=== PATIENT | male | born 1960 | race Caucasian/White ===

== ENCOUNTER 2022-12-09 11:20 | Inpatient (IN) | payer BC, SELFPAY ==
[2022-12-09] VITALS (24 sets, daily range): BP systolic 120–130; BP diastolic 67–81; PULSE 93–118; RESP 18–33; TEMP 36.7–39.3; O2SAT 88–97; BMI 24.7; BMI 25.3
--- NOTE | 2022-12-09 11:44 | ECG_ITS ---
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
--- NOTE | 2022-12-09 11:44 | XR_ITS ---
The [address] [address] Patient Name: HIMANSHU ROSALES MRN: [id number] date: 1960 Sex: M Assigned Patient Location: ER Current Patient Location: ER Accession/Order Number: [id number] Exam Date: 12/09/2022 12:08 Report Date: 12/09/2022 12:21 At the request of: ARSEN KILLIAN Procedure: XR chest 1V EXAM: XR chest 1V HISTORY: SOB COMPARISON: None. TECHNIQUE: Single AP view of the chest. FINDINGS: Large airspace opacity in the left upper and mid lung field. No pleural effusion or pneumothorax. The cardiomediastinal silhouette is unremarkable. No acute osseous or soft tissue abnormality. XR/XR chest 1V IMPRESSION: 1. Large left upper pneumonia. Posttherapeutic radiographic follow-up is recommended. Electronically authenticated by: LANDON MOODY Date: 12/09/2022 12:21
--- NOTE | 2022-12-09 11:48 | ED_ITS ---
HPI - SOB/Dyspnea General Chief Complaint: Shortness of Breath/Dyspnea Stated Complaint: SOB/DIFFICULTY BREATHING Time Seen by Provider: 12/09/22 11:33 Source: patient Mode of arrival: Wheelchair History of Present Illness HPI Narrative: 62-year-old male presents for cough and shortness of breath. He's had this for a week and was noted to have a fever here at triage. He had been seen at an urgent care and was put on some steroids and some cough medicine and an inhaler. He states his steroids made him worse and he stopped them he doesn't want anymore. No hemoptysis or vomiting. Related Data Home Medications Medication Instructions Recorded Confirmed albuterol sulfate 90 mcg/actuation 2 puff inhalation Q4H PRN 12/09/22 12/09/22 aerosol inhaler shortness of breath or wheezing rytiwdeenrmsqyk-pdrtnbfbzhnjzkj-HD 10 ml PO Q6H PRN cold symptoms 12/09/22 12/09/22 2 mg-30 mg-10 mg/5 mL oral syrup methylprednisolone 4 mg tablets in 4 mg PO DAILY 12/09/22 12/09/22 a dose pack Allergies Allergy/AdvReac Type Severity Reaction Status Date / Time No Known Drug Allergies Allergy Verified 12/09/22 11:34 Review of Systems ROS Narrative A ten point review of systems is negative except as noted above. Exam Narrative Exam Narrative: Nurses note and vital signs reviewed and patient is not hypoxic. General: The patient appears to be in no acute respiratory distress Skin: Warm, dry, no pallor noted. There is no rash noted. Head: Normocephalic, atraumatic Eye: Normal conjunctiva, no drainage Ears, Nose, Mouth, and Throat: oral mucosa is moist. Nares patent. Cardiovascular: Regular Rate and Rhythm Respiratory: Patient with bilateral rhonchi Back: non-tender GI: soft and nontender Musculoskeletal: The patient has no evidence of calf tenderness, no pitting edema, symmetrical pulses noted bilaterally Neurological: A&O, normal speech, heart is here Psychiatric: Cooperative Constitutional Vital Signs, click to edit/add: Last Vital Signs Temp 100.1 F 12/09/22 11:25 Pulse 118 H 12/09/22 11:25 Resp 26 H 12/09/22 11:25 BP 130/81 12/09/22 11:25 Pulse Ox 95 12/09/22 11:39 O2 Del Method Room Air 12/09/22 11:39 Course Vital Signs Vital signs: Vital Signs Temperature 100.1 F 12/09/22 11:25 Pulse Rate 118 H 12/09/22 11:25 Respiratory Rate 26 H 12/09/22 11:25 Blood Pressure 130/81 12/09/22 11:25 Pulse Oximetry 94 L 12/09/22 11:25 Oxygen Delivery Method Room Air 12/09/22 11:25 Temperature 100.1 F 12/09/22 11:25 Pulse Rate 118 H 12/09/22 11:25 Respiratory Rate 26 H 12/09/22 11:25 Blood Pressure 130/81 12/09/22 11:25 Pulse Oximetry 95 12/09/22 11:39 Oxygen Delivery Method Room Air 12/09/22 11:39 MDM - SOB/Dyspnea MDM Narrative Medical decision making narrative: large infiltrate consistent with pneumonia is identified. Blood cultures are obtained and he was given IV antibiotic. He is being admitted. Findings are discussed with the patient and his . Differential Diagnosis Differential diagnosis: Likely congestive heart failure and community acquired pneumonia Lab Data Attestation: I reviewed the patient's lab results. Labs: Lab Results 12/09/22 12/09/22 Range/Units 11:57 11:58 WBC 7.7 (4.0-11.0) 10^3/uL RBC 4.67 L (4.70-6.10) 10^6/uL Hgb 15.3 (14.0-18.0) g/dL Hct 43.0 (42.0-54.0) % MCV 92.1 (80.0-94.0) fL MCH 32.8 (25.9-34.0) pg MCHC 35.6 H (29.9-35.2) g/dL RDW 13.3 (11.0-15.0) % Plt Count 285 (150-450) 10^3/uL MPV 10.0 (9.5-13.5) fL Neut % (Auto) 86.0 H (43.0-75.0) % Lymph % (Auto) 7.2 L (20.5-60.0) % [place] % (Auto) 4.7 (1.7-12.0) % Eos % (Auto) 0.4 L (0.9-7.0) % Baso % (Auto) 0.5 (0.2-2.0) % Neut # (Auto) 6.6 H (1.4-6.5) 10^3/uL Lymph # (Auto) 0.6 L (1.2-3.8) 10^3/uL [place] # (Auto) 0.4 (0.3-0.8) 10^3/uL Eos # (Auto) 0.0 (0.0-0.7) 10^3/uL Baso # (Auto) 0.0 (0.0-0.1) 10^3/uL Abs Immat Gran (auto) 0.09 H (0.00-0.03) 10^3/uL Imm/Tot Granulo (auto) 1.2 H (0.0-0.5) % Sodium 125 L (136-145) mmol/L Potassium 3.6 (3.5-5.1) mmol/L Chloride 91 L (98-107) mmol/L Carbon Dioxide 24.8 (21.0-32.0) mmol/L Anion Gap 12.8 BUN 14.0 (7.0-18.0) mg/dL Creatinine 0.92 (0.70-1.30) mg/dL Est GFR ( Amer) >60 (>=60) Est GFR (Non-Af Amer) >60 (>=60) BUN/Creatinine Ratio 15.2 Glucose 96 (74-106) mg/dL Calcium 8.3 L (8.5-10.1) mg/dL SARS-CoV-2 (PCR) Negative (NEGATIVE) Imaging Data Chest x-ray: Radiologist's impression: Procedure: XR chest 1V EXAM: XR chest 1V HISTORY: SOB COMPARISON: None. TECHNIQUE: Single AP view of the chest. FINDINGS: Large airspace opacity in the left upper and mid lung field. No pleural effusion or pneumothorax. The cardiomediastinal silhouette is unremarkable. No acute osseous or soft tissue abnormality. IMPRESSION: 1. Large left upper pneumonia. Posttherapeutic radiographic follow-up is recommended. Electronically authenticated by: LANDON MOODY Date: 12/09/2022 12:21 ECG Data Attestation: I personally reviewed and interpreted this ECG as follows: (EKG on my interpretation shows sinus rhythm with a rate of 105.) Discharge Plan Discharge Chief Complaint: Shortness of Breath/Dyspnea Clinical Impression: Pneumonia Patient Disposition: Admitted As Inpatient Time of Disposition Decision: 12:35 Condition: Good Prescriptions / Home Meds: No Action albuterol sulfate 90 mcg/actuation HFA aerosol inhaler 2 puff INHALATION Q4H PRN (Reason: shortness of breath or wheezing) xeykiidvdukhjqh-jetdmwdyd-OP 2-30-10 mg/5 mL syrup 10 ml PO Q6H PRN (Reason: cold symptoms) methylprednisolone 4 mg tablets,dose pack 4 mg PO DAILY Referrals: Physician,Non-Staff, MD [Primary Care Provider] - 1 week
[2022-12-09 12:08] LABS: Basophils Percent Auto 0.5 % (0.2-2.0); Eosinophils Percent Auto 0.4 % (0.9-7.0); Hemoglobin 15.3 g/dL (14.0-18.0); Immature Granulocytes Abs Auto 0.09 10^3/uL (0.00-0.03); Immature Granulocytes Pct Auto 1.2 % (0.0-0.5); Lymphocytes Absolute Auto 0.6 10^3/uL (1.2-3.8); Lymphocytes Percent Auto 7.2 % (20.5-60.0); Mean Corpuscular HGB Conc 35.6 g/dL (29.9-35.2); Mean Corpuscular Hemoglobin 32.8 pg (25.9-34.0); Mean Corpuscular Volume 92.1 fL (80.0-94.0); Monocytes Absolute Auto 0.4 10^3/uL (0.3-0.8); Monocytes Percent Auto 4.7 % (1.7-12.0); Neutrophils Absolute Auto 6.6 10^3/uL (1.4-6.5); Platelet Count 285 10^3/uL (150-450); Red Blood Count 4.67 10^6/uL (4.70-6.10); Red Cell Distribution Width 13.3 % (11.0-15.0); White Blood Count 7.7 10^3/uL (4.0-11.0)
[2022-12-09 12:17] LABS: Anion Gap 12.8; BUN Creatinine Ratio 15.2; Calcium 8.3 mg/dL (8.5-10.1); Carbon Dioxide 24.8 mmol/L (21.0-32.0); Chloride 91 mmol/L (98-107); Estimated GFR (African America >60 (>=60); Estimated GFR (Non-African Ame >60 (>=60); Glucose 96 mg/dL (74-106); Potassium 3.6 mmol/L (3.5-5.1); Sodium 125 mmol/L (136-145)
[2022-12-09 12:18] LABS: SARS-CoV-2 Ag NEGATIVE (NEGATIVE)
[2022-12-09] MEDS: ALBUTEROL SULFATE 2.5 MG/3 ML VIAL NEB IH (12:52)
[2022-12-09] MEDS: CEFTRIAXONE 1,000 MG in 0.9 % SODIUM CHLORIDE 50 ML 100 MG IV ×2 (12:59→16:16)
[2022-12-09 13:01] LABS: Lactate/Lactic Acid 1.1 mmol/L (0.4-2.0)
[2022-12-09] MEDS: ACETAMINOPHEN 325 MG TABLET 650 MG PO ×3 (13:03→21:06)
[2022-12-09] MEDS: AZITHROMYCIN 500 MG in 0.9 % SODIUM CHLORIDE 250 ML 250 MG IV (13:33)
[2022-12-09] MEDS: KETOROLAC TROMETHAMINE 30 MG/ML VIAL IVP ×2 (13:54→21:07)
--- NOTE | 2022-12-09 15:05 | CT_ITS ---
[address] [address] Patient Name: HIMANSHU ROSALES MRN: [id number] date: 1960 Sex: M Assigned Patient Location: MS Current Patient Location: Accession/Order Number: [id number] Exam Date: 12/09/2022 15:25 Report Date: 12/09/2022 15:58 At the request of: KEEGAN WANG Procedure: CT chest w con EXAM: CT chest w con; [id number] REASON FOR EXAM: L opacity, recent weight loss, heavy smoker TECHNIQUE: Helical CT images of the chest were obtained without contrast. Multiplanar reformats and maximum intensity projection images were generated at the scanner. Dose reduction technique used: Automated exposure control and/or adjustment of the mA and/or kV according to patient size and/or use of iterative reconstruction technique. COMPARISON: Same day chest x-ray. FINDINGS: Note: Compared with contrasted CT exams, noncontrast images are less sensitive for the detection of various types of soft tissue, solid organ, and vascular pathologies. Chest: Support devices: None. Visualized Thyroid: No nodules. Chest wall: Within normal limits. [place]/mediastinum/esophagus: No mass. Thoracic lymph nodes: Mild mediastinal and left hilar adenopathy. For example, AP window lymph node measuring 8 mm short axis (series 3 image 43). Heart and vasculature: -No pericardial effusion or aortic aneurysm. -Moderate coronary artery calcifications. Visualized portions of the upper abdomen: Within normal limits. Musculoskeletal: No acute abnormality or suspicious osseous lesion. Lungs/airways: -Moderate consolidation with groundglass opacification of the left upper lobe with air bronchograms. -Minimal bibasilar atelectasis. -No significant emphysema. -The central airways are patent. Pleura: No pleural effusion or pneumothorax. CT/CT chest w con IMPRESSION: 1. Moderate left upper lobe consolidation. Appearance favors pneumonia, however, superimposed lung mass cannot be ruled out. Recommend follow-up noncontrast chest CT in 4-8 weeks for further evaluation. 2. Mild mediastinal and left hilar adenopathy, favored to be reactive, however, lymph node metastases cannot be ruled out. Electronically authenticated by: TYREE STOVALL Date: 12/09/2022 15:58
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
[2022-12-09 15:44] LABS: SARS-CoV-2 NAA NOT DETECTED (NOT DETECTE)
[2022-12-09] MEDS: 0.9 % SODIUM CHLORIDE 1,000 ML 125 ML IV (15:51)
[2022-12-09] MEDS: NICOTINE 21 MG PATCH TD (15:52)
[2022-12-09] MEDS: ENOXAPARIN SODIUM 40 MG/0.4 ML SYRINGE SUBQ (15:52)
[2022-12-09] MEDS: ALPRAZOLAM 0.25 MG TABLET PO (15:52)
[2022-12-09] MEDS: PANTOPRAZOLE SODIUM 40 MG VIAL IV (15:52)
[2022-12-09] MEDS: GUAIFENESIN 600 MG TAB.ER.12H PO (21:07)
[2022-12-09] MEDS: IPRATROPIUM/ALBUTEROL SULFATE 3 ML AMPUL.NEB IH (21:39)
[2022-12-10] VITALS (25 sets, daily range): BP systolic 96–139; BP diastolic 56–79; PULSE 87–106; RESP 18–26; TEMP 36.6–38.2; O2SAT 87–98
[2022-12-10] MEDS: 0.9 % SODIUM CHLORIDE 1,000 ML 125 ML IV ×3 (00:26→20:08)
[2022-12-10] MEDS: ACETAMINOPHEN 325 MG TABLET 650 MG PO ×3 (04:29→23:00)
--- NOTE | 2022-12-10 05:04 | RESP.RT ---
decreased down to 2L
[2022-12-10 05:34] LABS: Basophils Percent Auto 0.5 % (0.2-2.0); Eosinophils Percent Auto 0.5 % (0.9-7.0); Hematocrit 37.3 % (42.0-54.0); Hemoglobin 13.2 g/dL (14.0-18.0); Immature Granulocytes Abs Auto 0.05 10^3/uL (0.00-0.03); Immature Granulocytes Pct Auto 0.6 % (0.0-0.5); Lymphocytes Absolute Auto 0.8 10^3/uL (1.2-3.8); Lymphocytes Percent Auto 9.8 % (20.5-60.0); Mean Corpuscular HGB Conc 35.4 g/dL (29.9-35.2); Mean Corpuscular Hemoglobin 32.3 pg (25.9-34.0); Mean Corpuscular Volume 91.2 fL (80.0-94.0); Mean Platelet Volume 9.9 fL (9.5-13.5); Monocytes Absolute Auto 0.5 10^3/uL (0.3-0.8); Monocytes Percent Auto 6.4 % (1.7-12.0); Neutrophils Absolute Auto 6.7 10^3/uL (1.4-6.5); Neutrophils Percent Auto 82.2 % (43.0-75.0); Platelet Count 316 10^3/uL (150-450); Red Blood Count 4.09 10^6/uL (4.70-6.10); Red Cell Distribution Width 13.4 % (11.0-15.0); White Blood Count 8.1 10^3/uL (4.0-11.0)
[2022-12-10 06:20] LABS: Alanine Aminotransferase 84 U/L (16-63); Albumin Globulin Ratio 0.4; Albumin Level 1.8 g/dL (3.4-5.0); Alkaline Phosphatase 144 U/L (46-116); Anion Gap 11.9; Aspartate Amino Transferase 71 U/L (15-37); BUN Creatinine Ratio 13.1; Bilirubin Total 0.3 mg/dL (0.2-1.0); Calcium 7.7 mg/dL (8.5-10.1); Carbon Dioxide 24.3 mmol/L (21.0-32.0); Chloride 97 mmol/L (98-107); Estimated GFR (African America >60 (>=60); Estimated GFR (Non-African Ame >60 (>=60); Globulin 4.1 g/dL; Glucose 115 mg/dL (74-106); Potassium 3.2 mmol/L (3.5-5.1); Sodium 130 mmol/L (136-145); Total Protein 5.9 g/dL (6.4-8.2)
--- NOTE | 2022-12-10 08:16 | US_ITS ---
The [place] [id number] Patient Name: HIMANSHU ROSALES MRN: [id number] date: 1960 Sex: M Assigned Patient Location: MS Current Patient Location: MS Accession/Order Number: [id number] Exam Date: 12/10/2022 09:04 Report Date: 12/10/2022 09:31 At the request of: ALEXANDRE PEREZ Procedure: US right upper quadrant US right upper quadrant, 12/10/2022 9:04 AM EDT, [place]001 INDICATION: elevated LFT's COMPARISON: None available at the time of dictation. TECHNIQUE: Real time ultrasonic examination of the gallbladder was performed. Color Doppler imaging was also performed. FINDINGS: PANCREAS: No pancreatic mass or enlargement is noted in the images obtained. LIVER: The liver is normal in size. There are no focal lesions in the images obtained. There is normal echogenicity. There is hepatopetal flow in the portal vein. BILIARY SYSTEM: There is no evidence of calculi or gallbladder wall thickening. The common duct measures 2 mm. RIGHT KIDNEY: The kidney is normal in size. There is no hydronephrosis. US/US right upper quadrant IMPRESSION: Unremarkable right upper quadrant sonogram. Electronically authenticated by: DANIEL CARVAJAL Date: 12/10/2022 09:31
--- NOTE | 2022-12-10 08:17 | P.PN_ITS ---
Progress Note: Subjective Subjective Interval history: since admission yesterday patient says he's had an improvement in his cough. He still occasionally will get short of breath when moving just to the restroom. Patient is requiring oxygen but denies any chest pain. 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 Patient was awakened by nursing staff and the rhythm stopped. Patient denied having any shortness of breath or active chest p ain.patient was found to have a low potassium of 3.2 in which I gave 40 mEq at one time by mouth is also hypo-Nutri medic at 1:30, normal magnesium and normal thyroid that was ordered. Echocardiogram was also ordered and completed but awaiting read. No further episodes on telemetry. Only other complaint this morning was a headache by patient. Tried a dose of tramadol 50 mg ?1 given possible lung mass will also check a CT with of the head without contrast. is at bedside and notes that he has chronic headaches and takes Tylenol multiple times each day for his headaches. Exam Narrative Exam Narrative: General: Patient is alert, and oriented to person, place and time with normal affect, proper hygiene Skin: no visible rashes, or ulcers Head: atraumatic, acephalic Eyes: PERRLA, no nystagmus present, conjunctiva clear, no scleral icterus Neck: no masses palpated, normal thyroid, no JVD or audible carotid bruits Heart: Normal rate and rhythm, no murmurs/rubs/gallops Lungs: no audible wheezes, crackles and normal breath sounds all lung farley Abdomen: Normal audible bowel sounds, no distension, No palpable masses, no organomegaly, no rebound/guarding/ or rigidity Musculoskeletal: no swelling bilateral lower extremities Neuro: CN II-X grossly intact, normal sensation upper and lower extremities Constitutional Vital Signs, click to edit/add: Last Vital Signs Temp 98.3 F 12/10/22 05:56 Pulse 100 H 12/10/22 06:17 Resp 20 12/10/22 05:25 BP 102/65 12/10/22 05:25 Pulse Ox 97 12/10/22 06:17 O2 Del Method Nasal Cannula 12/10/22 05:04 O2 Flow Rate 2 12/10/22 05:25 Progress Note: Objective Labs Labs: Short CBC 12/09/22 12/10/22 Range/Units 11:57 04:57 WBC 7.7 8.1 (4.0-11.0) 10^3/uL Hgb 15.3 13.2 L (14.0-18.0) g/dL Hct 43.0 37.3 L (42.0-54.0) % Plt Count 285 316 (150-450) 10^3/uL BMP 12/09/22 12/10/22 11:57 04:57 Sodium 125 L 130 L Potassium 3.6 3.2 L Chloride 91 L 97 L Carbon Dioxide 24.8 24.3 BUN 14.0 11.0 Creatinine 0.92 0.84 Glucose 96 115 H Calcium 8.3 L 7.7 L Liver Function 12/10/22 Range/Units 04:57 Total Bilirubin 0.3 (0.2-1.0) mg/dL AST 71 H (15-37) U/L ALT 84 H (16-63) U/L Alkaline Phosphatase 144 H (46-116) U/L Albumin 1.8 L (3.4-5.0) g/dL Progress Note: A&P Assessment and Plan (1) Pneumonia: Assessment and Plan: chest x-ray consistent with a left upper lobe pneumonia, continue Zithromax 500 mg IV daily, Rocephin to 2 g IV daily. Olopatadine therapy and scheduled DuoNeb's every 6 hours. Titrate oxygen to maintain saturations greater than ninety percent. CT of the chest still shows probable infection but mass cannot be excluded with some hilar lymphadenopathy that appeears reactive from the pneumonia. Patient does have a long history of smoking but was febrile on admission will treat as infection until proven otherwise. Qualifiers: Laterality: left Lung location: upper lobe of lung Pneumonia type: due to unspecified organism Qualified Code(s): J18.9 - Pneumonia, unspecified organism (2) Acute respiratory failure with hypoxemia: Assessment and Plan: continue to treat pneumonia and monitor (3) Lung neoplasm: Assessment and Plan: still in differential and if opacity in the left upper lobe does not improve with antibiotics and treatment may require further imaging and outpatient workup (4) Chronic GERD: Assessment and Plan: continue IV Protonix (5) Tobacco use disorder, severe, dependence: Assessment and Plan: continue nicotine patch no desire to quit at this time (6) Headache: Assessment and Plan: acute vs chronic, try Tramadol for pain as needed, check CT of head without contrast (7) SVT (supraventricular tachycardia): Assessment and Plan: could be from hypokalemia, hyponatremia, replaced potassium and continue fluids, monitor on telemetry. (8) Elevated LFTs: Assessment and Plan: RUQ ultrasound was negative today. could be chronic tylenol use, history of drinking. (9) Hyponatremia: Assessment and Plan: continue IVF, monitor daily (10) Hypokalemia: Assessment and Plan: given 40mEQ once, recheck with morning labs Plan full code lovenox for DVT prophylaxis
--- NOTE | 2022-12-10 08:30 | PC.NURSE ---
RN was notified by ICU that patient was having vtach . Nurse noted a wide qrs complex on the monitor. RN went into patients room and on entrance patient was sleeping. RN gently tapped patient to wake him, he startled and then immediately came out of the arrhythmia. RN was on the phone with the clinical tech the whole time. Patient was alert and oriented as he woke. Was asymptomatic. Patient complained about people waking him up constantly. RN exited room and noah texted the physician to let her know of the episode. Also informed her that his potassium was 3.2. She placed orders in the computer.
--- NOTE | 2022-12-10 08:48 | CA_ITS ---
Patient: HIMANSHU ROSALES Exam Date: 12/10/2022 : 1960 Gender:M Ordering : ALEXANDRE PEREZ . Admission #: [id number] Family : SURESH RICHARD Order #: [id number] CLICK HERE TO VIEW EXAM ECHOCARDIOGRAM REPORT PROCEDURE: CA ECHO DOPPLER COMPLETE INDICATIONS: episode of wide tachycardia COMPARISON: None. DESCRIPTION: COMPLETE ECHOCARDIOGRAM Real-time transthoracic echocardiography with 2D, M-mode, spectral and color flow Doppler performed. QUALITY: Technical quality was good. LEFT VENTRICLE: Normal chamber size. Left ventricular wall thickness is normal. LV EF: Global left ventricular systolic function is normal. Calculated left ventricular ejection fraction is 65%. DIASTOLIC: Normal diastolic function. ATRIAL SEPTUM: Inadequately seen. LEFT ATRIUM: Normal chamber size. RIGHT ATRIUM: Normal chamber size. RIGHT VENTRICLE: Normal chamber size. Normal right ventricular systolic function. TRICUSPID VALVE: Normal mobility and thickness. No stenosis with trivial regurgitation. No evidence of pulmonary hypertension. RVSP 28mmHg MITRAL VALVE: Normal mobility and thickness. No evidence of mitral valve stenosis. There is no mitral annular calcification. Trivial mitral regurgitation. AORTIC VALVE: Normal trileaflet appearance. No visible sclerosis. Normal leaflet mobility. No evidence of aortic valve stenosis. Trivial aortic regurgitation. AORTIC ROOT: Normal diameter and appearance. PULMONIC VALVE: Normal thickness and mobility. No stenosis. No regurgitation. PERICARDIUM: No evidence of pericardial effusion. IVC: Collapses with inspirations. Normal size. CONCLUSION: 1. Global left ventricular systolic function is normal; visually estimated ejection fraction 60 to 65% 2. Normal diastolic function 3. The right ventricle is normal in size and systolic function 4. No significant valvular abnormalities Adult Echocardiography Procedure Report Left Ventricle LVEDD (3.7 - 5.6 cm): 4.86 cm LVESD (2.2 - 4.0 cm): 3.59 cm LVIVS thickness (0.6 - 1.2 cm): 0.96 cm LVPW thickness (0.5 - 1.0 cm): 0.93 cm e': 0.15 m/s E - e': 5.86 LVOT Max Gradient: 3.13 mm[Hg], 3.50 mm[Hg] LVOT Area (cm2): 0.91 m/s Peak Velocity (LVOT): 0.89 m/s, 0.94 m/s Mean Velocity (LVOT): 0.68 m/s LVOT Diameter 2.23 cm Left Ventricular Ejection Fraction: 65.34 % Left Atrium LA Volume Index (2D A2C): 32.00 ml/m2 Left Atrium Systolic Dimension: 3.37 cm Mitral Valve MV E to A Ratio: 1.02 Mitral Valve A-Wave Peak Velocity: 0.86 m/s Mitral Valve E-Wave Peak Velocity: 0.87 m/s Right Ventricle RV Internal Diastolic Dimension: 3.31 cm Aorta AO Root Diam: 2.85 cm Ascending Ao Diam: 2.70 cm Aortic Valve AoV Area (Peak Angel Luis): 2.31 cm2, 2.93 cm2, 2.17 cm2 AoV Area (VTI): 2.26 cm2, 3.01 cm2, 2.09 cm2 Peak Velocity(Antegrade Flow): 1.18 m/s, 1.68 m/s, 1.76 m/s Peak Gradient(Antegrade Flow): 5.58 mm[Hg], 11.35 mm[Hg], 12.35 mm[Hg] Mean Velocity(Antegrade Flow): 0.80 m/s, 1.19 m/s, 1.25 m/s Mean Gradient(Antegrade Flow): 2.99 mm[Hg], 6.47 mm[Hg], 7.04 mm[Hg] Velocity Time Integral: 22.48 cm, 31.34 cm, 34.53 cm Tricuspid Valve Peak Velocity (Regurgitant Flow): 2.00 m/s, 2.48 m/s Pulmonic Valve Mean Gradient: 2.39 mm[Hg], 2.75 mm[Hg] Mean Velocity: 0.72 m/s, 0.78 m/s Peak Velocity: 1.07 m/s Peak Gradient: 4.49 mm[Hg], 4.73 mm[Hg] Right Atrium Right Atrium Systolic Pressure: 69.32 ml, 69.32 ml Dictated by: Rivka Britton M.D. on 12/10/2022 at 16:16 Approved by: Rivka Britton M.D. on 12/10/2022 at 16:20
[2022-12-10 09:15] LABS: Magnesium 1.8 mg/dL (1.8-2.4)
[2022-12-10] MEDS: GUAIFENESIN 600 MG TAB.ER.12H PO ×2 (09:18→20:14)
[2022-12-10] MEDS: POTASSIUM CHLORIDE 10 MEQ ER TABLET 40 MEQ PO (09:18)
--- NOTE | 2022-12-10 09:41 | CM.NOTE ---
Rounds made with Dr. Larson, discussed with pt plan of care and testing for today. No discharge today.
[2022-12-10] MEDS: TRAMADOL HCL 50 MG TABLET PO ×2 (10:57→23:00)
--- NOTE | 2022-12-10 12:44 | CT_ITS ---
[address] [address] Patient Name: HIMANSHU ROSALES MRN: [id number] date: 1960 Sex: M Assigned Patient Location: [place] Current Patient Location: [place] Accession/Order Number: [id number] Exam Date: 12/10/2022 13:00 Report Date: 12/10/2022 13:55 At the request of: ALEXANDRE PEREZ Procedure: CT stroke head/brain wo con EXAM: CT stroke head/brain wo con HISTORY: Headache, smoker, possible lung mass. COMPARISON: None. TECHNIQUE: Unenhanced transaxial tomographic sections obtained from the vertex through the posterior fossa. Dose reduction techniques were achieved by using automated exposure control and/or adjustment of mA and/or kV according to patient size and/or use of iterative reconstruction technique. FINDINGS: Diminished attenuation right frontal lobe, likely related to encephalomalacia from prior vascular insult. Microvascular ischemic changes of the bilateral frontal lobes. No midline shift, mass effect, or intracranial hemorrhage are identified. The mastoid air cells and the visualized paranasal sinuses are clear. CT/CT stroke head/brain wo con IMPRESSION: 1. Encephalomalacia involving the right frontal lobe, likely related to prior vascular insult. Chronic microvascular ischemic changes of the bilateral frontal lobes. 2. If there remains clinical concern for intracranial metastatic disease, dedicated MRI is recommended for further assessment. Electronically authenticated by: VITALY AGUILERA Date: 12/10/2022 13:55
[2022-12-10] MEDS: CEFTRIAXONE 2,000 MG in 0.9 % SODIUM CHLORIDE 100 ML 200 MG IV (14:28)
[2022-12-10] MEDS: ENOXAPARIN SODIUM 40 MG/0.4 ML SYRINGE SUBQ (16:06)
[2022-12-10] MEDS: NICOTINE 21 MG PATCH TD (16:06)
[2022-12-10] MEDS: AZITHROMYCIN 500 MG in 0.9 % SODIUM CHLORIDE 250 ML 250 MG IV (16:07)
[2022-12-10] MEDS: PANTOPRAZOLE SODIUM 40 MG VIAL IV (16:07)
[2022-12-10] MEDS: ALPRAZOLAM 0.25 MG TABLET PO ×2 (16:10→23:00)
--- NOTE | 2022-12-10 19:23 | RESP.RT ---
decreased down to 1L
[2022-12-10] MEDS: IPRATROPIUM/ALBUTEROL SULFATE 3 ML AMPUL.NEB IH (19:38)
[2022-12-11] VITALS (24 sets, daily range): BP systolic 104–135; BP diastolic 65–86; PULSE 76–110; RESP 18–20; TEMP 36.5–36.8; O2SAT 84–98; BMI 25.3
[2022-12-11] MEDS: 0.9 % SODIUM CHLORIDE 1,000 ML 125 ML IV (03:02)
[2022-12-11] MEDS: IPRATROPIUM/ALBUTEROL SULFATE 3 ML AMPUL.NEB IH ×4 (04:47→20:21)
--- NOTE | 2022-12-11 04:47 | RESP.RT ---
decreased down to 2L
[2022-12-11 05:12] LABS: Basophils Absolute Auto 0.1 10^3/uL (0.0-0.1); Basophils Percent Auto 0.7 % (0.2-2.0); Eosinophils Absolute Auto 0.3 10^3/uL (0.0-0.7); Eosinophils Percent Auto 3.9 % (0.9-7.0); Hematocrit 36.6 % (42.0-54.0); Hemoglobin 12.5 g/dL (14.0-18.0); Immature Granulocytes Abs Auto 0.04 10^3/uL (0.00-0.03); Immature Granulocytes Pct Auto 0.6 % (0.0-0.5); Lymphocytes Absolute Auto 1.2 10^3/uL (1.2-3.8); Mean Corpuscular HGB Conc 34.2 g/dL (29.9-35.2); Mean Corpuscular Hemoglobin 31.6 pg (25.9-34.0); Mean Corpuscular Volume 92.4 fL (80.0-94.0); Mean Platelet Volume 9.7 fL (9.5-13.5); Monocytes Absolute Auto 0.5 10^3/uL (0.3-0.8); Monocytes Percent Auto 7.6 % (1.7-12.0); Neutrophils Percent Auto 70.2 % (43.0-75.0); Platelet Count 371 10^3/uL (150-450); Red Blood Count 3.96 10^6/uL (4.70-6.10); Red Cell Distribution Width 13.9 % (11.0-15.0); White Blood Count 7.1 10^3/uL (4.0-11.0)
[2022-12-11 05:31] LABS: Alanine Aminotransferase 74 U/L (16-63); Albumin Level 1.8 g/dL (3.4-5.0); Alkaline Phosphatase 141 U/L (46-116); Aspartate Amino Transferase 60 U/L (15-37); BUN Creatinine Ratio 10.3; Bilirubin Total 0.2 mg/dL (0.2-1.0); Calcium 7.8 mg/dL (8.5-10.1); Carbon Dioxide 25.4 mmol/L (21.0-32.0); Chloride 103 mmol/L (98-107); Estimated GFR (African America >60 (>=60); Estimated GFR (Non-African Ame >60 (>=60); Glucose 125 mg/dL (74-106); Potassium 3.4 mmol/L (3.5-5.1); Sodium 138 mmol/L (136-145); Total Protein 5.8 g/dL (6.4-8.2)
[2022-12-11 05:32] LABS: Albumin Globulin Ratio 0.5
--- NOTE | 2022-12-11 06:00 | XR_ITS ---
The [address] [address] Patient Name: HIMANSHU ROSALES MRN: [id number] date: 1960 Sex: M Assigned Patient Location: [place] Current Patient Location: [place] Accession/Order Number: [id number] Exam Date: 12/11/2022 06:05 Report Date: 12/11/2022 06:55 At the request of: ALEXANDRE PEREZ Procedure: XR chest 1V EXAMINATION: XR chest 1V HISTORY: CAP ; pneumonia COMPARISON: XR chest 12/09/2022 FINDINGS: LUNGS: Dense opacification filling the upper left lung region and extending inferiorly along the lateral chest wall. Right lung is clear. VASCULATURE: No increased pulmonary vasculature. PLEURA: No pneumothorax, effusion, or pleural thickening. CARDIAC: No cardiomegaly or cardiac silhouette abnormality. MEDIASTINUM: No visible mass or adenopathy. BONES: No fracture or visible bone lesion. OTHER: Negative. XR/XR chest 1V IMPRESSION: 1. Marked infiltrates within left lung, suspected to represent pneumonia, which have increased slightly. Follow-up to document clearing and exclude neoplasm is recommended. Electronically authenticated by: SEAN GREGORY Date: 12/11/2022 06:55
--- NOTE | 2022-12-11 08:45 | PM.PN ---
Progress Note: Subjective Subjective Interval history: patient denies any overnight events. States that he rested well last night. Denies any fevers chills nausea vomiting. Still with cough that is dry but says it has improved. He also notes improvement in his shortness of breath. CT scan of head showed no acute processes, discussed liver and right upper quadrant ultrasound which all show did not show any acute processes. Patient says headache did improve yesterday. Overall does feel improved since admission. Exam Narrative Exam Narrative: General: Patient is alert, and oriented to person, place and time with normal affect, proper hygiene Skin: no visible rashes, or ulcers Head: atraumatic, acephalic Eyes: PERRLA, no nystagmus present, conjunctiva clear, no scleral icterus Ears: normal gross auditory acuity Nose: symmetric, no discharge, no maxillary or frontal sinus tenderness Mouth/Throat: no erythema, exudate, or tonsillar enlargement, normal dentition Neck: no masses palpated, normal thyroid, no JVD or audible carotid bruits Heart: Normal rate and rhythm, no murmurs/rubs/gallops Lungs: no audible wheezes, crackles and normal breath sounds all lung farley Abdomen: Normal audible bowel sounds, no distension, No palpable masses, no organomegaly, no rebound/guarding/ or rigidity Musculoskeletal: no swelling bilateral lower extremities Vascular: Normal carotid, radial, femoral, posterior tibial, and dorsalis pedis pulses Lymph: no supraclavicular, axillary, or anterior/posterior cervical adenopathy Neuro: CN II-X grossly intact, normal sensation upper and lower extremities Constitutional Vital Signs, click to edit/add: Last Vital Signs Temp 98.2 F 12/11/22 03:52 Pulse 81 12/11/22 08:00 Resp 18 12/11/22 05:01 BP 104/65 12/11/22 03:52 Pulse Ox 98 12/11/22 06:00 O2 Del Method Nasal Cannula 12/11/22 05:01 O2 Flow Rate 2 12/11/22 05:01 Progress Note: Objective Labs Labs: Short CBC 12/11/22 Range/Units 04:56 WBC 7.1 (4.0-11.0) 10^3/uL Hgb 12.5 L (14.0-18.0) g/dL Hct 36.6 L (42.0-54.0) % Plt Count 371 (150-450) 10^3/uL BMP 12/11/22 04:56 Sodium 138 Potassium 3.4 L Chloride 103 Carbon Dioxide 25.4 BUN 7.0 Creatinine 0.68 L Glucose 125 H Calcium 7.8 L Liver Function 12/11/22 Range/Units 04:56 Total Bilirubin 0.2 (0.2-1.0) mg/dL AST 60 H (15-37) U/L ALT 74 H (16-63) U/L Alkaline Phosphatase 141 H (46-116) U/L Albumin 1.8 L (3.4-5.0) g/dL Progress Note: A&P Assessment and Plan (1) Pneumonia: Assessment and Plan: chest x-ray consistent with a left upper lobe pneumonia, was taking Zithromax 500 mg IV daily, Rocephin to 2 g IV daily. OPEP therapy and scheduled DuoNeb's every 6 hours. Titrate oxygen to maintain saturations greater than ninety percent. CT of the chest still shows probable infection but mass cannot be excluded with some hilar lymphadenopathy that appears reactive from the pneumonia. Patient does have a long history of smoking but was febrile on admission will treat as infection until proven otherwise. repeat chest x-ray on exam today shows worsening right upper lobe pneumonia, patient symptomatically about the same still requiring oxygen. Stop Zithromax and Rocephin and will place on Zosyn 3.375 g IV every eight hoursand Levaquin 750 mg IV daily, no leukocytosis this morning Qualifiers: Laterality: left Lung location: upper lobe of lung Pneumonia type: due to unspecified organism Qualified Code(s): J18.9 - Pneumonia, unspecified organism (2) Acute respiratory failure with hypoxemia: Assessment and Plan: secondary to #1, still requiring oxygen to maintain saturations greater than ninety percent (3) Acute hyponatremia: Assessment and Plan: continue IVF, monitor daily, 138 (4) Lung neoplasm: Assessment and Plan: still in differential and if opacity in the left upper lobe does not improve with antibiotics and treatment may require further imaging and outpatient workup (5) Chronic GERD: Assessment and Plan: continue IV Protonix (6) Tobacco use disorder, severe, dependence: Assessment and Plan: continue nicotine patch no desire to quit at this time (7) Elevated LFTs: Assessment and Plan: normal RUQ ultrasound. (8) Hypokalemia: Assessment and Plan: 3.4 today up from 3.2 (9) Headache: Assessment and Plan: resolved with tylenol, normal CT of the head Plan full code lovenox for DVT prophylaxis
[2022-12-11] MEDS: METHYLPREDNISOLONE SOD SUCC PF 40 MG/ML VIAL IVP ×2 (08:59→17:04)
[2022-12-11] MEDS: GUAIFENESIN 600 MG TAB.ER.12H PO ×2 (08:59→20:33)
--- NOTE | 2022-12-11 10:28 | CM.NOTE ---
Rounds made with Dr. Larson. No plan for discharge today.
--- NOTE | 2022-12-11 11:10 | SWNOTE1 ---
SW checked therapy note and pt has no needs at discharge.
[2022-12-11] MEDS: LEVOFLOXACIN IN DEXTROSE 5 % 750 MG/150 ML IV.SOLN 100 MG IV (11:28)
--- NOTE | 2022-12-11 12:00 | PT.DAILY ---
Physical Therapy Daily Note PT Daily Note/Assess Start: 12/11/22 11:39 Freq: Status: Active Protocol: Document 12/11/22 11:39 [id number] (Rec: 12/11/22 11:59 [id number] [id number]) Physical Therapy Daily Note/Assessment Time In/Time Out Time In 09:30 Time Out 10:05 Pain In Pain N/A Pain Out Pain N/A Subjective Subjective Supine upon arrival. Agrees to PT. Wishes to take a shower - after consult with nursing, ENVIRONMENTAL PROTECTION INSPECTOR agrees to assist with shower if needed. Therapeutic Exercise Time Therapeutic Exercise Minutes (minutes) 5 Therapeutic Exercise Units 0 Therapeutic Activity Time Therapeutic Activity Minutes (minutes) 30 Therapeutic Activity Units 2 Therapeutic Activity Treatment Bed Mobility Ability Independent Chair Transfer Ability Independent Therapeutic Activity Comments Supine>sit IND with increased time to complete. Pt sits EOB unsupported while nursing unhooks IV and wraps his IV port. Pt amb without AD to restroom 20' without LOB. SHower is set up for him with towels, soap, wash cloths, comb, and toothbrush/tooth paste. Pt showers IND without issues. ABle to carol and doff underwear but does need assistance with gown changes. After shower pt amb halls without AD 300' with SUP. Stair training 4 steps x 2 without use of HR. Standing ther ex complete in room at sink 5-10x ea to improve strength - 1 UE support needed . Remains in BS chair upon completion with call light in reach and needs met. Total Physical Therapy Time Total Therapy Minutes 35 Total Physical Therapy Units 2 Summary Daily Note Summary Goals met. IND with shower and amb safely in [place] without AD .
[2022-12-11] MEDS: PIPERACILLIN SODIUM/TAZOBACTAM 3.375 GM in 0.9 % SODIUM CHLORIDE 50 ML IV ×2 (13:03→20:35)
[2022-12-11] MEDS: PANTOPRAZOLE SODIUM 40 MG VIAL IV (17:03)
[2022-12-11] MEDS: NICOTINE 21 MG PATCH TD (17:03)
[2022-12-11] MEDS: ALPRAZOLAM 0.25 MG TABLET PO (20:33)
[2022-12-12] VITALS (9 sets, daily range): BP systolic 131; BP diastolic 87; PULSE 64–105; RESP 20; TEMP 36.4; O2SAT 90–93
[2022-12-12] MEDS: METHYLPREDNISOLONE SOD SUCC PF 40 MG/ML VIAL IVP ×2 (00:54→09:43)
[2022-12-12 04:49] LABS: Basophils Percent Auto 0.2 % (0.2-2.0); Hematocrit 40.4 % (42.0-54.0); Hemoglobin 13.9 g/dL (14.0-18.0); Immature Granulocytes Abs Auto 0.07 10^3/uL (0.00-0.03); Immature Granulocytes Pct Auto 0.7 % (0.0-0.5); Lymphocytes Absolute Auto 0.6 10^3/uL (1.2-3.8); Lymphocytes Percent Auto 5.9 % (20.5-60.0); Mean Corpuscular HGB Conc 34.4 g/dL (29.9-35.2); Mean Corpuscular Volume 92.9 fL (80.0-94.0); Mean Platelet Volume 9.7 fL (9.5-13.5); Monocytes Absolute Auto 0.3 10^3/uL (0.3-0.8); Monocytes Percent Auto 2.5 % (1.7-12.0); Neutrophils Absolute Auto 9.3 10^3/uL (1.4-6.5); Neutrophils Percent Auto 90.7 % (43.0-75.0); Platelet Count 477 10^3/uL (150-450); Red Blood Count 4.35 10^6/uL (4.70-6.10); Red Cell Distribution Width 13.8 % (11.0-15.0); White Blood Count 10.2 10^3/uL (4.0-11.0)
[2022-12-12] MEDS: PIPERACILLIN SODIUM/TAZOBACTAM 3.375 GM in 0.9 % SODIUM CHLORIDE 50 ML IV (04:54)
[2022-12-12 05:11] LABS: Alanine Aminotransferase 84 U/L (16-63); Albumin Globulin Ratio 0.5; Albumin Level 2.1 g/dL (3.4-5.0); Alkaline Phosphatase 163 U/L (46-116); Anion Gap 14.4; Aspartate Amino Transferase 56 U/L (15-37); BUN Creatinine Ratio 15.4; Bilirubin Total 0.2 mg/dL (0.2-1.0); Calcium 8.7 mg/dL (8.5-10.1); Carbon Dioxide 24.1 mmol/L (21.0-32.0); Chloride 103 mmol/L (98-107); Estimated GFR (African America >60 (>=60); Estimated GFR (Non-African Ame >60 (>=60); Globulin 4.5 g/dL; Glucose 159 mg/dL (74-106); Potassium 3.5 mmol/L (3.5-5.1); Sodium 138 mmol/L (136-145); Total Protein 6.6 g/dL (6.4-8.2)
[2022-12-12] MEDS: GUAIFENESIN 600 MG TAB.ER.12H PO (09:43)
[2022-12-12] MEDS: TRAMADOL HCL 50 MG TABLET PO (09:43)
--- NOTE | 2022-12-12 11:48 | PM.DS1 ---
DS: Providers Provider Date of admission: 12/09/22 14:50 Primary care physician: Non-Staff PhysicianMD Consults: 12/10/22 Physical Therapy Eval and Treat Routine Reason for consultation: weakness Attending physician on discharge: Shaikh Alexa Discharging clinician: Shaikh Alexa Anticipated date of discharge: 12/12/22 DS: Diagnosis Discharge Diagnosis (1) Pneumonia: Assessment and plan: Will d/c on oral Levaquin x 7 days Qualifiers: Laterality: left Lung location: upper lobe of lung Pneumonia type: due to unspecified organism Qualified Code(s): J18.9 - Pneumonia, unspecified organism (2) Acute respiratory failure with hypoxemia: Assessment and plan: Resolved. On RA. (3) Acute hyponatremia: Assessment and plan: Resolved (4) Lung neoplasm: Assessment and plan: Suspect Lung neoplasm - needs outpatient CT chest to document resolution (5) Chronic GERD: Assessment and plan: Unchanged (6) Tobacco use disorder, severe, dependence: Assessment and plan: Educated on smoking cessation (7) Elevated LFTs: Assessment and plan: Minimal elevation. US Abd is unremarkable. Monitor as outpatient (8) Hypokalemia: Assessment and plan: Resolved. (9) Headache: Assessment and plan: No sig intracranial pathology noted. DS: Summary Hospital Course Hospital Course: Patient admitted for acute resp failure with hypoxia sec to Pneumonia with possibility of underlying lung mass. He was initially treated with IV rcoephin/Azithromycin but continued to have respiratory difficulty with worsening infiltrate on subsequent XR that prompted a change in abx regimen to Levaquin/Zosyn. Patient seen today, walking in [place] with no evidence of resp difficulty. He is maintaining his sat above 95% on RA and except for feeling weak overall, has no active complaints to offer Patient will be discharge home on Oral Levaquin. He was educated on smoking cessation. He was made an appt with a PCP and he has an appt next week with his new PCP. Patient will need outpatient CT chest 4-6 weeks to document resolution of his Pneumonia as there is a high suspicion of underlying lung mass in the background due to his weight loss and smoking. Time spent discussing smoking cessation with patient: more than 10 minutes Status at Discharge Functional status at discharge: independent ambulation Overall status at discharge: patient is back to baseline Time Spent with Patient Time attestation: Total time spent providing and/or coordinating discharge services: Time spent: greater than 30 minutes Exam Constitutional Vital Signs, click to edit/add: Last Vital Signs Temp 97.5 F L 12/12/22 05:24 Pulse 87 12/12/22 09:56 Resp 20 12/12/22 08:00 BP 131/87 12/12/22 05:24 Pulse Ox 93 L 12/12/22 11:40 O2 Del Method Room Air 12/12/22 11:40 O2 Flow Rate 2 12/12/22 05:24 Documenting provider has reviewed patient's vital signs: yes Common normals: no apparent distress and oriented x3 General appearance: cooperative HENMT Common normals: normocephalic and head/scalp atraumatic Head and scalp: normocephalic and atraumatic Eye Common normals: conjunctivae normal and no scleral icterus Conjunctiva: conjunctiva(e) normal Respiratory Common normals: normal respiratory effort and clear to auscultation bilaterally Effort & inspection: able to speak in complete sentences Auscultation: clear to auscultation bilaterally Cardio Common normals: regular rate, S1 normal heart sound and S2 normal heart sound Rate: regular rate Heart sounds: S1 normal and S2 normal GI Common normals: Normal to inspection, nondistended, normoactive bowel sounds present, soft to palpation, non-tender and no hepatosplenomegaly Palpation: soft and no hepatosplenomegaly Extremity Common normals: no clubbing, cyanosis or edema Neuro Common normals: oriented x3, moves all extremities and no focal motor deficits Psych Common normals: mental status grossly normal, denies hallucinations, denies homicidal ideation and denies suicidal ideation DS: Data Data Completed and Pending Labs on day of discharge: Labs from last 24 hours 12/12/22 04:15 WBC 10.2 RBC 4.35 L Hgb 13.9 L Hct 40.4 L MCV 92.9 MCH 32.0 MCHC 34.4 RDW 13.8 Plt Count 477 H MPV 9.7 Neut % (Auto) 90.7 H Lymph % (Auto) 5.9 L [place] % (Auto) 2.5 Eos % (Auto) 0.0 L Baso % (Auto) 0.2 Neut # (Auto) 9.3 H Lymph # (Auto) 0.6 L [place] # (Auto) 0.3 Eos # (Auto) 0.0 Baso # (Auto) 0.0 Abs Immat Gran (auto) 0.07 H Imm/Tot Granulo (auto) 0.7 H Sodium 138 Potassium 3.5 Chloride 103 Carbon Dioxide 24.1 Anion Gap 14.4 BUN 10.0 Creatinine 0.65 L Est GFR ( Amer) >60 Est GFR (Non-Af Amer) >60 BUN/Creatinine Ratio 15.4 Glucose 159 H Calcium 8.7 Total Bilirubin 0.2 AST 56 H ALT 84 H Alkaline Phosphatase 163 H Total Protein 6.6 Albumin 2.1 L Globulin 4.5 Albumin/Globulin Ratio 0.5 Preliminary micro results at discharge 12/09/22 12:51 - Preliminary Blood NO GROWTH AT 36-48 HOURS. FINAL TO FOLLOW. 12/09/22 12:38 Blood Culture Result 1 - Preliminary Blood NO GROWTH AT 36-48 HOURS. FINAL TO FOLLOW. Discharge Plan Discharge Disposition: Home, Self-Care Condition: Good Discharge Medications: New levofloxacin 750 mg tablet 750 mg PO DAILY 7 Days Qty: 7 0RF benzonatate 100 mg capsule 100 mg PO BID PRN (Reason: cough) Qty: 10 0RF Continued albuterol sulfate 90 mcg/actuation HFA aerosol inhaler 2 puff INHALATION Q4H PRN (Reason: shortness of breath or wheezing) Discontinued [id number] 2-30-10 mg/5 mL syrup 10 ml PO Q6H PRN (Reason: cold symptoms) Hold Instructions: Doctor's Order methylprednisolone 4 mg tablets,dose pack 4 mg PO DAILY Activity: resume usual activities as tolerated Diet: advance to your usual diet Forms: Portal Instructions Follow Up Appointments: Follow-up with Dr. Riley Aden at [facility] December 17 @ 11:00am. [phone]
--- NOTE | 2022-12-15 15:47 | CM.DCFOLLOWU ---
Person spoke with:patient How are you feeling? slowly improving, still pretty tired, o2 stats dipped down to 88%, but recovered once resting How is your pain? no pain Did you understand your discharge instructions? yes Do you have any questions about your discharge instructions? no Were you given any prescriptions at discharge? yes Were you able to get your prescriptions filled? yes Do you understand how to take your medications as ordered? yes Do you have any questions about your follow up appointment and do you plan to keep your follow up appointment? no questions, his picking up packet from Dr. Yo office to fill out Is there anything else that you would like to discuss? no, pt was advised to return to ED if o2 stats get worse and he is not able to recover Questions/Comments/Concerns/Other:
== END 2022-12-12 12:16 | disposition home or self-care (01) | DRG 193 ==
LOC: ER 12:35 → MS 14:54
PROVIDERS: Admitting Provider Family Medicine; Emergency Provider Emergency Medicine; Visit Provider Internal Medicine
DX: J18.9 Pneumonia, unspecified organism (principal); J96.01 Acute respiratory failure with hypoxia; E87.1 Hypo-osmolality and hyponatremia; I47.1 Supraventricular tachycardia; D49.1 Neoplasm of unspecified behavior of respiratory system; E87.6 Hypokalemia; R51.9 Headache, unspecified; R94.5 Abnormal results of liver function studies; R63.4 Abnormal weight loss; K21.9 Gastro-esophageal reflux disease without esophagitis; F17.210 Nicotine dependence, cigarettes, uncomplicated; Z68.25 Body mass index [BMI] 25.0-25.9, adult; Z79.899 Other long term (current) drug therapy; Z88.5 Allergy status to narcotic agent; Z87.828 Personal history of other (healed) physical injury and trauma
CPT/HCPCS: 36415; 70450; 71045; 71260; 76705; 80048; 80053; 83605; 83735; 84443; 85025; 87040; 87070; 87635; 87811; 93005; 93306; 94640; 94667; 94668; 94761; 96365; 96366; 96367; 96368; 96372; 96375; 96376; 97161; 97530; 99285; J0456; J2920; Q9967; U0003

== ENCOUNTER 2022-12-17 15:45 | Emergency (ER) | payer BC, SELFPAY ==
[2022-12-17] VITALS (13 sets, daily range): BP systolic 127; BP diastolic 98; PULSE 84–103; RESP 11–34; TEMP 36.4; O2SAT 95–100; BMI 24.2
--- NOTE | 2022-12-17 15:57 | XR_ITS ---
The [address] [address] Patient Name: HIMANSHU ROSALES MRN: [id number] date: 1960 Sex: M Assigned Patient Location: ER Current Patient Location: ER Accession/Order Number: [id number] Exam Date: 12/17/2022 16:10 Report Date: 12/17/2022 16:29 At the request of: ARSEN KILLIAN Procedure: XR chest 1V EXAMINATION: XR chest 1V HISTORY: Chest pain and shortness of breath COMPARISON: None. TECHNIQUE: Portable chest FINDINGS: The lung parenchyma is free of consolidation or infiltrate. No pneumothorax or pleural effusion. The cardiac, mediastinal and hilar contours are normal. The visualized osseous structures exhibit no gross abnormality. XR/XR chest 1V IMPRESSION: No acute cardiopulmonary abnormality. Electronically authenticated by: CATHI WATKINS Date: 12/17/2022 16:29
--- NOTE | 2022-12-17 15:57 | ECG_ITS ---
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
--- NOTE | 2022-12-17 16:16 | ECG_ITS ---
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
[2022-12-17 16:17] LABS: Basophils Absolute Auto 0.1 10^3/uL (0.0-0.1); Basophils Percent Auto 0.7 % (0.2-2.0); Eosinophils Absolute Auto 0.2 10^3/uL (0.0-0.7); Eosinophils Percent Auto 2.1 % (0.9-7.0); Hematocrit 46.1 % (42.0-54.0); Hemoglobin 15.5 g/dL (14.0-18.0); Immature Granulocytes Abs Auto 0.05 10^3/uL (0.00-0.03); Immature Granulocytes Pct Auto 0.6 % (0.0-0.5); Lymphocytes Percent Auto 23.3 % (20.5-60.0); Mean Corpuscular HGB Conc 33.6 g/dL (29.9-35.2); Mean Corpuscular Hemoglobin 31.8 pg (25.9-34.0); Mean Corpuscular Volume 94.7 fL (80.0-94.0); Mean Platelet Volume 8.9 fL (9.5-13.5); Monocytes Absolute Auto 0.8 10^3/uL (0.3-0.8); Monocytes Percent Auto 9.6 % (1.7-12.0); Neutrophils Absolute Auto 5.6 10^3/uL (1.4-6.5); Neutrophils Percent Auto 63.7 % (43.0-75.0); Platelet Count 648 10^3/uL (150-450); Red Blood Count 4.87 10^6/uL (4.70-6.10); Red Cell Distribution Width 13.5 % (11.0-15.0); White Blood Count 8.7 10^3/uL (4.0-11.0)
[2022-12-17 16:26] LABS: Anion Gap 8.7; BUN Creatinine Ratio 17.7; Calcium 8.7 mg/dL (8.5-10.1); Carbon Dioxide 27.5 mmol/L (21.0-32.0); Chloride 100 mmol/L (98-107); Estimated GFR (African America >60 (>=60); Estimated GFR (Non-African Ame >60 (>=60); Glucose 101 mg/dL (74-106); Potassium 4.2 mmol/L (3.5-5.1); Sodium 132 mmol/L (136-145)
[2022-12-17] MEDS: ASPIRIN 81 MG TAB.CHEW 324 MG PO (16:30)
[2022-12-17] MEDS: NITROGLYCERIN 0.4 MG BOTTLE PO (16:30)
[2022-12-17 16:38] LABS: D Dimer 1.11 mg/L FEU (<=0.59)
[2022-12-17 16:51] LABS: Troponin I High Sensitivity 8.8 pg/mL (4.0-76.1)
[2022-12-17] MEDS: HEPARIN SODIUM (PORCINE) 5,000 UNIT/ML VIAL 4000 UNIT IV (16:51)
[2022-12-17] MEDS: HEPARIN SODIUM,PORCINE/D5W 25,000 UNIT/500 ML IV.SOLN 18.398 UNIT IV (16:52)
[2022-12-17] MEDS: CLOPIDOGREL BISULFATE 75 MG TABLET 600 MG PO (17:03)
== END 2022-12-17 17:20 | disposition short-term general hospital (02) ==
PROVIDERS: Emergency Provider Emergency Medicine
DX: I21.4 Non-ST elevation (NSTEMI) myocardial infarction (principal); Z79.899 Other long term (current) drug therapy; K21.9 Gastro-esophageal reflux disease without esophagitis; F17.210 Nicotine dependence, cigarettes, uncomplicated; Z98.890 Other specified postprocedural states
CPT/HCPCS: 36415; 71045; 80048; 84484; 85025; 85378; 93005; 96374; 99285

== ENCOUNTER 2022-12-23 12:32 | Outpatient (OUT) | payer BC, SELFPAY ==
[2022-12-23 13:08] LABS: Anion Gap 11.6; BUN Creatinine Ratio 30.4; Calcium 9.6 mg/dL (8.5-10.1); Carbon Dioxide 27.8 mmol/L (21.0-32.0); Chloride 100 mmol/L (98-107); Estimated GFR (African America >60 (>=60); Estimated GFR (Non-African Ame >60 (>=60); Glucose 91 mg/dL (74-106); Potassium 4.4 mmol/L (3.5-5.1); Sodium 135 mmol/L (136-145)
== END 2022-12-23 12:33 | disposition home or self-care (01) ==
LOC: LAB 12:36
PROVIDERS: Visit Provider Nurse Practitioner
DX: I25.10 Atherosclerotic heart disease of native coronary artery without angina pectoris (principal)
CPT/HCPCS: 36415; 80048

== ENCOUNTER 2023-01-12 09:50 | Outpatient (OUT) | payer BC, SELFPAY ==
--- NOTE | 2023-01-12 10:42 | CA_ITS ---
Patient: HIMANSHU ROSALES Exam Date: 01/12/2023 : 1960 Gender:M Ordering : ISABELL ANSARI Admission #: [id number] Family : Order #: [id number] CLICK HERE TO VIEW EXAM ECHOCARDIOGRAM REPORT PROCEDURE: CA ECHO LIMITED INDICATIONS: Acute combined systolic and diastolic heart failure COMPARISON: None. DESCRIPTION: Limited ECHOCARDIOGRAM Real-time transthoracic echocardiography with 2D and M-mode performed. QUALITY: Technical quality was good. LEFT VENTRICLE: Normal chamber size. Normal left ventricular wall thickness. LV EF: Global left ventricular systolic function is normal. Calculated left ventricular ejection fraction is 63%. No significant wall motion abnormalities. ATRIAL SEPTUM: Inadequately seen. LEFT ATRIUM: Normal chamber size. RIGHT ATRIUM: Mild dilatation. RIGHT VENTRICLE: Normal chamber size. Normal right ventricular systolic function. TRICUSPID VALVE: Normal mobility and thickness. MITRAL VALVE: Normal mobility and thickness. AORTIC VALVE: Normal trileaflet appearance. No visible sclerosis. Normal leaflet mobility. AORTIC ROOT: Normal diameter and appearance. PULMONIC VALVE: Normal thickness and mobility. PERICARDIUM: No evidence of pericardial effusion. IVC: Collapses with inspirations. Normal size. CONCLUSION: 1. Global left ventricular systolic function is normal; visually estimated ejection fraction is 55 to 60% 2. The right ventricle is normal in size and systolic function. 3. The right atrium is enlarged A limited echocardiogram was performed Adult Echocardiography Procedure Report Left Ventricle LVEDD (3.7 - 5.6 cm): 4.44 cm LVESD (2.2 - 4.0 cm): 3.05 cm LVIVS thickness (0.6 - 1.2 cm): 1.02 cm LVPW thickness (0.5 - 1.0 cm): 1.00 cm LVOT Diameter 2.02 cm Left Ventricular Ejection Fraction: 63.09 % Left Atrium LA Volume Index (2D A2C): 27.17 ml/m2 Left Atrium Systolic Dimension: 3.54 cm Mitral Valve Right Ventricle RV Internal Diastolic Dimension: 3.13 cm Aorta AO Root Diam: 3.01 cm Ascending Ao Diam: 2.59 cm Aortic Valve Tricuspid Valve Pulmonic Valve Right Atrium Right Atrium Systolic Pressure: 44.62 ml, 44.62 ml Dictated by: Rivka Britton M.D. on 01/13/2023 at 09:16 Approved by: Rivka Britton M.D. on 01/13/2023 at 09:19
== END 2023-01-12 09:51 | disposition home or self-care (01) ==
LOC: CARD 09:50
PROVIDERS: Visit Provider Nurse Practitioner
DX: I50.41 Acute combined systolic (congestive) and diastolic (congestive) heart failure (principal)
CPT/HCPCS: 93308; 93356; 93797; 93798

== ENCOUNTER 2023-02-16 07:09 | Outpatient (RCR) | payer BC, SELFPAY ==
--- NOTE | 2023-01-13 07:30 | CR1_ITS ---
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
== END 2023-02-19 10:55 | disposition home or self-care (01) ==
LOC: CR 07:09
PROVIDERS: Visit Provider Nurse Practitioner
DX: Z95.5 Presence of coronary angioplasty implant and graft (principal)
CPT/HCPCS: 93797; 93798

== ENCOUNTER 2023-04-28 10:56 | Outpatient (OUT) | payer BC, SELFPAY ==
--- OUTSIDE RECORDS SUMMARY | 2023-04-28 11:07 | XMS_ITS | CCD ---
Author Name Unknown Address [address] [place] [address] Organization [facility] Care Team Providers Care Shutdown Coordinator Name Role Phone LEATHA, DR ECHEVERRIA Admitting Unavailable LEATHA, DR ECHEVERRIA Consulting Unavailable LEATHA, DR ECHEVERRIA Attending Unavailable REQUEST, DR DARRIN LISTED Primary Care Unavailedwina PAEZ, DR MOYA Consulting Unavailable JZAZ OVIEDO Consulting Unavailable Kary Marvin Unavailable Unavailable Primary Care Provider UnavailLIANE Johnson Primary Care UnavailCURT Araujo Attending Unavailable Cecilia Van Unavailable TALYA GARG Attending Unavailable TALYA GARG Admitting Unavailable GINETTE FORD Consulting Unavailable JESSE MOMIN Attending Unavailable BERNADINE CAMARENA Attending Unavailable ISABELL ANSARI Attending Unavailable TALYA GARG Referring Unavailable GINETTE FORD Referring Unavailable BALJINDER DONALDSON Referring Unavailable JESSE MOMIN Referring Unavailable Allergies Allergy Classification Reported Allergen(s) Allergy Type Date of Onset Reaction(s) Facility Opioid Agonists (1 source) Morphine Drug Allergy [facility] Repository (1 source) Morphine; Translations: [MORPHINE] Drug Allergy 1 [facility] Repository (1 source) ALLERGIES NOT ON FILE; Translations: [ALLERGIES NOT ON FILE] Propensity to adverse reactions (disorder) [facility] Repository Medications Current Medications Medication Drug Class(es) Dates Sig (Normalized) Sig (Original) [id number] 200 actuat albuterol 0.09 mg/actuat metered dose inhaler (1 source) beta2-Adrenergic Agonist Start: 3 take 2 puff(s) by inhalation every four hours as needed for wheezing Albuterol Sulfate HFA 108 (90 Base) MCG/ACT 2 puffs Inhalation every 4 hrs prn SOB, wheezing for 15 days Nov, Active atorvastatin 10 mg oral tablet (1 source) HMG-CoA Reductase Inhibitor Start: 8 take 1 tablet by mouth once daily atorvastatin (LIPITOR) 10 MG tablet Take 1 tablet by mouth daily 90 tablet 0 03/31/2017 Active brompheniramine maleate 0.4 mg/ml / dextromethorphan hydrobromide 2 mg/ml / pseudoephedrine hydrochloride 6 mg/ml oral solution (1 source) alpha-Adrenergic Agonist, Uncompetitive J-bljzii-I-asparta te Receptor Antagonist, Sigma-1 Agonist Start: 3 Hqeajmyqr-Omfvfqzn-CF 30-2-10 MG/5ML 10 ml Orally every 6 hours prn URI symptoms for 7 days Nov, Active methylPREDNISolone 4 mg oral tablet (1 source) Corticosteroid Start: 3 methylPREDNISolone 4 MG take half with breakfast, half with dinner Orally as directed for 6 days Nov, Active varenicline 0.5 mg oral tablet (1 source) Partial Cholinergic Nicotinic Agonist Start: 8 varenicline (CHANTIX STARTING MONTH ) 0.5 MG X 11 & 1 MG X 42 tablet Take by mouth. 1 each 0 03/31/2017 Active Completed/Discontinued Medications Medication Drug Class(es) Dates Sig (Normalized) Sig (Original) amoxicillin 875 mg / clavulanate 125 mg oral tablet (2 sources) Penicillin-class Antibacterial Start: 08-04-2021 take 1 tablet by mouth every twelve hours Amoxicillin-Pot Clavulanate 875-125 MG 1 tablet Orally every 12 hrs for 10 day(s) July, Not-Taking fluticasone propionate 0.05 mg/actuat metered dose nasal spray (2 sources) Corticosteroid Start: 08-04-2021 take 2 spray(s) nasal route once daily Fluticasone Propionate 50 MCG/ACT 2 sprays Nasally Once a day for 14 day(s) July, Not-Taking predniSONE 20 mg oral tablet (2 sources) Start: 08-04-2021 take 1 tablet by mouth every twelve hours predniSONE 20 MG 1 tablet Orally bid for 5 day(s) July, Not-Taking Problems Active Problems Problem Classification Problem Date Documented Date Episodic/Chronic Acute bronchitis (1 source) Acute bronchitis due to other specified organisms Episodic Acute myocardial infarction (2 sources) ST elevation (STEMI) myocardial infarction of unspecified site; Translations: [ST elevation (STEMI) myocardial infarction of unspecified site] Onset: 12-17-2022 Chronic Congestive heart failure; nonhypertensive (4 sources) Chronic systolic (congestive) heart failure; Translations: [Acute on chronic combined systolic (congestive) and diastolic (congestive) heart failure] Onset: 12-17-2022 Chronic Coronary atherosclerosis and other heart disease (4 sources) Atherosclerotic heart disease of hoh coronary artery without angina pectoris; Translations: [Old myocardial infarction] Onset: 01-14-2023 Chronic Disorders of lipid metabolism (2 sources) Mixed hyperlipidemia; Translations: [Mixed hyperlipidemia] Onset: 12-19-2022 Chronic Open wounds of extremities (2 sources) Laceration of left index finger; Translations: [Laceration without foreign body of left index finger without damage to nail, initial encounter] Onset: 06-23-2022 Episodic Other circulatory disease (3 sources) Other specified symptoms and signs involving the circulatory and respiratory systems; Translations: [OTH SPEC SX SIGNS INVLV CIRC RS] Onset: 09-01-2020 Episodic Other circulatory disease (2 sources) Other hypotension; Translations: [Other hypotension] Onset: 01-14-2023 Episodic Substance-related disorders (3 sources) Nicotine dependence, cigarettes, uncomplicated; Translations: [Nicotine dependence, unspecified, uncomplicated] Onset: 09-06-2020 Chronic Unclassified (1 source) OTHER ESOPHAGITIS WITHOUT BLEEDING; Translations: [OTHER ESOPHAGITIS WITHOUT BLEEDING] Onset: 09-06-2020 Unclassified (1 source) CONTACT W/AND (SUSP) EXPOS COVID-19; Translations: [CONTACT W/AND (SUSP) EXPOS COVID-19] Onset: 09-06-2020 Past or Other Problems Problem Classification Problem Date Documented Da te Episodic/Chronic Other screening for suspected conditions (not mental disorders or infectious disease) (1 source) Patient encounter status; Translations: [Encounter for screening for malignant neoplasm of colon] Onset: 12-11-2016 Resolved: 06-24-2017 06-24-2017 Episodic Other upper respiratory infections (1 source) Acute sinusitis, unspecified Onset: 08-04-2021 Resolved: 08-04-2021 Episodic Unclassified (1 source) Suspected COVID-19 virus infection Z20.822 Results Test Name Value Interpretation Reference Range Facility Office Visiton 01-25-2023 Follow-up visit [id number] Shan Franco 1960 M Date Provider Department Center 01/25/2023 3848-TALYA GARG CARD [facility] Family History Problem Relation Age of Onset Other Mother Family Status - Relation Status Age at Mother Level of Service:24899 [place] OFFICE/OUTPATIENT ESTABLISHED MOD MDM 30-39 MIN Normal [facility] Office Visiton 01-14-2023 Follow-up visit [id number] Shan Franco 1960 M Date Provider Department Center 01/14/2023 [id number]-[id number] CAMARENA CARD [facility] Family History Problem Relation Age of Onset Other Mother Family Status - Relation Status Age at Mother Level of Service:73504 [place] OFFICE/OUTPATIENT ESTABLISHED MOD MDM 30-39 MIN Normal [facility] Office Visiton 12-23-2022 Follow-up visit [id number] Shan Franco 1960 M Date Provider Department Center 12/23/2022 120-ISABELL ANSARI CARD [facility] Family History Problem Relation Age of Onset Other Mother Family Status - Relation Status Age at Mother Level of Service:16151 [place] TRANSJ CARE MGMT HIGH MDM F2F 7 MARJORIE D DISCHARGE Normal [facility] 30on 12-18-2022 30 The patient is Moderately Stable - Low risk of patient condition declining or worsening The patient's goals for the shift include rest/comfort The clinical goals for the shift include vss Problem: Pain - Adult Goal: Verbalizes/displays adequate comfort level or baseline comfort level Outcome: Progressing Problem: Safety - Adult Goal: Free from fall injury Outcome: Progressing Flowsheets (Taken 12/18/20221999) Free from fall injury: Assess patient frequently for physical needs Identify cognitive and physical deficits and behaviors that affect risk of falls [place] fall precautions as indicated by assessment Educate patient/family on patient safety, including physical limitations Instruct patient to call for assistance with activity based on assessment Modify environment to reduce risk of injury Consider OT/PT consult to assist with strengthening/mobility Problem: Discharge Planning Goal: Discharge to home or other facility with appropriate resources Outcome: Progressing Flowsheets (Taken 12/18/20221953) Discharge to home or other facility with appropriate resources: Identify barriers to discharge with patient and caregiver Arrange for needed discharge resources and transportation as appropriate Identify discharge learning needs (meds, wound care, etc) Refer to discharge planning if patient needs post-hospital services based on physician order or complex needs related to functional status, cognitive ability or social support system Problem: Chronic Conditions and Co-morbidities Goal: Patient's chronic conditions and co-morbidity symptoms are monitored and maintained or improved Outcome: Progressing Flowsheets (Taken 12/18/20221953) Care Plan - Patient's Chronic Conditions and Co-Morbidity Symptoms are Monitored and Maintained or Improved: Monitor and assess patient's chronic conditions and comorbid symptoms for stability, deterioration, or improvement Collaborate with multidisciplinary team to address chronic and comorbid conditions and prevent exacerbation or deterioration Update acute care plan with appropriate goals if chronic or comorbid symptoms are exacerbated and prevent overall improvement and discharge Normal [facility] 30 Daily Case Managemen t Update Multidisciplinary rounds have been completed. Barriers to Discharge: From [facility]. [facility] for urgent cardiac catheterization. Diet: Dietary Orders (From admission, onward) Start Ordered 12/18/22 1540 Dietary nutrition supplements Lunch; Boost Plus; Vanilla; Oral; 8 oz Until discontinued Question Answer Comment Deliver with Lunch Select supplement: Boost Plus Flavor Vanilla Route Oral Strength: 8 oz 12/18/22 1539 12/18/22 1540 Dietary nutrition supplements BID; Magic Cup; Vary Flavors; Oral; 4 oz Until discontinued Question Answer Comment Deliver with BID Select supplement: Magic Cup Flavors: Vary Flavors Route Oral Strength: 4 oz 12/18/22 1539 12/18/22 1135 Special Kitchen Request Once Comments: Please send him an oven broiled tilapia and teriyaki chicken w/ green beans. 12/18/22 1136 12/17/22 235 Regular Diet Heart Healthy/HTN, CABG,Stroke, (2gNA, low fat, low cholesterol) Diet effective now Question Answer Comment Room Service? Yes Fat restriction: Heart Healthy/HTN, CABG,Stroke, (2gNA, low fat, low cholesterol) 12/17/22 2355 Physician Expected Discharge Date: 12/19/2022 Discharge Delays: PT Six Click Score: OT Six Click Score: PT Recommendations: OT Recommendations: New Consults: Normal [facility] 30 The patient is Moderately Stable - Low risk of patient condition declining or worsening The patient's goals for the shift include Comfort The clinical goals for the shift include Cath Site Safety/VSS Normal [facility] 30 The patient is Moderately Stable - Low risk of patient condition declining or worsening The patient's goals for the shift include sleep The clinical goals for the shift include vss Problem: Pain - Adult Goal: Verbalizes/displays adequate comfort level or baseline comfort level Outcome: Progressing Problem: Safety - Adult Goal: Free from fall injury Outcome: Progressing Problem: Discharge Planning Goal: Discharge to home or other facility with appropriate resources Outcome: Progressing Problem: Chronic Conditions and Co-morbidities Goal: Patient's chronic conditions and co-morbidity symptoms are monitored and maintained or improved Outcome: Progressing Normal [facility] CBC WITH AUTO DIFFERENTIALon 12-17-2022 Basophils (Bld) [#/Vol] 0.04 10*3/uL Normal 0.00-0.20 [facility] Comment on above: Performed By: #### L [id number] ####[facility] (BEAKER)[address] [place] [address] Basophils/100 WBC (Bld) 0.5 % Normal 0.0-1.0 [facility] Comment on above: Performed By: #### L [id number] ####[facility] (BEAKER)[address] [place] [address] Eosinophils (Bld) [#/Vol] 0.15 10*3/uL Normal 0.00-0.50 [facility] Comment on above: Performed By: #### L [id number] ####[facility] (BEAKER)[address] [place] [address] Eosinophils/100 WBC (Bld) 1.8 % Normal 0.0-6.0 [facility] Comment on above: Performed By: #### L [id number] ####[facility] (BEAKER)[address] [place] [address] Erythrocyte distribution width (RBC) [Ratio] 13.7 % Normal 11.5-15.0 [facility] Comment on above: Performed By: #### L [id number] ####[facility] (BEAKER)[address] [place] [address] ERYTHROCYTE MEAN CORPUSCULAR HEMOGLOBIN CONCENTRATION (G/DL) BY AUTOMATED 34.9 g/dL Normal 32.0-35.0 [facility] Comment on above: Performed By: #### L [id number] ####[facility] ([facility])[address] [place] [address] Hematocrit (Bld) [Volume fraction] 45.6 % Normal 39.0-55.0 [facility] Comment on above: Performed By: #### L [id number] ####[facility] (BEAKER)[address] [place] [address] Hemoglobin (Bld) [Mass/Vol] 15.9 g/dL Normal 13.0-17.0 [facility] Comment on above: Performed By: #### L [id number] ####[facility] (BEAKER)[address] [place] [address] Immature granulocytes (Bld) [#/Vol] 0.05 10*3/uL Normal 0.00-0.20 [facility] Comment on above: Performed By: #### L [id number] ####[facility] (BEAKER)[address] [place] [address] Immature granulocytes/100 WBC (Bld) 0.6 % Normal 0.0-1.0 [facility] Comment on above: Performed By: #### L [id number] ####[facility] (BEAKER)[address] [place] [address] Lymphocytes (Bld) [#/Vol] 2.43 10*3/uL Normal 1.20-4.00 [facility] Comment on above: Performed By: #### L [id number] ####[facility] (BEAKER)[address] [place] [address] Lymphocytes/100 WBC (Bld) 29.6 % Normal 20.0-45.0 [facility] Comment on above: Performed By: #### L [id number] ####[facility] (BEAKER)[address] [place] [address] MCH (RBC) [Entitic mass] 32.1 pg Normal 27.0-33.0 [facility] Comment on above: Performed By: #### L [id number] ####[facility] ([facility])[address] [place] [address] MCV (RBC) [Entitic vol] 92.1 fL Normal 82.0-98.0 [facility] Comment on above: Performed By: #### L [id number] ####[facility] (BEAKER)[address] [place] [address] Monocytes (Bld) [#/Vol] 0.57 10*3/uL Normal 0.10-1.00 [facility] Comment on above: Performed By: #### L [id number] ####[facility] (BEAKER)[address] [place] [address] Monocytes/100 WBC (Bld) 6.9 % Normal 5.0-12.0 [facility] Comment on above: Performed By: #### L [id number] ####[facility] (BEAKER)[address] [place] [address] Neutrophils (Bld) [#/Vol] 4.97 10*3/uL Normal 1.60-7.60 [facility] Comment on above: Performed By: #### L [id number] ####[facility] (BEAKER)[address] [place] [address] Neutrophils/100 WBC (Bld) 60.6 % Normal 40.0-72.0 [facility] Comment on above: Performed By: #### L [id number] ####[facility] (BEAKER)[address] [place] [address] NRBC (PER 100 WBCS) BY AUTOMATED COUNT 0.0 % Normal 0 [facility] Comment on above: Performed By: #### L [id number] ####[facility] (BEAKER)[address] [place] [address] PLATELETS (10*3/UL) IN BLOOD AUTOMATED COUNT 659 10*3/uL High 150-400 [facility] Comment on above: Performed By: #### L [id number] ####[facility] ([facility])[address] [place] [address] RBC (Bld) [#/Vol] 4.95 10*6/uL Normal 4.20-5.70 [facility] Comment on above: Performed By: #### L [id number] ####[facility] ([facility])[address] [place] [address] WBC (Bld) [#/Vol] 8.21 10*3/uL Normal 4.00-10.60 [facility] Comment on above: Performed By: #### L [id number] ####[facility] ([facility])[address] [place] [address] COMPREHENSIVE METABOLIC PANE Dominick 12-17-2022 Albumin [Mass/Vol] 3.6 g/dL Normal 3.5-5.7 [facility] Comment on above: Performed By: #### L [id number] ####[facility] ([facility])[address] [place] [address] ALP [Catalytic activity/Vol] 122 U/L High 34-104 [facility] Comment on above: Performed By: #### L [id number] ####[facility] ([facility])[address] [place] [address] ALT [Catalytic activity/Vol] 63 U/L High 7-52 [facility] Comment on above: Performed By: #### L [id number] ####[facility] ([facility])[address] [place] [address] Anion gap [Moles/Vol] 13 mmol/L Normal 7-20 [facility] Comment on above: Performed By: #### L [id number] ####[facility] ([facility])[address] [place] [address] AST [Catalytic activity/Vol] 20 U/L Normal 13-39 [facility] Comment on above: Performed By: #### L [id number] ####[facility] ([facility])[address] [place] [address] Bilirubin [Mass/Vol] 0.6 mg/dL Normal 0.3-1.0 [facility] Comment on above: Performed By: #### L [id number] ####[facility] ([facility])[address] [place] [address] Calcium [Mass/Vol] 9.1 mg/dL Normal 8.6-10.3 [facility] Comment on above: Performed By: #### L [id number] ####[facility] ([facility])[address] [place] [address] Chloride [Moles/Vol] 101 mmol/L Normal 98-107 [facility] Comment on above: Performed By: #### L [id number] ####[facility] ([facility])[address] [place] [address] CO2 [Moles/Vol] 24 mmol/L Normal 21-31 [facility] Comment on above: Performed By: #### L [id number] ####[facility] ([facility])[address] [place] [address] Creatinine [Mass/Vol] 0.70 mg/dL Normal 0.70-1.30 [facility] Comment on above: Performed By: #### L [id number] ####[facility] ([facility])[address] [place] [address] GLOMERULAR FILTRATION RATE ML/MIN/1.73 SQ M.PREDICTED 104.8 mL/min/1.73m*2 Normal >60.0 [facility] Comment on above: Result Comment: The [facility]???s estimated glomerular filtration rate (eGFR) will no longer include consideration of race in its calculation. The National Kidney Foundation???s eGFR Task Force developed new recommendations for the estimation of the glomerular filtration rate in the [place] They recommend immediate implementation of the new equation refit without the race variable in all laboratories because the calculation does not include race. In addition to not including race in the calculation and reporting, it included diversity in its development, and has acceptable performance characteristics and potential consequences that do not disproportionately affect any one group of individuals. Performed By: #### L [id number] ####[facility] ([facility])[address] [place] [address] Glucose [Mass/Vol] 148 mg/dL High 70-100 [facility] Comment on above: Performed By: #### L [id number] ####[facility] ([facility])[address] [place] [address] Potassium [Moles/Vol] 3.8 mmol/L Normal 3.5-5.1 [facility] Comment on above: Performed By: #### L [id number] ####[facility] ([facility])[address] [place] [address] Protein [Mass/Vol] 6.5 g/dL Normal 6.0-8.3 [facility] Comment on above: Performed By: #### L [id number] ####[facility] ([facility])[address] [place] [address] Sodium [Moles/Vol] 134 mmol/L Low 136-145 [facility] Comment on above: Performed By: #### L [id number] ####[facility] ([facility])[address] [place] [address] Urea nitrogen [Mass/Vol] 16 mg/dL Normal 7-25 [facility] Comment on above: Performed By: #### L [id number] ####[facility] ([facility])[address] [place] [address] UREA NITROGEN/CREATININE (MASS RATIO) IN SER/PLAS 22.9 Normal [facility] Comment on above: Performed By: #### L [id number] ####[facility] ([facility])[address] [place] [address] CONSULTon 12-17-2022 CONSULT -- Attestation signed by Talya Garg MD at 12/21/2022 8:00 AM I saw and evaluated the patient, participating in the faulkner portions of the service. I reviewed the fellow???s note. I agree with the fellow???s findings and plan. I personally reviewed the plan of care with the patient and answered any questions. Patient verbalizes understanding and agreement. Patient was educated on red flag symptoms and strict return precautions were provided. Patient voices understanding. Talya Garg MD Cardiology Consult Note Reason for Consult: STEMI HPI: Shan Franco is a 62 y.o. male without any known medical history who originally presented with an inferolateral STEMI at [facility]. The patient was transferred to [facility] for urgent cardiac catheterization. Upon arrival the patient was taken directly to the cardiac catheterization lab and had a 90% occlusion of his distal LCx/LPDA which was successfully treated with drug-eluting stent. Cardiology ROS: GENERAL: Denies fever, chills, night sweats, weight loss. CARDIOVASCULAR: Endorses chest pain. Denies exertional dyspnea, orthopnea/PND, lower extremity edema, palpitations, lightheadedness/dizzin ess, syncope. RESPIRATORY: Denies SOB, coughing, wheezing GI: Denies abdominal pain, nausea/vomiting. PSYCH: Denies anxiety. Past Medical History He has no past medical history on file. Surgical History He has no past surgical history on file. Social History He has no history on file for tobacco use, alcohol use, and drug use. Family History No family history on file. Allergies Patient has no allergy information on record. Medications (Not in a hospital admission) Last Recorded Vitals Patient Vitals for the past 24 hrs: BP Pulse Resp SpO2 12/17/22 1926 124/80 80 18 98 % 12/17/22 1838 -- -- -- 100 % 12/17/22 1838 119/83 98 14 100 % Physical Examination: GENERAL: AOx3, in no acute distress. HEAD: Atraumatic, normocephalic. EYES: DENI, EOMI. NECK: No JVD present. CARDIAC: RRR. No murmur, rubs, or gallops. RESPIRATORY: CTAB, no increased effort of breathing. ABDOMEN: Soft, nontender, nondistended. EXTREMITIES: No lower extremity edema, peripheral pulses are 2+ bilaterally. NEURO: No focal deficits Relevant Lab Results No results found for this or any previous visit (from the past 4464 hour(s)). No results found for: CKTOTAL, CKMB, CKMBINDEX, TROPONINI No echocardiogram results found for the past 12 months No nuclear medicine results found for the past 12 months Relevant Imaging Results No image results found. Assessment: STEMI s/p KANDICE to distal LCX Tobacco use disorder, recently quit a week ago Acute Pneumonia Essential HTN Mixed HLD Plan: Shan Franco is a 62 y.o. male who presented to [facility] with chest pain and EKG concerns for acute STEMI in the inferior leads. He had ST elevations present in leads II, III, aVF and V6. He was urgently transferred to [facility] and will proceed with cardiac catheterization and was found to have a 90% occlusion of distal LCx/LPDA which was treated with a drug-eluting stent. The patient's chest pain improved after the procedure. He denied any significant chest pain after the procedure. We will start dual antiplatelet therapy with aspirin 81 mg and Plavix 25 mg. The patient was given 325 of aspirin prior to arrival at [facility] and was loaded with 600 mg of Plavix in the [place]. We will start the patient on atorvastatin 80 mg and Toprol 25 mg Echocardiogram tomorrow. Risk factor modification including smoking cessation is imperative. Felisa Meraz MD Specialist Employee Labor Relations - PGY5 [facility] EDPROVon 12-17-2022 EDPROV HPI No chief complaint on file. Patient presented from [place] with a ST elevation PA was having no pain now and she is awake and alert respiratory stable abdomen soft EKG from confirms some mild ST elevation in the inferior lateral No data recorded Patient History No past medical history on file. No past surgical history on file. No family history on file. Social History Tobacco Use ??? Smoking status: Not on file ??? Smokeless tobacco: Not on file Substance Use Topics ??? Alcohol use: Not on file ??? Drug use: Not on file Review of Systems Review of Systems Constitutional: Negative. HENT: Negative. Eyes: Negative. Respiratory: Negative. Cardiovascular: Negative. Gastrointestinal: Negative. Genitourinary: Negative. Physical Exam ED Triage Vitals Temp Pulse Resp BP -- -- -- -- SpO2 Temp src Heart Rate Source Patient Position -- -- -- -- BP Location FiO2 (%) -- -- Physical Exam Vitals reviewed. Constitutional: Appearance: Normal appearance. HENT: Head: Normocephalic and atraumatic. Nose: Nose normal. Mouth/Throat: Mouth: Mucous membranes are moist. Cardiovascular: Rate and Rhythm: Normal rate and regular rhythm. Pulmonary: Effort: Pulmonary effort is normal. Breath sounds: Normal breath sounds. Abdominal: General: Abdomen is flat. Palpations: Abdomen is soft. Musculoskeletal: Cervical back: Normal range of motion and neck supple. Neurological: Mental Status: He is alert. Procedures ED Course & MDM Diagnoses as of 12/17/221827 ST elevation myocardial infarction (STEMI), unspecified artery (CMS/HCC) Medical Decision Making patient is a ST elevation PA since we had the EKG to Team was already here we was handed off to cardiology and the Team. Attestion Ducbradford Arceo, 12/17/22 1828 Normal [facility] HEMOGLOBIN A1Con 12-17-2022 Glucose [Mass/Vol] 117 mg/dL Normal [facility] Comment on above: Performed By: #### L [id number] ####[facility] (BEAKER)[address] [place] [address] HbA1c (Bld) [Mass fraction] 5.7 % Normal 4.0-6.0 [facility] Comment on above: Performed By: #### L AB90 ####[facility] (BEAKER)[address] [place] [address] HPon 12-17-2022 HP History Of Present Illness Shan Franco is a 62 y.o. male transferred from [facility] following visit with intermittent chest pain anterior chest with radiation to arms and back workup revealing inferolateral STEMI once arrived at [facility] was taken to labor expediter where he underwent pci and KANDICE for 90% occlusion of distal Lcx/LPDA. Smoker denies h/o htn cad dm Pt seen post procedure has headache no other complians Past Medical History He has no past medical history on file. Surgical History He has no past surgical history on file. Social History He has no history on file for tobacco use, alcohol use, and drug use. Family History No family history on file. Allergies Patient has no allergy information on record. Medications (Not in a hospital admission) Review of Systems Constitutional: Negative. HENT: Negative. Eyes: Negative. Respiratory: Negative. Chest pain resolved Cardiovascular: Negative. Chest pain resolved Gastrointestinal: Negative. Endocrine: Negative. Genitourinary: Negative. Musculoskeletal: Negative. Neurological: Positive for headaches. Negative for dizziness, tremors, seizures, syncope, facial asymmetry, speech difficulty, weakness, light-headedness and numbness. Hematological: Negative. Psychiatric/Behavioral : Negative. Last Recorded Vitals Visit Vitals BP 119/81 Pulse 72 Resp 17 SpO2 100% Physical Exam Constitutional: Appearance: Normal appearance. He is normal weight. HENT: Head: Normocephalic and atraumatic. Right Ear: Tympanic membrane, ear canal and external ear normal. Left Ear: Tympanic membrane, ear canal and external ear normal. Nose: Nose normal. Mouth/Throat: Mouth: Mucous membranes are moist. Pharynx: Oropharynx is clear. Eyes: Extraocular Movements: Extraocular movements intact. Conjunctiva/sclera: Conjunctivae normal. Pupils: Pupils are equal, round, and reactive to light. Cardiovascular: Rate and Rhythm: Normal rate and regular rhythm. Pulmonary: Effort: Pulmonary effort is normal. Breath sounds: Normal breath sounds. Abdominal: General: Abdomen is flat. Bowel sounds are normal. Palpations: Abdomen is soft. Musculoskeletal: General: Normal range of motion. Cervical back: Normal range of motion and neck supple. Skin: General: Skin is warm and dry. Capillary Refill: Capillary refill takes less than 2 seconds. Neurological: General: No focal deficit present. Mental Status: He is alert and oriented to person, place, and time. Mental status is at baseline. Psychiatric: Mood and Affect: Mood normal. Behavior: Behavior normal. Thought Content: Thought content normal. Judgment: Judgment normal. Relevant Lab Results No results found for: NA, K, CL, CO2, BUN, CREATININE, GLUCOSE, CALCIUM, ANIONGAP, EGFR, BCR Labs ekg from [facility] reviewed Relevant Imaging Results ECG 12 lead Normal sinus rhythm Repolarization Normal ECG No previous ECGs available Assessment/Plan Principal Problem: ST elevation myocardial infarction (STEMI), unspecified artery (CMS/HCC) Cp s/p STEMI S/p PCI with stent on asa Plavix statin beta mena Continue telemetry repeat EKG am follow with cardiology counseled re tobacco cessation Gerd stable Tobacco dependence Offered nicotine replacement refuse it counseled re tobacco cessation Based on my medical assessment, after consideration of the patient???s risk factors (age, co-morbidities, patient presenting symptoms and acuity), it is determined that the services needed warrant inpatient care. Normal [facility] LIPID PANELon 12-17-2022 CHOL/HDL 6.4 mg/dL Normal [facility] Comment on above: Performed By: #### L [id number] ####[facility] (BEAKER)[address] [place] [address] Cholesterol [Mass/Vol] 192 mg/dL Normal 120-200 [facility] Comment on above: Performed By: #### L [id number] ####[facility] (BEAKER)[address] [place] [address] Magnesium [Mass/Vol] 277 mg/dL High 40-149 [facility] Comment on above: Result Comment: TRIG LYCERIDE REFERENCE RANGE: 20 YEARS AND OLDER CARDIOVASCULAR RISK LESS THAN 150 mg/dL LOW RISK 150 TO 199 mg/dL BORDERLINE RISK 200 mg/dL AND GREATER HIGH RISK Performed By: #### L [id number] ####[facility] (BEAKER)[address] [place] [address] Magnesium [Mass/Vol] 107 mg/dL Normal 0-160 [facility] Comment on above: Performed By: #### L [id number] ####[facility] (BEAKER)[address] [place] [address] Magnesium [Mass/Vol] 30 mg/dL Normal 23-92 [facility] Comment on above: Performed By: #### L AB18 ####[facility] (BEAKER)[address] [place] [address] NON HDL CHOL. (LDL+VLDL) 162 Normal [facility] Comment on above: Performed By: #### L [id number] ####[facility] (BEAKER)[address] [place] [address] TOTAL VLDL-C 55 mg/dL High 0-40 [facility] Comment on above: Performed By: #### L AB18 ####[facility] ([facility])[address] [place] [address] MAGNESIUMon 12-17-2022 Magnesium [Mass/Vol] 2.0 mg/dL Normal 1.9-2.7 [facility] Comment on above: Performed By: #### L [id number] ####[facility] ([facility])[address] [place] [address] NURSNOTEon 12-17-2022 NURSNOTE Report called to Leta cardenas RN miriam Josue RN Normal [facility] COVID/FLU RT-PCRon SARS-CoV-2 (COVID-19) RNA HERMILO+probe Ql (Unsp spec) Negative [facility] Other COVID/FLU RT-PCR Negative [facility] [employer] Other Covid-19 PCR (CVDTB)on 08-14 SARS-CoV-2 (COVID-19) RNA HERMILO+probe Ql (Unsp spec) Not detected Normal NOT DETECTED [facility] Comment on above: Result Comment: This test is not yet approved or cleared by the [place] FDA. When there are no FDA-approved or cleared tests available, and other criteria are met, FDA can make tests available under an emergency access mechanism called an Emergency Use Authorization (EUA). The EUA for this test is supported by the Customer Sales Consultant of Health and Human Service's (HHS's) declaration that circumstances exist to justify the emergency use of in vitro diagnostics for the detection and/or diagnosis of the virus that causes COVID-19. This EUA will remain in effect (meaning this test can be used) for the duration of the COVID-19 declaration justifying emergency of IVDs, unless it is terminated or revoked by FDA (after which the test may no longer be used). When diagnostic testing is negative, the possibility of a false negative should be considered in the context of a patient's recent exposures and the presence of clinical signs and symptoms consistent with SARS-CoV-2. Performed By: #### C VDTB #### [facility] [address] [place] [address] Celina Soto RAPID COVID-19 ANTIGENon EUA Statement SEE BELOW Normal [facility] Comment on above: Result Comment: This test has not been FDA cleared or approved, but has been authorized by the FDA under an Emergency Use Authorization (EUA) for use by authorized laboratories certified under CLIA that meet the requirements to perform moderate or high complexity testing. This test has been authorized only for the detection of proteins from SARS-CoV-2, not for any other viruses or pathogens. The emergency use of this test is authorized for the duration of the declaration that circumstances exist justifying the authorization of emergency use of in vitro diagnostic tests for detection and/or diagnosis of Covid-19 under section 564(b)(1) of the Act, 21 U.S.C. 360bbb-3(b)(1), unless the declaration is terminated or authorization is revoked sooner. Performed By: #### C VDAG #### [facility] [address] [place] [address] Celina Soto SARS-CoV-2 (COVID-19) RNA HERMILO+probe Ql (Unsp spec) Negative Normal NEGATIVE [facility] Comment on above: Result Comment: Nega tive results are presumptive. They do not preclude infection and should not be used as the sole basis for treatment decisions. Additional confirmatory testing by a molecular method should be considered. Performed By: #### C VDAG #### [facility] [address] [place] [address] Celina Soto COMPREHENSIVE METABOLIC PANE L WITH GFRon 03-25-2017 Alanine aminotransferase (ALT) 17 U/L Normal 5-59 [facility] Albumin 4.5 g/dL Normal 3.2-5.3 [facility] Comment on above: Result Comment: [facility] [employer] [address] [address]Laboratory Director: Ben Aguilar M.D.CLIA No. [id number] CAP Accreditation No. [id number] ALK PHOS 86 IU/L Normal 35-121 [facility] Anion gap 12 mmol/L Normal [facility] AST-SGOT 21 IU/L Normal 10-42 [facility] Bilirubin (direct) 0.6 mg/dL Normal 0.2-1.3 [facility] Calcium 9.8 mg/dL Normal 8.7-10.8 [facility] Chloride 102 mmol/L Normal 95-111 [facility] CO2 28 mmol/L Normal 21-32 [facility] Creatinine 0.9 mg/dL Normal 0.5-1.3 [facility] eGFR (black) 106 mL/min/{1.73_m2} Normal >60 [facility] eGFR (non-black) 88 mL/min/{1.73_m2} Normal >60 [facility] Comment on above: Result Comment: * ES TIMATED GFR (eGFR) IS CALCULATED FROM SERUM CREATININE AND OTHER VARIABLES AFFECTING ITS VALUE (AGE, RACE, AND SEX). * FOR PATIENT WITH ESTABLISHED CHRONIC KIDNEY DISEASE, THE CHART BELOW DEFINES STAGES WITH eGFR VALUES. Stage 1 90 mL/min/1.73 m2 or greater Stage 2 60-89 mL/min/1.73 m2 Stage 3 30-59 mL/min/1.73 m2 Stage 4 15-29 mL/min/1.73 m2 Stage 5 14 mL/min/1.73 m2 or less Glucose mass conc 90 mg/dL Normal 70-100 [facility] Comment on above: Result Comment: DIAG NOSTIC THRESHOLDS FOR DIABETES AND IMPAIRED FASTING GLUCOSE (IFG) FASTING PLASMA GLUCOSE NORMAL <100 mg/dL IFG 100-125 mg/dL DIABETES >/= 126 mg/dL Potassium molar conc 4.3 mmol/L Normal 3.5-5.4 [facility] Sodium 138 mmol/L Normal 134-147 [facility] T. PROTEIN 7.3 g/dl Normal 5.8-8.0 [facility] Urea nitrogen 13 mg/dL Normal 10-20 [facility] LIPID PANEL (INCLUDES CALCUL ATED LDL)on 03-25-2017 Cholesterol 255 mg/dL High <200 [facility] Cholesterol to HDL Ratio 4.5 {ratio} Normal <5 [facility] HDL-CHOL 57 mg/dl Normal 40-60 [facility] Comment on above: Result Comment: HDL <40 mg/dL IS A RISK FACTOR FOR CORONARY HEART DISEASE. HDL >60 mg/dL IS A NEGATIVE RISK FACTOR FOR CORONARY HEART DISEASE. LDL to HDL Ratio 2.8 Normal <3.5 [facility] LDL-CHOL, CALCULATED 159 mg/dL High <130 [facility] Comment on above: Result Comment: LDL CHOLESTEROL REFERENCE RANGE FOR 0-19 YEARS: DESIRABLE <110 mg/dL, BORDERLINE 110-129, HIGH RISK >130 LDL CHOLESTEROL REFERENCE RANGE FOR ADULTS: DESIRABLE <100 mg/dL, BORDERLINE 130-159, HIGH RISK >160REFERENCE RANGES REVISED 08/23/15 ACCORDING TO NCEP GUIDELINES Triglyceride 193 mg/dL High <150 [facility] VLDL-CHOL, CALCULATED 39 mg/dL High <30 [facility] Vital Signs Date Time Vital Sign Value Performing Clinician Facility 12-06-2022 09:30-0400 Body height 177.8 cm Cecilia Van Other [facility] Other 12-06-2022 09:30-0400 Body mass index (BMI) [Ratio] 25.37 kg/m2 Cecilia Van Other [facility] Other 12-06-2022 09:30-0400 Body temperature 97.5 [degF] Cecilia Van Other [facility] Other 12-06-2022 09:30-0400 Body weight 80.2 kg Cecilia Van Other [facility] Other 12-06-2022 09:30-0400 Diastolic blood pressure 75 mm[Hg] Cecilia Van Other [facility] Other 12-06-2022 09:30-0400 Respiratory rate 18 /min Cecilia Van Other [facility] Other 12-06-2022 09:30-0400 SaO2% (BldA) [Mass fraction] 97 % Cecilia Van Other [facility] Other 12-06-2022 09:30-0400 Systolic blood pressure 113 mm[Hg] Cecilia Van Other [facility] Other 06-23-2022 02:09-0400 Diastolic blood pressure 92 mm[Hg] Curt Lewis DO Work Phone: [employer] 06-23-2022 02:09-0400 Respiratory rate 18 /min Curt Lewis DO Work Phone: [employer] 06-23-2022 02:09-0400 Systolic blood pressure 142 mm[Hg] Curt Lewis DO Work Phone: [employer] 06-23-2022 02:06-0400 Body height 177.8 cm Curt Lewis DO Work Phone: [employer] 06-23-2022 02:06-0400 Body mass index (BMI) [Ratio] 26.54 kg/m2 Curt Lewis DO Work Phone: [employer] 06-23-2022 02:06-0400 Body temperature 98.8 [degF] Curt Lewis DO Work Phone: [employer] 06-23-2022 02:06-0400 Body weight 83.92 kg Curt Lewis DO Work Phone: [employer] 06-23-2022 02:06-0400 Heart rate 89 /min Curt Lewis DO Work Phone: [employer] 06-23-2022 02:06-0400 SaO2% (BldA) [Mass fraction] 98 % Curt Lewis DO Work Phone: [facility] 08-04-2021 12:00-0400 Body height 177.8 cm Kary Garciamond Other [facility] Other 08-04-2021 12:00-0400 Body mass index (BMI) [Ratio] 27.26 kg/m2 Kary Shavonne Other [facility] Other 08-04-2021 12:00-0400 Body temperature 96.9 [degF] Kary Shavonne Other [facility] Other 08-04-2021 12:00-0400 Body weight 86.18 kg Kary Garciamond Other [facility] Other 08-04-2021 12:00-0400 Respiratory rate 18 /min Kary Garciamond Other [facility] Other 08-04-2021 12:00-0400 SaO2% (BldA) [Mass fraction] 98 % Kary Garciamond Other [facility] Other Encounters Encounter Date Encounter Type Care Provider Facility Start: 01-25-2023 End: 01-25-2023 ambulatory MOHAMAD [facility] Start: 01-14-2023 End: 01-14-2023 ambulatory BERNADINE CAMARENA [facility] Start: 12-23-2022 End: 12-23-2022 ambulatory ISABELL ANSARI [facility] Start: 12-18-2022 Evaluation and management of inpatient BALJINDER DONALDSON [facility] Start: 12-18-2022 Evaluation and management of inpatient JESSE MOMIN [facility] Start: 12-17-2022 End: 12-19-2022 Evaluation and management of inpatient MOHAMAD ALGHOTHANI [facility] Start: 12-06-2022 End: 12-06-2022 ambulatory Cecilia Van Other [facility] Other Start: 12-06-2022 Office outpatient visit 15 minutes Cecilia Van [facility] Start: 06-23-2022 End: 06-23-2022 [facility]: 06-23-2022 End: 06-23-2022 Emergency department patient visit Curt Lewis DO Work Phone: [facility] ED Comment on above: Laceration of left i ndex finger without foreign body without damage to nail, initial encounter (Primary Dx) Start: 08-04-2021 End: 08-04-2021 ambulatory Kary Marvin Other [facility] [facility] [employer] Other Start: 08-04-2021 Office outpatient visit 15 minutes Kary Marvin [facility] Start: 09-01-2020 End: 09-01-[address] JACKI ZHANG Facility:[facility]1 Procedures Date Procedure Procedure Detail Performing Clinician Start: 01-11-2017 Colonoscopy Curt Ai bonilla DO Work Phone: Plan of Treatment Date Care Activity Detail Author Start: 06-23-2032 DTaP/Tdap/Td vaccine (3 - Td or Tdap) DTaP/Tdap/Td vaccine (3 - Td or Tdap) [facility] Start: 10-13-2022 Influenza vaccination Flu vacc ine (Season Ended) [facility] Start: 01-11-2022 Screening for malign ant neoplasm of colon [facility] Start: 03-23-2018 Lipid panel Lipids [facility] [employer] Start: 05-19-2011 Shingles vaccine (1 of 2) Shingles vaccine (1 of 2) [facility] Start: 2006 Screening for malign ant neoplasm of colon [facility] Start: 1996 Diabetes screen Diabetes screen [facility] [employer] Start: 1973 Depression Screen Depression Screen [facility] Start: 1960 COVID-19 Vaccine (#1) COVID-19 Vacci ne (#1) [facility] Immunizations Immunization Date Immunization Notes Care Provider Bhanu menezes 06-23-2022 tetanus toxoid, redu laura diphtheria toxoid, and acellular pertussis vaccine, adsorbed Curt Lewis DO Work Phone: [facility] [employer] 01-09-2017 influenza, injectabl e, quadrivalent, contains preservative Curt Lewis DO Work Phone: [facility] [employer] 12-20-2016 pneumococcal polysaccharide vaccine, 23 valent Curt Lewis DO Work Phone: [facility] 12-20-2016 tetanus toxoid, redu laura diphtheria toxoid, and acellular pertussis vaccine, adsorbed Curt Lewis DO Work Phone: [facility] [employer] Work Phone: Payers Date Payer Category Payer [facility] [id number] 2022 Unknown [id number] 1960 Unknown [id number] 1961 Unknown [id number] 1959 Self-pay [id number] [facility] [id number] Social History Date Type Detail Facility Sex Assigned At [place] [employer] Other Start: 12-02-2016 [facility] [employer] [employer] Pass Work Phone: History of tobacco use Cigarette Smoker B ON [employer] Phone: Start: 12-02-2016 End: 06-23-2022 Cigarettes smoked current (pack per day) - Reported 0.5 [employer] Phone: Start: 12-02-2016 Tobacco use and exposure Smokeless tobacco non-user [employer] Phone: Start: 06-23-2022 Alcohol intake Current drinke r of alcohol (finding) [employer] Phone: Start: 12-08-2016 Alcohol Comment 1-2 beers olya y, DUI x4; 4 years ago last. [employer] Phone: Start: 1960 Sex Assigned At Not on file B ON [employer] Phone: Start: 06-13-2022 End: 06-23-2022 Exposure to SARS-CoV-2 (event) Not sure [employer] Phone: Clinical Notes 08-04-2021 to 01-25-2023 Note Date & Type Note Facility 01-25-2023 Note Patient here for 2 w [place] follow up lightheadedness and near-syncope. Bernadine Camarena decreased his Entresto at last visit. He denies recurrent lightheaded and near-syncopal episodes. Feeling much better. Wants to know if he can go back to work. [facility] 01-25-2023 Note Cardiology Clinic No te Subjective Shan Franco is a 62 y.o. year old male patient with past medical history of STEMI status post PCI to distal left circumflex/L PDA, Hyperlipidemia and tobacco dependence seen in follow-up. Patient presents today for follow-up. He is doing well. He denies any chest pain or shortness of breath. Denies any lower extremity JEREMY, orthopnea, or paroxysmal nocturnal dyspnea. He states that he is feeling very well. He states that his dizziness is significantly improved since reducing the dose of Entresto. He has not had any recurrent episodes. No near-syncope or syncope. 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 Smoking Status Former BSA 1.99 m??? Physical Exam General: Awake, alert, NAD Pulm: Breath sounds clear to ascultation bilaterally with no wheeze, crackles or rhonchi Cards: Regular rate and rhythm, S1, S2. No S3 or S4 gallop. Murmur: none Extr: Lower extremity edema: None. DP pulses:2+ Skin: warm, dry, well perfused Neuro: A&Ox3, No gross deficits Allergies Allergies Allergen Reactions Morphine Medications Current Outpatient Medications: aspirin 81 mg EC tablet, Take 1 tablet (81 mg) by mouth in the morning. Do not start before December 20, 2022., Disp: 90 tablet, Rfl: 3 atorvastatin (Lipitor) 80 mg tablet, Take 1 tablet (80 mg) by mouth at bedtime., Disp: 90 tablet, Rfl: 3 clopidogrel (Plavix) 75 mg tablet, Take 1 tablet (75 mg) by mouth in the morning. Do not start before December 20, 2022., Disp: 90 tablet, Rfl: 3 dapagliflozin propanediol (Farxiga) 10 mg, Take 1 tablet (10 mg) by mouth in the morning. Do not start before December 20, 2022., Disp: 90 tablet, Rfl: 3 metoprolol succinate XL (Toprol-XL) 25 mg 24 hr tablet, Take 1 tablet (25 mg) by mouth in the morning. Do not crush or chew. Do not start before December 20, 2022., Disp: 90 tablet, Rfl: 3 nicotine (Nicoderm CQ) 21 mg/24 hr patch, Place 1 patch on the skin in the morning. Do not start before December 20, 2022., Disp: 90 patch, Rfl: 3 sacubitril-valsartan (Entresto) 24-26 mg tablet, Take 1 tablet by mouth in the morning and at bedtime. (Patient taking differently: Take 0.5 tablets by mouth in the morning and at bedtime.), Disp: 180 tablet, Rfl: 3 Recent Labs Lab Results Component Value Date NA 134 (L) 12/17/2022 K 3.8 12/17/2022 CL 101 12/17/2022 CO2 24 12/17/2022 BUN 16 12/17/2022 CREATININE 0.70 12/17/2022 GLUCOSE 148 (H) 12/17/2022 CALCIUM 9.1 12/17/2022 Lab Results Component Value Date WBC 8.21 12/17/2022 HGB 15.9 12/17/2022 HCT 45.6 12/17/2022 MCV 92.1 12/17/2022 PLT 659 (H) 12/17/2022 Lab Results Component Value Date CHOL 192 12/17/2022 TRIG 277 (H) 12/17/2022 HDL 30 12/17/2022 LDL 107 Imaging and other tests Echo: 01/12/2023 Global left ventricular systolic function is normal; visually estimated ejection fraction is 55 to 60% The right ventricle is normal in size and systolic function The right atrium is enlarged Coronary angiography: 12/17/2022 LMCA - This vessel arises from the left coronary cusp and bifurcates into the left anterior descending and left circumflex coronary arteries. There is mild disease at the left main ostium. LAD - There are luminal irregularities in the proximal to mid LAD. There is 50% stenosis in the mid LAD. LCX - This is a dominant vessel giving rise to LPDA and LPLB. 90-95% stenosis in distal LCx/LPDA successfully reduced to 0% stenosis following successful Balloon angioplasty and drug-eluting stent placement. Otherwise, Lcx has mild narrowing throughout. RCA - This arises from the right coronary cusp. It is a small, nondominant vessel and is patent. Echo: 12/18/2022 Left Ventricle: The left ventricle is normal size. Global left ventricular systolic function is mildly reduced. EF range is estimated at 45 % -50 %. Left ventricular wall thickness is normal. Regional wall motion abnormalities (see diagram). Grade 1, mil (more content not included)... [facility] 01-14-2023 Note Cardiology Clinic No te Subjective Shan Franco is a 62 y.o. year old male patient with past medical history of STEMI status post PCI to distal left circumflex/L PDA, Hyperlipidemia and tobacco dependence seen in follow-up. 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 Negative for chest pain, dyspnea on exertion, irregular heartbeat, leg swelling, orthopnea, palpitations, paroxysmal nocturnal dyspnea and syncope. Neurological: Positive for light-headedness. Objective Visit Vitals BP 93/69 (BP Location: Left arm, Patient Position: Standing) Pulse 84 Ht 1.778 m (5' 10 ) Wt 79.8 kg (176 lb) SpO2 99% BMI 25.25 kg/m??? Smoking Status Former BSA 1.99 m??? Physical Exam General: Awake, alert, NAD Pulm: Breath sounds clear to ascultation bilaterally with no wheeze, crackles or rhonchi Cards: Regular rate and rhythm, S1, S2. No S3 or S4 gallop. Murmur: none Extr: Lower extremity edema: None. DP pulses:2+ Skin: warm, dry, well perfused Neuro: A&Ox3, No gross deficits Allergies Allergies Allergen Reactions Morphine Medications Current Outpatient Medications: aspirin 81 mg EC tablet, Take 1 tablet (81 mg) by mouth in the morning. Do not start before December 20, 2022., Disp: 90 tablet, Rfl: 3 atorvastatin (Lipitor) 80 mg tablet, Take 1 tablet (80 mg) by mouth at bedtime., Disp: 90 tablet, Rfl: 3 clopidogrel (Plavix) 75 mg tablet, Take 1 tablet (75 mg) by mouth in the morning. Do not start before December 20, 2022., Disp: 90 tablet, Rfl: 3 dapagliflozin propanediol (Farxiga) 10 mg, Take 1 tablet (10 mg) by mouth in the morning. Do not start before December 20, 2022., Disp: 90 tablet, Rfl: 3 metoprolol succinate XL (Toprol-XL) 25 mg 24 hr tablet, Take 1 tablet (25 mg) by mouth in the morning. Do not crush or chew. Do not start before December 20, 2022., Disp: 90 tablet, Rfl: 3 nicotine (Nicoderm CQ) 21 mg/24 hr patch, Place 1 patch on the skin in the morning. Do not start before December 20, 2022., Disp: 90 patch, Rfl: 3 sacubitril-valsartan (Entresto) 24-26 mg tablet, Take 1 tablet by mouth in the morning and at bedtime., Disp: 180 tablet, Rfl: 3 Recent Labs Lab Results Component Value Date NA 134 (L) 12/17/2022 K 3.8 12/17/2022 CL 101 12/17/2022 CO2 24 12/17/2022 BUN 16 12/17/2022 CREATININE 0.70 12/17/2022 GLUCOSE 148 (H) 12/17/2022 CALCIUM 9.1 12/17/2022 Lab Results Component Value Date WBC 8.21 12/17/2022 HGB 15.9 12/17/2022 HCT 45.6 12/17/2022 MCV 92.1 12/17/2022 PLT 659 (H) 12/17/2022 Lab Results Component Value Date CHOL 192 12/17/2022 TRIG 277 (H) 12/17/2022 HDL 30 12/17/2022 LDL 107 Imaging and other tests Echo: 01/12/2023 Global left ventricular systolic function is normal; visually estimated ejection fraction is 55 to 60% The right ventricle is normal in size and systolic function The right atrium is enlarged Coronary angiography: 12/17/2022 LMCA - This vessel arises from the left coronary cusp and bifurcates into the left anterior descending and left circumflex coronary arteries. There is mild disease at the left main ostium. LAD - There are luminal irregularities in the proximal to mid LAD. There is 50% stenosis in the mid LAD. LCX - This is a dominant vessel giving rise to LPDA and LPLB. 90-95% stenosis in distal LCx/LPDA successfully reduced to 0% stenosis following successful Balloon angioplasty and drug-eluting stent placement. Otherwise, Lcx has mild narrowing throughout. RCA - This arises from the right coronary cusp. It is a small, nondominant vessel and is patent. Echo: 12/18/2022 Left Ventricle: The left ventricle is normal size. Global left ventricular systolic function is mildly reduced. EF range is estimated at 45 % -50 %. Left ventricular wall thickness is normal. Regional wall motion abnormalities (see diagram). Grade 1, mild diastolic dysfunction (abnormal relaxation). No left ventricular hypertrophy. (more content not included)... [facility] 01-14-2023 Note Patient here per car diac rehab for near syncopal episodes while at home. Says sometimes his BP goes low - 90's systolic. He sometimes feels like he is going to pass out when he bends down to tie his shoes. Denies chest pain and palpitations. Says he doesn't feel this way every time, just a couple times here and there . Review of Systems Constitutional: Positive for malaise/fatigue. HENT: Positive for hearing loss. Cardiovascular: Positive for dyspnea on exertion and near-syncope. Neurological: Positive for headaches, light-headedness and paresthesias. All other systems reviewed and are negative. [facility] 12-23-2022 Note Reminded pt to not m iss any dose of ASA or plavix. [facility] 12-23-2022 Note Coronary artery disease is stabl e [facility] 12-23-2022 Note [facility] 12-23-2022 Note Coronary artery dise ase is stable without concerning symptoms Continue GDMT- ASA, plavix, lipitor, toprol Denied any bleeding tendencies continue risk factor modifications- heart healthy diet, regular exercise as tolerated and continue all medications. Orders for cardiac rehab completed for [facility] rehab [facility] 12-23-2022 Note HTn controlled- bord katherine labile- denied lightheadedness/dizziness or syncope; Does admit that he tires out with activity quicker than before. [facility] 12-23-2022 Note [facility] II-IIIb- [place] tly remains euvolemic without exacerbation Continue GDMT- ASA, lipitor, farxiga, toprol, entresto- Sending pt today for repeat BMP prior to further optimization of GDMT with aldactone. Diuretic therapy- farxiga- pt is euvolemic currently Monitor daily weights, I&O, fluid restriction 1.5-2L/day, renal function and electrolytes- please maintain K+>4 and Mg > 2 [facility] 12-23-2022 Note Currently pt is doin g well on nicotine patch and has continued with complete smoking cessation [facility] 12-23-2022 Note [facility] CARDIOLOGY PROGR ESS NOTE HPI: Shan Franco is a 62 y.o. male here for hospital f/U recent STEMI and cardiac cath with PCI at [facility]. Admits that he fatigues quicker than usual and was able to work outside for about a 1/2 hour and then had to stop and rest r/t diaphoresis and fatigue- Denied SOB or chest pain. Patient here for follow up [facility] for STEMI. Still trying to get his strength back. Denies chest pain. Still gets SOB with minimal exertion. Denied any bleeding tendencies 12/17- 12/19/22 Discharge Summary Final Discharge Diagnosis: ST elevation myocardial infarction (STEMI), unspecified artery (CMS/HCC) STEMI s/p PCI Tobacco dependence Admission Diagnosis: STEMI (ST elevation myocardial infarction) (CMS/HCC) [I21.3] ST elevation myocardial infarction (STEMI), unspecified artery (CMS/HCC) [I21.3] Hospital course: Shan Franco is a 62 y.o. male transferred from [facility] following visit with intermittent chest pain anterior chest with radiation to arms and back workup revealing inferolateral STEMI once arrived at [facility] was taken to labor expediter where he underwent pci and KANDICE for 90% occlusion of distal Lcx/LPDA. Smoker denies h/o htn cad dm Pt seen post procedure has headache no other compliants Patient was discharged on GDMT; lipitor, asa, farxiga, metoprolol, entresto, plus plavix He will follow up with cardiology and perform cardiac rehab outpatient Review of Systems Constitutional: Positive for malaise/fatigue. HENT: Positive for hearing loss. Cardiovascular: Positive for dyspnea on exertion. All other systems reviewed and are negative. Visit Vitals BP 100/70 (BP Location: Left arm, Patient Position: Sitting) Pulse 83 Ht 1.778 m (5' 10 ) Wt 76.7 kg (169 lb) SpO2 98% BMI 24.25 kg/m??? Smoking Status Former BSA 1.95 m??? Allergies Allergen Reactions Morphine Medications: Current Outpatient Medications on File Prior to Visit Medication Sig Dispense Refill aspirin 81 mg EC tablet Take 1 tablet (81 mg) by mouth in the morning. Do not start before December 20, 2022. tablet 3 atorvastatin (Lipitor) 80 mg tablet Take 1 tablet (80 mg) by mouth at bedtime. 90 tablet 3 clopidogrel (Plavix) 75 mg tablet Take 1 tablet (75 mg) by mouth in the morning. Do not start before December 20, 2022. tablet 3 dapagliflozin propanediol (Farxiga) 10 mg Take 1 tablet (10 mg) by mouth in the morning. Do not start before December 20, 2022. tablet 3 metoprolol succinate XL (Toprol-XL) 25 mg 24 hr tablet Take 1 tablet (25 mg) by mouth in the morning. Do not crush or chew. Do not start before December 20, 2022. tablet 3 nicotine (Nicoderm CQ) 21 mg/[address] 1 patch on the skin in the morning. Do not start before December 20, 2022. patch 3 sacubitril-valsartan (Entresto) 24-26 mg tablet Take 1 tablet by mouth in the morning and at bedtime. 180 tablet 3 [DISCONTINUED] albuterol 90 mcg/actuation inhaler Inhale 2 puffs if needed in the morning, at noon, in the evening, and at bedtime. [DISCONTINUED] benzonatate (Tessalon) 100 mg capsule Take 100 mg by mouth if needed in the morning and at bedtime. [DISCONTINUED] levoFLOXacin (Levaquin) 750 mg tablet Take 750 mg by mouth in the morning. No current facility-administered medications on file prior to visit. Physical Exam: Constitutional: Appearance: Normal appearance. Without apparent distress HENT: Head: Normocephalic and atraumatic. Nose: Nose normal. Mouth/Throat: Mouth: Mucous membranes are moist. Eyes: Extraocular Movements: Extraocular movements intact. Conjunctiva/sclera: Conjunctivae normal. Neck: Vascular: No JVD. Cardiovascular: Rate and Rhythm: Normal rate and regular rhythm. Pulses: Radial pulses are 3 on the right side and 3on the left side. Rt radial site C/D/I- well healed, no hematoma, ecchymosis or bruit noted Posterior tibial pulses are 3 on the right side and 3 on the left side. Heart sounds: Normal heart sounds, S1 normal and S2 normal. Pulmonary: Effort: Pulmonary effort is normal. Breath sounds: Normal breath sounds. Abdominal: General: Bowel sounds are normal. Palpations: Abdomen is soft. Musculoskeletal: General: Normal range of motion. Cervical back: Normal range of motion. Right lower leg: No edema. Left lower leg: No edema. Skin: General: Skin is warm and dry. Capillary Refill: Capillary refill takes less than 2 seconds. Neurological: General: No focal deficit present. Mental Status: he is alert and oriented to person, place, and time. Psychiatric: Mood and Affect: Mood normal. Behavior: Behavior normal. Thought Content: Thought content normal. Judgment: Judgment normal. Labs: 12/17/22 CBC normal, renal function and liver function normal, Ldl elevated A1c 5.7- NORMAL Last lab values have been reviewed CV Testin12/18/22 TTE 12/17/22 Conclusion Cardiac Cath Report 12/17/2022 Performing Physicians: -Talya Garg (more content not included)... [facility] 12-23-2022 Note Patient here for [facility] for STEMI. Still trying to get his strength back. Denies chest pain. Still gets SOB with minimal exertion. Review of Systems Constitutional: Positive for malaise/fatigue. HENT: Positive for hearing loss. Cardiovascular: Positive for dyspnea on exertion. All other systems reviewed and are negative. [facility] 12-19-2022 Note Hospital Medicine Discharge Summary Final Discharge Diagnosis: ST elevation myocardial infarction (STEMI), unspecified artery (CMS/HCC) STEMI s/p PCI Tobacco dependence Admission Diagnosis: STEMI (ST elevation myocardial infarction) (CMS/HCC) [I21.3] ST elevation myocardial infarction (STEMI), unspecified artery (CMS/HCC) [I21.3] Hospital course: Shan Franco is a 62 y.o. male transferred from [facility] following visit with intermittent chest pain anterior chest with radiation to arms and back workup revealing inferolateral STEMI once arrived at [facility] was taken to labor expediter where he underwent pci and KANDICE for 90% occlusion of distal Lcx/LPDA. Smoker denies h/o htn cad dm Pt seen post procedure has headache no other compliants Patient was discharged on GDMT; lipitor, asa, farxiga, metoprolol, entresto, plus plavix He will follow up with cardiology and perform cardiac rehab outpatient Dear No primary care provider on file., Shan is advised to follow up with you within 1-2 weeks. Follow-up with: Cardiology Scheduled appointments: Future Appointments Date Time Provider Department Center 12/23/2022 11:40 AM Isabell Ansari NP [facility] Your medication list START taking these medications Instructions Last Dose Given Next Dose Due aspirin 81 mg EC tablet Start taking on: December 20, 2022 Take 1 tablet (81 mg) by mouth in the morning. Do not start before December 20, 2022. atorvastatin 80 mg tablet Commonly known as: Lipitor Take 1 tablet (80 mg) by mouth at bedtime. clopidogrel 75 mg tablet Commonly known as: Plavix Start taking on: December 20, 2022 Take 1 tablet (75 mg) by mouth in the morning. Do not start before December 20, 2022. dapagliflozin propanediol 10 mg Commonly known as: Farxiga Start taking on: December 20, 2022 Take 1 tablet (10 mg) by mouth in the morning. Do not start before December 20, 2022. metoprolol succinate XL 25 mg 24 hr tablet Commonly known as: Toprol-XL Start taking on: December 20, 2022 Take 1 tablet (25 mg) by mouth in the morning. Do not crush or chew. Do not start before December 20, 2022. nicotine 21 mg/24 hr patch Commonly known as: Nicoderm CQ Start taking on: December 20, 2022 Place 1 patch on the skin in the morning. Do not start before December 20, 2022. sacubitril-valsartan 24-26 mg tablet Commonly known as: Entresto Take 1 tablet by mouth in the morning and at bedtime. CONTINUE taking these medications Instructions Last Dose Given Next Dose Due albuterol 90 mcg/actuation inhaler benzonatate 100 mg capsule Commonly known as: Tessalon levoFLOXacin 750 mg tablet Commonly known as: Levaquin Where to Get Your Medications [id number] [place], [place] - [address] [id number] aspirin 81 mg EC tablet atorvastatin 80 mg tablet clopidogrel 75 mg tablet dapagliflozin propanediol 10 mg metoprolol succinate XL 25 mg 24 hr tablet nicotine 21 mg/24 hr patch sacubitril-valsartan 24-26 mg tablet Shan has no allergies on file. Disposition: Home or Self Care Discharge Condition: Stable Code Status: Prior Diagnostic Results Hematology: Results from last 7 days Lab Units 12/17/222127 WBC AUTO 10*3/uL 8.21 HEMOGLOBIN g/dL 15.9 HEMATOCRIT % 45.6 MCV fL 92.1 PLATELETS AUTO 10*3/uL 659* Chemistry: Results from last 7 days Lab Units 12/17/228 SODIUM mmol/L 134* POTASSIUM mmol/L 3.8 CHLORIDE mmol/L 101 CO2 mmol/L 24 BUN mg/dL 16 CREATININE mg/dL 0.70 GLUCOSE mg/dL 148* MAGNESIUM mg/dL 2.0 CALCIUM mg/dL 9.1 Results from last 7 days Lab Units 12/17/228 AST U/L 20 ALT U/L 63* ALK PHOS U/L 122* BILIRUBIN TOTAL mg/dL 0.6 Test Results Pending At Discharge: Diet at the time of discharge: cardiac diet Nutrition Screen Activity: No driving for 24 hours No strenuous activity- no lifting greater than 5 pounds or excessive stair climbing x 1 week No strenuous activity, Follow cardiology recommendations Objective Blood pressure 94/83, pulse 80, temperature 36 ???C (96.8 ???F), temperature source Temporal, resp. rate 18, height 1.753 m (5' 9 ), weight 76 kg (167 lb 8 oz), SpO2 96 %. General: Alert and oriented x3. Cardiology: Normal rate, regular rhythm. Lungs: Clear to auscultation, no wheezes, rales or rhonchi, symmetric air entry. Abdomen: Soft, non tender, non distended. Extremities: No pitting edema. Neurology: No focal neuro deficit noted. Total time for discharge - review of data, exam, discussion with providers and care-team, med-rec and orders, arranging follow up, counseling of patient and/or family and documentation was 35 minutes. Signed Brittany Guevara NP [facility] Medicine 12/20/2022 9:07 AM [facility] 12-19-2022 Note Adult Nutrition Cons ult Consult noted for HF s/p NSTEMI. Please see RD from 12/18/22 for full assessment including diet education for low sodium diet. [facility] 12-19-2022 Note Cardiology Progress Note Subjective F/U Stemi, new CHF Assessed at bedside The patient was lying comfortably in bed. No acute events overnight Denied chest pain, shortness of breath, orthopnea, palpitations. Tele SR 68-79 Objective Patient Vitals for the past 24 hrs: BP Temp Temp src Pulse Resp SpO2 Weight 12/19/22 0500 -- -- -- -- -- -- 76 kg (167 lb 8 oz) 12/19/22 0404 102/65 36.7 ???C (98.1 ???F) Temporal 74 15 94 % -- 12/18/22 2345 108/68 36.5 ???C (97.7 ???F) Temporal 72 18 96 % -- 12/18/22 1954 120/79 36.6 ???C (97.9 ???F) Temporal 84 18 96 % -- 12/18/22 1602 101/78 36.7 ???C (98.1 ???F) Temporal 78 22 96 % -- 12/18/22 1000 107/88 36.5 ???C (97.7 ???F) Temporal 69 14 100 % -- 12/18/22 0900 128/76 -- -- 83 17 100 % -- Physical Examination: Physical Exam Constitutional: General: He is not in acute distress. Appearance: Normal appearance. HENT: Head: Normocephalic and atraumatic. Right Ear: External ear normal. Left Ear: External ear normal. Nose: Nose normal. Eyes: Extraocular Movements: Extraocular movements intact. Cardiovascular: Rate and Rhythm: Normal rate and regular rhythm. Heart sounds: Normal heart sounds. Comments: Rt radial 3+ pulse, site C/D/I, no hematoma or ecchymosis B/L DP and PT pulses 3+ palpable Pulmonary: Effort: Pulmonary effort is normal. Breath sounds: Normal breath sounds. No wheezing or rales. Abdominal: General: Bowel sounds are normal. There is no distension. Palpations: Abdomen is soft. Tenderness: There is no abdominal tenderness. Musculoskeletal: Right lower leg: No edema. Left lower leg: No edema. Skin: General: Skin is warm and dry. Capillary Refill: Capillary refill takes less than 2 seconds. Neurological: General: No focal deficit present. Mental Status: He is alert and oriented to person, place, and time. Psychiatric: Mood and Affect: Mood normal. Behavior: Behavior normal. Relevant Lab Results Latest Reference Range & Units 12/17/22 21:28 Sodium 136 - 145 mmol/L 134 (L) Potassium 3.5 - 5.1 mmol/L 3.8 Chloride 98 - 107 mmol/L 101 CO2 21 - 31 mmol/L 24 Anion Gap 7 - 20 mmol/L 13 BUN 7 - 25 mg/dL 16 Creatinine 0.70 - 1.30 mg/dL 0.70 BUN/Creatinine Ratio 22.9 Glucose 70 - 100 mg/dL 148 (H) Calcium 8.6 - 10.3 mg/dL 9.1 Magnesium 1.9 - 2.7 mg/dL 2.0 Alkaline Phosphatase 34 - 104 U/L 122 (H) Albumin 3.5 - 5.7 g/dL 3.6 Total Protein 6.0 - 8.3 g/dL 6.5 EGFR >60.0 mL/min/1.73m*2 104.8 AST 13 - 39 U/L 20 ALT (SGPT) 7 - 52 U/L 63 (H) Total Bilirubin 0.3 - 1.0 mg/dL 0.6 Cholesterol 120 - 200 mg/dL 192 Cholesterol/HDL Ratio mg/dL 6.4 Triglycerides 40 - 149 mg/dL 277 (H) HDL 23 - 92 mg/dL 30 Non HDL Cholesterol 162 LDL Calculated 0 - 160 mg/dL 107 Total VLDL-C 0 - 40 mg/dL 55 (H) Auto WBC 4.00 - 10.60 10*3/uL 8.21 RBC 4.20 - 5.70 10*6/uL 4.95 Hemoglobin 13.0 - 17.0 g/dL 15.9 Hematocrit 39.0 - 55.0 % 45.6 MCV 82.0 - 98.0 fL 92.1 MCH 27.0 - 33.0 pg 32.1 MCHC 32.0 - 35.0 g/dL 34.9 RDW 11.5 - 15.0 % 13.7 Platelets 150 - 400 10*3/uL 659 (H) Neutrophils Relative 40.0 - 72.0 % 60.6 Immature Granulocytes Relative 0.0 - 1.0 % 0.6 Lymphocytes Relative 20.0 - 45.0 % 29.6 Monocytes Relative 5.0 - 12.0 % 6.9 Eosinophils Relative 0.0 - 6.0 % 1.8 Basophils Relative 0.0 - 1.0 % 0.5 Neutrophils Absolute 1.60 - 7.60 10*3/uL 4.97 Immature Granulocytes Absolute 0.00 - 0.20 10*3/uL 0.05 Lymphocytes Absolute 1.20 - 4.00 10*3/uL 2.43 Monocytes Absolute 0.10 - 1.00 10*3/uL 0.57 Eosinophils Absolute 0.00 - 0.50 10*3/uL 0.15 Basophils Absolute 0.00 - 0.20 10*3/uL 0.04 nRBC % 0 % 0.0 Hemoglobin A1C 4.0 - 6.0 % 5.7 Estimated Average Glucose mg/dL 117 (L): Data is abnormally low (H): Data is abnormally high 12/18/22 TTE Left Ventricle: The left ventricle is normal size. Global left ventricular systolic function is mildly reduced. EF range is estimated at 45 % -50 %. Left ventricular wall thickness is normal. Regional wall motion abnormalities (see diagram). Grade 1, mild diastolic dysfunction (abnormal relaxation). No left ventricular hypertrophy. Right Ventricle: The right ventricle is normal in size. Normal right ventricular systolic function. Doppler studies suggest normal right sided pressures. Left Atrium: The left atrium is normal in size. Overall Conclusions: No significant valvular abnormalities 12/17/22 Cath Cardiac Cath Report 12/17/2022 Performing Physicians: -Talya Garg MD Assistants: Dr Felisa Meraz. Procedures Performed: -Bilateral selective coronary angiography -PCI of distal LCx/LPDA Using balloon angioplasty and drug-eluting stent placement -Conscious sedation Final Impressions: -90-95% stenosis in distal LCx/LPDA successfully reduced to 0% stenosis following successful Balloon angioplasty and drug-eluting stent placement Recommendations: -DAPT for at least 1 year, followed by Aspirin 81 mg lifelong. Mynor intensity statin (more content not included)... [facility] 12-18-2022 Note Adult Nutrition Asse ssment: Name: Shan Franco Room: [address] [place] [address] Date: 1960 Date of Visit: 12/18/22 Admission Dx: STEMI (ST elevation myocardial infarction) (CMS/HCC) [I21.3] ST elevation myocardial infarction (STEMI), unspecified artery (CMS/HCC) [I21.3] Reason for assessment: high risk and reported poor po intake and recent unintentional wt loss Information obtained from: patient, family, and medical record PMHx: tobacco use disorder, HTN, hyperlipidemia, alcohol use disorder, lower leg injury (1999; muscle and soft tissue all ripped away by a borer, workmans comp) Current Medications: aspirin, 81 mg, oral, Daily atorvastatin, 80 mg, oral, Nightly clopidogrel, 75 mg, oral, Daily metoprolol succinate XL, 25 mg, oral, Daily sulfur hexafluoride microsphr, 2 mL, intravenous, Once in imaging Labs: 0 Lab Value Date/Time BUN 16 12/17/20222127 CREATININE 0.70 12/17/20222127 NA 134 (L) 12/17/20222127 K 3.8 12/17/20222127 MG 2.0 12/17/20222127 HGBA1C 5.7 12/17/20222127 HGB 15.9 12/17/20222127 WBC 8.21 12/17/20222127 CHOL 192 12/17/20222127 HDL 30 12/17/20222127 I/O: Intake/Output Summary (Last 24 hours) at 12/18/2022 1444 Last data filed at 12/18/2022 0600 Gross per 24 hour Intake 39.25 ml Output 790 ml Net -750.75 ml Allergies: Not on File; pt reported NKFA Nutrition Problems: Mouth: missing teeth Abdominal assessment: Last BM: 12/17 Appetite: fair Cognition: A/O x 4; impaired hearing to L and R ears Nutrition deficits prior to admission: Calories and Protein Other factors: cardiac cath 12/17; 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 Wt Readings from Last 10 Encounters: 12/18/22 76 kg (167 lb 9.6 oz) 06/23/22 83.9 kg (185 lbs) IBW: 72.7 kg (160 lbs) UBW: 88.6 kg (195 lbs); reported by pt Weight change: 9.4% in 6 mo Nutrition Assessment: Visiting pt for initial assessment d/t high risk nutrition screen, reported poor po intake and documented wt loss. Pt's son in room during assessment and stated concern that pt was not properly caring for himself, has lost 30 lbs over last 3 mo, and has been consuming energy drinks (Red Bulls) as meals during workdays. 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 Pt report that on average he consumed 1-2 meals/d that vary in content but are usually fast foods. At time of assessment, pt had not ordered breakfast and was awaiting lunchtime to order pizza; advised pt on Heart Healthy diet order and provided diet education (low sodium and reading nutrition labels, low fat, lean protein choices, limiting caffeine). Pt and pt's son accepting of education provided and had no additional questions. Encouraged pt to eat 3 meals/d, even if they were small meals; pt agreeable to offer of nutrition supplements. Also advised pt on caffeine intake and limiting energy drink consumption. Dietary Orders (From admission, onward) Start Ordered 12/18/22 1135 Special Kitchen Request Once Comments: Please send him an oven broiled tilapia and teriyaki chicken w/ green beans. 12/18/22 1136 12/17/22 2356 Regular Diet Heart Healthy/HTN, CABG,Stroke, (2gNA, low fat, low cholesterol) Diet effective now Question Answer Comment Room Service? 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 As evidenced by: documented 9.4% wt loss in 6 mo, pt's son reported suspected wt loss by pt Inadequate po intake Related to: 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 [facility] 12-18-2022 Note Hospital Medicine Daily Progress Note - 12/18/2022 2:57 PM; Room: 3109/3109-01 Admission: 12/17/2022 7:05 PM; Length of stay: 1 days THE HOSPITALIST TEAM PREFERS TO USE [employer] FOR COMMUNICATION 7AM-7PM. IF I DO NOT RESPOND WITHIN 15 MINUTES, PLEASE PAGE ME/CALL THROUGH THE POST SPLITTER. FROM 7PM-7AM, PLEASE PAGE [phone](COVR) Code Status: Full Code Discharge Destination: home Discharge planning: Echo pending, possibly tomorrow Overview Patient is seen for evaluation and management of STEMI. Subjective Patient assessed at bedside, denies any chest pain, shortness of breath, nausea or vomiting. Spoke with family, reports patient is fairly anxious and requested something for anxiety. Counseled patient on quitting smoking. Physical Exam Visit Vitals BP 107/88 Pulse 69 Temp 36.5 ???C (97.7 ???F) (Temporal) Resp 14 Intake/Output Summary (Last 24 hours) at 12/18/2022 1457 Last data filed at 12/18/2022 0600 Gross per 24 hour Intake 39.25 ml Output 790 ml Net -750.75 ml Physical Exam Vitals reviewed. Constitutional: General: He is awake. He is not in acute distress. Appearance: Normal appearance. He is not ill-appearing. Cardiovascular: Rate and Rhythm: Normal rate and regular rhythm. Pulses: Radial pulses are 2+ on the right side and 2+ on the left side. Heart sounds: Normal heart sounds. Pulmonary: Effort: Pulmonary effort is normal. No tachypnea, accessory muscle usage or respiratory distress. Breath sounds: Normal breath sounds. Abdominal: General: Bowel sounds are normal. There is no distension. Palpations: Abdomen is soft. Tenderness: There is no abdominal tenderness. Musculoskeletal: Right lower leg: No edema. Left lower leg: No edema. Skin: General: Skin is warm and dry. Neurological: Mental Status: He is alert and oriented to person, place, and time. Mental status is at baseline. Psychiatric: Attention and Perception: Attention normal. Mood and Affect: Mood normal. Speech: Speech normal. Behavior: Behavior is cooperative. Estimated body mass index is 24.75 kg/m??? as calculated from the following: Height as of this encounter: 1.753 m (5' 9 ). Weight as of this encounter: 76 kg (167 lb 9.6 oz). Active Inpatient Problems Principal Problem: ST elevation myocardial infarction (STEMI), unspecified artery (CMS/HCC) Assessment and Plan STEMI s/p PCI Tobacco dependence Continue vitals every 4 hours Echo pending Cardiology following Maintain telemetry Xanax ordered as needed for anxiety Counseled on tobacco abstinence Nutrition Screen VTE Prophylaxis: Heparin subcutaneous Scheduled Meds aspirin, 81 mg, oral, Daily atorvastatin, 80 mg, oral, Nightly clopidogrel, 75 mg, oral, Daily heparin (porcine), 5,000 Units, subcutaneous, BID metoprolol succinate XL, 25 mg, oral, Daily Pertinent Investigations Hematology: Results from last 7 days Lab Units 12/17/222127 WBC AUTO 10*3/uL 8.21 HEMOGLOBIN g/dL 15.9 HEMATOCRIT % 45.6 MCV fL 92.1 PLATELETS AUTO 10*3/uL 659* Chemistry: Results from last 7 days Lab Units 12/17/222127 SODIUM mmol/L 134* POTASSIUM mmol/L 3.8 CHLORIDE mmol/L 101 CO2 mmol/L 24 BUN mg/dL 16 CREATININE mg/dL 0.70 GLUCOSE mg/dL 148* MAGNESIUM mg/dL 2.0 CALCIUM mg/dL 9.1 Results from last 7 days Lab Units 12/17/222127 AST U/L 20 ALT U/L 63* ALK PHOS U/L 122* BILIRUBIN TOTAL mg/dL 0.6 Historical Values: (Includes values prior to this admission) Lab Results Component Value Date HDL 30 12/17/2022 LDL 162 12/17/2022 No results found for: [id number], IRON, TIBC, C3, C4, TENZIN, CANCA, ASO, PSA, CEA, CA125, CA199, AFP, CA153 Imaging ECG 12 lead Normal sinus rhythm ST segment elevation Inferiorly Abnormal ECG Confirmed by Freeman ESQUIVEL, L.S. (2) on 12/18/2022 10:57:46 AM ECG 12 lead Normal sinus rhythm ST segment elevation inferiorly Abnormal ECG When compared with ECG of 17-DEC-2022 19:27, (unconfirmed) No significant change was found Confirmed by Freeman ESQUIVEL, L.S. (2) on 12/18/2022 10:56:56 AM Cardiac catheterization Cardiac Cath Report 12/17/2022 Performing Physicians: -Talya Garg MD Assistants: Dr Felisa Meraz. Indications: Mr. Franco is a 62-year-old male with a past medical history including tobacco abuse who presented to outside hospital with acute onset chest pain. Patient was noted to have inferior ST elevation on EKG. Case was discussed by outside ER with Dr. Healy, who accepted patient as direct transfer to [facility] for emergent coronary angiography with possible revascularization. Patient was taken to the labor expediter emergently. Procedures Performed: -Bilateral selective coronary angiography -PCI of distal LCx/LPDA Using balloon angioplasty and drug-eluting stent placement -Conscious sedation Final Impressions: -90-95% stenosis in distal LCx/LPDA successfully reduced to 0% stenosis following succe (more content not included)... [facility] 12-18-2022 Note 12/18/22 1205 Admission Assessment Questions Verify insurance with patient Yes Do you understand medical disease or what brought you into the hospital? Yes Who is your current PCP? does not currently have a PCP but is scheduled to picker feeder a packet at Dr Liu office in [place] for a PCP Can I schedule a follow up appointment for you at the time of discharge? Yes Do you understand why you are taking your current medications? Yes Are you taking your medications as prescribed? Yes Did patient provide teach back? No Would you like use our pharmacy [facility] to fill your new medications at the time of Discharge? Yes Does the patient have a oil field caser assigned to them through their insurance? No Living Arrangement (Current/Prior to Hospitalization) Private residence Does the patient have history of HHC or SNF? No Assistive Device Not applicable Patient's goal for discharge return home with Was patient reminded that goal for discharge is 11am? Yes Does the patient have transportation at discharge? Yes () Type of Residence/Post Acute Needs Private residence Is PT/OT appropriate? No Is PT/OT ordered? No Is SW consult appropriate? No Is SW consult ordered? No Do you understand the benefits of MyChart? Yes Were you able to send link and activate MyChart? Yes [facility] 12-18-2022 Note ------ Attestation signed by Baljinder Donaldson MD at 12/20/2022 10:15 AM By using the attestations below, the signing clinician agrees that I have read and verify that the documentation has been personally reviewed by me and ensure that the documentation accurately reflects the encounter. GC: I personally saw this patient on the day of the encounter, performed the faulkner portion(s) of the service and participated in the management and confirm the resident's documentation. Please note there may be an additional personal documentation from me. ------ Cardiology Progress Note Subjective Subjective: Patient was seen and examined at bedside. The patient was lying comfortably in bed. The patient reported having occasional chest pain overnight. The patient denied any abdominal pain, nausea, vomiting, shortness of breath, dizziness or lightheadedness. Objective Objective: Patient Vitals for the past 24 hrs: BP Temp Temp src Pulse Resp SpO2 Height Weight 12/18/22 0800 96/78 -- -- 70 17 96 % -- -- 12/18/22 0700 105/70 -- -- 75 14 95 % -- -- 12/18/22 0600 -- -- -- -- -- -- -- 76 kg (167 lb 9.6 oz) 12/18/22 0421 92/68 36.4 ???C (97.5 ???F) Temporal 75 18 95 % -- -- 12/18/22 0000 114/83 36.2 ???C (97.2 ???F) Temporal 77 20 96 % -- -- 12/17/222116 128/88 36 ???C (96.8 ???F) Temporal 88 25 98 % -- -- 12/17/222102 -- -- -- -- -- -- 1.753 m (5' 9 ) 76.7 kg (169 lb) 12/17/221958 137/81 -- -- 79 16 97 % -- -- 12/17/221944 119/81 -- -- 72 17 100 % -- -- 12/17/221934 123/81 -- -- 74 21 100 % -- -- 12/17/22 192 124/80 -- -- 80 18 98 % -- -- 12/17/221837 -- -- -- -- -- 100 % -- -- 12/17/221837 119/83 -- -- 98 14 100 % -- -- Physical Examination: Physical Exam Constitutional: General: He is not in acute distress. Appearance: Normal appearance. HENT: Head: Normocephalic and atraumatic. Right Ear: External ear normal. Left Ear: External ear normal. Nose: Nose normal. Eyes: Extraocular Movements: Extraocular movements intact. Cardiovascular: Rate and Rhythm: Normal rate and regular rhythm. Heart sounds: Normal heart sounds. Pulmonary: Breath sounds: Normal breath sounds. No wheezing or rales. Abdominal: General: There is no distension. Palpations: Abdomen is soft. Tenderness: There is no abdominal tenderness. Musculoskeletal: Right lower leg: No edema. Left lower leg: No edema. Neurological: Mental Status: He is alert and oriented to person, place, and time. Psychiatric: Mood and Affect: Mood normal. Behavior: Behavior normal. Relevant Lab Results Encounter Date: 12/17/22 ECG 12 lead Result Value Ventricular Rate 74 Atrial Rate 74 TX Interval 200 QRS DURATION 92 QT Interval 390 QTC CALCULATION(BAZETT) 432 P [place] 83 R-[place] 83 T Wave [place] 80 Impression Normal sinus rhythm ST elevation, consider early repolarization, pericarditis, or injury Abnormal ECG When compared with ECG of 17-DEC-2022 19:27, (unconfirmed) No significant change was found No results found for: CKTOTAL, CKMB, CKMBINDEX, TROPONINI No echocardiogram results found for the past 12 months No nuclear medicine results found for the past 12 months Relevant Imaging Results ECG 12 lead Normal sinus rhythm ST elevation, consider early repolarization, pericarditis, or injury Abnormal ECG When compared with ECG of 17-DEC-2022 19:27, (unconfirmed) No significant change was found Assessment: STEMI s/p drug-eluting stent to distal LCx Essential hypertension Hyperlipidemia Tobacco use disorder Plan Continue dual antiplatelet therapy with aspirin and plavix Continue statin and Toprol Follow-up on echocardiogram ordered. Will evaluate need to start GDMT depending on ejection fraction evaluation on echocardiogram Rest of the care per primary team Cardiology will continue to follow. Please call with any questions. Meghna Beal PGY-2, Internal Medicine resident [facility] 12-06-2022 Evaluation note Encounter Date Diagnosis Assessment Notes Nov, Suspected COVID-19 virus infection (ICD-10 - Z20.822) COVID and flu PCR negative. Nov, Viral bronchitis (ICD-10 - J20.8) Discussed with patient and exam is consistent with viral upper respiratory infection with secondary bronchitis. Discussed smoking status increases risk for bronchitis with regular upper respiratory infection. Does have mild wheezing. Will treat with Medrol Dosepak, as needed albuterol inhaler. We will also Rx as needed Bromfed for symptomatic treatment. Patient is advised to follow-up with PCP if not gradually improving over the next 7 to 10 days, sooner if significantly worsening or if any fever that is not resolving in the next 4 to 5 days. Patient verbalized understanding of treatment plan. [employer] Other 04-11-2023 Hospital Discharge instructions* Discharge Instructions* Curt Lewis DO - 06/23/2022 2:34 AM EDT Keep the area clean and dry. Watch for signs of infection. The Steri-Strips will fall off by themselves. Wear gloves at work at least until the skin has completely closed up. If you have any concerns or questions regarding your care today, please discuss with your nurse or physician prior to leaving the emergency department. Thank you for allowing us to take care of you at [facility]. In the next few days you may receive a survey by mail or e-mail asking about the care you received during this visit. Please complete this if you are able, as this feedback helps us provide the best care possible. * Attachments The following attachments cannot be sent through Care Everywhere. * Lacerations: Adhesives ([place]) [facility] Work Phone: [phone]) 885-253605-23-2022 Evaluation note* Encounter Date Diagnosis Assessment Notes Treatment Notes Treatment Clinical Notes July, Acute sinusitis, recurrence not specified, unspecified location (ICD-10 - J01.90) Drink plenty fluids, get plenty of rest. Take the oxacillin with clavulanate as well as the prednisone as prescribed until gone. Use the Flonase inhaler as prescribed until your symptoms improve. Take Tylenol or Motrin for aches pains or fevers. Follow-up with your family physician if no improvement in 2 to 3 days [employer] Other Evaluation note* Diagnosis Laceration of left index finger without foreign body without damage to nail, initial encounter- Primary documented in this encounter AURORA ALLISON [employer] Work Phone: Summary Purpose Family History No Family History Records FoundNo Family History Records FoundNo Family History Records FoundNo Family History Records Found Advance Directives No Advanced Directives Records FoundNo Advanced Directives Records FoundNo Advanced Directives Records FoundNo Advanced Directives Records Found Additional Source Comments (unrecognized sect ion and content) No Status Records FoundNo Status Records FoundNo Status Records FoundNo Status Records Found INFORMATION SOURCE (unrecogn ized section and content) DATE CREATED AUTHOR 09/07/2017 [facility] [employer] [facility] DATE CREATED AUTHOR AUTHOR'S ORGANIZ ATION 09/07/2020 [facility] DATE CREATED AUTHOR AUTHOR'S ORGANIZ ATION [facility] DATE CREATED AUTHOR AUTHOR'S ORGANIZ ATION [facility]/25/20[facility] REASON FOR VISIT (unrecogniz ed section and content) Reason Comments Laceration Pt cut his left inde x finger on a knife at work. Bleeding controlled. Last tetanus shot was 6-7 years ago. FOR RECORDS PERTAINING TO PATIENTS WHO ARE OR HAVE BEEN ENROLLED IN A CHEMICAL DEPENDENCY/SUBSTANCEABUSE PROGRAM, SOME INFORMATION MAY BE OMITTED. This clinical summary was aggregated from multiple sources. Caution should be exercised in using it in the provision of clinical care. This summary normalizes information from multiple sources, and as a consequence, information in this document may materially change the coding, format and clinical context of patient data. In addition, data may be omitted in some cases. CLINICAL DECISIONS SHOULD BE BASED ON THE PRIMARY CLINICAL RECORDS. [employer] provides no warranty or guarantee of the accuracy or completeness of information in this document.
[2023-04-28 12:47] LABS: Alanine Aminotransferase 33 U/L (16-63); Albumin Globulin Ratio 1.1; Albumin Level 3.9 g/dL (3.4-5.0); Alkaline Phosphatase 122 U/L (46-116); Anion Gap 10.9; Aspartate Amino Transferase 21 U/L (15-37); BUN Creatinine Ratio 26.8; Bilirubin Total 0.5 mg/dL (0.2-1.0); Calcium 9.1 mg/dL (8.5-10.1); Carbon Dioxide 30.3 mmol/L (21.0-32.0); Chloride 102 mmol/L (98-107); Chol HDL Ratio 2.7; Cholesterol 137 mg/dL (<=200); Estimated GFR (African America >60 (>=60); Estimated GFR (Non-African Ame >60 (>=60); Globulin 3.6 g/dL; Glucose 97 mg/dL (74-106); HDL Cholesterol 50 mg/dL (40-60); LDL Cholesterol Calculated 73.4 mg/dL; Potassium 4.2 mmol/L (3.5-5.1); Sodium 139 mmol/L (136-145); Total Protein 7.5 g/dL (6.4-8.2); Triglycerides 68 mg/dL (<=150); VLDL CHOLESTEROL 13.6 mg/dL
== END 2023-04-28 10:57 | disposition home or self-care (01) ==
PROVIDERS: Visit Provider Nurse Practitioner
DX: E78.2 Mixed hyperlipidemia (principal); I25.110 Atherosclerotic heart disease of native coronary artery with unstable angina pectoris
CPT/HCPCS: 36415; 80053; 80061

== ENCOUNTER 2023-06-10 12:00 | Outpatient (OUT) | payer BC, SELFPAY ==
[2023-06-10 12:30] LABS: Basophils Absolute Auto 0.1 10^3/uL (0.0-0.1); Basophils Percent Auto 0.9 % (0.2-2.0); Eosinophils Absolute Auto 0.3 10^3/uL (0.0-0.7); Eosinophils Percent Auto 3.2 % (0.9-7.0); Hematocrit 45.3 % (42.0-54.0); Hemoglobin 14.9 g/dL (14.0-18.0); Immature Granulocytes Abs Auto 0.02 10^3/uL (0.00-0.03); Immature Granulocytes Pct Auto 0.2 % (0.0-0.5); Lymphocytes Absolute Auto 2.3 10^3/uL (1.2-3.8); Lymphocytes Percent Auto 26.9 % (20.5-60.0); Mean Corpuscular HGB Conc 32.9 g/dL (29.9-35.2); Mean Corpuscular Hemoglobin 30.6 pg (25.9-34.0); Mean Platelet Volume 9.4 fL (9.5-13.5); Monocytes Absolute Auto 0.7 10^3/uL (0.3-0.8); Monocytes Percent Auto 8.3 % (1.7-12.0); Neutrophils Absolute Auto 5.1 10^3/uL (1.4-6.5); Neutrophils Percent Auto 60.5 % (43.0-75.0); Platelet Count 283 10^3/uL (150-450); Red Blood Count 4.87 10^6/uL (4.70-6.10); Red Cell Distribution Width 13.5 % (11.0-15.0); White Blood Count 8.4 10^3/uL (4.0-11.0)
[2023-06-10 12:42] LABS: Erythrocyte Sedimentation Rate 16 mm/hr (<=20)
[2023-06-10 13:19] LABS: Anion Gap 12.7; BUN Creatinine Ratio 19.1; Calcium 8.9 mg/dL (8.5-10.1); Carbon Dioxide 28.6 mmol/L (21.0-32.0); Chloride 103 mmol/L (98-107); Estimated GFR (African America >60 (>=60); Estimated GFR (Non-African Ame >60 (>=60); Glucose 98 mg/dL (74-106); Potassium 4.3 mmol/L (3.5-5.1); Sodium 140 mmol/L (136-145); Troponin I High Sensitivity 6.2 pg/mL (4.0-76.1)
[2023-06-11 05:07] LABS: C-Reactive Protein, Cardiac 1.34 mg/L (0.00-3.00)
== END 2023-06-10 12:01 | disposition home or self-care (01) ==
PROVIDERS: Visit Provider Nurse Practitioner Family
DX: R07.9 Chest pain, unspecified (principal); I25.118 Atherosclerotic heart disease of native coronary artery with other forms of angina pectoris
CPT/HCPCS: 36415; 80048; 84484; 85025; 85652; 86140

== ENCOUNTER 2023-06-29 07:49 | Outpatient (OUT) | payer BC, SELFPAY ==
--- NOTE | 2023-06-29 | PCN_ITS ---
CARDIAC STRESS TEST Requesting Physician: Mary Cises NP Procedure Date: 06/29/2023 REASON FOR STUDY: Patient underwent a Lexiscan study for evaluation of chest pain. At baseline, the heart rate was 72 beats per minute with a blood pressure of 142/70 mm/Hg. The EKG was evident for sinus rhythm with normal intervals, with evidence of LVH. With initiation, the patient achieved a maximum heart rate of 94 beats per minute and blood pressure 142/70 mm/Hg. Seven minutes into the infusion, there was no evidence any ischemic changes or any AV block. IMPRESSION: 1. No evidence of ischemia noted on the EKG. 2. No symptoms reported during the study. 3. No arrhythmias seen during the study. 4. Nuclear portion of the study to be dictated by Radiology. MYRNAD
--- NOTE | 2023-06-29 07:20 | NM_ITS ---
Patient Name: HIMANSHU ROSALES MR#: [id number] : 1960 Exam Date: 06/29/2023 Ordering Doctor: GRACE RODRIGUEZ CNP RADIOLOGY REPORT PROCEDURE: NM PAL PERF SPECT REST STR COMPARISON: None. INDICATIONS: CHEST PAIN TECHNIQUE: Exam Description: Stress/Rest one day protocol gated SPECT Rest Imagin.8 mCi Tc-99m Cardiolite IV on 06/29/2023 Stress Imaging 29.3 mCi Tc-99m Cardiolite IV on 06/29/2023 Exercise Protocol: 0.4 mg Lexiscan given IV Heart Rate (bpm): Rest: 72 Max: 94 PMHR: 59 Blood Pressure: Rest: 142/70 Max: 142/70 Symptoms: Rest and peak stress ECG findings were normal and the exercise portion of the study was normal per attending physician Dr. Donaldson . For more details please see separate cardiac stress test report. FINDINGS: QUALITY OF STUDY: Good. PERFUSION DEFECT: LOCATION: Basal inferoseptal. Basal inferior. SIZE: Small (1-2 segments). SEVERITY: Mild. TYPE: Persistent. WALL MOTION: Normal. LV SIZE: Normal. 101 mL. TID / TCD: None; 0.9 LVEF: Normal. Calculated EF 61%. SUMMARY: Myocardial perfusion imaging study has ABNORMAL findings. CONCLUSION: 1. Small area of mildly decreased uptake in the inferior wall on rest images with no redistribution on stress images, I suspect diaphragmatic attenuation artifact 2. No reversible ischemia 3. Pending exercise test results Dictated by: Tyson Erickson MD on 06/30/2023 at 12:07 Approved by: Tyson Erickson MD on 06/30/2023 at 12:08
--- OUTSIDE RECORDS SUMMARY | 2023-06-29 07:52 | XMS_ITS | CCD ---
Author Organization [facility] Care Team Providers Care Nuclear Test Technician Name Role Phone LEATHA, DR ECHEVERRIA Admitting Unavailable LEATHA, DR ECHEVERRIA Consulting Unavailable LEATHA, DR ECHEVERRIA Attending Unavailable REQUEST, DR CLIFFORD LISTED Primary Care Unavailedwina PAEZ, DR MOYA Consulting Unavailable JAZZ OVIEDO Consulting Unavailable Kary Marvin Unavailable Unavailable Primary Care Provider UnavailLIANE Johnson Primary Care UnavailCURT Araujo Attending Unavailable Cecilia Van Unavailable BERNADINE CAMARENA Attending Unavailable ISABELL ANSARI Attending Unavailable GRACE GUEVARA Attending Unavailable ISABELL ANSARI Attending Unavailable TALYA GARG Attending Unavailable TALYA GARG Admitting Unavailable JESSE MOMIN Attending Unavailable GINETTE FORD Consulting Unavailable GINETTE FORD Referring Unavailable TALYA GARG Referring Unavailable JESSE MOMIN Referring Unavailable BALJINDER DONALDSON Referring Unavailable Allergies Allergy Classification Reported Allergen(s) Allergy Type Date of Onset Reaction(s) Facility Opioid Agonists (1 source) Morphine Drug Allergy [facility] Repository (1 source) Morphine; Translations: [MORPHINE] Drug Allergy 1 [facility] Repository (1 source) ALLERGIES NOT ON FILE; Translations: [ALLERGIES NOT ON FILE] Propensity to adverse reactions (disorder) [facility] Repository Medications Current Medications Medication Drug Class(es) Dates Sig (Normalized) Sig (Original) [id number] 200 actuat albuterol 0.09 mg/actuat metered dose [...] oral solution (1 source) alpha-Adrenergic Agonist, Uncompetitive A-koyodb-J-asparta te Receptor Antagonist, Sigma-1 Agonist Start: 3 Fwmkqulqu-Wwmzjxlv-YI 30-2-10 MG/5ML 10 ml Orally every 6 [...] Onset: 12-17-2022 Chronic Congestive heart failure; nonhypertensive (6 sources) Chronic combined systolic (congestive) and diastolic (congestive) heart failure; Translations: [Chronic systolic (congestive) heart failure] Onset: 12-17-2022 Chronic Coronary atherosclerosis and other heart disease (8 sources) Atherosclerotic heart disease of [place] coronary artery with other forms of angina pectoris; Translations: [Atherosclerotic heart disease of [place] coronary artery without angina pectoris] Onset: 12-19-2022 Chronic Disorders of lipid metabolism (2 sources) Mixed hyperlipidemia; Translations: [Mixed hyperlipidemia] Onset: 12-19-2022 Chronic Hypertension with complications and secondary hypertension (2 sources) Hypertensive heart disease with heart failure; Translations: [Hypertensive heart disease with heart failure] Onset: 12-19-2022 Chronic Nonspecific chest pain (2 sources) Chest pain, unspecified; Translations: [Chest pain, unspecified] Onset: 06-10-2023 Episodic Open wounds of extremities (2 sources) Laceration of left index finger; Translations: [Laceration without foreign body of left index finger without damage to nail, initial encounter] Onset: 06-23-2022 Episodic Other circulatory disease (3 sources) Other specified symptoms and signs involving the circulatory and respiratory systems; Translations: [OTH SPEC SX SIGNS INVLV CIRC RS] Onset: 09-01-2020 Episodic Jemma-; endo-; and myocarditis; cardiomyopathy (except that caused by tuberculosis or sexually transmitted disease) (2 sources) Cardiomyopathy in diseases classified elsewhere; Translations: [Cardiomyopathy in diseases classified elsewhere] Onset: 12-19-2022 Chronic Substance-related disorders (3 sources) Nicotine dependence, cigarettes, uncomplicated; Translations: [Nicotine dependence, unspecified, uncomplicated] Onset: 09-06-2020 Chronic Unclassified (1 source) OTHER ESOPHAGITIS WITHOUT BLEEDING; Translations: [OTHER ESOPHAGITIS WITHOUT BLEEDING] Onset: 09-06-2020 Unclassified (1 source) CONTACT W/AND (SUSP) EXPOS COVID-19; Translations: [CONTACT W/AND (SUSP) EXPOS COVID-19] Onset: 09-06-2020 Past or Other Problems Problem Classification Problem Date Documented Da te Episodic/Chronic Other circulatory disease (2 sources) Other hypotension; Translations: [Other hypotension] Onset: 01-14-2023 Episodic Other screening for suspected conditions (not mental disorders or infectious disease) (1 source) Patient encounter status; Translations: [Encounter for screening for malignant neoplasm of colon] Onset: 12-11-2016 Resolved: 06-24-2017 06-24-2017 Episodic Other upper respiratory infections (1 source) Acute sinusitis, unspecified Onset: 08-04-2021 Resolved: 08-04-2021 Episodic Unclassified (1 source) Suspected COVID-19 virus infection Z20.822 Results Test Name Value Interpretation Reference Range Facility Office Visiton 06-10-2023 Follow-up visit [id number] Shan Franco Nilsa 1960 M Date Provider Department Center 06/10/2023 GRACE FORD CARD [facility] Family History Problem Relation Age of Onset Other Mother Family Status - Relation Status Age at Mother Level of Service:37156 [place] OFFICE/OUTPATIENT ESTABLISHED MOD MDM 30 MIN Reason for Visit and Comments: Chest Pain [063055] Coronary Artery Disease [187] [facility] 36on 04-29-2023 36 04/29/2023 WESLEY Marin MA Sarah- Will you let Shan know his labs look pretty good. Kidney and liver function are both randy- (please forward to his PCP) Let him know his cholesterol levels are better but LDL need to be between 55-70 therefore I am adding zetia to his med regime- will repeat lipid lab in 2-3 months to check for improvement. Remind him to see his PCP for rectal leakage and foul smelling urine and stool.... Thanks I spoke with his and informed her of new RX sent to [facility] for him. Also told her I'd mail them lab order to be repeated in 3 months. Lab results and office note faxed to PCP. [facility] 29on 04-28-2023 29 Addended by: ISABELL ANSARI on: 04/29/2023 10:44 AM Modules accepted: Orders Normal [facility] Office Visiton 04-28-2023 Follow-up visit [id number] Shan Franco 1960 M [facility] Provider Department Center 04/28/2023 ISABELL CROSS [facility] Family History Problem Relation Age of Onset Other Mother Family Status - Relation Status Age at Mother Level of Service:83165 [place] OFFICE/OUTPATIENT ESTABLISHED MOD MDM 30 MIN Normal [facility] Office Visiton 01-25-2023 Follow-up visit [id number] Shan Franco 1960 M Date Provider Department Center 01/25/2023 3848-TALYA GARG [facility] Family History Problem Relation Age of Onset Other Mother Family Status - Relation Status Age at Mother Level of Service:64240 [place] OFFICE/OUTPATIENT ESTABLISHED MOD MDM 30-39 MIN Normal [facility] Office Visiton 01-14-2023 Follow-up visit [id number] Shan Franco 1960 [facility] Provider Department Center 01/14/2023 [id number]-QPCPEMYTABERNADINE CAMARENA Hos Family History Problem Relation Age of Onset Other Mother Family Status - Relation Status Age at Mother Level of Service:30465 [place] OFFICE/OUTPATIENT ESTABLISHED MOD MDM 30-39 MIN Normal [facility] Office Visiton 12-23-2022 Follow-up visit [id number] Shan Franco 1960 [facility] Provider Department Center 12/23/2022 ISABELL CROSS [facility] Family History Problem Relation Age of Onset Other Mother Family Status - Relation Status Age at Mother Level of Service:16829 [place] TRANSJ CARE MGMT HIGH MDM F2F 7 MARJORIE D DISCHARGE Normal [facility] 30on 12-18-2022 30 The patient is Moderately [...] and behaviors that affect risk of falls [place] fall precautions as indicated by assessment Educate [...] and prevent overall improvement and discharge Normal [facility] 30 Daily Case Managemen t Update Multidisciplinary rounds have been completed. Barriers to Discharge: From [facility]. [facility] for urgent cardiac catheterization. Diet: Dietary Orders [...] chicken w/ green beans. 12/18/22 1136 12/17/22 9528 Regular Diet Heart Healthy/HTN, CABG,Stroke, (2gNA, low fat, low cholesterol) Diet effective now Question Answer Comment Room Service? Yes Fat restriction: Heart Healthy/HTN, CABG,Stroke, (2gNA, low fat, low cholesterol) 12/17/22 4186 Physician Expected Discharge Date: 12/19/2022 Discharge Delays: PT Six Click Score: OT Six Click Score: PT Recommendations: OT Recommendations: New Consults: Normal [facility] 30 The patient is Moderately Stable - Low risk of patient condition declining or worsening The patient's goals for the shift include Comfort The clinical goals for the shift include Cath Site Safety/VSS [facility] 30 The patient is Moderately Stable - [...] and maintained or improved Outcome: Progressing Normal [facility] CBC WITH AUTO DIFFERENTIALon 12-17-2022 Basophils (Bld) [#/Vol] 0.04 10*3/uL Normal 0.00-0.20 [facility] Comment on above: Performed By: #### L [id number] ####[facility] ([facility]AK[facility])[address] [place] [address] Basophils/100 WBC (Bld) 0.5 % Normal 0.0-1.0 [facility] Comment on above: Performed By: #### L [id number] ####[facility] ([facility])[address] [place] [address] Eosinophils (Bld) [#/Vol] 0.15 10*3/uL Normal 0.00-0.50 [facility] Comment on above: Performed By: #### L [id number] ####[facility] ([facility])[address] [place] [address] Eosinophils/100 WBC (Bld) 1.8 % Normal 0.0-6.0 [facility] Comment on above: Performed By: #### L [id number] ####[facility] ([facility] [place] [address] Erythrocyte distribution width (RBC) [Ratio] 13.7 % Normal 11.5-15.0 [facility] Comment on above: Performed By: #### L [id number] ####[facility] ([facility])[address] [place] [address] ERYTHROCYTE MEAN CORPUSCULAR HEMOGLOBIN CONCENTRATION (G/DL) BY AUTOMATED 34.9 g/dL Normal 32.0-35.0 [facility] Comment on above: Performed By: #### L [id number] ####[facility] ([facility])[address] [place] [address] Hematocrit (Bld) [Volume fraction] 45.6 % Normal 39.0-55.0 [facility] Comment on above: Performed By: #### L [id number] ####[facility] ([facility])[address] [place] [address] Hemoglobin (Bld) [Mass/Vol] 15.9 g/dL Normal 13.0-17.0 [facility] Comment on above: Performed By: #### L [id number] ####[facility] ([facility])[address] [place] [address] Immature granulocytes (Bld) [#/Vol] 0.05 10*3/uL Normal 0.00-0.20 [facility] Comment on above: Performed By: #### L [id number] ####[facility] ([facility] [place] [address] Immature granulocytes/100 WBC (Bld) 0.6 % Normal 0.0-1.0 [facility] Comment on above: Performed By: #### L [id number] ####[facility] ([facility])[address] [place] [address] Lymphocytes (Bld) [#/Vol] 2.43 10*3/uL Normal 1.20-4.00 [facility] Comment on above: Performed By: #### L [id number] ####[facility] ([facility])[address] [place] [address] Lymphocytes/100 WBC (Bld) 29.6 % Normal 20.0-45.0 [facility] Comment on above: Performed By: #### L [id number] ####[facility] ([facility]ER)[address] [place] [address] MCH (RBC) [Entitic mass] 32.1 pg Normal 27.0-33.0 [facility] Comment on above: Performed By: #### L [id number] ####[facility] ([facility])[address] [place] [address] MCV (RBC) [Entitic vol] 92.1 fL Normal 82.0-98.0 [facility] Comment on above: Performed By: #### L [id number] ####[facility] ([facility])[address] [place] [address] Monocytes (Bld) [#/Vol] 0.57 10*3/uL Normal 0.10-1.00 [facility] Comment on above: Performed By: #### L [id number] ####[facility] ([facility])[address], [place] [address] Monocytes/100 WBC (Bld) 6.9 % Normal 5.0-12.0 [facility] Comment on above: Performed By: #### L [id number] ####[facility] ([facility])[address] [place] [address] Neutrophils (Bld) [#/Vol] 4.97 10*3/uL Normal 1.60-7.60 [facility] Comment on above: Performed By: #### L [id number] ####[facility] ([facility])[address] [place] [address] Neutrophils/100 WBC (Bld) 60.6 % Normal 40.0-72.0 [facility] Comment on above: Performed By: #### L [id number] ####[facility] ([facility])[address] [place] [address] NRBC (PER 100 WBCS) BY AUTOMATED COUNT 0.0 % Normal 0 [facility] Comment on above: Performed By: #### L [id number] ####[facility] ([facility])[address] [place] [address] PLATELETS (10*3/UL) IN BLOOD AUTOMATED COUNT 659 10*3/uL High 150-400 [facility] Comment on above: Performed By: #### L [id number] ####[facility] ([facility])[address] [place] [address] RBC (Bld) [#/Vol] 4.95 10*6/uL Normal 4.20-5.70 [facility] Comment on above: Performed By: #### L [id number] ####[facility] ([facility])[address] [place] [address] WBC (Bld) [#/Vol] 8.21 10*3/uL Normal 4.00-10.60 [facility] Comment on above: Performed By: #### L [id number] ####[facility] ([facility])[address] [place], [place] [address] COMPREHENSIVE METABOLIC PANE Dominick 12-17-2022 Albumin [Mass/Vol] 3.6 g/dL Normal 3.5-5.7 [facility] [place] Comment on above: Performed By: #### L [id number] ####[facility] ([facility])[address] [place], [place] [address] ALP [Catalytic activity/Vol] 122 U/L High 34-104 [facility] Comment on above: Performed By: #### L [id number] ####[facility] ([facility])[address] [place], [place] [address] ALT [Catalytic activity/Vol] 63 U/L High 7-52 [facility] Comment on above: Performed By: #### L [id number] ####[facility] ([facility])[address] [place] [address] Anion gap [Moles/Vol] 13 mmol/L Normal 7-20 [facility] Comment on above: Performed By: #### L [id number] ####[facility] ([facility])[address] [place] [address] AST [Catalytic activity/Vol] 20 U/L Normal 13-39 [facility] Comment on above: Performed By: #### L [id number] ####[facility] ([facility])[address] [place] [address] Bilirubin [Mass/Vol] 0.6 mg/dL Normal 0.3-1.0 [facility] Comment on above: Performed By: #### L [id number] ####[facility] ([facility])[address] [place] [address] Calcium [Mass/Vol] 9.1 mg/dL Normal 8.6-10.3 [facility] [place] Comment on above: Performed By: #### L [id number] ####[facility] ([facility])[address] [place] [address] Chloride [Moles/Vol] 101 mmol/L Normal 98-107 [facility] Comment on above: Performed By: #### L [id number] ####[facility] ([facility] [place] [address] CO2 [Moles/Vol] 24 mmol/L Normal 21-31 [facility] Comment on above: Performed By: #### L [id number] ####[facility] ([facility] [place] [address] Creatinine [Mass/Vol] 0.70 mg/dL Normal 0.70-1.30 [facility] Comment on above: Performed By: #### L [id number] ####[facility] ([facility] [place] [address] GLOMERULAR FILTRATION RATE ML/MIN/1.73 SQ M.PREDICTED 104.8 mL/min/1.73m*2 Normal >60.0 [facility] Comment on above: Result Comment: The [facility]???s estimated glomerular filtration rate (eGFR) will no [...] of individuals. Performed By: #### L [id number] ####[facility] ([facility])[address] [place] [address] Glucose [Mass/Vol] 148 mg/dL High 70-100 [facility] [place] Comment on above: Performed By: #### L [id number] ####[facility] ([facility])[address] [place] [address] Potassium [Moles/Vol] 3.8 mmol/L Normal 3.5-5.1 [facility] Comment on above: Performed By: #### L [id number] ####[facility] ([facility])[address] [place] [address] Protein [Mass/Vol] 6.5 g/dL Normal 6.0-8.3 [facility] [place] Comment on above: Performed By: #### L [id number] ####[facility] ([facility])[address] [place] [address] Sodium [Moles/Vol] 134 mmol/L Low 136-145 [facility] [place] Comment on above: Performed By: #### L [id number] ####[facility] ([facility] [place] [address] Urea nitrogen [Mass/Vol] 16 mg/dL Normal 7-25 [facility] Comment on above: Performed By: #### L [id number] ####[facility] ([facility])[address] [place] [address] UREA NITROGEN/CREATININE (MASS RATIO) IN SER/PLAS 22.9 Normal [facility] Comment on above: Performed By: #### L [id number] ####[facility] ([facility])[address] [place] [address] CONSULTon 12-17-2022 CONSULT -- Attestation signed by [...] originally presented with an inferolateral STEMI at [facility]. The patient was transferred to [facility] for urgent cardiac catheterization. Upon arrival the [...] 12/17/22 1926 124/80 80 18 98 % 12/17/228 -- -- -- 100 % 12/17/221837 119/83 98 14 100 % Physical Examination: [...] a 62 y.o. male who presented to [facility] with chest pain and EKG concerns for acute STEMI in the inferior leads. He had ST elevations present in leads II, III, aVF and V6. He was urgently transferred to [facility] and will proceed with cardiac catheterization and [...] 325 of aspirin prior to arrival at [facility] and was loaded with 600 mg of Plavix in the Oral Therapist. We will start the patient on atorvastatin 80 mg and Toprol 25 mg Echocardiogram tomorrow. Risk factor modification including smoking cessation is imperative. Felisa Meraz MD Straight Knife Machine Cutter - PGY5 [facility] Normal [facility] EDPROVon 10-05-2023 EDPROV HPI No chief complaint on file. Patient presented from [facility] with a ST elevation SD was having no pain now and she [...] Decision Making patient is a ST elevation SD since we had the EKG to Team was already here we was handed off to cardiology and the Team. Attestion Duc Arceo DO 12/17/22 1828 Normal [facility] HEMOGLOBIN A1Con 12-17-2022 Glucose [Mass/Vol] 117 mg/dL [facility] Comment on above: Performed By: #### L [id number] #### [facility] ([facility]) [address] [place] [address] HbA1c (Bld) [Mass fraction] 5.7 % Normal 4.0-6.0 [facility] Comment on above: Performed By: #### L [id number] #### [facility] ([facility]) [address] [place] [address] HPon 12-17-2022 HP History Of Present Illness Shan Franco is a 62 y.o. 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 Normal [facility] LIPID PANELon 12-17-2022 CHOL/HDL 6.4 mg/dL Normal [facility] Comment on above: Performed By: #### L [id number] #### [facility] ([facility]) [address] [place] [address] Cholesterol [Mass/Vol] 192 mg/dL Normal 120-200 [facility] Comment on above: Performed By: #### L [id number] #### [facility] ([facility]) [address] [place] [address] Magnesium [Mass/Vol] 277 mg/dL High 40-149 [facility] Comment on above: Result Comment: TRIG LYCERIDE REFERENCE RANGE: 20 YEARS AND OLDER CARDIOVASCULAR RISK LESS THAN 150 mg/dL LOW RISK 150 TO 199 mg/dL BORDERLINE RISK 200 mg/dL AND GREATER HIGH RISK Performed By: #### L [id number] #### [facility] ([facility]AKER) [address] [place] [address] Magnesium [Mass/Vol] 107 mg/dL Normal 0-160 [facility] Comment on above: Performed By: #### L [id number] #### [facility] ([facility]) [address] [place] [address] Magnesium [Mass/Vol] 30 mg/dL Normal 23-92 [facility] Comment on above: Performed By: #### L [id number] #### [facility] ([facility]) [address] [place] [address] NON HDL CHOL. (LDL+VLDL) 162 Normal [facility] Comment on above: Performed By: #### L [id number] #### [facility] ([facility] [address] [place] [address] TOTAL VLDL-C 55 mg/dL High 0-40 [facility] Comment on above: Performed By: #### L [id number] #### [facility] ([facility] [address] [place] [address] MAGNESIUMon 12-17-2022 Magnesium [Mass/Vol] 2.0 mg/dL Normal 1.9-2.7 [facility] Comment on above: Performed By: #### L [id number] ####[facility] ([facility] [place] [address] NURSNOTEon 12-17-2022 NURSNOTE Report called to Shaniqua Josue RN Normal [facility] COVID/FLU RT-PCRon SARS-CoV-2 (COVID-19) RNA HERMILO+probe Ql (Unsp spec) Negative [facility] Other COVID/FLU RT-PCR Negative [facility] Other Covid-19 PCR (CVDTB)on 08-14 SARS-CoV-2 (COVID-19) RNA HERMILO+probe Ql (Unsp spec) Not detected Normal NOT DETECTED [facility] Comment on above: Result Comment: This test is not yet approved or cleared by the [place] FDA. When there are no FDA-approved or cleared tests available, and other criteria are met, FDA can make tests available under an emergency access mechanism called an Emergency Use Authorization (EUA). The EUA for this test is supported by the Health Care Marketing Manager of Health and Human Service's (HHS's) declaration [...] SARS-CoV-2. Performed By: #### C VDTB #### [facility] [address] [place] [address] Celina Soto RAPID COVID-19 ANTIGENon EUA Statement SEE BELOW Normal [facility] Comment on above: Result Comment: This [...] sooner. Performed By: #### C VDAG #### [facility] [address] [place] [address] Celina Soto SARS-CoV-2 (COVID-19) RNA HERMILO+probe Ql (Unsp spec) Negative Normal NEGATIVE [facility] Comment on above: Result Comment: Nega tive results are presumptive. They do not preclude infection and should not be used as the sole basis for treatment decisions. Additional confirmatory testing by a molecular method should be considered. Performed By: #### C VDAG #### [facility] [address] [place], [place] [address] Celina Soto [facility] METABOLIC PANE L WITH GFRon 03-25-2017 Alanine aminotransferase (ALT) 17 U/L Normal 5-59 [facility] Albumin 4.5 g/dL Normal 3.2-5.3 [facility] Comment on above: Result Comment: [facility] [address] [id number] Director: Ben Aguilar M.D.CLIA No. [id number] CAP Accreditation No. [id number] ALK PHOS 86 IU/L Normal 35-121 Pathology [...] mass conc 90 mg/dL Normal 70-100 [facility] Comment on above: Result Comment: DIAG NOSTIC THRESHOLDS FOR DIABETES AND IMPAIRED FASTING GLUCOSE (IFG) FASTING PLASMA GLUCOSE NORMAL <100 mg/dL IFG 100-125 mg/dL DIABETES >/= 126 mg/dL Potassium molar conc 4.3 mmol/L Normal 3.5-5.4 [facility] Sodium 138 mmol/L Normal 134-147 Pathology [...] LDL to HDL Ratio 2.8 Normal <3.5 [employer] LDL-CHOL, CALCULATED 159 mg/dL High <130 [facility] Comment on above: Result Comment: LDL CHOLESTEROL REFERENCE RANGE FOR 0-19 YEARS: DESIRABLE <110 mg/dL, BORDERLINE 110-129, HIGH RISK >130 LDL CHOLESTEROL REFERENCE RANGE FOR ADULTS: DESIRABLE <100 mg/dL, BORDERLINE 130-159, HIGH RISK >160REFERENCE RANGES REVISED 08/23/15 ACCORDING TO NCEP GUIDELINES Triglyceride 193 mg/dL High <150 [employer] [employer] VLDL-CHOL, CALCULATED 39 mg/dL High <30 [facility] Vital Signs Date Time Vital Sign Value Performing Clinician Facility 12-06-2022 09:30-0400 Body height 177.8 cm Cecilia Van Other [facility] Other 12-06-2022 09:30-0400 Body mass index (BMI) [Ratio] 25.37 kg/m2 Cecilia Van Other [facility] Other 12-06-2022 09:30-0400 Body temperature 97.5 [degF] Cecilia Van Other [facility] Other 12-06-2022 09:30-0400 Body weight 80.2 kg Cecilia Van Other [facility] Other 12-06-2022 09:30-0400 Diastolic blood pressure 75 mm[Hg] Cecilia Van Other [facility] Other 12-06-2022 09:30-0400 Respiratory rate 18 /min Cecilia Carlota Other [facility] Other 12-06-2022 09:30-0400 SaO2% (BldA) [Mass fraction] 97 % Cecilia Carlota Other [facility] Other 12-06-2022 09:30-0400 Systolic blood pressure 113 mm[Hg] Cecilia Van Other [facility] Other 06-23-2022 02:09-0400 Diastolic blood pressure 92 mm[Hg] Curt Lewis DO Work Phone: [facility] 06-23-2022 02:09-0400 Respiratory rate 18 /min Curt Lewis DO Work Phone: [facility] 06-23-2022 02:09-0400 Systolic blood pressure 142 mm[Hg] Curt Lewis DO Work Phone: [facility] 06-23-2022 02:06-0400 Body height 177.8 cm Curt Lewis DO Work Phone: [facility] 06-23-2022 02:06-0400 Body mass index (BMI) [Ratio] 26.54 kg/m2 Curt Lewis DO Work Phone: [facility] 06-23-2022 02:06-0400 Body temperature 98.8 [degF] Curt Lewis DO Work Phone: [facility] 06-23-2022 02:06-0400 Body weight 83.92 kg Curt Lewis DO Work Phone: [facility] 06-23-2022 02:06-0400 Heart rate 89 /min Curt Lewis DO Work Phone: [facility] 06-23-2022 02:06-0400 SaO2% (BldA) [Mass fraction] 98 % Curt Lewis DO Work Phone: [facility] 08-04-2021 12:00-0400 Body height 177.8 cm Kary Shavonne Other [facility] Other 08-04-2021 12:00-0400 Body mass index (BMI) [Ratio] 27.26 kg/m2 Kary Shavonne Other [facility] Other 08-04-2021 12:00-0400 Body temperature 96.9 [degF] Kary Shavonne Other [facility] Other 08-04-2021 12:00-0400 Body weight 86.18 kg Kary Shavonne Other [facility] Other 08-04-2021 12:00-0400 Respiratory rate 18 /min Kary Shavonne Other [facility] Other 08-04-2021 12:00-0400 SaO2% (BldA) [Mass fraction] 98 % Kary Shavonne Other [facility] Other Encounters Encounter Date Encounter Type Care Provider Facility Start: 06-10-2023 End: 06-10-2023 ambulatory GRACE GUEVARA [facility] Start: 04-28-2023 End: 04-28-2023 ambulatory ISABELL ANSARI [facility] Start: 01-25-2023 End: [facility]: 01-14-2023 End: 01-14-2023 ambulatory BERNADINE CAMARENA [facility] Start: 12-23-2022 End: 12-23-2022 ambulatory ISABELL ANSARI [facility] Start: 12-18-2022 Evaluation and management of inpatient BALJINDER DONALDSON [facility] Start: 12-18-2022 Evaluation and management of inpatient JESSE MOMIN [facility] Start: 12-17-2022 End: 12-19-2022 Evaluation and management of inpatient TALYA GARG [facility] Start: 12-06-2022 End: 12-06-2022 ambulatory Cecilia Van Other [facility] Other Start: 12-06-2022 Office outpatient visit 15 minutes Cecilia Van [facility] Start: 06-23-2022 End: 06-23-2022 Emergency department patient visit LIANE VELEZ [facility] Start: 06-23-2022 End: 06-23-2022 Emergency department patient visit Curt Lewis DO Work Phone: [facility] ED Comment on above: Laceration of left i ndex finger without foreign body without damage to nail, initial encounter (Primary Dx) Start: 08-04-2021 End: 08-04-2021 ambulatory Kary Marvin Other [facility] Other Start: 08-04-2021 Office outpatient visit 15 minutes Kary Marvin [facility] Start: 09-01-2020 End: 09-01-[address] JACKI ZHANG Facility:[facility]1 Procedures Date Procedure Procedure Detail Performing Clinician Start: 01-11-2017 Colonoscopy Curt bonilla DO Work Phone: Plan of Treatment Date Care Activity Detail Author Start: 06-23-2032 DTaP/Tdap/Td vaccine (3 - Td or Tdap) DTaP/Tdap/Td vaccine (3 - Td or Tdap) [facility] Start: 10-13-2022 Influenza vaccination Flu vacc ine (Season Ended) [facility] Start: 01-11-2022 Screening for malign ant neoplasm of colon [facility] Start: 03-23-2018 Lipid panel Lipids [facility] Start: 05-19-2011 Shingles vaccine (1 of 2) Shingles vaccine (1 of 2) [facility] Start: 2006 Screening for malign ant neoplasm of colon [facility] Start: 1996 Diabetes screen Diabetes screen [facility] Start: 1973 Depression Screen Depression Screen [facility] Start: 1960 COVID-19 Vaccine (#1) COVID-19 Vacci ne (#1) [facility] Immunizations Immunization Date Immunization Notes Care Provider Bhanu menezes 06-23-2022 tetanus toxoid, redu laura diphtheria toxoid, and acellular pertussis vaccine, adsorbed Curt Lewis DO Work Phone: [facility] 01-09-2017 influenza, injectabl e, quadrivalent, contains preservative Curt Lewis DO Work Phone: [facility] 12-20-2016 pneumococcal polysaccharide vaccine, 23 valent Curt Lewis DO Work Phone: [facility] 12-20-2016 tetanus toxoid, redu laura diphtheria toxoid, and acellular pertussis vaccine, adsorbed Curt Lewis DO Work Phone: [facility] Work Phone: Payers Date Payer Category Payer Unknown [id number] 2022 [facility] [id number] 2022 Unknown [id number] 1960 Unknown [id number] 1960 Unknown [id number] 1958 Self-pay [id number] [facility] [id number] Social History Date Type Detail Facility Sex Assigned At [facility] Other Start: 12-02-2016 [facility] Phone: History of tobacco use Cigarette Smoker [employer] Phone: Start: 12-02-2016 End: 06-23-2022 Cigarettes smoked current (pack per day) - Reported 0.5 [facility] Phone: Start: 12-02-2016 Tobacco use and exposure Smokeless tobacco non-user [facility] Phone: Start: 06-23-2022 Alcohol intake Current drinke r of alcohol (finding) [facility] Phone: Start: 12-08-2016 Alcohol Comment 1-2 beers olya y, DUI x4; 4 years ago last. [facility] Phone: Start: 1960 Sex Assigned At Not on file [facility] [employer] Phone: Start: 06-13-2022 End: 06-23-2022 Exposure to SARS-CoV-2 (event) Not sure [facility] Phone: Clinical Notes 08-04-2021 to 06-10-2023 Note Date & Type Note Facility 06-10-2023 Note Cardiovascular Medic [facility] SUBJECTIVE Chief Complaint Patient presents with Chest Pain Coronary Artery Disease Shan Franco is a 63 y.o. male here for follow-up. HPI PMHx: CAD, STEMI s/p PCI to distal Lcx/L PDA, HTN, HLD, HFrEF Patient here c/o chest pain, which radiated down his left arm. Says it occurs while he's at work, and also at home. 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 He's noticed a little SOB. Denies palpitations, lightheadedness, and LE edema. Feels like he can't get enough water and is very thirsty. Continues to smoke. For the past few months he has had sx's of chest pain. Occurs when he has exerted himself, especially at work. 2 nights ago he had worsened chest pain, left sided. [place] like a pressure/achiness, radiated up to his left shoulder. He also had left arm weakness. [place] different than when he had his heart attack. This lasted for about 30minutes before resolving. He does not have nitroglycerin at home. He has been having SOB as well. SOB occurs with exertion or during sx's of chest pain. 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/HCC) Family History Problem Relation Name Age of Onset Other (PFO) Mother Social History Tobacco Use Smoking status: Former Types: Cigarettes Quit date: 12/13/2022 Years since quittin.4 Smokeless tobacco: Never Substance Use Topics Alcohol use: Not Currently Allergies Allergen Reactions Morphine ROS Constitutional: Positive for malaise/fatigue. HENT: Positive for hearing loss. Cardiovascular: Positive for chest pain and dyspnea on exertion. Respiratory: Positive for shortness of breath. Gastrointestinal: Positive for constipation. Neurological: Positive for headaches. All other systems reviewed and are negative. OBJECTIVE Visit Vitals BP 108/74 (BP Location: Left arm, Patient Position: Sitting) Pulse 77 Ht 1.778 m (5' 10 ) Wt 81.6 kg (180 lb) SpO2 98% BMI 25.83 kg/m??? Smoking Status Former BSA 2.01 m??? Medications: Current Outpatient Medications: aspirin 81 mg EC [...] 20, 2022., Disp: 90 tablet, Rfl: 3 ezetimibe (Zetia) 10 mg tablet, Take 1 tablet (10 mg) by mouth in the morning., Disp: 90 tablet, Rfl: 3 metoprolol succinate XL (Toprol-XL) 25 mg 24 hr tablet, Take 1 tablet (25 mg) by mouth in the morning. Do not crush or chew. Do not start before December 20, 2022., Disp: 90 tablet, Rfl: 3 sacubitril-valsartan (Entresto) 24-26 mg tablet, Take 1 tablet by mouth in the morning and at bedtime. (Patient taking differently: Take 0.5 tablets by mouth in the morning and at bedtime.), Disp: 180 tablet, Rfl: 3 isosorbide mononitrate ER (Imdur) 30 mg 24 hr tablet, Take 1 tablet (30 mg) by mouth in the morning. Do not crush or chew., Disp: 30 tablet, Rfl: 11 nicotine (Nicoderm CQ) 21 mg/24 hr patch, Place 1 patch on the skin in the morning. Do not start before December 20, 2022. (Patient not taking: Reported on 04/28/2023), Disp: 90 patch, Rfl: 3 Physical Exam Constitutional: Appearance: Normal appearance. He is normal weight. HENT: Head: Normocephalic and atraumatic. Right Ear: External ear normal. Left Ear: External ear normal. Eyes: Extraocular Movements: Extraocular movements intact. Pupils: Pupils are equal, round, and reactive to light. Neck: Vascular: No carotid bruit. Cardiovascular: Rate and Rhythm: Normal rate and regular rhythm. Pulses: Normal pulses. Heart sounds: Normal heart sounds. Pulmonary: Effort: Pulmonary effort is normal. Breath sounds: Normal breath sounds. Abdominal: General: Bowel sounds are normal. Palpations: Abdomen is soft. Musculoskeletal: General: Normal range of motion. Cervical back: Neck supple. Right lower leg: No edema. Left lower leg: No edema. Skin: General: Skin is warm and dry. Neurological: General: No focal deficit present. Mental Status: He is alert and oriented to person, place, and time. Psychiatric: Mood and Affect: Mood normal. Behavior: Behavior nor (more content not included)... [facility] 06-10-2023 Note Patient here c/o addy st pain, which radiated down his left arm. Says it occurs while he's at work, and also at home. 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 He's noticed a little SOB. Denies palpitations, lightheadedness, and LE edema. Feels like he can't get enough water and is very thirsty. Continues to smoke. Review of Systems Constitutional: Positive for malaise/fatigue. HENT: Positive for hearing loss. Cardiovascular: Positive for chest pain and dyspnea on exertion. Respiratory: Positive for shortness of breath. Gastrointestinal: Positive for constipation. Neurological: Positive for headaches. All other systems reviewed and are negative. [facility] 04-28-2023 Note Tobacco use is stabl e- he has not quit smoking and extended d/w pt to strongly suggest smoking cessation in light of CAD and HFrEF- he voiced understanding and does not want any different medications at this time- he will continue Nicotine patches [facility] 04-28-2023 Note HTN well controlled continue all meds [facility] 04-28-2023 Note Remains stable witho ut concerning symptoms [facility] 04-28-2023 Note [facility] CARDIOLOGY PROGR ESS NOTE HPI: Shan Franco is a 62 y.o. male here for routine f/U HPI 62 yo male presents today for known past medical history of STEMI status post PCI to distal left circumflex/L PDA, Hyperlipidemia and tobacco dependence seen in follow-up. Patient here for 3 mo follow up CAD, CHF, hypertension, and hyperlipidemia. [place] some palpitations about a month ago while he was just sitting in his chair. States his urine and feces smell horrible and he's c/o of anal seepage . Says sometimes it's yellow, and sometimes orange. Denies chest pain, SOB, and lightheadedness/syncope. Review of Systems Constitutional: Positive for malaise/fatigue. HENT: Positive for hearing loss. Cardiovascular: Positive for palpitations. Gastrointestinal: Positive for constipation. Neurological: Positive for headaches. All other systems reviewed and are negative. Visit Vitals BP 106/68 (BP Location: Right arm, Patient Position: Sitting) Pulse 81 Ht 1.778 m (5' 10 ) Wt 81.6 kg (180 lb) SpO2 99% BMI 25.83 kg/m??? Smoking Status Former BSA 2.01 m??? Allergies Allergen Reactions Morphine Medications: Current Outpatient Medications on File Prior to Visit Medication Sig Dispense Refill aspirin 81 mg EC tablet Take 1 tablet (81 mg) by mouth in the morning. Do not start before December 20, 2022. 90 tablet 3 atorvastatin (Lipitor) 80 mg tablet Take 1 tablet (80 mg) by mouth at bedtime. 90 tablet 3 clopidogrel (Plavix) 75 mg tablet Take 1 tablet (75 mg) by mouth in the morning. Do not start before December 20, 2022. 90 tablet 3 metoprolol succinate XL (Toprol-XL) 25 mg 24 hr tablet Take 1 tablet (25 mg) by mouth in the morning. Do not crush or chew. Do not start before December 20, 2022. 90 tablet 3 sacubitril-valsartan (Entresto) 24-26 mg tablet Take 1 tablet by mouth in the morning and at bedtime. (Patient taking differently: Take 0.5 tablets by mouth in the morning and at bedtime.) 180 tablet 3 [DISCONTINUED] dapagliflozin propanediol (Farxiga) 10 mg Take 1 tablet (10 mg) by mouth in the morning. 90 tablet 3 nicotine (Nicoderm CQ) 21 mg/[address] 1 patch on the skin in the morning. Do not start before December 20, 2022. (Patient not taking: Reported on 04/28/2023) 90 patch 3 [DISCONTINUED] dapagliflozin propanediol (Farxiga) 10 mg Take 1 tablet (10 mg) by mouth in the morning. Do not start before December 20, 2022. 90 tablet 3 No current facility-administered medications on file prior to visit. Physical Exam: Constitutional: Appearance: Normal appearance. Without apparent distress HENT: Head: Normocephalic and atraumatic. Nose: Nose normal. Mouth/Throat: Mouth: Mucous membranes are moist. Poor dentition Eyes: Extraocular Movements: Extraocular movements intact. Conjunctiva/sclera: Conjunctivae normal. Neck: Vascular: No JVD. Cardiovascular: Rate and Rhythm: Normal rate and regular rhythm. Pulses: Dorsalis pedis pulses are 3 on the right side and 3on the left side. Posterior tibial pulses are 3 on the [...] Thought content normal. Judgment: Judgment normal. Labs: CBC normal, renal function normal Lab Results Component Value Date NA 134 [...] mid LAD. LCX - This is a herrera (more content not included)... [facility] 04-28-2023 Note Patient here for 3 m o follow up CAD, CHF, hypertension, and hyperlipidemia. [place] some palpitations about a month ago while he was just sitting in his chair. States his urine and feces smell horrible and he's c/o of anal seepage . Says sometimes it's yellow, and sometimes orange. Denies chest pain, SOB, and lightheadedness/syncope. Review of Systems Constitutional: Positive for malaise/fatigue. HENT: Positive for hearing loss. Cardiovascular: Positive for palpitations. Gastrointestinal: Positive for constipation. Neurological: Positive for headaches. All other systems reviewed and are negative. [facility] 04-28-2023 Note Continue lipitor 80 mg Script for CMP and lipid profile given to pt [facility] 04-28-2023 Note Coronary artery dise ase is stable Continue GDMT- ASA, lipitor, plavix, toprol continue risk factor modifications- heart healthy diet, regular exercise as tolerated and continue all medications. [facility] 04-28-2023 Note [facility] II- recovered E F Continue GDMT- continue ASA, lipitor, toprol, entresto- D/W pt may stop farxiga and see if symptoms of constipation/anal leaking and foul smelling urine improves- if not recommended pt to F/U with PCP for further investigations Diuretic therapy Monitor daily weights, I&O, fluid restriction 1.5-2L/day, renal function and electrolytes- please maintain K+>4 and Mg > 2 [facility] 01-25-2023 Note Patient here for 2 w alturas follow up lightheadedness and near-syncope. Bernadine Camarena decreased his Entresto at last visit. He denies recurrent lightheaded and near-syncopal episodes. Feeling much better. Wants to know if he can go back to work. [facility] 11-13-2023 Note Cardiology Clinic No te Subjective Shan [...] (CMS/HCC) Tobacco dependence Coronary artery disease involving [place] coronary artery of [place] heart with unstable angina pectoris (CMS/HCC) Stenosis [...] Grade 1, mil (more content not included)... [facility] 01-14-2023 Note Cardiology Clinic No te Subjective [...] (CMS/HCC) Tobacco dependence Coronary artery disease involving [place] coronary artery of [place] heart with unstable angina pectoris (CMS/HCC) Stenosis [...] left ventricular hypertrophy. (more content not included)... [facility] 01-14-2023 Note Patient here per car diac [...] All other systems reviewed and are negative. [facility] 12-23-2022 Note Reminded pt to not m iss any dose of ASA or plavix. [facility] 12-23-2022 Note Coronary artery disease is stabl e [facility] 12-23-2022 Note Continue liptor [facility] 12-23-2022 Note Coronary artery dise ase is stable without concerning symptoms Continue GDMT- ASA, plavix, lipitor, toprol Denied any bleeding tendencies continue risk factor modifications- heart healthy diet, regular exercise as tolerated and continue all medications. Orders for cardiac rehab completed for [facility] rehab [facility] 12-23-2022 Note HTn controlled- bord katherine labile- denied lightheadedness/dizziness or syncope; Does admit that he tires out with activity quicker than before. [facility] 12-23-2022 Note [facility] II-IIIb- bro[place]nn tly remains euvolemic without exacerbation Continue GDMT- ASA, lipitor, farxiga, toprol, entresto- Sending pt today for repeat BMP prior to further optimization of GDMT with aldactone. Diuretic therapy- farxiga- pt is euvolemic currently Monitor daily weights, I&O, fluid restriction 1.5-2L/day, renal function and electrolytes- please maintain K+>4 and Mg > 2 [facility] 12-23-2022 Note Currently pt is doin g well on nicotine patch and has continued with complete smoking cessation [facility] 12-23-2022 Note [facility] CARDIOLOGY PROGR ESS NOTE HPI: Shan Franco is a 62 y.o. male here for hospital f/U recent STEMI and cardiac cath with PCI at [facility]. Admits that he fatigues quicker than usual and was able to work outside for about a 1/2 hour and then had to stop and rest r/t diaphoresis and fatigue- Denied SOB or chest pain. Patient here for follow up [facility] for STEMI. Still trying to get his [...] is a 62 y.o. male transferred from [facility] following visit with intermittent chest pain anterior chest with radiation to arms and back workup revealing inferolateral STEMI once arrived at [facility] was taken to propagator laborer where he underwent pci and KANDICE for [...] Do not start before December 20, 2022. 90 tablet 3 nicotine (Nicoderm CQ) 21 mg/[address] 1 patch on the skin in the morning. Do not start before December 20, 2022. 90 patch 3 sacubitril-valsartan (Entresto) 24-26 mg tablet [...] Physicians: -Talya Garg (more content not included)... [facility] 12-23-2022 Note Patient here for [facility] for STEMI. Still trying to get his strength back. Denies chest pain. Still gets SOB with minimal exertion. Review of Systems Constitutional: Positive for malaise/fatigue. HENT: Positive for hearing loss. Cardiovascular: Positive for dyspnea on exertion. All other systems reviewed and are negative. [facility] 12-19-2022 Note Hospital Medicine Discharge Summary Final Discharge Diagnosis: ST elevation myocardial infarction (STEMI), unspecified artery (CMS/HCC) STEMI s/p PCI Tobacco dependence Admission Diagnosis: STEMI (ST elevation myocardial infarction) (CMS/HCC) [I21.3] ST elevation myocardial infarction (STEMI), unspecified artery (CMS/HCC) [I21.3] Hospital course: Shan Franco is a 62 y.o. male transferred from [facility] following visit with intermittent chest pain anterior chest with radiation to arms and back workup revealing inferolateral STEMI once arrived at [facility] was taken to propagator laborer where he underwent pci and KANDICE for [...] 12/23/2022 11:40 AM Isabell Ansari NP JANICE Hanson Your medication list START taking these medications [...] Your Medications [id number] [phone] [id number] aspirin 81 mg EC tablet atorvastatin 80 mg tablet clopidogrel 75 mg tablet dapagliflozin propanediol 10 mg metoprolol succinate XL 25 mg 24 hr tablet nicotine 21 mg/24 hr patch sacubitril-valsartan 24-26 mg tablet Ray has no allergies on file. Disposition: Home [...] Results from last 7 days Lab Units 12/17/22 2128 AST U/L 20 ALT U/L 63* ALK [...] was 35 minutes. Signed Brittany Guevara NP [facility] Medicine 12/20/2022 9:07 AM [facility] 12-19-2022 Note Adult Nutrition Cons ult Consult noted for HF s/p NSTEMI. Please see RD from 12/18/22 for full assessment including diet education for low sodium diet. [facility] 12-19-2022 Note Cardiology Progress Note Subjective F/U [...] Mynor intensity statin (more content not included)... [facility] 12-18-2022 Note Adult Nutrition Asse ssment: Name: Shan Franco Room: [address] [place] [address] Date: 1960 Date of Visit: 12/18/22 Admission [...] and Protein Other factors: cardiac cath 12/17; APPOINTMENT MANAGER scheduled 12/18 Nutrition Data/Clinical Indicators of Nutrition [...] meals during workdays. 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 [facility] 12-18-2022 Note Hospital Medicine Daily Progress Note - 12/18/2022 2:57 PM; Room: [address] [place] [address] Admission: 12/17/2022 7:05 PM; Length of stay: 1 days THE HOSPITALIST TEAM PREFERS TO USE [employer] CHAT FOR COMMUNICATION 7AM-7PM. IF I DO NOT RESPOND WITHIN 15 MINUTES, PLEASE PAGE ME/CALL THROUGH THE [facility] PROFESSOR. FROM 7PM-7AM, PLEASE PAGE [phone](COVR) Code Status: Full Code Discharge Destination: home [...] LDL 162 12/17/2022 No results found for: PILSCQFV51, IRON, TIBC, C3, C4, TNEZIN, CANCA, ASO, PSA, CEA, CA125, CA199, AFP, [...] who accepted patient as direct transfer to Oral Therapist for emergent coronary angiography with possible revascularization. Patient was taken to the propagator laborer emergently. Procedures Performed: -Bilateral selective coronary angiography -PCI of distal LCx/LPDA Using balloon angioplasty and drug-eluting stent placement -Conscious sedation Final Impressions: -90-95% stenosis in distal LCx/LPDA successfully reduced to 0% stenosis following succe (more content not included)... [facility] 12-18-2022 Note 12/18/22 1205 Admission Assessment Questions Verify insurance with patient Yes Do you understand medical disease or what brought you into the hospital? Yes Who is your current PCP? does not currently have a PCP but is scheduled to berry picker a packet at Dr Liu office in [place] for a PCP Can I schedule a [...] Discharge? Yes Does the patient have a director of casework department assigned to them through their insurance? No [...] to send link and activate MyChart? Yes [facility] 12-18-2022 Note ------ Attestation signed by Baljinder [...] 75 14 95 % -- -- 12/18/22 06 -- -- -- -- -- -- -- [...] Value Ventricular Rate 74 Atrial Rate 74 WV Interval 200 QRS DURATION 92 QT Interval 390 QTC CALCULATION(BAZETT) 432 P Davis 83 R-Davis 83 T Wave Davis 80 Impression Normal sinus rhythm ST elevation, [...] questions. Meghna Beal PGY-2, Internal Medicine resident [facility] 12-06-2022 Evaluation note Encounter Date Diagnosis Assessment [...] days. Patient verbalized understanding of treatment plan. [facility] Other 04-11-2023 Hospital Discharge instructions* Discharge Instructions* Curt Lewis, - 06/23/2022 2:34 AM EDT Keep the [...] us to take care of you at [facility]. In the next few days you may receive a survey by mail or e-mail asking about the care you received during this visit. Please complete this if you are able, as this feedback helps us provide the best care possible. * Attachments The following attachments cannot be sent through [facility] Everywhere. * Lacerations: Adhesives (Albanian) [facility] Phone: [phone]) 819-867405-23-2022 Evaluation note* Encounter Date Diagnosis Assessment Notes [...] no improvement in 2 to 3 days [facility] Other Evaluation note* Diagnosis Laceration of left index finger without foreign body without damage to nail, initial encounter- Primary documented in this encounter [facility] Phone: Summary Purpose Family History No Family [...] content) DATE CREATED AUTHOR 09/07/2017 [facility] DATE CREATED AUTHOR AUTHOR'S ORGANIZ ATION 09/07/2020 [facility] DATE CREATED AUTHOR AUTHOR'S ORGANIZ ATION 06/23/2022 [facility] DATE CREATED AUTHOR AUTHOR'S ORGANIZ ATION 06/11/2023 [facility] REASON FOR VISIT (unrecogniz ed section [...] BE BASED ON THE PRIMARY CLINICAL RECORDS. [facility] [employer] [facility]. provides no warranty or guarantee of the accuracy or completeness of information in this document.
[2023-06-29] MEDS: REGADENOSON 0.4 MG/5 ML SYRINGE 0.400000000000000022 MG IV (09:53)
== END 2023-06-29 07:50 | disposition home or self-care (01) ==
LOC: NM 07:49
PROVIDERS: Visit Provider Nurse Practitioner Family
DX: R07.9 Chest pain, unspecified (principal)
CPT/HCPCS: 78452; 93017; A9500; J2785

== ENCOUNTER 2023-12-15 11:29 | Outpatient (OUT) | payer BC, SELFPAY ==
--- OUTSIDE RECORDS SUMMARY | 2023-12-15 11:52 | XMS_ITS | CCD ---
Author Organization [facility] ion [facility] Care Team Providers Care Stonework Supervisor Name Role Phone LEATHA, DR ECHEVERRIA Admitting Unavailable LEATHA, DR ECHEVERRIA Consulting Unavailable LEATHA, DR ECHEVERRIA Attending Unavailable REQUEST, DR CLIFFORD LISTED Primary Care Unavailedwina PAEZ, DR MOYA Consulting Unavailable JAZZ OVIEDO Consulting Unavailable Kary Marvin Unavailable Unavailable Primary Care Provider UnavailLIANE Johsnon Primary Care UnavailCURT Araujo Attending Unavailable Cecilia Van Unavailable ISABELL ANSARI Attending Unavailable BERNADINE CAMARENA Attending Unavailable TALYA GARG Referring Unavailable TALYA GARG Admitting Unavailable GINETTE FORD Consulting Unavailable JESSE MOMIN Attending Unavailable GINETTE FORD Referring Unavailable JESSE MOMIN Referring Unavailable BALJINDER DONALDSON Referring Unavailable TALYA GARG Attending Unavailable ISABELL ANSARI Attending Unavailable GRACE GUEVARA Attending Unavailable GRACE GUEVARA Attending Unavailable NO FAMILY, PHYSICIAN Primary Care Provider Unava ilable KI Van Attending Provider [phone] ANDER BOLTON Attending Unavailable Cecilia Van Attending Unavailable Cecilia Van Admitting Unavailable NO FAMILY, PHYSICIAN Primary Care Unavailable Allergies Allergy Classification Reported Allergen(s) Allergy Type Date of Onset Reaction(s) Facility Opioid Agonists (2 sources) Morphine Drug Allergy 4 Agitated [facility] Repository (3 sources) Morphine; Translations: [MORPHINE] Drug Allergy 1 Agitated [facility] Repository (1 source) ALLERGIES NOT ON FILE; Translations: [ALLERGIES NOT ON FILE] Propensity to adverse reactions (disorder) [facility] Repository Medications Current Medications Medication Drug Class(es) Dates Sig (Normalized) Sig (Original) [id number] 200 actuat albuterol 0.09 mg/actuat metered dose inhaler (1 source) beta2-Adrenergic Agonist Start: 12-06-2022 take 2 puff(s) by inhalation every four hours as needed for wheezing Albuterol Sulfate HFA 108 (90 Base) MCG/ACT 2 puffs Inhalation every 4 hrs prn SOB, wheezing for 15 days Nov, Active aspirin 81 mg delayed release oral tablet (2 sources) Platelet Aggregation Inhibitor, Nonsteroidal Anti-inflammatory Drug Start: 09-02-2023 take 1 tablet by mouth once daily Aspirin (Adult Aspirin Regimen) 81 mg tablet,delayed release (DR/EC) Active 81 MG PO Daily September 02, 2023 12:00am atorvastatin 80 mg oral tablet (3 sources) HMG-CoA Reductase Inhibitor Start: 09-02-2023 take 80 mg by mouth once daily at bedtime Atorvastatin Active 80 MG PO Daily at bedtime September 02, 2023 12:00am Start: 03-31-2017 take 1 tablet by david th once daily atorvastatin (LIPITOR) 10 MG tablet Take 1 tablet by mouth daily 90 tablet 0 03/31/2017 Active brompheniramine maleate 0.4 mg/ml / dextromethorphan hydrobromide 2 mg/ml / pseudoephedrine hydrochloride 6 mg/ml oral solution (1 source) alpha-Adrenergic Agonist, Uncompetitive D-ncckfe-B-aspartate Receptor Antagonist, Sigma-1 Agonist Start: 12-06-2022 Crcgwifml-Szsnybjr-OQ 30-2-10 MG/5ML 10 ml Orally every 6 hours prn URI symptoms for 7 days Nov, Active clopidogrel 75 mg oral tablet (2 sources) P2Y12 Platelet Inhibitor Start: 09-02-2023 take 75 mg by mouth once daily Clopidogrel Active 75 MG PO Daily September 02, 2023 12:00am Cock-Up Wrist Splint (2 sources) Start: 09-02-2023 Cock-Up Wrist Splint Active 0 .Route 1 September 02, 2023 12:00am As directed ezetimibe 10 mg oral tablet (2 sources) Dietary Cholesterol Absorption Inhibitor Start: 09-02-2023 take 10 mg by mouth once daily Ezetimibe Active 10 MG PO Daily September 02, 2023 12:00am 24 hr isosorbide mononitrate 30 mg extended release oral tablet (2 sources) Nitrate Vasodilator Start: 09-02-2023 Isosorbide Mononitrate Active MG PO September 02, 2023 12:00am methylPREDNISolone 4 mg oral tablet (1 source) Corticosteroid Start: 12-06-2022 methylPREDNISolone 4 MG take half with breakfast, half with dinner Orally as directed for 6 days Nov, Active Metoprolol (2 sources) beta-Adrenergic David Start: 09-02-2023 Metoprolol Succinate Active MG PO September 02, 2023 12:00am sacubitril 24 mg / valsartan 26 mg oral tablet (4 sources) Angiotensin 2 Receptor David Start: 09-02-2023 End: 09-02-2023 take 0.5 tablet by mouth twice daily Sacubitril-Valsartan (Entresto) 24-26 mg tablet Active 0.5 TAB PO Twice daily September 02, 2023 9:37am varenicline 0.5 mg oral tablet (1 source) Partial Cholinergic Nicotinic Agonist Start: 03-31-2017 varenicline (CHANTIX STARTING MONTH ) 0.5 MG [...] disease (8 sources) 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; Translations: [Atherosclerotic heart disease of picayune coronary artery without angina pectoris] Onset: 12-19-2022 [...] INVLV CIRC RS] Onset: 09-01-2020 Episodic Other non-traumatic joint disorders (2 sources) Pain in wrist; Translations: [Pain in right wrist] 09-02-2023 Episodic Other non-traumatic joint disorders (2 sources) Pain in right wrist; Translations: [Pain in joint, forearm] Onset: 09-02-2023 09-02-2023 Episodic Jemma-; endo-; and myocarditis; cardiomyopathy (except that caused by tuberculosis or sexually transmitted disease) (2 sources) Cardiomyopathy in diseases classified elsewhere; Translations: [Cardiomyopathy in diseases classified elsewhere] Onset: 12-19-2022 Chronic Sprains and strains (2 sources) Sprain of right wrist; Translations: [Unspecified sprain of right wrist, initial encounter] 09-02-2023 Episodic Substance-related disorders (3 sources) Nicotine dependence, [...] Test Name Value Interpretation Reference Range Facility XR wrist RT min 3V*on 2023 XR wrist RT min 3V* [facility] Main [place] [address] [place] [address] XRay Report Signed Patient: Shan Franco MR#: [id number] : 1960 Acct:[id number] Age/Sex: 63 / M ADM Date: 09/02/23 Loc: XDUCLY Room: Type: [facility] Attending Dr: Cecilia Van APRN Copies to: Cecilia Van APRN Ordering Provider: Cecilia Van APRN Date of Service: 09/02/23 XR/XR wrist RT min 3V*: RIGHT WRIST PAIN 4 views right wrist plain film COMPARISON: None HISTORY: Right arm injury 4 weeks ago. Continued dorsal wrist pain. ACUTE FINDINGS: No acute fracture. Remote deformity of the fifth metacarpal consistent with old healed fracture. Likely related to recent prior injury. DEGENERATIVE CHANGE: Unremarkable SOFT TISSUE FINDINGS: Unremarkable JOINT EFFUSION: None POSTOP CHANGES: None BONE MINERALIZATION: Adequate XR/XR wrist RT min 3V* IMPRESSION: No acute bony findings. Impression dictated by: Wally Sullivan M.D.09/02/2023 10:31 AM Dictation Location: [place] [address] Transcribed By: [facility] 09/02/23 1031 Dictated By: Wally Sullivan DO 09/02/23 1029 Signed By: 09/02/[address] [facility] Office Visiton 07-29-2023 Follow-up visit [id number] Shan Franco Nilsa 1960 [facility] Provider Department Center 07/29/2023 GRACE FORD Family History Problem Relation Age of Onset Other Mother Family Status - Relation Status Age at Mother Level of Service:24169 [place] OFFICE/OUTPATIENT ESTABLISHED MOD [facility] 30 MIN Reason for Visit and Comments: Coronary Artery Disease [187] Chest Pain [729494] Normal [facility] Office Visiton 06-10-2023 Follow-up visit [id number] JoanShan 1960 [facility] Provider Department Center 06/10/2023 GRACE FORD Family History Problem Relation Age of Onset Other Mother Family Status - Relation Status Age at Mother Level of Service:47306 [place] OFFICE/OUTPATIENT ESTABLISHED MOD [facility] 30 MIN Reason for Visit and Comments: Chest Pain [512772] Coronary Artery Disease [187] Normal [facility] 36on 04-29-2023 36 04/29/2023 WESLEY Marin MA [...] informed her of new RX sent to [facility] for him. Also told her I'd mail them lab order to be repeated in 3 months. Lab results and office note faxed to PCP. Normal [facility] 29on 04-28-2023 29 Addended by: ISABELL ANSARI on: 04/29/2023 10:44 AM Modules accepted: Orders Normal [facility] Office Visiton 04-28-2023 Follow-up visit [id number] Shan Franco Nilsa 1960 M Date Provider Department Center 04/28/2023 120-ISABELL ANSARI CARD [facility] Family History Problem Relation Age of Onset Other Mother Family Status - Relation Status Age at Mother Level of Service:26453 [place] OFFICE/OUTPATIENT ESTABLISHED MOD MDM 30 MIN [facility] Office Visiton 01-25-2023 Follow-up visit [id number] FrancoShan Ash 1960 M Date Provider Department Center 01/25/2023 3848-TALYA GARG [facility] Family History Problem Relation Age of Onset Other Mother Family Status - Relation Status Age at Mother Level of Service:21273 [place] OFFICE/OUTPATIENT ESTABLISHED MOD MDM 30-39 MIN [facility] Office Visiton 01-14-2023 Follow-up visit [id number] JoanShan Ash 1960 M Date Provider Department Center 01/14/2023 65467-FUCDAJJDVBERNADINE CAMARENA JANICE [facility] Family History Problem Relation Age of Onset Other Mother Family Status - Relation Status Age at Mother Level of Service:77884 [place] OFFICE/OUTPATIENT ESTABLISHED MOD MDM 30-39 MIN [facility] Office Visiton 12-23-2022 Follow-up visit [id number] FrancoShan Ash 1960 [facility] Provider Department Center 12/23/2022 120-ISABELL ANSARI [facility] Family History Problem Relation Age of Onset Other Mother Family Status - Relation Status Age at Mother Level of Service:33265 [place] TRANSJ CARE MGMT HIGH MDM F2F 7 MARJORIE D DISCHARGE [facility] 30on 12-18-2022 30 The patient is Moderately [...] and behaviors that affect risk of falls [place] fall precautions as indicated by assessment Educate [...] and prevent overall improvement and discharge Normal [facility] 30 Daily Case Managemen t Update Multidisciplinary rounds have been completed. Barriers to Discharge: From [facility]. [facility] for urgent cardiac catheterization. Diet: Dietary [...] PT Recommendations: OT Recommendations: New Consults: Normal [facility] 30 The patient is Moderately Stable - Low risk of patient condition declining or worsening The patient's goals for the shift include Comfort The clinical goals for the shift include Cath Site Safety/VSS Normal [facility] 30 The patient is Moderately Stable - [...] and maintained or improved Outcome: Progressing Normal [facility] CBC WITH AUTO DIFFERENTIALon 12-17-2022 Basophils (Bld) [#/Vol] 0.04 10*3/uL Normal 0.00-0.20 [facility] Comment on above: Performed By: #### L [id number] ####[facility] ([facility])[address] [place] [address] Basophils/100 WBC (Bld) 0.5 % Normal 0.0-1.0 [facility] Comment on above: Performed By: #### L [id number] ####[facility] ([facility])[address] [place] [address] Eosinophils (Bld) [#/Vol] 0.15 10*3/uL Normal 0.00-0.50 [facility] Comment on above: Performed By: #### L [id number] ####[facility] (BEAKER)[address] [place] [address] Eosinophils/100 WBC (Bld) 1.8 % Normal 0.0-6.0 [facility] Comment on above: Performed By: #### L [id number] ####[facility] (BEAKER)[address] [place] [address] Erythrocyte distribution width (RBC) [Ratio] 13.7 % Normal 11.5-15.0 [facility] Comment on above: Performed By: #### L [id number] ####[facility] (BEAKER)[address] [place] [address] ERYTHROCYTE MEAN CORPUSCULAR HEMOGLOBIN CONCENTRATION (G/DL) BY AUTOMATED 34.9 g/dL Normal 32.0-35.0 [facility] Comment on above: Performed By: #### L [id number] ####[facility] (BEAKER)[address] [place] [address] Hematocrit (Bld) [Volume fraction] 45.6 % Normal 39.0-55.0 [facility] Comment on above: Performed By: #### L [id number] ####[facility] (BEAKER)[address] [place] [address] Hemoglobin (Bld) [Mass/Vol] 15.9 g/dL Normal 13.0-17.0 [facility] Comment on above: Performed By: #### L [id number] ####[facility] (BEAKER)[address] [place] [address] Immature granulocytes (Bld) [#/Vol] 0.05 10*3/uL Normal 0.00-0.20 [facility] Comment on above: Performed By: #### L [id number] ####[facility] (BEAKER)[address] [place] [address] Immature granulocytes/100 WBC (Bld) 0.6 % Normal 0.0-1.0 [facility] Comment on above: Performed By: #### L [id number] ####[facility] (BEAKER)[address] [place] [address] Lymphocytes (Bld) [#/Vol] 2.43 10*3/uL Normal 1.20-4.00 [facility] Comment on above: Performed By: #### L [id number] ####[facility] (BEAKER)[address] [place] [address] Lymphocytes/100 WBC (Bld) 29.6 % Normal 20.0-45.0 [facility] Comment on above: Performed By: #### L [id number] ####[facility] (BEAKER)[address] [place] [address] MCH (RBC) [Entitic mass] 32.1 pg Normal 27.0-33.0 [facility] Comment on above: Performed By: #### L [id number] ####[facility] (BEAKER)[address] [place] [address] MCV (RBC) [Entitic vol] 92.1 fL Normal 82.0-98.0 [facility] Comment on above: Performed By: #### L [id number] ####[facility] (BEAKER)[address] [place] [address] Monocytes (Bld) [#/Vol] 0.57 10*3/uL Normal 0.10-1.00 [facility] Comment on above: Performed By: #### L [id number] ####[facility] (BEAKER)[address] [place] [address] Monocytes/100 WBC (Bld) 6.9 % Normal 5.0-12.0 [facility] Comment on above: Performed By: #### L [id number] ####[facility] (BEAKER)[address] [place] [address] Neutrophils (Bld) [#/Vol] 4.97 10*3/uL Normal 1.60-7.60 [facility] Comment on above: Performed By: #### L [id number] ####[facility] (BEAKER)[address] [place] [address] Neutrophils/100 WBC (Bld) 60.6 % Normal 40.0-72.0 [facility] Comment on above: Performed By: #### L [id number] ####[facility] ([facility])[address] [place] [address] NRBC (PER 100 WBCS) BY AUTOMATED COUNT 0.0 % Normal 0 [facility] Comment on above: Performed By: #### L [id number] ####[facility] ([facility])[address] [place] [address] PLATELETS (10*3/UL) IN BLOOD AUTOMATED COUNT 659 10*3/uL High 150-400 [facility] Comment on above: Performed By: #### L [id number] ####[facility] ([facility])[address] [place] [address] RBC (Bld) [#/Vol] 4.95 10*6/uL Normal 4.20-5.70 [facility] Comment on above: Performed By: #### L [id number] ####[facility] ([facility])[address] [place] [address] WBC (Bld) [#/Vol] 8.21 10*3/uL Normal 4.00-10.60 [facility] Comment on above: Performed By: #### L [id number] ####[facility] ([facility])[address] [place] [address] COMPREHENSIVE METABOLIC PANE Dominick 12-17-2022 Albumin [Mass/Vol] 3.6 g/dL Normal 3.5-5.7 [facility] Comment on above: Performed By: #### L [id number] #### [facility] ([facility] [address] [place] [address] ALP [Catalytic activity/Vol] 122 U/L High 34-104 [facility] Comment on above: Performed By: #### L [id number] #### [facility] [address] [place] [address] ALT [Catalytic activity/Vol] 63 U/L High 7-52 [facility] Comment on above: Performed By: #### L [id number] #### [facility] ([facility]) [address] [place] [address] Anion gap [Moles/Vol] 13 mmol/L Normal 7-20 [facility] Comment on above: Performed By: #### L [id number] #### [facility] (BE[facility]ER) [address] [place] [address] AST [Catalytic activity/Vol] 20 U/L Normal 13-39 [facility] Comment on above: Performed By: #### L [id number] #### [facility] (BEAKER) [address] [place] [address] Bilirubin [Mass/Vol] 0.6 mg/dL Normal 0.3-1.0 [facility] Comment on above: Performed By: #### L [id number] #### [facility] (BEAKER) [address] [place] [address] Calcium [Mass/Vol] 9.1 mg/dL Normal 8.6-10.3 [facility] Comment on above: Performed By: #### L [id number] #### [facility] (BEAKER) [address] [place] [address] Chloride [Moles/Vol] 101 mmol/L Normal 98-107 [facility] Comment on above: Performed By: #### L [id number] #### [facility] ([facility]ER) [address] [place] [address] CO2 [Moles/Vol] 24 mmol/L Normal 21-31 [facility] Comment on above: Performed By: #### L [id number] #### [facility] ([facility]) [address] [place] [address] Creatinine [Mass/Vol] 0.70 mg/dL Normal 0.70-1.30 [facility] Comment on above: Performed By: #### L [id number] #### [facility] ([facility]) [address] [place] [address] GLOMERULAR FILTRATION RATE ML/MIN/1.73 SQ M.PREDICTED 104.8 mL/min/1.73m*2 Normal >60.0 [facility] Comment on above: Result Comment: The [facility]???s estimated glomerular filtration rate (eGFR) will no [...] of individuals. Performed By: #### L [id number] #### [facility] ([facility]) [address] [place] [address] Glucose [Mass/Vol] 148 mg/dL High 70-100 [facility] Comment on above: Performed By: #### L [id number] #### [facility] ([facility]) [address] [place] [address] Potassium [Moles/Vol] 3.8 mmol/L Normal 3.5-5.1 [facility] Comment on above: Performed By: #### L [id number] #### [facility] ([facility]) [address] [place] [address] Protein [Mass/Vol] 6.5 g/dL Normal 6.0-8.3 [facility] Comment on above: Performed By: #### L [id number] #### [facility] ([facility]) [address] [place] [address] Sodium [Moles/Vol] 134 mmol/L Low 136-145 [facility] Comment on above: Performed By: #### L [id number] #### [facility] ([facility]) [address] [place] [address] Urea nitrogen [Mass/Vol] 16 mg/dL Normal 7-25 [facility] Comment on above: Performed By: #### L [id number] #### [facility] ([facility]) [address] [place] [address] UREA NITROGEN/CREATININE (MASS RATIO) IN SER/PLAS 22.9 Normal [facility] Comment on above: Performed By: #### L [id number] #### [facility] (NURY) [address] [place] [address] CONSULTon 12-17-2022 CONSULT -- Attestation signed by [...] originally presented with an inferolateral STEMI at [facility]. The patient was transferred to [facility] for urgent cardiac catheterization. Upon arrival [...] a 62 y.o. male who presented to [facility] with chest pain and EKG concerns for acute STEMI in the inferior leads. He had ST elevations present in leads II, III, aVF and V6. He was urgently transferred to [facility] and will proceed with cardiac catheterization [...] 325 of aspirin prior to arrival at [facility] and was loaded with 600 mg of Plavix in the Construction Grip. We will start the patient on atorvastatin 80 mg and Toprol 25 mg Echocardiogram tomorrow. Risk factor modification including smoking cessation is imperative. Felisa Meraz MD [employer] - PGY5 [facility] EDPROVon 12-17-2022 EDPROV HPI No chief complaint on file. Patient presented from [place] with a ST elevation [place] was having no pain now and she [...] Decision Making patient is a ST elevation [place] since we had the EKG to Team was already here we was handed off to cardiology and the Team. Attestion Duc Arceo DO 12/17/22 1828 Normal [facility] HEMOGLOBIN A1Con 12-17-2022 Glucose [Mass/Vol] 117 mg/dL Normal [facility] Comment on above: Performed By: #### L [id number] #### [facility] (BEAKER) [address] [place] [address] HbA1c (Bld) [Mass fraction] 5.7 % Normal 4.0-6.0 [facility] Comment on above: Performed By: #### L [id number] #### [facility] (BEAKER) [address] [place] [address] HPon 12-17-2022 History Of Present Illness Shan Franco is a 62 y.o. male transferred from [facility] following visit with intermittent chest pain anterior chest with radiation to arms and back workup revealing inferolateral STEMI once arrived at [facility] was taken to [facility] where he underwent pci and KANDICE [...] CALCIUM, ANIONGAP, EGFR, BCR Labs ekg from [facility] reviewed Relevant Imaging Results ECG 12 lead Normal sinus rhythm Repolarization Normal ECG No previous ECGs available Assessment/Plan Principal Problem: ST elevation myocardial infarction (STEMI), unspecified artery (CMS/HCC) Cp s/p STEMI S/p PCI with stent on asa Plavix statin beta david Continue telemetry repeat EKG am follow with cardiology counseled re tobacco cessation Gerd stable Tobacco dependence Offered nicotine replacement refuse it counseled re tobacco cessation Based on my medical assessment, after consideration of the patient???s risk factors (age, co-morbidities, patient presenting symptoms and acuity), it is determined that the services needed warrant inpatient care. Normal [facility] LIPID PANELon 12-17-2022 CHOL/HDL 6.4 mg/dL Normal [facility] Comment on above: Performed By: #### L [id number] ####[facility] (BEAKER)[address] [place] [address] Cholesterol [Mass/Vol] 192 mg/dL Normal 120-200 [facility] Comment on above: Performed By: #### L [id number] ####[facility] (AKER)[address] [place] [address] Magnesium [Mass/Vol] 277 mg/dL High 40-149 [facility] Comment on above: Result Comment: TRIG LYCERIDE REFERENCE RANGE: 20 YEARS AND OLDER CARDIOVASCULAR RISK LESS THAN 150 mg/dL LOW RISK 150 TO 199 mg/dL BORDERLINE RISK 200 mg/dL AND GREATER HIGH RISK Performed By: #### L [id number] ####[facility] (BEAKER)[address] [place] [address] Magnesium [Mass/Vol] 107 mg/dL Normal 0-160 [facility] Comment on above: Performed By: #### L [id number] ####[facility] (BEAKER)[address] [place] [address] Magnesium [Mass/Vol] 30 mg/dL Normal 23-92 [facility] Comment on above: Performed By: #### L [id number] ####[facility] (BEAKER)[address] [place] [address] NON HDL CHOL. (LDL+VLDL) 162 Normal [facility] Comment on above: Performed By: #### L [id number] ####[facility] (BEAKER)[address] [place] [address] TOTAL VLDL-C 55 mg/dL High 0-40 [facility] Comment on above: Performed By: #### L [id number] ####[facility] (BEAKER)[address] [place] [address] MAGNESIUMon 12-17-2022 Magnesium [Mass/Vol] 2.0 mg/dL Normal 1.9-2.7 [facility] Comment on above: Performed By: #### L [id number] ####[facility] (BEAKER)[address] [place] [address] NURSNOTEon 12-17-2022 NURSNOTE Report called to Leta cardenas RN per Liat NGUYEN Normal [facility] COVID/FLU RT-PCRon SARS-CoV-2 (COVID-19) RNA HERMILO+probe Ql (Unsp spec) Negative [facility] Other COVID/FLU RT-PCR Negative [place] [employer] [facility] Find That File Other [facility]14 SARS-CoV-2 (COVID-19) RNA HERMILO+probe Ql (Unsp spec) Not detected Normal NOT DETECTED [facility] Comment on above: Result Comment: This test is not yet approved or cleared by the [place] FDA. When there are no FDA-approved or cleared tests available, and other criteria are met, FDA can make tests available under an emergency access mechanism called an Emergency Use Authorization (EUA). The EUA for this test is supported by the [place] of Health and Human Service's (HHS's) declaration [...] SARS-CoV-2. Performed By: #### C VDTB #### [facility] [address] [place] [address] Celina Soto RAPID COVID-19 ANTIGENon EUA Statement SEE BELOW Normal [facility] Comment on above: [...] sooner. Performed By: #### C VDAG #### [facility] [address] [place] [address] Celina Soto SARS-CoV-2 (COVID-19) RNA HERMILO+probe Ql (Unsp spec) Negative Normal NEGATIVE [facility] Comment on above: Result Comment: Nega tive results are presumptive. They do not preclude infection and should not be used as the sole basis for treatment decisions. Additional confirmatory testing by a molecular method should be considered. Performed By: #### C VDAG #### [facility] [address] [place], [place] [address] Celina Soto [facility] METABOLIC PANE L WITH GFRon 03-25-2017 Alanine aminotransferase (ALT) 17 U/L Normal 5-59 [facility] Albumin 4.5 g/dL Normal 3.2-5.3 [facility] Comment on above: Result Comment: [facility] [address] [place], [place] [address]Laboratory Director: Ben Aguilar M.D.CLIA No. [id number] CAP Accreditation No. [id number] ALK PHOS 86 IU/L Normal 35-121 Pathology [...] mass conc 90 mg/dL Normal 70-100 [facility] Comment on above: Result Comment: DIAG NOSTIC THRESHOLDS FOR DIABETES AND IMPAIRED FASTING GLUCOSE (IFG) FASTING PLASMA GLUCOSE NORMAL <100 mg/dL IFG 100-125 mg/dL DIABETES >/= 126 mg/dL Potassium molar conc 4.3 mmol/L Normal 3.5-5.4 [facility] Sodium 138 mmol/L Normal 134-147 Pathology [...] LDL to HDL Ratio 2.8 Normal <3.5 [facility] LDL-CHOL, CALCULATED 159 mg/dL High <130 [facility] Comment on above: Result Comment: LDL [...] Time Vital Sign Value Performing Clinician Facility 09-02-2023 [id number] Body height 177.8 cm PHYSICIAN NO [facility] 09-02-2023 09:33-0400 Body mass index (BMI) [Ratio] 25.4 kg/m2 PHYSICIAN NO [facility] 09-02-2023 09:33-0400 Body temperature 98.6 [degF] PHYSICIAN NO [facility] 09-02-2023 09:33-0400 Body weight 80.45 kg PHYSICIAN NO [facility] 09-02-2023 09:33-0400 Diastolic blood pressure 73 mm[Hg] PHYSICIAN NO [facility] 09-02-2023 09:33-0400 Heart rate 74 /min PHYSICIAN NO [facility] 09-02-2023 09:33-0400 Respiratory rate 18 /min PHYSICIAN NO [facility] R [facility] 09-02-2023 09:33-0400 SaO2% (BldA) [Mass fraction] 97 % PHYSICIAN NO [facility] 09-02-2023 09:33-0400 Systolic blood pressure 114 mm[Hg] PHYSICIAN NO [facility] 12-06-2022 09:30-0400 Body height 177.8 cm Cecilia Van Other [facility] Other 12-06-2022 09:30-0400 Body mass index (BMI) [Ratio] 25.37 kg/m2 Cecilia Van Other [facility] Other 12-06-2022 09:30-0400 Body temperature 97.5 [degF] Cecilia Van Other [facility] Other 12-06-2022 09:30-0400 Body weight 80.2 kg Cecilia Van Other [facility] Other 12-06-2022 09:30-0400 Diastolic blood pressure 75 mm[Hg] Cecilia Van Other [facility] Other 12-06-2022 09:30-0400 Respiratory rate 18 /min Cecilia Van Other [facility] Other 12-06-2022 09:30-0400 SaO2% (BldA) [Mass fraction] 97 % Cecilia Van Other [facility] Other 12-06-2022 09:30-0400 Systolic blood pressure 113 mm[Hg] Cecilia Van Other [facility] Other 06-23-2022 02:09-0400 Diastolic blood pressure 92 mm[Hg] Curt Lewis DO Work Phone: [facility] [employer] 06-23-2022 02:09-0400 Respiratory rate 18 /min Curt Lewis DO Work Phone: [facility] [employer] 06-23-2022 02:09-0400 Systolic blood pressure 142 mm[Hg] Curt Lewis DO Work Phone: [employer] 06-23-2022 02:06-0400 Body height 177.8 cm Curt Lewis DO Work Phone: [facility] [employer] 06-23-2022 02:06-0400 Body mass index (BMI) [Ratio] 26.54 kg/m2 Curt Lewis DO Work Phone: [facility] [employer] 06-23-2022 02:06-0400 Body temperature 98.8 [degF] Curt Lewis DO Work Phone: [employer] 06-23-2022 02:06-0400 Body weight 83.92 kg Curt Lewis DO Work Phone: [facility] [employer] 06-23-2022 02:06-0400 Heart rate 89 /min Curt Lewis DO Work Phone: [facility] [employer] 06-23-2022 02:06-0400 SaO2% (BldA) [Mass fraction] 98 % Curt Lewis DO Work Phone: [employer] 08-04-2021 12:00-0400 Body height 177.8 cm Kary Marvin Other [facility] Other 08-04-2021 12:00-0400 Body mass index (BMI) [Ratio] 27.26 kg/m2 Kary Marvin Other [facility] Other 08-04-2021 12:00-0400 Body temperature 96.9 [degF] Kary Marvin Other [facility] Other 08-04-2021 12:00-0400 Body weight 86.18 kg Kary Marvin Other [facility] Other 08-04-2021 12:00-0400 Respiratory rate 18 /min Kary Marvin Other [facility] Other 08-04-2021 12:00-0400 SaO2% (BldA) [Mass fraction] 98 % Kary Marvin Other [facility] Other Encounters Encounter Date Encounter Type Care Provider Facility Start: 09-06-2023 End: 09-06-2023 ambulatory ANDER B APLING Not Available Start: 09-02-2023 End: 09-02-2023 ambulatory PHYSICIAN RAJENDRA [facility] Work Phone: Start: 09-02-2023 End: 09-02-2023 Patient encounter procedure PHYSICIAN RAJENDRA [facility] Work Phone: Start: 07-29-2023 End: 07-29-2023 ambulatory [facility] Start: 06-10-2023 End: 06-10-2023 ambulatory [facility] Start: 04-28-2023 End: 04-28-2023 [facility]: 01-25-2023 End: 01-25-2023 ambulatory TALYA GARG [facility] Start: 01-14-2023 End: 01-14-2023 ambulatory BERNADINE CAMARENA [facility] Start: 12-23-2022 End: 12-23-2022 ambulatory ISABELL ELAN [facility] Start: 12-18-2022 Evaluation and management of inpatient BALJINDER DONALDSON [facility] Start: 12-18-2022 Evaluation and management of inpatient JESSE MOMIN [facility] Start: 12-17-2022 End: 12-19-2022 Evaluation and management of inpatient TALYA GARG [facility] Start: 12-06-2022 End: 12-06-2022 ambulatory Cecilia Van Other [facility] Other Start: 12-06-2022 Office outpatient visit 15 minutes Cecilia Van [facility] Start: 06-23-2022 End: 06-23-2022 Emergency department patient visit LIANENilsa VELEZ [facility] Start: 06-23-2022 End: 06-23-2022 Emergency department patient visit Curt Lewis DO Work Phone: [facility] ED Comment on above: Laceration of left i ndex finger without foreign body without damage to nail, initial encounter (Primary Dx) Start: 08-04-2021 End: 08-04-2021 ambulatory Kary Marvin Other [facility] Other Start: 08-04-2021 Office outpatient visit 15 minutes Kary Marvin [facility] Start: 09-01-2020 End: 09-01-[address] JACKI ZHANG Facility:H1 Procedures Date Procedure Procedure Detail Performing Clinician Start: 09-02-2023 Plain X-ray of right wrist PHYSICIAN NO FAMILY Start: 01-11-2017 Colonoscopy Curt bonilla DO Work Phone: Plan of Treatment Date Care Activity Detail Author Start: 06-23-2032 DTaP/Tdap/Td vaccine (3 - Td or Tdap) DTaP/Tdap/Td vaccine (3 - Td or Tdap) [employer] Start: 10-13-2022 Influenza vaccination Flu vacc ine (Season Ended) [facility] Start: 10-30-2022 Screening for malign ant neoplasm of colon [facility] Start: 03-23-2018 Lipid panel Lipids [facility] Start: 05-19-2011 Shingles vaccine (1 of 2) Shingles vaccine (1 of 2) [facility] Start: 2006 Screening for malign ant neoplasm of colon [facility] Start: 1996 Diabetes screen Diabetes screen [facility] Start: 1973 Depression Screen Depression Screen [facility] Start: 1960 COVID-19 Vaccine (#1) COVID-19 Vacci ne (#1) [facility] XR Wrist - right GE [address] [facility] Immunizations Immunization Date Immunization Notes Care Provider Bhanu menezes 06-23-2022 tetanus toxoid, redu laura diphtheria toxoid, and acellular pertussis vaccine, adsorbed Curt Lewis DO Work Phone: [facility] 01-09-2017 influenza, injectabl e, quadrivalent, contains preservative Curt Lewis DO Work Phone: [facility] 12-20-2016 pneumococcal polysaccharide vaccine, 23 valent Curt Lewis DO Work Phone: [facility] 12-20-2016 tetanus toxoid, redu laura diphtheria toxoid, and acellular pertussis vaccine, adsorbed Curt Lewis DO Work Phone: [facility] Work Phone: Payers Date Payer Category Payer Self-pay 2023 Unknown [id number] 2022 [facility] [id number] 2022 Unknown [id number] 1961 Unknown [id number] 1961 Unknown [id number] 1961 Unknown [id number] 1958 Self-pay [id number] [facility] [id number] Unknown [id number] Social History Date Type Detail Facility Sex Assigned At [facility] [employer] Other Start: 12-02-2016 [facility] [employer] Phone: History of tobacco use Cigarette Smoker B ON [employer] Phone: Start: 12-02-2016 End: 06-23-2022 Cigarettes smoked current (pack per day) - Reported 0.5 [employer] Phone: Start: 12-02-2016 Tobacco use and exposure Smokeless tobacco non-user [employer] Phone: Start: 06-23-2022 Alcohol intake Current drinke r of alcohol (finding) [employer] Phone: Start: 12-08-2016 Alcohol Comment 1-2 beers olya y, DUI x4; 4 years ago last. [employer] Phone: Start: 1960 Sex Assigned At Not on file B ON [employer] Phone: Start: 06-13-2022 End: 06-23-2022 Exposure to SARS-CoV-2 (event) Not sure [employer] Phone: Start: 09-02-[address] [facility] Smoker (finding) [facility] Start: 1960 Sex Assigned At Male F [facility] Clinical Notes 08-04-2021 to 07-29-2023 Note Date & Type Note Facility 07-29-2023 Note Cardiovascular Medic [facility] SUBJECTIVE Chief Complaint Patient presents with Coronary Artery Disease Chest Pain Shan Franco is a 63 y.o. male here for follow-up. HPI PMHx: CAD, STEMI s/p PCI to distal Lcx/L PDA, HTN, HLD, HFrEF 07/29/2023 Patient here for follow up stress test. Echo was denied by his insurance. He was started on isosorbide at last visit for chest pain and he thinks it's helped him. Says his SOB w/wo exertion has subsided. Denies lightheadedness/syncope and palpitations. He states he had one episode of chest pain while at work a few weeks ago, he sat down to rest and pain improved, no reoccurance. He reports being told in the past he had an eroded esophagus. This was found after he swallowed a large piece of steak that was caught in his throat and they performed an EGD. He has not seen GI for a few years. 06/10/2023 Patient here c/o chest pain, which radiated [...] he had worsened chest pain, left sided. [place] like a pressure/achiness, radiated up to his left shoulder. He also had left arm weakness. [place] different than when he had his heart [...] (CMS/HCC) Tobacco dependence Coronary artery disease involving picayune coronary artery of picayune heart with unstable angina pectoris (CMS/HCC) 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 coronary artery Past Medical History: Diagnosis Date Abnormal ECG CHF (congestive heart failure) (CMS/HCC) Coronary artery disease Myocardial infarction (CMS/HCC) Family History Problem Relation Name Age of Onset Other (PFO) Mother Social History Tobacco Use Smoking status: Every Day Packs/day: .25 Types: Cigarettes Smokeless tobacco: Never Substance Use Topics Alcohol use: Not Currently Allergies Allergen Reactions Morphine ROS Constitutional: Positive for malaise/fatigue. HENT: Positive for hearing loss. Cardiovascular: Positive for chest pain (improving). Gastrointestinal: Positive for constipation. Neurological: Positive for headaches. All other systems reviewed and are negative. OBJECTIVE Visit Vitals BP 102/76 (BP Location: Left arm, Patient Position: Sitting) Pulse 80 Ht 1.778 m (5' 10 ) Wt 81.2 kg (179 lb) SpO2 98% BMI 25.68 kg/m??? Smoking Status Every Day BSA 2 m??? Medications: Current Outpatient Medications: aspirin 81 [...] the morning., Disp: 90 tablet, Rfl: 3 isosorbide mononitrate ER (Imdur) 30 mg 24 hr tablet, Take 1 tablet (30 mg) by mouth in the morning. Do not crush or chew., Disp: 30 tablet, Rfl: 11 metoprolol succinate XL (Toprol-XL) 25 mg 24 [...] at bedtime.), Disp: 180 tablet, Rfl: 3 nicotine (Nicoderm CQ) 21 [...] Normal pulses. Heart sounds: Normal heart sounds. (more content not included)... [facility] 07-29-2023 Note Patient here for fol low up stress test. Echo was denied by his insurance. He was started on isosorbide at last visit for chest pain and he thinks it's helped him. Says his SOB w/wo exertion has subsided. Denies lightheadedness/syncope and palpitations. Review of Systems Constitutional: Positive for malaise/fatigue. HENT: Positive for hearing loss. Cardiovascular: Positive for chest pain (improving). Gastrointestinal: Positive for constipation. Neurological: Positive for headaches. All other systems reviewed and are negative. [facility] 06-10-2023 Note Patient here c/o addy st [...] All other systems reviewed and are negative. [facility] 06-10-2023 Note Cardiovascular Medic [facility] SUBJECTIVE Chief Complaint Patient presents with Chest [...] he had worsened chest pain, left sided. [place] like a pressure/achiness, radiated up to his left shoulder. He also had left arm weakness. [place] different than when he had his heart [...] (CMS/HCC) Tobacco dependence Coronary artery disease involving picayune coronary artery of picayune heart with unstable angina pectoris (CMS/HCC) 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 coronary artery Past Medical History: Diagnosis Date Abnormal ECG CHF (congestive heart failure) (CMS/HCC) Coronary artery disease Myocardial infarction (CMS/HCC) Family History Problem Relation Name Age of [...] Behavior: Behavior nor (more content not included)... [facility] 04-28-2023 Note Tobacco use is stabl e- he has not quit smoking and extended d/w pt to strongly suggest smoking cessation in light of CAD and HFrEF- he voiced understanding and does not want any different medications at this time- he will continue Nicotine patches [facility] 04-28-2023 Note HTN well controlled continue all meds [facility] 04-28-2023 Note Remains stable witho ut concerning symptoms [facility] 04-28-2023 Note Patient here for 3 m o follow up CAD, CHF, hypertension, and hyperlipidemia. [place] some palpitations about a month ago while [...] All other systems reviewed and are negative. [facility] 04-28-2023 Note [facility] CARDIOLOGY PROGR ESS NOTE HPI: Shan Franco is a 62 y.o. male here for routine f/U HPI 62 yo male presents today for known past medical history of STEMI status post PCI to distal left circumflex/L PDA, Hyperlipidemia and tobacco dependence seen in follow-up. Patient here for 3 mo follow up CAD, CHF, hypertension, and hyperlipidemia. [place] some palpitations about a month ago while [...] is a herrera (more content not included)... [facility] 04-28-2023 Note Continue lipitor 80 mg Script for CMP and lipid profile given to pt [facility] 04-28-2023 Note Coronary artery dise ase is stable Continue GDMT- ASA, lipitor, plavix, toprol continue risk factor modifications- heart healthy diet, regular exercise as tolerated and continue all medications. [facility] 04-28-2023 Note [facility] II- recovered E F Continue GDMT- continue ASA, lipitor, toprol, entresto- D/W pt may stop farxiga and see if symptoms of constipation/anal leaking and foul smelling urine improves- if not recommended pt to F/U with PCP for further investigations Diuretic therapy Monitor daily weights, I&O, fluid restriction 1.5-2L/day, renal function and electrolytes- please maintain K+>4 and Mg > 2 [facility] 01-25-2023 Note Cardiology Clinic No te Subjective Shan Nilsa Franco is a 62 y.o. year old [...] (CMS/HCC) Tobacco dependence Coronary artery disease involving picayune coronary artery of picayune heart with unstable angina pectoris (CMS/HCC) Stenosis [...] Grade 1, mil (more content not included)... [facility] 01-25-2023 Note Patient here for 2 w tonawanda follow up lightheadedness and near-syncope. Bernadine Camarena decreased his Entresto at last visit. He denies recurrent lightheaded and near-syncopal episodes. Feeling much better. Wants to know if he can go back to work. [facility] 01-14-2023 Note Patient here per car diac [...] All other systems reviewed and are negative. [facility] 01-14-2023 Note Cardiology Clinic No te Subjective [...] (CMS/HCC) Tobacco dependence Coronary artery disease involving picayune coronary artery of picayune heart with unstable angina pectoris (CMS/HCC) Stenosis [...] left ventricular hypertrophy. (more content not included)... [facility] 12-23-2022 Note Reminded pt to not m iss any dose of ASA or plavix. [facility] 12-23-2022 Note Coronary artery disease is stabl e [facility] 12-23-2022 Note Continue liptor [facility] 12-23-2022 Note Coronary artery dise ase is stable without concerning symptoms Continue GDMT- ASA, plavix, lipitor, toprol Denied any bleeding tendencies continue risk factor modifications- heart healthy diet, regular exercise as tolerated and continue all medications. Orders for cardiac rehab completed for [facility] rehab [facility] 12-23-2022 Note HTn controlled- bord katherine labile- denied lightheadedness/dizziness or syncope; Does admit that he tires out with activity quicker than before. [facility] 12-23-2022 Note [facility] II-IIIb- bro[place] tly remains euvolemic without exacerbation Continue GDMT- ASA, lipitor, farxiga, toprol, entresto- Sending pt today for repeat BMP prior to further optimization of GDMT with aldactone. Diuretic therapy- farxiga- pt is euvolemic currently Monitor daily weights, I&O, fluid restriction 1.5-2L/day, renal function and electrolytes- please maintain K+>4 and Mg > 2 [facility] 12-23-2022 Note Currently pt is chris betancourt on nicotine patch and has continued with complete smoking cessation [facility] 12-23-2022 Note [facility] CARDIOLOGY PROGR ESS NOTE HPI: Shan Franco is a 62 y.o. male here for hospital f/U recent STEMI and cardiac cath with PCI at [facility]. Admits that he fatigues quicker than usual and was able to work outside for about a 1/2 hour and then had to stop and rest r/t diaphoresis and fatigue- Denied SOB or chest pain. Patient here for follow up [facility] for STEMI. Still trying to get [...] is a 62 y.o. male transferred from [facility] following visit with intermittent chest pain anterior chest with radiation to arms and back workup revealing inferolateral STEMI once arrived at [facility] was taken to [facility] where he underwent pci and KANDICE [...] Physicians: -Talya Garg (more content not included)... [facility] 12-23-2022 Note Patient here for [facility] for STEMI. Still trying to get his strength back. Denies chest pain. Still gets SOB with minimal exertion. Review of Systems Constitutional: Positive for malaise/fatigue. HENT: Positive for hearing loss. Cardiovascular: Positive for dyspnea on exertion. All other systems reviewed and are negative. [facility] 12-19-2022 Note Hospital Medicine Discharge Summary Final Discharge Diagnosis: ST elevation myocardial infarction (STEMI), unspecified artery (CMS/HCC) STEMI s/p PCI Tobacco dependence Admission Diagnosis: STEMI (ST elevation myocardial infarction) (CMS/HCC) [I21.3] ST elevation myocardial infarction (STEMI), unspecified artery (CMS/HCC) [I21.3] Hospital course: Shan Franco is a 62 y.o. male transferred from [facility] following visit with intermittent chest pain anterior chest with radiation to arms and back workup revealing inferolateral STEMI once arrived at [facility] was taken to [facility] where he underwent pci and KANDICE [...] Center 12/23/2022 11:40 AM Isabell Ansari NP [facility] Your medication list START taking these [...] Your Medications These medications were sent to [id number] - [place], [place] - [address] [id number] aspirin 81 mg EC tablet atorvastatin 80 [...] was 35 minutes. Signed Brittany Guevara NP [facility] 12/20/2022 9:07 AM [facility] 12-19-2022 Note Adult Nutrition Cons ult Consult noted for HF s/p NSTEMI. Please see RD from 12/18/22 for full assessment including diet education for low sodium diet. [facility] 12-19-2022 Note Cardiology Progress Note Subjective F/U [...] Mynor intensity statin (more content not included)... [facility] 12-18-2022 Note Adult Nutrition Asse ssment: Name: Shan Franco Room: [address] [place] [address] Date: 1960 Date of Visit: 12/18/22 Admission [...] and Protein Other factors: cardiac cath 12/17; WOUND CARE TECHNICIAN scheduled 12/18 Nutrition Data/Clinical Indicators of Nutrition [...] meals during workdays. 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 [facility] 12-18-2022 Note Hospital Medicine Daily Progress Note - 12/18/2022 2:57 PM; Room: [facility] Admission: 12/17/2022 7:05 PM; Length of stay: 1 days THE HOSPITALIST TEAM PREFERS TO USE [place] CHAT FOR COMMUNICATION 7AM-7PM. IF I DO NOT RESPOND WITHIN 15 MINUTES, PLEASE PAGE ME/CALL THROUGH THE CASHIER AND WAITER/WAITRESS. FROM 7PM-7AM, PLEASE PAGE [phone](COVR) Code Status: Full Code Discharge Destination: home [...] LDL 162 12/17/2022 No results found for: [id number], IRON, TIBC, C3, C4, TENZIN, CANCA, ASO, [...] who accepted patient as direct transfer to [facility] for emergent coronary angiography with possible revascularization. Patient was taken to the [facility] emergently. Procedures Performed: -Bilateral selective coronary angiography -PCI of distal LCx/LPDA Using balloon angioplasty and drug-eluting stent placement -Conscious sedation Final Impressions: -90-95% stenosis in distal LCx/LPDA successfully reduced to 0% stenosis following succe (more content not included)... [facility] 12-18-2022 Note 12/18/22 1205 Admission Assessment Questions Verify insurance with patient Yes Do you understand medical disease or what brought you into the hospital? Yes Who is your current PCP? 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 No [...] you able to send link and activate [employer]? Yes [facility] 12-18-2022 Note ------ Attestation signed by Baljinder [...] Temporal 77 20 96 % -- -- 12/17/22 2117 128/88 36 ???C (96.8 ???F) Temporal 88 25 98 % -- -- 12/17/222102 -- -- -- -- -- -- 1.753 m (5' 9 ) 76.7 kg (169 lb) 12/17/221958 137/81 -- -- 79 16 97 % -- -- 12/17/221944 119/81 -- -- 72 17 100 % -- -- 12/17/221934 123/81 -- -- 74 21 100 % -- -- 12/17/221925 124/80 -- -- 80 18 98 % [...] Value Ventricular Rate 74 Atrial Rate 74 IL Interval 200 QRS DURATION 92 QT Interval 390 QTC CALCULATION(BAZETT) 432 P Sherborn 83 R-Sherborn 83 T Wave Sherborn 80 Impression Normal sinus rhythm ST elevation, [...] questions. Meghna Beal PGY-2, Internal Medicine resident [facility] 12-06-2022 Evaluation note Encounter Date Diagnosis Assessment [...] days. Patient verbalized understanding of treatment plan. [facility] Other 04-11-2023 Hospital Discharge instructions* Discharge Instructions* [...] us to take care of you at [facility]. In the next few days you may receive a survey by mail or e-mail asking about the care you received during this visit. Please complete this if you are able, as this feedback helps us provide the best care possible. * Attachments The following attachments cannot be sent through Care Everywhere. * Lacerations: Adhesives (Armenian) [facility] Phone: 1(351) 416-175305-23-2022 Evaluation note* Encounter Date Diagnosis Assessment Notes [...] no improvement in 2 to 3 days [facility] Other Evaluation note* Diagnosis Laceration of left index finger without foreign body without damage to nail, initial encounter- Primary documented in this encounter [facility] [employer] Phone: evaluation noteNo assessment information available [facility] Work Phone: Evaluation note* Diagnosis Onset Date Resolution Status Right wrist pain acute [facility] Work Phone: Summary Purpose Family History No Family History Records Found Relationship Condition Age at Onset Recorded Date/T michael father Heart disease Unknown Not Specified Heart disease Unknown Advance Directives No Advanced Directives Records Found Advance Directive Response Recorded Date/ Time Advance Directives No September 01 9:23am Chief Complaint and Reason for Visit Chief Complaint right wrist w injury (4 weeks old) Chief Complaint right wrist w injury (4 weeks old) Reason for Visit Right wrist pain Additional Source Comments (unrecognized sect ion and content) No Status Records FoundNo Status Records FoundNo Status Records FoundNo Status Records FoundNo Status Records FoundNo Status Records Found INFORMATION SOURCE (unrecogn ized section and content) DATE CREATED AUTHOR 09/07/2017 [facility] DATE CREATED AUTHOR AUTHOR'S ORGANIZ ATION 09/07/2020 [facility] DATE CREATED AUTHOR AUTHOR'S ORGANIZ ATION 06/23/2022 [facility] DATE CREATED AUTHOR AUTHOR'S ORGANIZ ATION 07/31/2023 [facility] DATE CREATED AUTHOR AUTHOR'S ORGANIZ ATION 09/07/2023 [facility] DATE CREATED AUTHOR AUTHOR'S ORGANIZ ATION 09/12/2023 [facility] REASON FOR VISIT (unrecogniz ed section and content) Reason Comments Laceration Pt cut his left inde x finger on a knife at work. Bleeding controlled. Last tetanus shot was 6-7 years ago. Care Teams (unrecognized sec tion and content) Team Status: Active Member Role Status Dates PHYSICIAN NO FAMILY Primary Care Provider Active Team Status: Inactive Member Role Status Dates PHYSICIAN NO FAMILY Primary Care Provider Active Start: September 02, 2023 End: September 02, 2023 Cecilia Van APRN Attending Provider Active Start: September 02, 2023 End: September 02, 2023 Team Status: Active Member Role Status Dates PHYSICIAN NO FAMILY Primary Care Provider Active Start: September 02, 2023 Cecilia Van APRN Attending Provider Active Start: September 02, 2023 Goals (unrecognized section and content) Goals may be documented in a n alternate section FOR RECORDS PERTAINING TO PATIENTS WHO ARE [...] BE BASED ON THE PRIMARY CLINICAL RECORDS. [facility]. provides no warranty or guarantee of the accuracy or completeness of information in this document.
[2023-12-15 13:05] LABS: Alanine Aminotransferase 23 U/L (16-63); Albumin Globulin Ratio 1.1; Albumin Level 3.6 g/dL (3.4-5.0); Alkaline Phosphatase 104 U/L (46-116); Aspartate Amino Transferase 17 U/L (15-37); Bilirubin Direct 0.1 mg/dL (0.0-0.2); Bilirubin Total 0.7 mg/dL (0.2-1.0); Chol HDL Ratio 2.2; Cholesterol 117 mg/dL (<=200); Globulin 3.4 g/dL; HDL Cholesterol 54 mg/dL (40-60); LDL Cholesterol Calculated 50.4 mg/dL; Triglycerides 63 mg/dL (<=150); VLDL CHOLESTEROL 12.6 mg/dL
== END 2023-12-15 11:30 | disposition home or self-care (01) ==
LOC: LAB 11:31
PROVIDERS: Visit Provider Nurse Practitioner Family
DX: E78.2 Mixed hyperlipidemia (principal); I25.10 Atherosclerotic heart disease of native coronary artery without angina pectoris
CPT/HCPCS: 36415; 80061; 80076

== ENCOUNTER 2024-10-26 06:55 | Emergency (ER) | payer OTHER, SELFPAY ==
[2024-10-26 07:00] VITALS: BP 105/74; PULSE 97; TEMP 36.6; O2SAT 98; BMI 25.3
--- OUTSIDE RECORDS SUMMARY | 2024-10-26 07:18 | XMS_ITS | Clinical Summary ---
Author Organization [facility] [facility] tem Address [id number] [address] [place] [address] Care Team Providers Care Printing Plate Setter Name Role Phone No Pcp, No Pcp Primary Care Provider Unavailabl e Allergies Active Allergy Reactions Criticality Noted Date Comments Morphine 09/20/2020 Medications No known medications Active Problems No known active problems Family History Medical History Relation Name Comments Breast cancer Maternal Aunt Cancer Maternal Aunt Relation Name Status Comments Father Alive Maternal Aunt Mother Alive Social History Tobacco Use Types Packs/Day Years Used Date Smoking Tobacco: Every Day Cigarettes Smokeless Tobacco: Former Alcohol Use Standard Drinks/Week Comments Yes 12 (1 standard drink = 0.6 oz pure alcohol) weekly,+few Nucla hard lemonade Sex and Gender Information Value Date Recorded Sex Assigned at Not on file Legal Sex Male 12:06 PM EDT Gender Identity Not on file Sexual Orientation Not on file Last Filed Vital Signs Vital Sign Reading Time Taken Comments Blood Pressure 115/82 10/22/2021 7:14 PM EDT Pulse 106 10/22/2021 7:14 PM EDT Temperature 37.1 C (98.7 F) 10/22/2021 7:14 PM EDT Respiratory Rate 21 10/22/2021 7:14 PM EDT Oxygen Saturation 98% 10/22/2021 7:14 PM EDT Inhaled Oxygen Concentration - - Weight 83.9 kg (185 lb) 10/22/2021 7:14 PM EDT Height 177.8 cm (5' 10 ) 10/22/2021 7:14 PM EDT Body Mass Index 26.54 10/22/2021 7:14 PM EDT Plan of Treatment Health Maintenance Due Date Last Done Comments Depression Screening 1973 Tobacco Screening 1973 Zoster (Shingles) Vaccine (1 of 2) 05/19/2011 Adult BMI Screening 10/22/2022 Influenza Vaccine 11/13/2024 01/09/2017 DTaP,Tdap and Td Vaccines (3 - Td or Tdap) 06/23/2032 06/23/2022, 12/20/2016 Medical Devices Not on file Insurance [employer] Care Teams Printing Plate Setter Relationship Specialty Start Date End Date No Pcp, [place] [address] PCP - General Family Medicine 09/02/20
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
--- OUTSIDE RECORDS SUMMARY | 2024-10-26 07:19 | XMS_ITS | Clinical Summary ---
Author Organization [facility] Address [address] [place] [address] Care Team Providers Care Hse Coordinator Name Role Phone Unallocated, Noms Provider MD Primary Care Provi tio Allergies Active Allergy Reactions Criticality Noted Date Comments Morphine 09/20/2020 Medications isosorbide mononitrate ER (Imdur) 30 MG 24 hr tablet Take 30 mg by mouth in the morning. 4 Active ezetimibe (Zetia) 10 MG tablet Take 10 mg by mouth in the morning. Active atorvastatin (Lipitor) 80 MG tablet Take 80 mg by mouth at bedtime 3 Active metoprolol succinate XL (Toprol-XL) 25 MG 24 hr tablet Take 25 mg by mouth in the morning. 3 Active Entresto 24-26 MG tablet Take 1 tablet by mouth in the morning and 1 tablet before bedtime. Active methylPREDNISol one (Medrol Dospak) 4 MG tabletsIndicati ons:Right wrist pain,Swelling of right wrist Follow schedule on package instructions 21 tablet 4 Active Social History Tobacco Use Types Packs/Day Years Used Date Smoking Tobacco: Every Day Cigarettes Smokeless Tobacco: Never Tobacco Cessation:Ready to Q uit: No; Counseling Given: No Alcohol Use Standard Drinks/Week Comments Never 0 (1 standard drink = 0.6 oz pur e alcohol) Sex and Gender Information Value Date Recorded Sex Assigned at Not on file Legal Sex Male 4:54 PM EDT Gender Identity Not on file Sexual Orientation Not on file Last Filed Vital Signs Vital Sign Reading Time Taken Comments Blood Pressure - - Pulse - - Temperature - - Respiratory Rate - - Oxygen Saturation - - Inhaled Oxygen Concentration - - Weight 79.8 kg (176 lb) 09/06/2023 11:24 AM EDT Height 177.8 cm (5' 10 ) 09/06/2023 11:24 AM EDT Body Mass Index 25.25 09/06/2023 11:24 AM EDT Plan of Treatment Health Maintenance Due Date Last Done Comments CT Colonography 1961 FIT-DNA 1961 FIT 1961 FOBT 1961 Sigmoidoscopy 1961 Influenza Vaccine (#1) 2024 01/09/2017 Colonoscopy 01/11/2027 01/11/2017 Colorectal Cancer Screening 01/11/2027 Insurance BC[employer] Care Teams Hse Coordinator Relationship Specialty Start Date End Date Unallocated, Noms Provider, [address] [place] [address] PCP - General Family Medicine 09/06/23
--- OUTSIDE RECORDS SUMMARY | 2024-10-26 07:19 | XMS_ITS | Encounter Summary ---
Author Organization [facility] Address [address] [place] [address] Care Team Providers Care Scarf And Anneal Operator Name Role Phone Unallocated, Noms Provider Primary Care Provi tio Encounter Details Date Type Department Care Team (Late st Contact Info) Description 09/06/2023 Orders Only [facility] [address] [place] [id number] Unallocated, Noms [place] [address] Social History Tobacco Use Types Packs/Day Years Used Date Smoking Tobacco: Every Day Cigarettes Smokeless Tobacco: Never Alcohol Use Standard Drinks/Week Comments Never 0 (1 standard drink = 0.6 oz pur e alcohol) Sex and Gender Information Value Date Recorded Sex Assigned at Not on file Legal Sex Male 4:54 PM EDT Gender Identity Not on file Sexual Orientation Not on file documented as of this encounter Plan of Treatment Not on file documented as of this encounter Procedures Procedure Name Priority Date/Time Associated Diagnosis Comments XR WRIST 3+ VIEWS RIGHT Routine 09/06/2023 10:54 AM EDT documented in this encounter Results * XR wrist 3+ views right (09/06/2023 10:54 AM EDT) Anatomical Region Laterality Modality Upper Extremities, Wrist Right Radiogr aphic Imaging Noms Provider Unallocated MD RIVERAG XR PROCEDURES F inal Result documented in this encounter Visit Diagnoses Not on filedocumented in this encounter Care Teams Scarf And Anneal Operator Relationship Specialty Start Date End Date Unallocated, [place] [address] PCP - General Family Medicine 09/06/23 documented as of this encounter
--- OUTSIDE RECORDS SUMMARY | 2024-10-26 07:20 | XMS_ITS | CCD ---
Author Organization [facility] In[facility] Care Team Providers Care [employer] Worker Name Role Phone DR JACKI ZHANG Admitting Unavailable LEATHA, DR ECHEVERRIA Consulting Unavailable LEATHA, DR ECHEVERRIA Attending Unavailable REQUEST, DR CLIFFORD LISTED Primary Care Unavailedwina PAEZ, DR MOYA Consulting Unavailable JAZZ OVIEDO Consulting Unavailable Kary Marvin Unavailable Unavailable Primary Care Provider UnavailLIANE Johnson Primary Care UnavailCURT Araujo Attending Unavailable Cecilia Van Unavailable NO FAMILY, PHYSICIAN Primary Care Provider UnaKI Patel Attending Provider ANDER BOLTON Attending Unavailable Cecilia Van Attending Unavailable Cecilia Van Admitting Unavailable NO FAMILY, PHYSICIAN Primary Care Unavailable IVONNE VALVERDE Attending Unavailable BERNADINE CAMARENA Attending Unavailable IVONNE VALVERDE Attending Unavailable GRACE RODRIGUEZ Attending Unavailable GRACE RODRIGUEZ Attending Unavailable ISABELL ANSARI Attending Unavailable Allergies Allergy Classification Reported Allergen(s) Allergy Type Date of Onset Reaction(s) Facility Opioid Agonists (2 sources) Morphine Drug Allergy 09-02-2023 Agitated [facility] Repository (3 sources) Morphine; Translations: [morphine] Drug Allergy 09-20-2020 Agitated [facility] Medications Current Medications Medication Drug Class(es) Dates Sig (Normalized) Sig (Original) [id number] 200 actuat albuterol 0.09 mg/actuat metered dose [...] oral solution (1 source) alpha-Adrenergic Agonist, Uncompetitive V-nfyypq-L-aspartate Receptor Antagonist, Sigma-1 Agonist Start: 12-06-2022 Eatdhkpmr-Ealfpwvy-UM 30-2-10 MG/5ML 10 ml Orally every 6 [...] bronchitis due to other specified organisms Episodic Congestive heart failure; nonhypertensive (4 sources) Chronic combined systolic (congestive) and diastolic (congestive) heart failure; Translations: [Chronic systolic (congestive) heart failure] Onset: 01-14-2023 Chronic Coronary atherosclerosis and other heart disease (8 sources) Atherosclerotic heart disease of [place] coronary artery with other forms of angina pectoris; Translations: [Atherosclerotic heart disease of [place] coronary artery without angina pectoris] Onset: 12-19-2022 Chronic Disorders of lipid metabolism (2 sources) Mixed hyperlipidemia; Translations: [Mixed hyperlipidemia] Onset: 12-19-2022 Chronic Hypertension with complications and secondary hypertension (2 sources) Hypertensive heart disease with heart failure; Translations: [Hypertensive heart disease with heart failure] Onset: 12-19-2022 Chronic Open wounds of extremities [...] Classification Problem Date Documented Da te Episodic/Chronic Nonspecific chest pain (2 sources) Chest pain, unspecified; Translations: [Chest pain, unspecified] Onset: 06-10-2023 Episodic Other circulatory disease (2 sources) Other [...] Value Interpretation Reference Range Facility Office Visiton 12-24-2023 Follow-up visit [id number] Shan Franco 1960 M Date Provider Department Center 12/24/2023 SavIVONNE VALVERDE Family History Problem Relation Age of Onset Other Mother Family Status - Relation Status Age at Mother Level of Service:18174 CO OFFICE/OUTPATIENT ESTABLISHED LOW MDM 20 MIN Normal [facility] XR wrist RT min 3V*on 2023 XR wrist RT min 3V* [facility] [place] [address] [place] [address] XRay Report Signed Patient: Shan Franco MR#: [id number] : 1960 Acct:[id number] Age/Sex: 63 / M ADM Date: 09/02/23 Loc: XDUCLY Room: Type: [facility] Attending Dr: Cecilia Van APRN Copies to: [...] Wally Sullivan M.D.09/02/2023 10:31 AM Dictation Location: [place] [address] Transcribed By: [facility] 09/02/23 1031 Dictated By: Wally Sullivan DO 09/02/23 1029 Signed By: 09/02/23 1031 Normal [facility] Office Visiton 07-29-2023 Follow-up visit [id number] Shan Franco 1960 M Date Provider Department Center 07/29/2023 GRACE FORD Family History Problem Relation Age of Onset Other Mother Family Status - Relation Status Age at Mother Level of Service:17479 CO OFFICE/OUTPATIENT ESTABLISHED MOD MDM 30 MIN Reason for Visit and Comments: Coronary Artery Disease [187] Chest Pain [705577] [facility] Office Visiton 06-10-2023 Follow-up visit [id number] Shan Franco 1960 M Date Provider Department Center 06/10/2023 GRACE FORD Family History Problem Relation Age of Onset Other Mother Family Status - Relation Status Age at Mother Level of Service:60076 CO OFFICE/OUTPATIENT ESTABLISHED MOD MDM 30 MIN Reason for Visit and Comments: Chest Pain [060030] Coronary Artery Disease [187] [facility] 36on 04-29-2023 36 04/29/2023 WESLEY Marin MA [...] results and office note faxed to PCP. [facility] 29on 04-28-2023 29 Addended by: ISABELL ANSARI on: 04/29/2023 10:44 AM Modules accepted: Orders Normal [facility] Office Visiton 04-28-2023 Follow-up visit [id number] Shan Franco 1960 M Date Provider Department Center 04/28/2023 120-ISABELL ANSARI CARD [facility] Family History Problem Relation Age of Onset Other Mother Family Status - Relation Status Age at Mother Level of Service:69622 CO OFFICE/OUTPATIENT ESTABLISHED MOD MDM 30 MIN Normal [facility] Office Visiton 01-25-2023 Follow-up visit [id number] Shan Franco 1960 M Date Provider Department Center 01/25/2023 3848-PRANAVWILMAIVONNE KIM CARD [facility] Family History Problem Relation Age of Onset Other Mother Family Status - Relation Status Age at Mother Level of Service:04942 CO OFFICE/OUTPATIENT ESTABLISHED MOD MDM 30-39 MIN Normal [facility] Office Visiton 01-14-2023 Follow-up visit [id number] Shan Franco 1960 M Date Provider Department Center 01/14/2023 20454-OFKGTFABEBERNADINE CAMARENA CARD [facility] Family History Problem Relation Age of Onset Other Mother Family Status - Relation Status Age at Mother Level of Service:91788 CO OFFICE/OUTPATIENT ESTABLISHED MOD MDM 30-39 MIN [facility] COVID/FLU RT-PCRon SARS-CoV-2 (COVID-19) RNA HERMILO+probe Ql (Unsp spec) Negative [facility] Other COVID/FLU RT-PCR Negative [employer] [facility] [employer] Other Covid-19 PCR (CVDTB)on 08-14 SARS-CoV-2 (COVID-19) RNA HERMILO+probe Ql (Unsp spec) Not detected Normal NOT DETECTED [facility] Comment on above: Result Comment: This test is not yet approved or cleared by the [place] FDA. When there are no FDA-approved or cleared tests available, and other criteria are met, FDA can make tests available under an emergency access mechanism called an Emergency Use Authorization (EUA). The EUA for this test is supported by the [employer] [place] of Health and Human Service's (HHS's) declaration [...] SARS-CoV-2. Performed By: #### C VDTB #### [facility] [address] [place] [address] Celina Soto RAPID COVID-19 ANTIGENon EUA Statement SEE BELOW Normal [facility] Comment on above: Result Comment: This [...] is revoked sooner. Performed By: #### C VD #### [facility] [address] [place] [address] Celina Soto SARS-CoV-2 (COVID-19) RNA HERMILO+probe Ql (Unsp spec) Negative Normal NEGATIVE [facility] Comment on above: Result Comment: Nega tive results are presumptive. They do not preclude infection and should not be used as the sole basis for treatment decisions. Additional confirmatory testing by a molecular method should be considered. Performed By: #### C VDAG #### [facility] [address] [place] [address] Celina Brittany COMPREHENSIVE METABOLIC PANE L WITH GFRon 03-25-2017 Alanine aminotransferase (ALT) 17 U/L Normal 5-59 [facility] Albumin 4.5 g/dL Normal 3.2-5.3 [facility] Comment on above: Result Comment: [facility] [address] [place], [place] [address]Laboratory Director: Ben Aguilar M.D.CLIA No. [id number] CAP Accreditation No. [id number] ALK PHOS 86 IU/L Normal 35-121 [facility] [...] Inc eGFR (black) 106 mL/min/{1.73_m2} Normal >60 [facility] eGFR (non-black) 88 mL/min/{1.73_m2} Normal [...] mass conc 90 mg/dL Normal 70-100 [facility] Comment on above: Result Comment: DIAG NOSTIC THRESHOLDS FOR DIABETES AND IMPAIRED FASTING GLUCOSE (IFG) FASTING PLASMA GLUCOSE NORMAL <100 mg/dL IFG 100-125 mg/dL DIABETES >/= 126 mg/dL Potassium molar conc 4.3 mmol/L Normal 3.5-5.4 [facility] Sodium 138 mmol/L Normal 134-147 Pathology [...] LDL to HDL Ratio 2.8 Normal <3.5 [facility] LDL-CHOL, CALCULATED 159 mg/dL High <130 [facility] Comment on above: Result Comment: LDL CHOLESTEROL REFERENCE RANGE FOR 0-19 YEARS: DESIRABLE <110 mg/dL, BORDERLINE 110-129, HIGH RISK >130 LDL CHOLESTEROL REFERENCE RANGE FOR ADULTS: DESIRABLE <100 mg/dL, BORDERLINE 130-159, HIGH RISK >160REFERENCE RANGES REVISED 08/23/15 ACCORDING TO NCEP GUIDELINES Triglyceride 193 mg/dL High <150 [facility] VLDL-CHOL, CALCULATED 39 mg/dL High <30 [facility] Vital Signs Date Time Vital Sign Value Performing Clinician Facility 09-02-2023 09:33-0400 Body height 177.8 cm PHYSICIAN NO [facility] 09-02-2023 09:33-0400 Body mass index (BMI) [Ratio] 25.4 kg/m2 PHYSICIAN RAJENDRA [facility] 09-02-2023 09:33-0400 Body temperature 98.6 [degF] PHYSICIAN NO [facility] 09-02-2023 09:33-0400 Body weight 80.45 kg PHYSICIAN NO [facility] 09-02-2023 09:33-0400 Diastolic blood pressure 73 mm[Hg] PHYSICIAN NO [facility] 09-02-2023 09:33-0400 Heart rate 74 /min PHYSICIAN NO [facility] 09-02-2023 09:33-0400 Respiratory rate 18 /min PHYSICIAN NO [facility] 09-02-2023 09:33-0400 SaO2% (BldA) [Mass fraction] 97 % PHYSICIAN NO [facility] 09-02-2023 09:33-0400 Systolic blood pressure 114 mm[Hg] PHYSICIAN NO [facility] 12-06-2022 09:30-0400 Body height 177.8 cm Cecilia Van Other [facility] Other 12-06-2022 09:30-0400 Body mass index (BMI) [Ratio] 25.37 kg/m2 Cecilia Van Other [facility] Other 12-06-2022 09:30-0400 Body temperature 97.5 [degF] Cecilia Van Other [facility] Other 12-06-2022 09:30-0400 Body weight 80.2 kg Cecilia Van Other [facility] Other 12-06-2022 09:30-0400 Diastolic blood pressure 75 mm[Hg] Cecilia Van Other [facility] Other 12-06-2022 09:30-0400 Respiratory rate 18 /min Cecilia Van Other [facility] Other 12-06-2022 09:30-0400 SaO2% (BldA) [Mass fraction] 97 % Cecilia Van Other [facility] Other 12-06-2022 09:30-0400 Systolic blood pressure 113 mm[Hg] Cecilia Van Other [facility] Other 06-23-2022 02:09-0400 Diastolic blood pressure 92 mm[Hg] Curt Lewis DO Work Phone: [facility] 06-23-2022 02:09-0400 Respiratory rate 18 /min Curt Lewis DO Work Phone: [employer] 06-23-2022 02:09-0400 Systolic blood pressure 142 mm[Hg] Curt Lewis DO Work Phone: [facility] [employer] 06-23-2022 02:06-0400 Body height 177.8 cm Curt Lewis DO Work Phone: [employer] 06-23-2022 02:06-0400 Body mass index (BMI) [Ratio] 26.54 kg/m2 Curt Lewis DO Work Phone: [facility] 06-23-2022 02:06-0400 Body temperature 98.8 [degF] Curt Lewis DO Work Phone: [facility] [employer] 06-23-2022 02:06-0400 Body weight 83.92 kg Curt Lewis DO Work Phone: [facility] [employer] 06-23-2022 02:06-0400 Heart rate 89 /min Curt Lewis DO Work Phone: [facility] 06-23-2022 02:06-0400 SaO2% (BldA) [Mass fraction] 98 % Curt Lewis DO Work Phone: [employer] 08-04-2021 12:00-0400 Body height 177.8 cm Kary Marvin Other [facility] Other 08-04-2021 12:00-0400 Body mass index (BMI) [Ratio] 27.26 kg/m2 Kary Marvin Other [facility] Other 08-04-2021 12:00-0400 Body temperature 96.9 [degF] Kary Marvin Other [facility] Other 08-04-2021 12:00-0400 Body weight 86.18 kg Kary Marvin Other [facility] Other 08-04-2021 12:00-0400 Respiratory rate 18 /min Kary Garciamond Other [facility] Other 08-04-2021 12:00-0400 SaO2% (BldA) [Mass fraction] 98 % Kary Marvin Other [facility] Other Encounters Encounter Date Encounter Type Care Provider Facility Start: 12-24-2023 End: 12-24-2023 ambulatory [facility] Start: 09-06-2023 End: 09-06-2023 ambulatory ANDER BOLTON Not Available Start: 09-02-2023 End: 09-02-2023 ambulatory PHYSICIAN RAJENDRA [facility] Work Phone: Start: 09-02-2023 End: 09-02-2023 Patient encounter procedure PHYSICIAN NO [facility] Work Phone: Start: 07-29-2023 End: 07-29-2023 ambulatory [facility] Start: 06-10-2023 End: 06-10-2023 ambulatory [facility] Start: 04-28-2023 End: 04-28-2023 ambulatory ISABELL [facility] Start: 01-25-2023 End: 01-25-2023 ambulatory [facility] Start: 01-14-2023 End: 01-14-2023 ambulatory BERNADINE CAMARENA [facility] Start: 12-06-2022 End: 12-06-2022 ambulatory Cecilia Van Other [employer] [facility] Other Start: 12-06-2022 Office outpatient visit 15 minutes Cecilia Van [facility] Start: 06-23-2022 End: 06-23-2022 Emergency department patient visit LIANE FINNEY [facility] Start: 06-23-2022 End: 06-23-2022 Emergency department patient visit Curt Timmons Joshua DO Work Phone: [facility] Comment on above: Laceration of left i ndex finger without foreign body without damage to nail, initial encounter (Primary Dx) Start: 08-04-2021 End: 08-04-2021 ambulatory Kary Marvin Other [facility] Other Start: 08-04-2021 Office outpatient visit 15 minutes Kary Marvin [facility] Start: 09-01-2020 End: 09-01-[address] JACKI ZHANG Facility:H1 Procedures Date Procedure Procedure Detail Performing Clinician Start: 09-02-2023 Plain X-ray of right wrist PHYSICIAN NO FAMILY Start: 01-11-2017 Colonoscopy Curtamelia bonilla DO Work Phone: Plan of Treatment Date Care Activity Detail Author Start: 06-23-2032 DTaP/Tdap/Td vaccine (3 - Td or Tdap) DTaP/Tdap/Td vaccine (3 - Td or Tdap) [employer] Start: 10-13-2022 Influenza vaccination Flu vacc ine (Season Ended) [facility] Start: 01-11-2022 Screening for malign ant neoplasm of colon [facility] Start: 03-23-2018 Lipid panel Lipids [facility] [employer] Start: 05-19-2011 Shingles vaccine (1 of 2) Shingles vaccine (1 of 2) [facility] Start: 2006 Screening for malign ant neoplasm of colon [employer] Start: 1996 Diabetes screen [facility] Start: 1973 Depression Screen Depression Screen [facility] Start: 1960 COVID-19 Vaccine (#1) COVID-19 Vacci ne (#1) [facility] XR Wrist - right GE 3 Views [facility] Immunizations Immunization Date Immunization Notes Care Provider Bhanu menezes 06-23-2022 tetanus toxoid, redu laura diphtheria toxoid, and acellular pertussis vaccine, adsorbed Curt Lewis DO Work Phone: [facility] 01-09-2017 influenza, injectabl e, quadrivalent, contains preservative Curt Lewis DO Work Phone: [facility] 12-20-2016 pneumococcal polysaccharide vaccine, 23 valent Curt Lewis DO Work Phone: [facility] 12-20-2016 tetanus toxoid, redu laura diphtheria toxoid, and acellular pertussis vaccine, adsorbed Curt Lewis DO Work Phone: [facility] Work Phone: Payers Date Payer Category Payer Self-pay 2023 Unknown [id number] 2022 [facility] [id number] 2022 Unknown [id number] 1960 Unknown [id number] 1960 Unknown [id number] 1960 Unknown [id number] 1958 Self-pay [id number] [facility] [id number] Unknown [id number] [id number] Social History Date Type Detail Facility Sex Assigned At [facility] Other Start: 12-02-2016 Tobacco smoking stat us [employer] Smokes tobacco daily [employer] Phone: History of tobacco use Cigarette Smoker [employer] Phone: Start: 12-02-2016 End: 06-23-2022 Cigarettes smoked current (pack per day) - Reported 0.5 [employer] Phone: Start: 12-02-2016 Tobacco use and exposure Smokeless tobacco non-user [employer] Phone: Start: 06-23-2022 Alcohol intake Current drinke r of alcohol (finding) [employer] Phone: Start: 12-08-2016 Alcohol Comment 1-2 beers olya y, DUI x4; 4 years ago last. [employer] Phone: Start: 1960 Sex Assigned At Not on file [employer] Phone: Start: 06-13-2022 End: 06-23-2022 Exposure to SARS-CoV-2 (event) Not sure [employer] Phone: Start: 09-02-2023 Tobacco smoking stat [employer] Smoker (finding) [facility] Start: 1960 Sex Assigned At Male F [facility] Clinical Notes 08-04-2021 to 12-24-2023 Note Date & Type Note Facility 12-24-2023 Note Cardiology Clinic No te Subjective Shan Franco is a 63 y.o. year old male patient with past medical history of STEMI status post PCI to distal left circumflex/L PDA, Hyperlipidemia and tobacco dependence seen in follow-up. Patient states that he is doing great. Patient adamantly denies any cardiac complaints or concerns. Patient denies any chest pain or shortness of breath. Patient denies any lower extremity edema, orthopnea, or proximal nocturnal dyspnea. No near-syncope or syncope. No dizziness or lightheadedness. He is taking his medications without any issue. He is physically active without any complaints. 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 Smoking Status Every Day BSA 1.97 m??? Physical Exam General: Awake, alert, NAD [...] tablet (81 mg) by mouth in the morning., Disp: 90 tablet, Rfl: 3 atorvastatin (Lipitor) 80 mg tablet, Take 1 tablet (80 mg) by mouth at bedtime., Disp: 90 tablet, Rfl: 3 clopidogrel (Plavix) 75 mg tablet, Take 1 tablet (75 mg) by mouth in the morning., Disp: 90 tablet, Rfl: 3 ezetimibe (Zetia) 10 mg tablet, Take 1 tablet (10 mg) by mouth in the morning., Disp: 90 tablet, Rfl: 3 isosorbide mononitrate ER (Imdur) 30 mg 24 hr tablet, Take 1 tablet (30 mg) by mouth in the morning. Do not crush or chew., Disp: 90 tablet, Rfl: 3 metoprolol succinate XL (Toprol-XL) 25 mg 24 hr tablet, Take 1 tablet (25 mg) by mouth in the morning. Do not crush or chew., Disp: 90 tablet, Rfl: 3 sacubitril-valsartan (Entresto) 24-26 mg tablet, Take 0.5 tablets by mouth two times daily., Disp: 90 tablet, Rfl: 3 nicotine (Nicoderm CQ) 21 mg/24 hr patch, Place 1 patch on the skin in the morning. Do not start before December 20, 2022. (Patient not taking: Reported on 04/28/2023), Disp: 90 patch, Rfl: 3 Recent Labs Lab Results Component [...] Ventricle: The right ventricle is normal in si (more content not included)... [facility] 07-29-2023 Note Cardiovascular Medic [facility] SUBJECTIVE Chief Complaint Patient presents with Coronary Artery Disease Chest Pain Ray Nilsa Franco is a 63 y.o. male here [...] he had worsened chest pain, left sided. Vernon like a pressure/achiness, radiated up to his left shoulder. He also had left arm weakness. Vernon different than when he had his heart [...] (CMS/HCC) Tobacco dependence Coronary artery disease involving [place] coronary artery of [place] heart with unstable angina pectoris (CMS/HCC) Stenosis [...] Normal heart sounds. (more content not included)... [facility] 07-29-2023 Note Patient here for fol low [...] All other systems reviewed and are negative. [facility] 06-10-2023 Note Patient here c/o addy [...] All other systems reviewed and are negative. [facility] 06-10-2023 Note Cardiovascular Medic [facility] SUBJECTIVE Chief Complaint Patient presents [...] he had worsened chest pain, left sided. Vernon like a pressure/achiness, radiated up to his left shoulder. He also had left arm weakness. Vernon different than when he had his heart [...] (CMS/HCC) Tobacco dependence Coronary artery disease involving [place] coronary artery of [place] heart with unstable angina pectoris (CMS/HCC) Stenosis [...] Behavior: Behavior nor (more content not included)... [facility] 04-28-2023 Note Tobacco use is stabl e- he has not quit smoking and extended d/w pt to strongly suggest smoking cessation in light of CAD and HFrEF- he voiced understanding and does not want any different medications at this time- he will continue Nicotine patches [facility] 04-28-2023 Note HTN well controlled continue all meds [facility] 04-28-2023 Note Remains stable witho ut concerning symptoms [facility] 04-28-2023 Note Patient here for 3 m o follow up CAD, CHF, hypertension, and hyperlipidemia. Vernon some palpitations about a month ago while [...] All other systems reviewed and are negative. [facility] 04-28-2023 Note [facility] CARDIOLOGY PROGR ESS NOTE HPI: Shan Franco is a 62 y.o. male here for routine f/U HPI 62 yo male presents today for known past medical history of STEMI status post PCI to distal left circumflex/L PDA, Hyperlipidemia and tobacco dependence seen in follow-up. Patient here for 3 mo follow up CAD, CHF, hypertension, and hyperlipidemia. Vernon some palpitations about a month ago while [...] start before December 20, 2022. tablet 3 sacubitril-valsartan (Entresto) 24-26 mg tablet [...] is a herrera (more content not included)... [facility] 04-28-2023 Note Continue lipitor 80 mg Script for CMP and lipid profile given to pt [facility] 04-28-2023 Note Coronary artery dise ase is stable Continue GDMT- ASA, lipitor, plavix, toprol continue risk factor modifications- heart healthy diet, regular exercise as tolerated and continue all medications. [facility] 04-28-2023 Note FLHC II- recovered E F Continue GDMT- continue ASA, lipitor, toprol, entresto- D/W pt may stop farxiga and see if symptoms of constipation/anal leaking and foul smelling urine improves- if not recommended pt to F/U with PCP for further investigations Diuretic therapy Monitor daily weights, I&O, fluid restriction 1.5-2L/day, renal function and electrolytes- please maintain K+>4 and Mg > [address] 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 [facility] 01-25-2023 Note Patient here for 2 w [place] y[place] follow up lightheadedness and near-syncope. Bernadine Camarena decreased his Entresto at last visit. He denies recurrent lightheaded and near-syncopal episodes. Feeling much better. Wants to know if he can go back to work. [facility] 01-14-2023 Note Cardiology Clinic No te [...] (CMS/HCC) Tobacco dependence Coronary artery disease involving [place] coronary artery of [place] heart with unstable angina pectoris (CMS/HCC) Stenosis [...] left ventricular hypertrophy. (more content not included)... [facility] 01-14-2023 Note Patient here per car [...] All other systems reviewed and are negative. [facility] 12-06-2022 Evaluation note Encounter Date Diagnosis [...] days. Patient verbalized understanding of treatment plan. [facility] 04-11-2023 Hospital Discharge instructions* Discharge Instructions* [...] take care of you at [facility]. In the next few days you may receive a survey by mail or e-mail asking about the care you received during this visit. Please complete this if you are able, as this feedback helps us provide the best care possible. * Attachments The following attachments cannot be sent through Care Everywhere. * Lacerations: Adhesives ([place]) [facility]: [phone]) 812-860605-23-2022 Evaluation note* Encounter Date Diagnosis Assessment Notes [...] no improvement in 2 to 3 days [facility] Other Evaluation note* Diagnosis Laceration of left index finger without foreign body without damage to nail, initial encounter- Primary documented in this encounter [facility] Work Phone: evaluation noteNo assessment information available [facility] Work Phone: Evaluation note* Diagnosis Onset Date Resolution Status Right wrist pain acute [facility] Work Phone: Summary Purpose Family History No [...] CREATED AUTHOR AUTHOR'S ORGANIZ ATION 09/07/2020 [facility] DATE CREATED AUTHOR AUTHOR'S ORGANIZ ATION 06/23/2022 [facility] DATE CREATED AUTHOR AUTHOR'S ORGANIZ ATION 09/07/2023 [facility] [place] DATE CREATED AUTHOR AUTHOR'S ORGANIZ ATION 09/12/2023 [facility] DATE CREATED AUTHOR AUTHOR'S ORGANIZ ATION 12/26/2023 [facility] REASON FOR VISIT (unrecogniz ed [...] BE BASED ON THE PRIMARY CLINICAL RECORDS. [facility] [email or web address] provides no warranty or guarantee of the accuracy or completeness of information in this document.
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
--- NOTE | 2024-10-26 07:36 | PC.NURSE ---
L wrist splint placed at this time
== END 2024-10-26 07:52 | disposition home or self-care (01) ==
PROVIDERS: Emergency Provider Emergency Medicine
DX: S61.532A Puncture wound without foreign body of left wrist, initial encounter (principal); S61.439A Puncture wound without foreign body of unspecified hand, initial encounter; M79.632 Pain in left forearm
CPT/HCPCS: 99283

== ENCOUNTER 2024-12-01 08:30 | Outpatient (OUT) | payer OTHER, SELFPAY ==
--- OUTSIDE RECORDS SUMMARY | 2024-12-01 08:35 | XMS_ITS | CCD ---
Author Organization [facility] Inform ion Partnership [facility] Care Team Providers Care Freelance Director Name Role Phone LEATHA, DR ECHEVERRIA Admitting [...] NO FAMILY, PHYSICIAN Primary Care Unavailable IVONNE GARG Attending Unavailable MATT MENDENHALL Attending Unavailable Allergies Allergy Classification Reported Allergen(s) Allergy Type Date of Onset Reaction(s) Facility Opioid Agonists (2 sources) Morphine Drug Allergy 09-02-2023 Agitated [facility] Repository (3 sources) Morphine; Translations: [morphine] Drug Allergy 09-20-2020 Agitated [facility] Medications Current Medications Medication Drug Class(es) Dates Sig (Normalized) Sig (Original) [id number] 200 actuat albuterol 0.09 mg/actuat metered dose [...] oral solution (1 source) alpha-Adrenergic Agonist, Uncompetitive J-njcnbu-K-aspartate Receptor Antagonist, Sigma-1 Agonist Start: 12-06-2022 Iazhdaxvr-Prqyixzs-TL 30-2-10 MG/5ML 10 ml Orally every 6 [...] specified organisms Episodic Congestive heart failure; nonhypertensive (2 sources) Chronic diastolic (congestive) heart failure; Translations: [Chronic diastolic (congestive) heart failure] Onset: 11-17-2024 Chronic Coronary atherosclerosis and other heart disease (2 sources) Atherosclerotic heart disease of [place] coronary artery without angina pectoris; Translations: [Atherosclerotic heart disease of [place] coronary artery without angina pectoris] Onset: 11-17-2024 Chronic Disorders of lipid metabolism (2 sources) Mixed hyperlipidemia; Translations: [Mixed hyperlipidemia] Onset: 12-19-2022 Chronic Hypertension with complications and secondary hypertension (2 sources) Hypertensive heart disease with heart failure; Translations: [Hypertensive heart disease with heart failure] Onset: 11-17-2024 Chronic Open wounds of extremities (2 sources) [...] in joint, forearm] Onset: 09-02-2023 09-02-2023 Episodic Sprains and strains (2 sources) Sprain of [...] Value Interpretation Reference Range Facility Office Visiton 11-17-2024 Follow-up visit [id number] Shan Franco 1960 M Date Provider Department Center 11/17/2024 [id number] MATT JANICE [facility] Family History Problem Relation Age of Onset Other Mother Family Status - Relation Status Age at Mother Alive Father Alive Level of Service:60579 [place] OFFICE/OUTPATIENT ESTABLISHED MOD MDM 30 MIN Reason for Visit and Comments: Follow-up [063959] - 1 year Congestive Heart Failure [127] Benigh hypertensive cardiomyopathy with heart failure [Other] Coronary Artery Disease [187] 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 [Other] ST elevation myocardial infartion unspecified artery [Other] Normal [facility] Office Visiton 12-24-2023 Follow-up visit [id number] Shan Franco 1960 M Date Provider Department Center 12/24/2023 [id number] GARG JANICE [facility] Family History Problem Relation Age of Onset Other Mother Family Status - Relation Status Age at Mother Level of Service:20748 [place] OFFICE/OUTPATIENT ESTABLISHED LOW MDM 20 MIN Normal [facility] XR wrist RT min 3V*on 2023 XR wrist RT min 3V* [facility] Main [place] [address] [place] [address] XRay Report Signed Patient: Shan Franco MR#: [id number] : 1960 Acct:[id number] Age/Sex: 63 / M ADM Date: 09/02/23 Loc: [facility] Room: Type: [facility] Attending Dr: Cecilia Van APRN Copies to: [...] Wally Sullivan M.D.09/02/2023 10:31 AM Dictation Location: [place] [address] Transcribed By: [facility] 09/02/23 1031 Dictated By: Wally Sullivan DO 09/02/23 1029 Signed By: 09/02/23 1031 [facility] COVID/FLU RT-PCRon 3 SARS-CoV-2 (COVID-19) RNA HERMILO+probe Ql (Unsp spec) Negative [employer] Other COVID/FLU RT-PCR Negative [facility] [employer] Other [facility]on 08-14 SARS-CoV-2 (COVID-19) RNA HERMILO+probe Ql (Unsp spec) Not detected Normal NOT DETECTED [facility] Comment on above: Result Comment: This test is not yet approved or cleared by the [place] FDA. When there are no FDA-approved or cleared tests available, and other criteria are met, FDA can make tests available under an emergency access mechanism called an Emergency Use Authorization (EUA). The EUA for this test is supported by the Printer of Health and Human Service's (HHS's) declaration [...] consistent with SARS-CoV-2. Performed By: #### C [facility] #### [facility] [address] [place] [address] Celina Soto RAPID COVID-19 ANTIGENon EUA Statement SEE BELOW Normal [facility] Comment on above: Result Comment: [...] sooner. Performed By: #### C VDAG #### [facility] [address] [place] [address] Celina Davisen SARS-CoV-2 (COVID-19) RNA HERMILO+probe Ql (Unsp spec) Negative Normal [facility] Comment on above: Result Comment: Nega tive results are presumptive. They do not preclude infection and should not be used as the sole basis for treatment decisions. Additional confirmatory testing by a molecular method should be considered. Performed By: #### C VDAG #### [facility] [address] [place] [address] METABOLIC PANE L WITH GFRon 03-25-2017 Alanine aminotransferase (ALT) 17 U/L Normal 5-59 [facility] Albumin 4.5 g/dL Normal 3.2-5.3 [facility] Comment on above: Result Comment: [facility] [address] [place], [place] [address]Laboratory Director: Ben Aguilar M.D.CLIA No. [id number] CAP Accreditation No. [id number] ALK PHOS 86 IU/L Normal 35-121 Pathology [...] Glucose mass conc 90 mg/dL Normal 70-100 [employer] [employer] Comment on above: Result Comment: DIAG NOSTIC THRESHOLDS FOR DIABETES AND IMPAIRED FASTING GLUCOSE (IFG) FASTING PLASMA GLUCOSE NORMAL <100 mg/dL IFG 100-125 mg/dL DIABETES >/= 126 mg/dL Potassium molar conc 4.3 mmol/L Normal 3.5-5.4 [facility] Sodium 138 mmol/L Normal 134-147 [facility] [...] LDL to HDL Ratio 2.8 Normal <3.5 [place] LDL-CHOL, CALCULATED 159 mg/dL High <130 [facility] Comment on above: Result Comment: LDL CHOLESTEROL REFERENCE RANGE FOR 0-19 YEARS: DESIRABLE <110 mg/dL, BORDERLINE 110-129, HIGH RISK >130 LDL CHOLESTEROL REFERENCE RANGE FOR ADULTS: DESIRABLE <100 mg/dL, BORDERLINE 130-159, HIGH RISK >160REFERENCE RANGES REVISED 08/23/15 ACCORDING TO NCEP GUIDELINES Triglyceride 193 mg/dL High <150 [facility] VLDL-CHOL, CALCULATED 39 mg/dL High <30 [facility] Vital Signs Date Time Vital Sign Value Performing Clinician Facility 09-02-2023 09:33-0400 Body height 177.8 cm PHYSICIAN NO [facility] 09-02-2023 09:33-0400 Body mass index (BMI) [Ratio] 25.4 kg/m2 PHYSICIAN NO [facility] 09-02-2023 09:33-0400 Body temperature 98.6 [degF] PHYSICIAN [facility] 09-02-2023 09:33-0400 Body weight 80.45 kg PHYSICIAN NO [facility] 09-02-2023 09:33-0400 Diastolic blood pressure 73 mm[Hg] PHYSICIAN NO [facility] 09-02-2023 09:33-0400 Heart rate 74 /min PHYSICIAN NO [facility] 09-02-2023 09:33-0400 Respiratory rate 18 /min PHYSICIAN NO [facility] 09-02-2023 09:33-0400 SaO2% (BldA) [Mass fraction] 97 % PHYSICIAN NO [facility] 09-02-2023 09:33-0400 Systolic blood pressure 114 mm[Hg] PHYSICIAN NO [facility] 12-06-2022 09:30-0400 Body height 177.8 cm Cecilia Van Other [employer] Other 12-06-2022 09:30-0400 Body mass index (BMI) [Ratio] 25.37 kg/m2 Cecilia Van Other [employer] Other 12-06-2022 09:30-0400 Body temperature 97.5 [degF] Cecilia Vna Other [employer] Other 12-06-2022 09:30-0400 Body weight 80.2 kg Cecilia Van Other [employer] Other 12-06-2022 09:30-0400 Diastolic blood pressure 75 mm[Hg] Cecilia Van Other [employer] Other 12-06-2022 09:30-0400 Respiratory rate 18 /min Cecilia Carlota Other [employer] Other 12-06-2022 09:30-0400 SaO2% (BldA) [Mass fraction] 97 % Cecilia Carlota Other [employer] Other 12-06-2022 09:30-0400 Systolic blood pressure 113 mm[Hg] Cecilia Van Other [employer] Other 06-23-2022 02:09-0400 Diastolic blood pressure 92 mm[Hg] Curt Lewis DO Work Phone: [employer] 06-23-2022 02:09-0400 Respiratory rate 18 /min Curt Lewis DO Work Phone: [employer] 06-23-2022 02:09-0400 Systolic blood pressure 142 mm[Hg] Curt Lewis DO Work Phone: [employer] 06-23-2022 02:06-0400 Body height 177.8 cm Curt Lewis DO Work Phone: [employer] 06-23-2022 02:06-0400 Body mass index (BMI) [Ratio] 26.54 kg/m2 Curt Lewis DO Work Phone: [employer] 06-23-2022 02:06-0400 Body temperature 98.8 [degF] Curt Lewis DO Work Phone: [employer] 06-23-2022 02:06-0400 Body weight 83.92 kg Curt Lewis DO Work Phone: [employer] 06-23-2022 02:06-0400 Heart rate 89 /min Curt Lewis DO Work Phone: [employer] 06-23-2022 02:06-0400 SaO2% (BldA) [Mass fraction] 98 % Curt Lewis DO Work Phone: [employer] 08-04-2021 12:00-0400 Body height 177.8 cm Kary Garciamond Other [employer] Other 08-04-2021 12:00-0400 Body mass index (BMI) [Ratio] 27.26 kg/m2 Kary Shavonne Other [employer] Other 08-04-2021 12:00-0400 Body temperature 96.9 [degF] Kary Shavonne Other [employer] Other 08-04-2021 12:00-0400 Body weight 86.18 kg Kary Garciamond Other [employer] Other 08-04-2021 12:00-0400 Respiratory rate 18 /min Kary Garciamond Other [employer] Other 08-04-2021 12:00-0400 SaO2% (BldA) [Mass fraction] 98 % Kary Garciamond Other [employer] Other Encounters Encounter Date Encounter Type Care Provider Facility Start: 11-17-2024 End: 11-17-2024 ambulatory MATT MENDENHALL [facility] Start: 12-24-2023 End: 12-24-2023 ambulatory IVONNE GARG [facility] Start: 09-06-2023 End: 09-06-2023 ambulatory ANDER Tirado [facility] Not Available Start: 09-02-2023 End: 09-02-2023 ambulatory PHYSICIAN NO [facility] Work Phone: Start: 09-02-2023 End: 09-02-2023 Patient encounter procedure PHYSICIAN NO [facility] Work Phone: Start: 12-06-2022 End: 12-06-2022 ambulatory Cecilia Van Other [employer] Other Start: 12-06-2022 Office outpatient visit 15 minutes Cecilia Van [facility] Start: 06-23-2022 End: 06-23-2022 Emergency department patient visit LIANE MURPHYIN [facility] Start: 06-23-2022 End: 06-23-2022 Emergency department patient visit Curt Lewis DO Work Phone: [facility] ED Comment on above: Laceration of left i ndex finger without foreign body without damage to nail, initial encounter (Primary Dx) Start: 08-04-2021 End: 08-04-2021 ambulatory Kary Marvin Other [facility] [employer] Other Start: 08-04-2021 Office outpatient visit 15 minutes Kary Marvin [facility] Start: 09-01-2020 End: 09-01-[address] JACKI ZHANG Facility:H1 Procedures Date Procedure Procedure Detail Performing Clinician Start: 09-02-2023 Plain X-ray of right wrist PHYSICIAN RAJENDRA MARIN Start: 01-11-2017 Colonoscopy Curt bonilla DO Work Phone: Plan of Treatment Date Care Activity Detail Author Start: 06-23-2032 DTaP/Tdap/Td vaccine (3 - Td or Tdap) DTaP/Tdap/Td vaccine (3 - Td or Tdap) [facility] Start: 10-13-2022 Influenza vaccination Flu vacc ine (Season Ended) [facility] Start: 01-11-2022 Screening for malign ant neoplasm of colon [facility] Start: 03-23-2018 Lipid panel Lipids [facility] Start: 05-19-2011 Shingles vaccine (1 of 2) Shingles vaccine (1 of 2) [facility] Start: 2006 Screening for malign ant neoplasm of colon [facility] Start: 1996 Diabetes screen Diabetes screen [facility] Start: 1973 Depression Screen Depression Screen [facility] Start: 1960 COVID-19 Vaccine (#1) COVID-19 Vacci ne (#1) [facility] XR Wrist - right GE 3 Views [facility] Immunizations Immunization Date Immunization Notes Care Provider Bhanu menezes 06-23-2022 tetanus toxoid, redu laura diphtheria toxoid, and acellular pertussis vaccine, adsorbed Curt Lewis DO Work Phone: [facility] 01-09-2017 influenza, injectabl e, quadrivalent, contains preservative Curt Lewis DO Work Phone: [facility] 12-20-2016 pneumococcal polysaccharide vaccine, 23 valent Curt Lewis DO Work Phone: [facility] 12-20-2016 tetanus toxoid, redu laura diphtheria toxoid, and acellular pertussis vaccine, adsorbed Curt Lewis DO Work Phone: [facility] Work Phone: Payers Date Payer Category Payer Unknown [id number] 2023 Self-pay 2023 Unknown [id number] 2022 [employer] [id number] 2022 Unknown [id number] 1960 Unknown [id number] 1960 Unknown [id number] 1960 Unknown [id number] 1958 Self-pay [id number] [facility] [id number] Unknown [id number] [id number] Social History Date Type Detail Facility Sex Assigned At [facility] [employer] Other Start: 12-02-2016 [facility] [employer] Phone: History of tobacco use Cigarette Smoker B ON [employer] Phone: Start: 12-02-2016 End: 06-23-2022 Cigarettes smoked current (pack per day) - Reported 0.5 [employer] Phone: Start: 12-02-2016 Tobacco use and exposure Smokeless tobacco non-user [employer] Phone: Start: 06-23-2022 Alcohol intake Current drinke r of alcohol (finding) [employer] Phone: Start: 12-08-2016 Alcohol Comment 1-2 beers olya y, DUI x4; 4 years ago last. [employer] Phone: Start: 1960 Sex Assigned At Not on file B ON [employer] Phone: Start: 06-13-2022 End: 06-23-2022 Exposure to SARS-CoV-2 (event) Not sure [employer] Phone: Start: 09-02-2023 Tobacco smoking stat [facility] Smoker (finding) [facility] Start: 1960 Sex Assigned At Male [facility] Progress note 11-17-2024 Note Date & Type Note Facility 11-17-2024 Note SUBJECTIVE Reason for Visit: Shan Franco is a 64 y.o. year old male patient being seen for 1 year follow-up. HPI: Shan Franco is a 64 y.o. year old male with significant medical history of STEMI status post PCI to distal left circumflex/L PDA, hyperlipidemia and tobacco dependence. 11/17/2024 office visit: Patient was seen and evaluated in the office today. He reports changing insurance approximately four months ago, after which he discontinued nearly all of his prescribed medications. He has continued aspirin and Plavix, though inconsistently. He experienced headaches with Imdur and subsequently stopped taking it. He endorses intermittent, stabbing chest pain lasting only a few seconds, occurring spontaneously and resolving on its own. His last episode was about one month ago. He also notes progressive dyspnea on exertion over the past year. 12/24/2023 office visit (Dr. Garg): Patient states that he is doing great. Patient adamantly denies any cardiac complaints or concerns. Patient denies any chest pain or shortness of breath. Patient denies any lower extremity edema, orthopnea, or proximal nocturnal dyspnea. No near-syncope or syncope. No dizziness or lightheadedness. He is taking his medications without any issue. He is physically active without any complaints. Medical History[1] Surgical History[2] Problem List[3] family history includes PFO in his mother. Social History[4] OBJECTIVE Visit Vitals Smoking Status Every Day Physical Exam Constitutional: General Appearance: well-developed, appears stated age. Level of Distress: no acute distress. Neck: Jugular Veins: normal jugular venous pressure. Lungs: Auscultation: no rales or rhonchi and normal breath sounds. Cardiovascular: Rate And Rhythm: regular Heart Sounds: normal S1 and s2; Systolic Murmur: not heard. Diastolic Murmur: not heard. Extremities: no edema Peripheral Pulses: Pulses: full and equal in all extremities except if noted. Abdomen: Inspection and Palpation: non distended or tender and soft. Musculoskeletal: Inspection: no joint tenderness or swelling. Neurologic: Gait: normal gait. Psychiatric: Mental Status: alert and normal affect. Skin: Inspection and Palpation: warm and dry. Allergies: Allergies[5] Outpatient Medications: Current Outpatient Medications Medication Instructions aspirin 81 mg, oral, Daily atorvastatin (LIPITOR) 80 mg, oral, Nightly clopidogrel (PLAVIX) 75 mg, oral, Daily ezetimibe (Zetia) 10 mg tablet Take 1 tablet (TEN mg) by mouth in the morning. isosorbide mononitrate ER (IMDUR) 30 mg, oral, Daily, Do not crush or chew. metoprolol succinate XL (TOPROL-XL) 25 mg, oral, Daily, Do not crush or chew. nicotine (Nicoderm CQ) 21 mg/24 hr patch 1 patch, transdermal, Daily sacubitril-valsartan (Entresto) 24-26 mg tablet 0.5 tablets, oral, 2 times daily Recent Labs: No visits with results within 6 Month(s) from this visit. Latest known visit with results is: Admission on 12/17/2022, Discharged on 12/19/2022 Component Date Value Sodium 12/17/2022 134 (L) Potassium 12/17/2022 3.8 Chloride 12/17/2022 101 CO2 12/17/2022 24 Anion Gap 12/17/2022 13 BUN 12/17/2022 16 Creatinine 12/17/2022 0.70 BUN/Creatinine Ratio 12/17/2022 22.9 Glucose 12/17/2022 148 (H) Calcium 12/17/2022 9.1 AST 12/17/2022 20 ALT (SGPT) 12/17/2022 63 (H) Alkaline Phosphatase 12/17/2022 122 (H) Total Protein 12/17/2022 6.5 Albumin 12/17/2022 3.6 Total Bilirubin 12/17/2022 0.6 eGFR 12/17/2022 104.8 Triglycerides 12/17/2022 277 (H) Cholesterol 12/17/2022 192 LDL Calculated 12/17/2022 107 HDL 12/17/2022 30 Non HDL Cholesterol 12/17/2022 162 Total VLDL-C 12/17/2022 55 (H) Cholesterol/HDL Ratio 12/17/2022 6.4 Hemoglobin A1C 12/17/2022 5.7 Estimated Average Glucose 12/17/2022 117 Magnesium 12/17/2022 2.0 Auto WBC 12/17/2022 8.21 RBC 12/17/2022 4.95 Hemoglobin 12/17/2022 15.9 Hematocrit 12/17/2022 45.6 MCV 12/17/2022 92.1 MCH 12/17/2022 32.1 MCHC 12/17/2022 34.9 RDW 12/17/2022 13.7 Neutrophils % 12/17/2022 60.6 Lymphocytes % 12/17/2022 29.6 Monocytes % 12/17/2022 6.9 Eosinophils % 12/17/2022 1.8 Basophils % 12/17/2022 0.5 Neutrophils Absolute 12/17/2022 4.97 Lymphocytes Absolute 12/17/2022 2.43 Monocytes Absolute 12/17/2022 0.57 Eosinophils Absolute 12/17/2022 0.15 Basophils Absolute 12/17/2022 0.04 Platelets 12/17/2022 659 (H) nRBC % 12/17/2022 0.0 Immature Granulocytes % 12/17/2022 0.6 Immature Granulocytes Ab* 12/17/2022 0.05 Ventricular Rate 12/17/2022 78 Atrial Rate 12/17/2022 78 CA Interval 12/17/2022 196 QRS DURATION 12/17/2022 84 QT Interval 12/17/2022 406 QTC CALCULATION(BAZETT) 12/17/2022 462 P Pendleton 12/17/2022 73 R-Pendleton 12/17/2022 84 T Wave [place] 12/17/2022 77 Ventricular Rate 12/18/2022 74 Atrial Rate 12/18/2022 74 CA Interval 12/18/2022 200 QRS DURATION 12/18/2022 92 QT Interval 12/18/2022 390 QTC CALCU (more content not included)... [facility] Progress note 12-24-2023 Note Date & Type Note Facility [...] (CMS/HCC) Tobacco dependence Coronary artery disease involving [place] coronary artery of [place] heart with unstable angina pectoris (CMS/HCC) Stenosis [...] normal in si (more content not included)... [facility] Evaluation note 12-06-2022 Note Date & Type Note Facility 12-06-2022 Evaluation note Encounter Date Diagnosis Assessment [...] days. Patient verbalized understanding of treatment plan. [employer] Other Hospital Discharge instructions 06-23-2022 Discharge InstructionsAttachments Note Date & Type Note Facility 06-23-2022 Hospital Discharg e instructions Curt Lewis, DO - 06/23/2022 2:34 AM EDT Keep [...] us to take care of you at [facility]. In the next few days you may receive a survey by mail or e-mail asking about the care you received during this visit. Please complete this if you are able, as this feedback helps us provide the best care possible. The following attachments cannot be sent through Care Everywhere.Lacerations: Adhesives (Slovenian)documented in this encounter [employer] Work Phone: Evaluation note 08-04-2021 Note Date & Type Note Facility 08-04-2021 Evaluation note Encounter Date Diagnosis Assessment Notes July, Acute sinusitis, recurrence not specified, [...] no improvement in 2 to 3 days [employer] Other Evaluation note Note Date & Type Note Facility Evaluation note Diagnosis Laceration of left index finger without foreign body without damage to nail, initial encounter- Primary documented in this encounter [employer] Work Phone: Evaluation note Note Date & Type Note Facility Evaluation note No assessment information availa [facility] Work Phone: Evaluation note Note Date & Type Note Facility Evaluation note Diagnosis Onset Date Right wrist pain acute [facility] Work Phone: Summary Purpose Family History No [...] content) DATE CREATED AUTHOR 09/07/2017 [facility] DATE CREATED AUTHOR AUTHOR'S ORGANIZ ATION 09/07/2020 [facility] DATE CREATED AUTHOR AUTHOR'S ORGANIZ ATION 06/23/2022 [facility] DATE CREATED AUTHOR AUTHOR'S ORGANIZ ATION 09/07/2023 [facility] EPIC DATE CREATED AUTHOR AUTHOR'S ORGANIZ ATION 09/12/2023 [facility] DATE CREATED AUTHOR AUTHOR'S ORGANIZ ATION 11/19/[address] [facility] REASON FOR VISIT (unrecogniz ed section and [...] BE BASED ON THE PRIMARY CLINICAL RECORDS. [facility] [employer] provides no warranty or guarantee of the accuracy or completeness of information in this document.
[2024-12-01 09:34] LABS: Alanine Aminotransferase 24 U/L (16-63); Albumin Globulin Ratio 0.9; Albumin Level 3.4 g/dL (3.4-5.0); Alkaline Phosphatase 114 U/L (46-116); Anion Gap 12.1; Aspartate Amino Transferase 18 U/L (15-37); Blood Urea Nitrogen 12.0 mg/dL (7.0-18.0); Calcium 8.8 mg/dL (8.5-10.1); Carbon Dioxide 28.9 mmol/L (21.0-32.0); Chloride 105 mmol/L (98-107); Cholesterol 151 mg/dL (<=200); Estimated GFR (African America >60 (>=60 mL/min/1.73m^2); Estimated GFR (Non-African Ame >60 (>=60 mL/min/1.73m^2); Globulin 3.6 g/dL; Glucose 100 mg/dL (74-106); HDL Cholesterol 59 mg/dL (40-60); NT Pro B Type Natriuretic Pept 45.0 pg/mL (<=900.0); Potassium 4.0 mmol/L (3.5-5.1); Sodium 142 mmol/L (136-145); Total Protein 7.0 g/dL (6.4-8.2); Triglycerides 83 mg/dL (<=150); VLDL CHOLESTEROL 16.6 mg/dL
[2024-12-01 10:15] LABS: Hematocrit 43.1 % (42.0-54.0); Hemoglobin 14.5 g/dL (14.0-18.0); Immature Granulocytes Abs Auto 0.02 10^3/uL (0.00-0.03); Immature Granulocytes Pct Auto 0.3 % (0.0-0.5); Lymphocytes Absolute Auto 2.4 10^3/uL (1.2-3.8); Mean Corpuscular HGB Conc 33.6 g/dL (29.9-35.2); Mean Corpuscular Hemoglobin 32.1 pg (25.9-34.0); Mean Corpuscular Volume 95.4 fL (80.0-94.0); Platelet Count 296 10^3/uL (150-450); Red Blood Count 4.52 10^6/uL (4.70-6.10); White Blood Count 7.6 10^3/uL (4.0-11.0)
== END 2024-12-01 08:31 | disposition home or self-care (01) ==
LOC: LAB 08:33
DX: I25.118 Atherosclerotic heart disease of native coronary artery with other forms of angina pectoris (principal); E78.2 Mixed hyperlipidemia; R07.89 Other chest pain; I50.32 Chronic diastolic (congestive) heart failure
CPT/HCPCS: 36415; 80053; 80061; 83880; 85025

== ENCOUNTER 2024-12-29 09:45 | Outpatient (OUT) | payer OTHER, SELFPAY ==
--- OUTSIDE RECORDS SUMMARY | 2024-12-29 09:48 | XMS_ITS | Clinical Summary ---
Author Organization [facility] Address [address] [place] [address] Care Team Providers Care Toys Inspector Name Role Phone Unavailable Primary Care Provider Unavailabl e Allergies Active Allergy Reactions Criticality Noted Date Comments Morphine 09/20/2020 Medications nicotine (Nicoderm CQ) 21 mg/24 hr patchIndications :STEMI (ST elevation myocardial infarction) (CMS/HCC) Place 1 patch on the skin in the morning. Do not start before December 20, 2022. 90 patch 3 3 Active Additional Information Patient not taking.Reported on 11/17/2024 isosorbide mononitrate ER (Imdur) 30 mg 24 hr tabletIndication s:Chest pain, unspecified type,Coronary artery disease of [place] artery of [place] heart with stable angina pectoris Take 1 tablet (30 mg) by mouth in the morning. Do not crush or chew. 90 tablet 3 5 08/15/19 26 Active Additional Information Patient not taking.Reported on 11/17/2024 clopidogrel (Plavix) 75 mg tabletIndication s:STEMI (ST elevation myocardial infarction) (CMS/HCC) Take 1 tablet (75 mg) by mouth in the morning. 90 tablet 3 5 11/16/19 26 Active atorvastatin (Lipitor) 80 mg tabletIndication s:STEMI (ST elevation myocardial infarction) (CMS/HCC) Take 1 tablet (80 mg) by mouth at bedtime. 90 tablet 3 5 11/16/19 26 Active ezetimibe (Zetia) 10 mg tabletIndication s:Coronary artery disease involving [place] coronary artery of [place] heart with other form of angina pectoris Take 1 tablet (10 mg) by mouth in the morning. 90 tablet 3 5 11/18/19 26 Active metoprolol succinate XL (Toprol-XL) 25 mg 24 hr tabletIndication s:Coronary artery disease involving [place] coronary artery of [place] heart with other form of angina pectoris,Other chest pain,Benign hypertensive heart disease with heart failure (CMS/HCC) Take 1 tablet (25 mg) by mouth in the morning. Do not crush or chew. 90 tablet 3 5 11/18/19 26 Active sacubitril-valsa rtan (Entresto) 24-26 mg tabletIndication s:Heart failure with improved ejection fraction (HFimpEF) (CMS/HCC) Take 0.5 tablets by mouth two times daily. 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 heart failure, NYHA class 2 12/19/2022 Assessment & Plan (04/28/2023 5:22 PM EST): [facility] II- recovered EF Continue GDMT- continue ASA, lipitor, toprol, entresto- D/W pt may stop farxiga and see if symptoms of constipation/anal leaking and foul smelling urine improves- if not recommended pt to F/U with PCP for further investigations Diuretic therapy Monitor daily weights, I&O, fluid restriction 1.5-2L/day, renal function and electrolytes- please maintain K+>4 and Mg > 2 Assessment & Plan (12/23/2022 1:26 PM EDT): [facility] II-IIIb- currently remains euvolemic without exacerbation Continue GDMT- ASA, lipitor, farxiga, toprol, entresto- Sending pt today for repeat BMP prior to further optimization of GDMT with aldactone. Diuretic therapy- farxiga- pt is euvolemic currently Monitor daily weights, I&O, fluid restriction 1.5-2L/day, renal function and electrolytes- please maintain K+>4 and Mg > 2 Benign hypertensive cardiomyopathy with heart fa ilure 12/19/2022 Assessment & Plan (04/28/2023 5:23 PM EST): HTN well controlled continue all meds Assessment & Plan (12/23/2022 1:26 PM EDT): HTn controlled- borderline labile- denied lightheadedness/dizziness or syncope; Does admit that he tires out with activity quicker than before. 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 Assessment & Plan (12/23/2022 1:27 PM EDT): Coronary artery disease is stable without concerning symptoms Continue GDMT- ASA, plavix, lipitor, toprol Denied any bleeding tendencies continue risk factor modifications- heart healthy diet, regular exercise as tolerated and continue all medications. 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 ST elevation myocardial infa rction (STEMI), unspecified artery 12/17/2022 Assessment & Plan (12/23/2022 1:28 PM EDT): Coronary artery disease is stable Resolved Problems Problem Noted Date Diagnosed Date Resolved Date Hypertriglyceridemia without hypercholesterolemia 12/19/2022 12/19/2022 Encounters Date Type Department Care Team Description 11/17/2024 3:20 PM EDT Office Visit [facility] [place] [address] [place] [id number] Frederick Licona CNP Coronary artery disease involving [place] coronary artery of [place] heart with other form of angina pectoris (Primary Dx); Other chest pain; Heart failure with improved ejection fraction (HFimpEF) (CMS/HCC); Benign hypertensive heart disease with heart failure (CMS/HCC); Mixed hyperlipidemia; Tobacco dependence; STEMI (ST elevation myocardial infarction) (CMS/HCC) 11/15/2024 Refill [facility] [address] [place] [address] Ramonita Jaimes MA STEMI (ST elevation myocardial infarction) (CMS/HCC) from Last 3 Months Family History Medical History Relation Name Comments PFO Mother Relation Name Status Comments Father Alive Mother Alive Social History Tobacco Use Types Packs/Day Years Used Date Smoking Tobacco: Every Day Cigarettes Smokeless Tobacco: Never Alcohol Use Standard Drinks/Week Comments Yes 0 (1 standard drink = 0.6 oz pur e alcohol) occasional Humiliation, Afraid, Rape, and Kick questionnair e Answer Date Recorded Within the last year, have y ou been afraid of your partner or ex-partner? No 12/17/2022 Emotionally Abused Not on file 12/17/2022 Physically Abused Not on file 12/17/2022 Sexually Abused Not on file 12/17/2022 Overall Financial Resource Strain (CARDIA) Answe r Date Recorded How hard is it for you to pa y for the very basics like food, housing, medical care, and heating? Not very hard 12/17/2022 [place] Safety & Environment Answer Date Rec orded Within the last year, have y ou been afraid of your partner or ex-partner? No 12/17/2022 Emotionally Abused Not on file 12/17/2022 Physically Abused Not on file 12/17/2022 Sexually Abused Not on file 12/17/2022 Physically or Sexually Abused Not on file Transportation Answer Date Recorded In the past 12 months, has l ack of transportation kept you from medical appointments or from getting medications? No 12/17/2022 Lack of Transportation (Non-Medical) Not on file 12/17/2022 Housing Stability Vital Sign Answer Roni e Recorded Unable to Pay for Housing in the Last Year Not o n file 12/17/2022 Number of Places Lived in the Last Year Not on f ile 12/17/2022 In the last 12 months, was t here a time when you did not have a steady place to sleep or slept in a senior care (including now)? No 12/17/2022 Hunger Vital Sign Answer Date Recorded Within the past 12 months, y ou worried that your food would run out before you got the money to buy more. Never true 12/18/19 23 Ran Out of Food in the Last Year Not on file 12/17/2022 Sex and Gender Information Value Date Recorded Sex Assigned at Male 12/18/2022 12:46 PM EDT Legal Sex Male 5:40 PM EDT Gender Identity Male 12/18/2022 12:46 PM EDT Sexual Orientation Heterosexual or Straight 08/2022 12:46 PM EDT Last Filed Vital Signs Vital Sign Reading Time Taken Comments Blood Pressure 132/78 11/17/2024 3:20 PM EDT Pulse 93 11/17/2024 3:20 PM EDT Temperature 36 C (96.8 F) 12/19/2022 12:10 PM EDT Respiratory Rate 18 12/19/2022 12:10 PM EDT Oxygen Saturation 97% 11/17/2024 3:20 PM EDT Inhaled Oxygen Concentration - - Weight 83.5 kg (184 lb) 11/17/2024 3:20 PM EDT Height 177.8 cm (5' 10 ) 11/17/2024 3:20 PM EDT Body Mass Index 26.4 11/17/2024 3:20 PM EDT Plan of Treatment Health Maintenance Due Date Last Done Comments CT Colonography 1961 FIT-DNA 1961 FIT 1961 FOBT 1961 Sigmoidoscopy 1961 Depression Screening 1973 Zoster Vaccines (1 of 2) 05/19/2011 Pneumococcal Vaccine: Pediatrics (0 to 5 Years) and At-Risk Patients (6 to 64 Years) (2 of 2 - PCV) 12/20/2017 12/20/2016 COVID-19 Vaccine (1 - 2023-2 5 season) 2024 Influenza Vaccine (#1) 2024 7, 01/09/2017 Colonoscopy 01/11/2027 01/11/2017 Colorectal Cancer Screening 01/11/2027 Adult Tetanus 06/23/2032 06/23/2022, 12/20/2016 HIB Vaccines Aged Out No longer eligi ble based on patient's age to complete this topic HPV Vaccines Aged Out No longer eligi ble based on patient's age to complete this topic IPV Vaccines Aged Out No longer eligi ble based on patient's age to complete this topic Meningococcal B Vaccine Aged Out No l onger eligible based on patient's age to complete this topic Meningococcal Vaccine Aged Out No suraj gio eligible based on patient's age to complete this topic Rotavirus Vaccines Aged Out No longer eligible based on patient's age to complete this topic Medical Devices Implanted Type Area Resident Programs Assistant Device Identifier Shelf Expiration Date Model / Serial / Lot Stent,Synergy Mr 3.50 X 28 - [id number] - [id number] Implanted:Qty: 1 on 12/17/2022 by Talya Garg MD at [facility] Drug Eluting Stent [employer] [id number] 09/06/2024 [id number] / [id number] / [id number] Insurance [facility] [employer] Advance Directives * Full Code (Latest Code Status on File) Date Activated Date Inactivated Comments 12/17/2022 11:55 PM 12/19/2022 4:26 PM * Full Code Date Activated Date Inactivated Comments 12/17/2022 11:55 PM 12/17/2022 11:55 PM
--- OUTSIDE RECORDS SUMMARY | 2024-12-29 09:48 | XMS_ITS | Clinical Summary ---
Author Organization [facility] Address [address], [address] [place] [address] Care Team Providers Care Bar Staff Name Role Phone Riley Aden Primary Care Provider [phone] Allergies No known active allergies Medications atorvastatin (LIPITOR) 10 MG tablet Take 1 tablet by mouth daily 90 tablet 03/31/2017 Active varenicline (CHANTIX STARTING MONTH ) 0.5 MG X 11 & 1 MG X 42 tablet Take by mouth. 1 each 03/31/2017 Active Resolved Problems Problem Noted Date Diagnosed Date Resolved Date Colon cancer screening 12/11/201606/24 Encounters Date Type Department Care Team Description 12/12/2024 4:18 PM EDT - 12/12/2024 8:36 PM EDT Emergency [facility] Emergency Department [address] [place] [address] Dimitris Khoury MD Acute chest pain (Primary Dx) Discharge Disposition: Home or Self Care 12/12/2024 Travel from Last 3 Months Immunizations Immunization Administration Dates Next Due Influenza, AFLURIA (age 3 y+ ), FLUZONE, (age 6 mo+), Quadv MDV, 0.5mL 01/09/2017 Pneumococcal, PPSV23, PNEUMO VAX 23, (age 2y+), SC/IM, 0.5mL 12/20/2016 TDaP, ADACEL (age 10y-64y), BOOSTRIX (age 10y+), IM, 0.5mL 06/23/2022,12/20/2016 Family History Medical History Relation Name Comments Elevated Lipids Father No Known Problems Mother Other Sister 1 MR, seizures, c erebral palsy, hydrocephalus Thyroid Disease Sister 2 Relation Name Status Comments Father Alive Mother Alive Sister 1 Alive Sister 2 Alive Social History Tobacco Use Types Packs/Day Years Used Date Smoking Tobacco: Every Day Cigarettes 0.5 25 Smokeless Tobacco: Never Tobacco Cessation:Ready to Q uit: Not Asked; Counseling Given: Not Answered Alcohol Use Standard Drinks/Week Comments Yes 16 (1 standard drink = 0.6 oz pure alcohol) 1-2 beers daily, DUI x4; 4 years ago last. Interpersonal Safety Domain Source: IP Abuse Scr eening Answer Date Recorded Physical abuse Denies 12/12/2024 Verbal abuse Denies 12/12/2024 Emotional abuse Denies 12/12/2024 Financial abuse Denies 12/12/2024 Sexual abuse Not on file 12/12/2024 Sex and Gender Information Value Date Recorded Sex Assigned at Not on file Legal Sex Male 12:57 PM EDT Gender Identity Not on file Sexual Orientation Not on file Last Filed Vital Signs Vital Sign Reading Time Taken Comments Blood Pressure 123/84 12/12/2024 4:29 PM EDT Pulse 92 12/12/2024 4:29 PM EDT Temperature 36.7 C (98 F) 12/12/2024 4:29 PM EDT Respiratory Rate 16 12/12/2024 4:29 PM EDT Oxygen Saturation 97% 12/12/2024 4:29 PM EDT Inhaled Oxygen Concentration - - Weight 80.7 kg (178 lb) 12/12/2024 4:29 PM EDT Height 177.8 cm (5' 10 ) 12/12/2024 4:29 PM EDT Body Mass Index 25.54 12/12/2024 4:29 PM EDT Plan of Treatment Health Maintenance Due Date Last Done Comments Depression Screen 1973 Diabetes screen 1996 FIT/FOBT: Average risk 2006 Fecal-DNA (Cologuard): Average risk 2006 Sigmoidoscopy/CT colonography 2006 Shingles vaccine (1 of 2) 05/19/2011 Pneumococcal 50+ years Vaccine (2 of 2 - PCV) 12/20/2017 12/20/2016 Lipids 03/23/2018 03/23/2017, 01/01/2017 Colonoscopy 01/11/2022 01/11/2017, 01/11/2017 Colorectal Cancer Screen 01/11/2022 Flu vaccine (#1) 10/13/2024 01/09/2017 COVID-19 Vaccine (1 - 2023-2 5 season) 2024 DTaP/Tdap/Td vaccine (3 - Td or Tdap) 06/23/2032 06/23/2022, 12/20/2016 Respiratory Syncytial Virus (RSV) or age 60 yrs+ (1 - 1-dose 75+ series) 2036 Pneumococcal 0-49 years Vaccine Discontinued 12/20/2016 HIV screen Completed 01/01/2017 Hepatitis C screen Completed 01/01/2017 Prostate Specific Antigen (PSA) Screening or Monitoring Discontinued 01/01/2017 Hepatitis A vaccine Aged Out No longe r eligible based on patient's age to complete this topic Hepatitis B vaccine Aged Out No longe r eligible based on patient's age to complete this topic Hib vaccine Aged Out No longer eligi ble based on patient's age to complete this topic Meningococcal (ACWY) vaccine Aged Out No longer eligible based on patient's age to complete this topic Meningococcal B vaccine Aged Out No l onger eligible based on patient's age to complete this topic Polio vaccine Aged Out No longer elig ible based on patient's age to complete this topic Procedures Procedure Name Priority Date/Time Associated Diagnosis Comments TROPONIN Timed 12/12/2024 6:27 PM EDT XR CHEST (2 VW) STAT 12/12/2024 5:14 PM EDT BRAIN NATRIURETIC PEPTIDE STAT 12/12/2024 4:39 PM EDT D-DIMER, QUANTITATIVE STAT 12/12/2024 4:39 PM EDT COMPREHENSIVE METABOLIC PANEL W/ REFLEX TO MG FOR LOW K STAT 12/12/2024 4:39 PM EDT TROPONIN Timed 12/12/2024 4:39 PM EDT CBC WITH AUTO DIFFERENTIAL STAT 12/12/2024 4:36 PM EDT EKG 12-LEAD STAT 12/12/2024 4:11 PM EDT LIPID PANEL Routine 03/23/2017 Mixed hyperlipidemia HM COLONOSCOPY Routine 01/11/2017 PSA SCREENING Routine 01/01/2017 8:54 AM EDT Wellness examination Elevated fasting glucose Elevated lipids HIV SCREEN Routine 01/01/2017 8:54 AM EDT Wellness examination Elevated fasting glucose Elevated lipids HEPATITIS C ANTIBODY Routine 01/01/2017 8:54 AM EDT Wellness examination Elevated fasting glucose Elevated lipids from Last 3 Months or Most Recently Relevant to Health Maintenance Results * Troponin (12/12/2024 6:27 PM EDT) Only the most recent of2 resultswithin the time period is included. Troponin, High Sensitivity <6 0 - 22 ng/L 12/12/2024 6:55 PM EDT [facility] Comment: The high-sensitivity troponin T result should not be compared with other troponin methodologies. BLOOD SPECIMEN / Unknown 12/12/2024 6:27 PM EDT 12/12/2024 6:32 PM EDT us Dimitris Khoury MD CHEMISTRY ORDERABLES Final Re sult [facility] [address] [phone] * XR CHEST (2 VW) (12/12/2024 5:14 PM EDT) Anatomical Region Laterality Modality Chest Computed Radiogr aphy Chest 12/12/2024 5:23 PM EDT Impressions 12/12/2024 5:23 PM EDT 1. No acute process. Narrative 12/12/2024 5:23 PM EDT EXAM: 2 VIEW(S) XRAY OF THE CHEST 12/12/2024 05:14:59 PM COMPARISON: None available. CLINICAL HISTORY: chest pain. FINDINGS: LUNGS AND PLEURA: No focal pulmonary opacity. No pulmonary edema. No pleural effusion. No pneumothorax. HEART AND MEDIASTINUM: No acute abnormality of the cardiac and mediastinal silhouettes. BONES AND SOFT TISSUES: Degenerative changes in thoracic spine. No acute osseous abnormality. Procedure Note Marlo Aponte MD - 12/12/2024 EXAM: 2 VIEW(S) XRAY OF THE CHEST 12/12/2024 05:14:59 PM COMPARISON: None available. CLINICAL HISTORY: chest pain. FINDINGS: LUNGS AND PLEURA: No focal pulmonary opacity. No pulmonary edema. No pleural effusion. Nopneumothorax. HEART AND MEDIASTINUM: No acute abnormality of the cardiac and mediastinal silhouettes. BONES AND SOFT TISSUES: Degenerative changes in thoracic spine. No acute osseous abnormality. IMPRESSION: 1. No acute process. us Dimitris Khoury MD IMG DIAGNOSTIC IMAGING ORDERA BLES Final Result * (ABNORMAL) Comprehensive Metabolic Panel w/ Reflex to MG (12/12/2024 4:39 PM EDT) Sodium 139 136 - 145 mmol/L 12/12/2024 4:57 PM EDT [facility] Potassium reflex Magnesium 3.8 3.5 - 5.1 mmol/L 12/12/2024 4:57 PM EDT [facility] Chloride 102 99 - 110 mmol/L 12/12/2024 4:57 PM EDT [facility] CO2 25 21 - 32 mmol/L 12/12/2024 5:08 PM EDT [facility] Anion Gap 12 3 - 16 12/12/2024 5:08 PM EDT [facility] Glucose 103(H) 70 - 99 mg/dL 12/12/2024 5:08 PM EDT [facility] BUN 18 7 - 20 mg/dL 12/12/2024 5:08 PM EDT [facility] Creatinine 1.0 0.8 - 1.3 mg/dL 12/12/2024 5:08 PM EDT [facility] Est, Glom Filt Rate 84 12/12/2024 5:08 PM EDT [facility] Comment: >=60 Pediatric calculator link https://www.kidney.org/professionals/kdoqi/gfr_calculatorped Effective Dec 15, 2021 These results are not intended for use in patients <18 years of age. eGFR results are calculated without a race factor using the 2020 CKD-EPI equation. Careful clinical correlation is recommended, particularly when comparing to results calculated using previous equations. The CKD-EPI equation is less accurate in patients with extremes of muscle mass, extra-renal metabolism of creatinine, excessive creatinine ingestion, or following therapy that affects renal tubular secretion. Calcium 10.3 8.3 - 10.6 mg/dL 12/12/2024 5:08 PM EDT [facility] Total Protein 7.7 6.4 - 8.2 g/dL 12/12/2024 5:08 PM EDT [facility] Albumin 4.6 3.4 - 5.0 g/dL 12/12/2024 5:08 PM EDT [facility] Albumin/Globulin Ratio 1.5 1.1 - 2.2 12/12/2024 5:08 PM EDT [facility] Total Bilirubin 0.3 0.0 - 1.0 mg/dL 12/12/2024 5:08 PM EDT [facility] Alkaline Phosphatase 127 40 - 129 U/L 12/12/2024 5:08 PM EDT [facility] ALT 18 10 - 40 U/L 12/12/2024 5:08 PM EDT [facility] AST 28 15 - 37 U/L 12/12/2024 5:08 PM EDT [facility] BLOOD SPECIMEN / Unknown 12/12/2024 4:39 PM EDT 12/12/2024 4:45 PM EDT us Dimitris Khoury MD CHEMISTRY ORDERABLES Final Re sult [facility] [address] [place] [address], [facility] [phone] * D-Dimer, Quantitative (12/12/2024 4:39 PM EDT) D-Dimer, Quant 0.42 0.00 - 0.60 ug/mL FEU 12/12/2024 5:05 PM EDT [facility] Comment: Effective 08/06/21 the D-Dimer methodology has changed. Please note the reference range and unit of measure are significantly different. STA-Liatest D-Dimer is an immuno-turbidimetric assay for the quantitative determination of D-Dimer in human citrated venous plasma on STA Coagulation systems for use in conjunction with clinical pretest probability (PTP) assessment model to exclude Pulmonary embolism (PE) and deep vein thrombosis (DVT)in outpatients suspected of PE or DVT. D-Dimer levels are mainly elevated in cases of DVT/PE. Other conditions may lead to a high D-Dimer level including old age, , peripheral arteriopathy, DIC, coronary artery disease, thrombolytic treatment, cancer, liver disease, infection, inflammation, hematoma, and rheumatoid arthritis. Specimen interferences are created by lipemia, bilirubin, and hemolysis. Normal cutoff value for DVT is <0.50 g/ml FEU. Age specific cutoff values are calculated over the age of 50 by adding 0.01 to the normal cutoff value (i.e., 51 years of age cutoff value is <0.51 g/ml FEU) BLOOD SPECIMEN / Unknown 12/12/2024 4:39 PM EDT 12/12/2024 4:45 PM EDT us Dimitris Khoury MD HEMATOLOGY ORDERABLES Final R esult Performing Organization Address [facility]/ZIP Co de Phone Number [facility] [address] [place] [address] * Brain Natriuretic Peptide (12/12/2024 4:39 PM EDT) NT Pro-BNP 40 0 - 124 pg/mL 12/12/2024 5:06 PM EDT [facility] BLOOD SPECIMEN / Unknown 12/12/2024 4:39 PM EDT 12/12/2024 4:45 PM EDT us Dimitris Khoury MD CHEMISTRY ORDERABLES Final Re sult [facility] [address] [place] [address], [facility] [phone] * CBC with Auto Differential (12/12/2024 4:36 PM EDT) WBC 9.2 4.0 - 11.0 K/uL 12/12/2024 3:45 PM EDT [facility] RBC 4.63 4.20 - 5.90 M/uL 12/12/2024 3:45 PM EDT [facility] Hemoglobin 14.9 13.5 - 17.5 g/dL 12/12/2024 3:45 PM EDT [facility] Hematocrit 44.2 40.5 - 52.5 % 12/12/2024 3:45 PM EDT [facility] MCV 95.5 80.0 - 100.0 fL 12/12/2024 3:45 PM EDT [facility] MCH 32.3 26.0 - 34.0 pg 12/12/2024 3:45 PM EDT [facility] MCHC 33.8 31.0 - 36.0 g/dL 12/12/2024 3:45 PM EDT [facility] RDW 13.7 12.4 - 15.4 % 12/12/2024 3:45 PM EDT [facility] Platelets 294 135 - 450 K/uL 12/12/2024 3:45 PM EDT [facility] MPV 7.8 5.0 - 10.5 fL 12/12/2024 3:45 PM EDT [facility] Neutrophils % 59.5 % 12/12/2024 3:45 PM EDT [facility] Lymphocytes % 29.0 % 12/12/2024 3:45 PM EDT [facility] Monocytes % 8.5 % 12/12/2024 3:45 PM EDT [facility] Eosinophils % 1.8 % 12/12/2024 3:45 PM EDT [facility] Basophils % 1.2 % 12/12/2024 3:45 PM EDT [facility] Neutrophils Absolute 5.5 1.7 - 7.7 K/uL 12/12/2024 3:45 PM EDT [facility] Lymphocytes Absolute 2.7 1.0 - 5.1 K/uL 12/12/2024 3:45 PM EDT [facility] Monocytes Absolute 0.8 0.0 - 1.3 K/uL 12/12/2024 3:45 PM EDT [facility] Eosinophils Absolute 0.2 0.0 - 0.6 K/uL 12/12/2024 3:45 PM EDT [facility] Basophils Absolute 0.1 0.0 - 0.2 K/uL 12/12/2024 3:45 PM EDT [facility] BLOOD SPECIMEN / Unknown 12/12/2024 4:36 PM EDT 12/12/2024 4:45 PM EDT us Dimitris Khoury MD HEMATOLOGY ORDERABLES Final R esult [facility] [address] [phone] * EKG 12 Lead (12/12/2024 4:11 PM EDT) Ventricular Rate 91 BPM [facility] Atrial Rate 91 BPM [facility] P-R Interval 198 ms [facility] QRS Duration 86 ms [facility] Q-T Interval 350 ms [facility] QTc Calculation (Bazett) 430 ms [facility] P [place]icking 60 degrees [facility] R [place] 77 degrees [facility] T [place] 41 degrees [facility] Diagnosis Normal sinus rhythm Normal ECG Confirmed by CANDI BABIN ([id number]) on 12/14/2024 8:52:46 AM [facility] 12/12/2024 4:11 PM EDT us Dimitris Khoury MD ECG ORDERABLES Final Result Performing Organization Address City/[facility]/ZIP Co de Phone Number [facility] * Lipid Panel (03/23/2017) [facility] Cholesterol, Total 255 mg/dL HDL 57 35 - 70 mg/dL LDL Calculated 159 0 - 160 mg/dL Triglycerides 193 mg/dL Chol/HDL Ratio 4.5 VLDL 39 mg/dL BLOOD SPECIMEN / Unknown 03/23/2017 Angel Garner OFFICE SUPPORT CLERK - [employer] CHEMISTRY ORDERA BLES Final Result * HM COLONOSCOPY (01/11/2017) Historical Provider MD HEALTH MAINTENANCE Final Result * PSA Screening (01/01/2017 8:54 AM EDT) [facility] PSA 3.72 <4.1 ug/L 01/01/2017 10:43 AM EDT [facility] Comment: The PBC Lasers ECLIA assay is used. Results obtained with different assay methods cannot be used interchangeably. Performed at [address] [address] [phone] BLOOD SPECIMEN / Unknown 01/01/2017 8:54 AM EDT 01/01/2017 8:55 AM EDT Angel Garner OFFICE SUPPORT CLERK - [employer]ALENT PARTNER CHEMISTRY ORDERA BLES Final Result [facility] [address] [place] [id number], [facility] [phone] * Hepatitis C Antibody (01/01/2017 8:54 AM EDT) [facility] Hepatitis C Ab NONREACTIVE NR 7 7:51 PM EDT [employer] [facility] Comment: The hepatitis C procedure used in our laboratory is a Chemiluminescent test specific for three recombinant HCV antigens. A negative anti-HCV result indicates that the antibodies to hepatitis C virus are not present at this time. Individuals with reactive anti-HCV should be considered infected and infectious until proven otherwise. Confirmation of all equivocal or reactive results is recommended by ordering HCV RNA by PCR. [facility] [address] [address] BLOOD SPECIMEN / Unknown 01/01/2017 8:54 AM EDT 01/01/2017 8:55 AM EDT Angel Garner OFFICE SUPPORT CLERK - TALENT PARTNER IMMUNOLOGY ORDER DIXON Final Result [facility] [address] [place] [address] [facility] [address] [place] [id number], [facility] [phone] * HIV Screen (01/01/2017 8:54 AM EDT) [facility] HIV Ag/Ab NONREACTIVE NR 01/01/2017 5:58 PM EDT [employer] Comment: No laboratory evidence of HIV infection. If acute HIV infection is suspected, consider testing for HIV-1 RNA. This is an FDA approved immunoassay that detects HIV-1 and HIV-2 antibodies and HIV-1 p24 antigen to screen for infection with HIV-1 or HIV-2. Performed at [email or web address] [address] [place] [id number] BLOOD SPECIMEN / Unknown 01/01/2017 8:54 AM EDT 01/01/2017 8:55 AM EDT us Angel Garner OFFICE SUPPORT CLERK - [employer]ALENT PARTNER IMMUNOLOGY ORDER DIXON Final Result Performing Organization Address City/[facility]/ZIP Co de Phone Number [facility] [address] [place] [address] [employer] [address] [place] [phone] [place] [address] from Last 3 Months or Most Recently Relevant to Health Maintenance Insurance [employer]IN[employer] Care Teams Bar Staff Relationship Specialty Start Date End Date Riley Aden PA [address] [place] [address] PCP - General 12/12/24
--- OUTSIDE RECORDS SUMMARY | 2024-12-29 09:48 | XMS_ITS | Encounter Summary ---
Author Organization [facility] Address [address] [place] [address] Care Team Providers Care Psychological Assistant Name Role Phone Unallocated, Noms Provider Primary Care Provi tio Encounter Details Date Type Department Care Team (Late st Contact Info) Description 09/06/2023 Orders Only [facility] [address] [place] [id number] Unallocated, [place] [address] Social History Tobacco Use Types Packs/Day Years [...] on filedocumented in this encounter Care Teams Psychological Assistant Relationship Specialty Start Date End Date Unallocated, [place] [address] PCP - General Family Medicine 09/06/23 documented as of this encounter
--- OUTSIDE RECORDS SUMMARY | 2024-12-29 09:48 | XMS_ITS | Clinical Summary ---
Author Organization [facility] Address [address] [place] [address] Care Team Providers Care Computational Chemist Name Role Phone Unallocated, Noms Provider MD [...] Cancer Screening 01/11/2027 Insurance BCBS Care Teams Computational Chemist Relationship Specialty Start Date End Date Unallocated, Noms Provider, [address] [place] [address] PCP - General Family Medicine 09/06/23
--- OUTSIDE RECORDS SUMMARY | 2024-12-29 09:50 | XMS_ITS | CCD ---
Author Organization [facility] Care Team Providers Care Plasterer Rough Name Role Phone DR JACKI ZHANG Admitting Unavailable LEATHA, DR ECHEVERRIA Consulting Unavailable LEATHA, DR ECHEVERRIA Attending Unavailable REQUEST, DR CLIFFORD LISTED Primary Care Unavailedwina PAEZ, DR MOYA Consulting Unavailable JAZZ OVIEDO Consulting Unavailable Kary Marvin Unavailable Unavailable Primary Care Provider UnavailLIANE Johnson Primary Care UnavailCURT Araujo Attending Unavailable Cecilia Van Unavailable NO FAMILY, PHYSICIAN Primary Care Provider Unava KI Segura Attending Provider ANDER BOLTON Attending Unavailable Cecilia Van Attending Unavailable Cecilia Van Admitting Unavailable NO FAMILY, PHYSICIAN Primary Care Unavailable IVONNE GARG Attending Unavailable MATT MENDENHALL Attending Unavailable True Burris Primary Care Provider [phone] TATIANA KHOURY Attending Unavailable TRUE VILLALTA Primary Care Unavailable TATIANA KHOURY Referring Unavailable TRUE VILLALTA Primary Care Unavailable Allergies Allergy Classification Reported Allergen(s) Allergy Type Date of Onset Reaction(s) Facility Opioid Agonists (2 sources) Morphine Drug Allergy 09-02-2023 Agitated [facility] Repository (3 sources) Morphine; Translations: [morphine] Drug Allergy 09-20-2020 [facility] Medications Current Medications Medication Drug Class(es) Dates Sig (Normalized) Sig (Original) [id number] 200 actuat albuterol 0.09 mg/actuat metered dose [...] 2023 12:00am atorvastatin 80 mg oral tablet (4 sources) HMG-CoA Reductase Inhibitor Start: 09-02-2023 take 80 mg by mouth once daily at bedtime Atorvastatin Active 80 MG PO Daily at bedtime September 02, 2023 12:00am Start: 03-31-2017 take 1 tablet by david th once daily atorvastatin (LIPITOR) 10 MG tablet Take 1 tablet by mouth daily 90 tablet 03/31/2017 Active brompheniramine maleate 0.4 mg/ml / dextromethorphan hydrobromide 2 mg/ml / pseudoephedrine hydrochloride 6 mg/ml oral solution (1 source) alpha-Adrenergic Agonist, Uncompetitive I-njtgwx-Y-aspartate Receptor Antagonist, Sigma-1 Agonist Start: 12-06-2022 Gweonjtbf-Muwbpvfy-FE 30-2-10 MG/5ML 10 ml Orally every 6 [...] 2023 9:37am varenicline 0.5 mg oral tablet (2 sources) Partial Cholinergic Nicotinic Agonist Start: 03-31-2017 varenicline (CHANTIX STARTING MONTH ) 0.5 MG X 11 & 1 MG X 42 tablet Take by mouth. 1 each 03/31/2017 Active Completed/Discontinued Medications Medication Drug Class(es) [...] disease (2 sources) Atherosclerotic heart disease of [place] coronary artery without angina pectoris; Translations: [Atherosclerotic heart disease of [place] coronary artery without angina pectoris] Onset: 11-17-2024 Chronic Disorders of lipid metabolism (2 sources) Mixed hyperlipidemia; Translations: [Mixed hyperlipidemia] Onset: 12-19-2022 Chronic Hypertension with complications and secondary hypertension (2 sources) Hypertensive heart disease with heart failure; Translations: [Hypertensive heart disease with heart failure] Onset: 11-17-2024 Chronic Nonspecific chest pain (4 sources) Acute chest pain; Translations: [Chest pain, unspecified] Onset: 12-12-2024 12-12-2024 Episodic Open wounds of extremities (2 sources) [...] conditions (not mental disorders or infectious disease) (2 sources) Patient encounter status; Translations: [Encounter for screening for malignant neoplasm of colon] Onset: 12-11-2016 Resolved: 06-24-2017 06-24-2017 Episodic Other upper respiratory infections (1 source) Acute sinusitis, unspecified Onset: 08-04-2021 Resolved: 08-04-2021 Episodic Unclassified (1 source) Suspected COVID-19 virus infection Z20.822 Results Test Name Value Interpretation Reference Range Facility BNPon 12-12-2024 Natriuretic peptide B (Bld) [Mass/Vol] 40 pg/mL Normal 0-124 [facility] Comment on above: Performed By: #### B NPEP #### MD MICAH LUBIN ([id number]) [facility] ([facility]) [address] [place] [address] Brain Natriuretic Peptideon 12-12-2024 Natriuretic peptide.B prohormone N-Terminal [Mass/Vol] 40 pg/mL 0 - 124 pg/mL [facility] CBC W Auto Differential pane l (Bld)on 12-12-2024 Basophils (Bld) [#/Vol] 0.1 10*3/uL 0.0 - 0.2 K/uL [facility] Basophils/100 WBC (Bld) 1.2 % [facility] Eosinophils (Bld) [#/Vol] 0.2 10*3/uL 0.0 - 0.6 K/uL [facility] Eosinophils/100 WBC (Bld) 1.8 % [facility] Erythrocyte distribution width (RBC) [Entitic vol] 13.7 % 12.4 - 15.4 % [facility] Hematocrit (Bld) [Volume fraction] 44.2 % 40.5 - 52.5 % [facility] Hemoglobin (Bld) [Mass/Vol] 14.9 g/dL 13.5 - 17.5 g/dL [facility] Lymphocytes (Bld) [#/Vol] 2.7 10*3/uL 1.0 - 5.1 K/uL [facility] Lymphocytes/100 WBC (Bld) 29.0 % [facility] MCH (RBC) [Entitic mass] 32.3 pg 26.0 - 34.0 pg [facility] MCHC (RBC) [Mass/Vol] 33.8 g/dL 31.0 - 36.0 g/dL [facility] MCV (RBC) [Entitic vol] 95.5 fL 80.0 - 100.0 fL [facility] Monocytes (Bld) [#/Vol] 0.8 10*3/uL 0.0 - 1.3 K/uL [facility] Monocytes/100 WBC (Bld) 8.5 % [facility] Neutrophils (Bld) [#/Vol] 5.5 10*3/uL 1.7 - 7.7 K/uL [facility] Neutrophils/100 WBC (Bld) 59.5 % [facility] Platelet mean volume (Bld) [Entitic vol] 7.8 fL 5.0 - 10.5 fL [facility] Platelets (Bld) [#/Vol] 294 10*3/uL 135 - 450 K/uL [facility] RBC (Bld) [#/Vol] 4.63 10*6/uL [facility] WBC (Bld) [#/Vol] 9.2 10*3/uL 4.0 - 11.0 K/uL [facility] CBC With Platelet and Differ entialon 12-12-2024 Basophils (Bld) [#/Vol] 0.1 10*3/uL Normal 0.0-0.2 [facility] Comment on above: Performed By: #### Adrian MALCOLM #### MD MICAH LUBIN ([id number]) [facility] ([facility]) [address] [place] [address] [place] Basophils/100 WBC (Bld) 1.2 % Normal [facility] Comment on above: Performed By: #### Adrian MALCOLM #### MD MICAH LUBIN ([id number]) [facility] ([facility]) [address] [place] [address] [place] Eosinophils (Bld) [#/Vol] 0.2 10*3/uL Normal 0.0-0.6 [facility] Comment on above: Performed By: #### Adrian MALCOLM #### MD MICAH LUBIN ([id number]) [facility] ([facility]) [address] [place] [address] [place] Eosinophils/100 WBC (Bld) 1.8 % Normal [facility] Comment on above: Performed By: #### Adrian MALCOLM #### MD MICAH LUBIN ([id number]) [facility] ([facility]) [address] [place] [address] Erythrocyte distribution width (RBC) [Ratio] 13.7 % Normal 12.4-15.4 [facility] Comment on above: Performed By: #### C BCWD #### MD MICAH LUBIN ([id number]) [facility] ([facility]) [address] [place] [address] Hematocrit (Bld) [Volume fraction] 44.2 % Normal 40.5-52.5 [facility] Comment on above: Performed By: #### C BCWD #### MD MICAH LUBIN ([id number]) [facility] ([facility]) [address] [place] [address] Hemoglobin (Bld) [Mass/Vol] 14.9 g/dL Normal 13.5-17.5 [facility] Comment on above: Performed By: #### C BCWD #### MD MICAH LUBIN ([id number]) [facility] ([facility]) [address] [place] [address] Lymphocytes (Bld) [#/Vol] 2.7 10*3/uL Normal 1.0-5.1 [facility] Comment on above: Performed By: #### C BCWD #### MD MICAH LUBIN ([id number]) [facility] ([facility]) [address] [place] [address] Lymphocytes/100 WBC (Bld) 29.0 % Normal [facility] Comment on above: Performed By: #### C BCWD #### MD MICAH LUBIN ([id number]) [facility] ([facility]) [address] [place] [address] MCH (RBC) [Entitic mass] 32.3 pg Normal 26.0-34.0 [facility] Comment on above: Performed By: #### C BCWD #### MD MICAH LUBIN ([id number]) [facility] ([facility]) [address] [place] [address] MCHC (RBC) [Mass/Vol] 33.8 g/dL Normal 31.0-36.0 [facility] Comment on above: Performed By: #### C BCWD #### MD MICAH LUBIN ([id number]) [facility] ([facility]) [address] MCV (RBC) [Entitic vol] 95.5 fL Normal 80.0-100.0 [facility] Comment on above: Performed By: #### C BCWD #### MD MICAH LUBIN ([id number]) [facility] ([facility]) [address] [place] [address] Monocytes (Bld) [#/Vol] 0.8 10*3/uL Normal 0.0-1.3 [facility] Comment on above: Performed By: #### C BCWD #### MD MICAH LUBIN ([id number]) [facility] ([facility]) [address] [place] [address] Monocytes/100 WBC (Bld) 8.5 % Normal [facility] Comment on above: Performed By: #### C BCWD #### MD MICAH LUBIN ([id number]) [facility] ([facility]) [address] [place] [address] Neutrophils (Bld) [#/Vol] 5.5 10*3/uL Normal 1.7-7.7 [facility] Comment on above: Performed By: #### C BCWD #### MD MICAH LUBIN ([id number]) [facility] ([facility]) [address] [place] [address] [place] Neutrophils/100 WBC (Bld) 59.5 % Normal [facility] Comment on above: Performed By: #### C BCWD #### MD MICAH LUBIN ([id number]) [facility] ([facility]) [address] [place] [address] [place] Platelet mean volume (Bld) [Entitic vol] 7.8 fL Normal 5.0-10.5 [facility] Comment on above: Performed By: #### C BCWD #### MD MICAH LUBIN ([id number]) [facility] ([facility]) [address] [place] [address] [place] Platelets (Bld) [#/Vol] 294 10*3/uL Normal 135-450 [facility] Comment on above: Performed By: #### C BCWD #### MD MICAH LUBIN ([id number]) [facility] ([facility]) [address] [place] [address] RBC (Bld) [#/Vol] 4.63 10*6/uL Normal 4.20-5.90 [facility] Comment on above: Performed By: #### C BCWD #### MD MICAH LUBIN ([id number]) [facility] ([facility]) [address] [place] [address] WBC (Bld) [#/Vol] 9.2 10*3/uL Normal 4.0-11.0 [facility] Comment on above: Performed By: #### C BCWD #### MD MICAH LUBIN ([id number]) [facility] ([facility]) [address] [place] [address] Comprehensive Metabolic Pane l reflex Mgon 12-12-2024 Albumin [Mass/Vol] 4.6 g/dL Normal 3.4-5.0 [facility] Comment on above: Performed By: #### C MPX #### MD MICAH LUBIN ([id number]) [facility] ([facility]) [address] [place] [address] Albumin/Globulin [Mass ratio] 1.5 {ratio} Normal 1.1-2.2 [facility] Comment on above: Performed By: #### C MPX #### MD MICAH LUBIN ([id number]) [facility] ([facility]) [address] [place] [address] ALP [Catalytic activity/Vol] 127 U/L Normal 40-129 [facility] Comment on above: Performed By: #### C MPX #### MD MICAH LUBIN ([id number]) [facility] ([facility]) [address] [place] [address] ALT [Catalytic activity/Vol] 18 U/L Normal 10-40 [facility] Comment on above: Performed By: #### C MPX #### MD MICAH LUBIN ([id number]) [facility] ([facility]) [address] [place] [address] Anion gap [Moles/Vol] 12 mmol/L Normal 3-16 [facility] Comment on above: Performed By: #### C MPX #### MD MICAH LUBIN ([id number]) [facility] ([facility]) [address] [place] [address] [place] AST [Catalytic activity/Vol] 28 U/L Normal 15-37 [facility] Comment on above: Performed By: #### C MPX #### MD MICAH LUBIN ([id number]) [facility] ([facility]) [address] [place] [address] [place] Bilirubin [Mass/Vol] 0.3 mg/dL Normal 0.0-1.0 [facility] Comment on above: Performed By: #### C MPX #### MD MICAH LUBIN ([id number]) [facility] ([facility]) [address] [place] [address] [place] Calcium [Mass/Vol] 10.3 mg/dL Normal 8.3-10.6 [facility] Comment on above: Performed By: #### C MPX #### MD MICAH LUBIN ([id number]) [facility] ([facility]) [address] [place] [address] [place] CO2 [Moles/Vol] 25 mmol/L Normal 21-32 [facility] Comment on above: Performed By: #### C MPX #### MD MICAH LUBIN ([id number]) [facility] ([facility]) [address] Creatinine [Mass/Vol] 1.0 mg/dL Normal 0.8-1.3 [facility] Comment on above: Performed By: #### C MPX #### MD MICAH LUBIN ([id number]) [facility] ([facility]) [address] [place] [address] [place] GFR 84 Normal [facility] Comment on above: Result Comment: >=60 Pediatric calculator link https://www.kidney.org/professionals/kdoqi/gfr_calculatorped Effective [...] following therapy that affects renal tubular secretion. Performed By: #### C MPX #### MD MICAH LUBIN ([id number]) [facility] ([facility]) [address] Glucose [Mass/Vol] 103 mg/dL High 70-99 [facility] Comment on above: Performed By: #### C MPX #### MD MICAH LUBIN ([id number]) [facility] ([facility]) [address] [place] [address] Protein [Mass/Vol] 7.7 g/dL Normal 6.4-8.2 [facility] Comment on above: Performed By: #### C MPX #### MD MICAH LUBIN ([id number]) [facility] ([facility]) [address] [place] [address] Urea nitrogen [Mass/Vol] 18 mg/dL Normal 7-20 [facility] Comment on above: Performed By: #### C MPX #### MD MICAH LUBIN ([id number]) [facility] ([facility]) [address] [place] [address] Chloride [Moles/Vol] 102 mmol/L Normal 99-110 [facility] Comment on above: Performed By: #### C MPX #### MD MICAH LUBIN ([id number]) [facility] ([facility]) [address] [place] [address] Magnesium [Moles/Vol] 3.8 mmol/L Normal 3.5-5.1 [facility] Comment on above: Performed By: #### C MPX #### MD MICAH LUBIN ([id number]) [facility] ([facility]) [address] [place] [address] [place] Sodium [Moles/Vol] 139 mmol/L Normal 136-145 [facility] Comment on above: Performed By: #### C MPX #### MD MICAH LUBIN ([id number]) [facility] ([facility]) [address] [place] [address] Comprehensive metabolic 2000 panelon 12-12-2024 Albumin [Mass/Vol] 4.6 g/dL 3.4 - 5.0 g/dL [facility] Albumin/Globulin [Mass ratio] 1.5 {ratio} 1.1 - 2.2 [facility] ALP [Catalytic activity/Vol] 127 U/L 40 - 129 U/L [facility] ALT [Catalytic activity/Vol] 18 U/L 10 - 40 U/L [facility] Anion gap [Moles/Vol] 12 mmol/L 3 - 16 [facility] AST [Catalytic activity/Vol] 28 U/L 15 - 37 U/L [facility] Bilirubin [Mass/Vol] 0.3 mg/dL 0.0 - 1 .0 mg/dL [facility] Calcium [Mass/Vol] 10.3 mg/dL 8.3 - 10. 6 mg/dL [facility] Chloride [Moles/Vol] 102 mmol/L 99 - 11 0 mmol/L [facility] CO2 [Moles/Vol] 25 mmol/L 21 - 32 mmol/L [facility] Creatinine [Mass/Vol] 1.0 mg/dL 0.8 - 1.3 mg/dL [facility] GFR/1.73 sq M.predicted CKD-EPI (S/P/Bld) [Vol rate/Area] 84 [facility] Comment on above: >=60 Pediatric calculator link https://www.kidney.org/professionals/kdoqi/gfr_calculatorped Effective Dec [...] following therapy that affects renal tubular secretion. Glucose [Mass/Vol] 103 mg/dL High 70 - 99 mg/dL [facility] Interpretation and review of laboratory results Abnormal [facility] Potassium [Moles/Vol] 3.8 mmol/L 3.5 - 5.1 mmol/L [facility] Protein [Mass/Vol] 7.7 g/dL 6.4 - 8.2 g/dL [facility] Sodium [Moles/Vol] 139 mmol/L 136 - 145 mmol/L [facility] Urea nitrogen [Mass/Vol] 18 mg/dL 7 - 20 mg/dL [facility] D-Dimer Quanton 12-12-2024 D-Dimer Quant 0.42 ug/mL FEU Normal 0.00-0.60 [facility] Comment on above: Result Comment: Effe ctive 08/06/21 the D-Dimer methodology has changed. Please note the reference range and unit of measure are significantly different. STA-Liatest D-Dimer is an immuno-turbidimetric assay for the quantitative determination of D-Dimer in human citrated venous plasma on Memopal Coagulation systems for use in conjunction with [...] Normal cutoff value for DVT is <0.50 ???g/ml FEU. Age specific cutoff values are calculated over the age of 50 by adding 0.01 to the normal cutoff value (i.e., 51 years of age cutoff value is <0.51 ???g/ml FEU)??? Performed By: #### D RUTH #### MD MICAH LUBIN ([id number]) [facility] ([facility]) [address] [place] [address] D-Dimer, Quantitativeon 11-15 D-Dimer, Quant 0.42 [facility] Comment on above: Effective 08/06/21 th e D-Dimer methodology has changed. Please note the reference range and unit of measure are significantly different. STA-Liatest D-Dimer is an immuno-turbidimetric assay for the quantitative determination of D-Dimer in human citrated venous plasma on Memopal Coagulation systems for use in conjunction with [...] age cutoff value is <0.51 g/ml FEU) [facility] Troponin To n 12-12-2024 High Sensitivity Troponin T <[address] [place] [address] Comment on above: Result Comment: The high-sensitivity troponin T result should not be compared with other troponin methodologies. Performed By: #### T RP5 #### MD MICAH LUBIN ([id number]) [facility] ([facility]) [address] [place] [address] High Sensitivity Troponin T <[address] [place] [address] Comment on above: Result Comment: The high-sensitivity troponin T result should not be compared with other troponin methodologies. Performed By: #### T RP5 #### MD MICAH LUBIN ([id number]) [facility] ([facility]) [address] [place] [address] No Panel Informationon 12-12 [facility] Hang w/ Troponinon 12-12-2024 Troponin, High Sensitivity ng/L 0 - 22 ng/L [facility] Comment on above: The high-sensitivity troponin T result should not be compared with other troponin methodologies. [facility] Troponin, High Sensitivity ng/L 0 - 22 ng/L [facility] Comment on above: The high-sensitivity troponin T result should not be compared with other troponin methodologies. XR CHEST (2 VW)on 12-12-2024 XR CHEST (2 VW) EXAM: 2 VIEW(S) XRAY OF THE CHEST 12/12/2024 05:14:59 PM COMPARISON: None available. CLINICAL HISTORY: chest pain. FINDINGS: LUNGS AND PLEURA: No focal pulmonary opacity. No pulmonary edema. No pleural effusion. No pneumothorax. HEART AND MEDIASTINUM: No acute abnormality of the cardiac and mediastinal silhouettes. BONES AND SOFT TISSUES: Degenerative changes in thoracic spine. No acute osseous abnormality. IMPRESSION: 1. No acute process. Interpreted by: Marlo Aponte MD Signed by: Marlo Aponte MD 12/12/24 Final result Normal [facility] Comment on above: Order Comment: Reaso n for exam:->chest pain XR Chest 2 Viewson 1. No acute process. [facility] EXAM: 2 VIEW(S) XRAY OF THE CHEST 12/12/2024 05:14:59 PM COMPARISON: None available. CLINICAL HISTORY: chest pain. FINDINGS: LUNGS AND PLEURA: No focal pulmonary opacity. No pulmonary edema. No pleural effusion. No pneumothorax. HEART AND MEDIASTINUM: No acute abnormality of the cardiac and mediastinal silhouettes. BONES AND SOFT TISSUES: Degenerative changes in thoracic spine. No acute osseous abnormality. [facility] Marlo Aponte MD - 12/12/2024 EXAM: 2 [...] osseous abnormality. IMPRESSION: 1. No acute process. [facility] Radiology Study observation (narrative) [facility] XR Chest 2 ViewsOrdered By: Marlo Aponte on 12-12-2024 [facility] Work Phone: Office Visiton 11-17-2024 Follow-up visit [id number] Shan Franco 1960 M Date Provider Department Center 11/17/2024 [id number], ADAM JANICE Hanson Family History Problem Relation Age of Onset Other Mother Family Status - Relation Status Age at Mother Alive Father Alive Level of Service:68228 [place] OFFICE/OUTPATIENT ESTABLISHED MOD MDM 30 MIN Reason for Visit and Comments: Follow-up [101321] - 1 year Congestive Heart Failure [127] Benigh hypertensive cardiomyopathy with heart failure [Other] Coronary Artery Disease [187] 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 [Other] ST elevation myocardial infartion unspecified artery [Other] Normal [facility] Office Visiton 12-24-2023 Follow-up visit [id number] Shan Franco 1960 M Date Provider Department Center 12/24/2023 [id number] CARD [facility] Family History Problem Relation Age of Onset Other Mother Family Status - Relation Status Age at Mother Level of Service:01386 [place] OFFICE/OUTPATIENT ESTABLISHED LOW MDM 20 MIN Normal [facility] XR wrist RT min 3V*on 2023 XR wrist RT min 3V* [facility] [place] [address] [place] [address] XRay Report Signed Patient: Shan Franco MR#: [id number] : 1960 Acct:[id number] Age/Sex: 63 / M ADM Date: 09/02/23 Loc: [facility] Room: Type: [facility] Attending Dr: Cecilia Van APRN Copies to: [...] Wally Sullivan M.D.09/02/2023 10:31 AM Dictation Location: [place] [address] Transcribed By: [facility] 09/02/23 1031 Dictated By: Wally Sullivan DO 09/02/23 1029 Signed By: 09/02/23 1031 Normal [facility] COVID/FLU RT-PCRon 3 SARS-CoV-2 (COVID-19) RNA HERMILO+probe Ql (Unsp spec) Negative [employer] Other COVID/FLU RT-PCR Negative [facility] [employer] Other Covid-19 PCR ([facility])on 08-14 SARS-CoV-2 (COVID-19) RNA HERMILO+probe Ql (Unsp [...] for this test is supported by the [place] of Health and Human Service's (HHS's) declaration [...] consistent with SARS-CoV-2. Performed By: #### C [facility] #### [facility] [address] [place] [address] Celina Soto RAPID COVID-19 ANTIGENon EUA Statement SEE BELOW Normal [facility] Comment on above: Result Comment: [...] #### C VDAG #### [facility] [address] [place] [address] Celina Soto SARS-CoV-2 (COVID-19) RNA HERMILO+probe Ql (Unsp spec) Negative Normal NEGATIVE [facility] Comment on above: Result Comment: Nega tive results are presumptive. They do not preclude infection and should not be used as the sole basis for treatment decisions. Additional confirmatory testing by a molecular method should be considered. Performed By: #### C VDAG #### [facility] [address] [place], [place] [address] Celina Soto [facility] METABOLIC PANE L WITH GFRon 03-25-2017 Alanine aminotransferase (ALT) 17 U/L Normal 5-59 [facility] Albumin 4.5 g/dL Normal 3.2-5.3 [facility] Comment on above: Result Comment: [facility] [employer] [address] [place], [place] [address]Laboratory Director: Ben Aguilar M.D.CLIA No. [id number] CAP Accreditation No. [id number] ALK PHOS 86 IU/L Normal 35-121 Pathology [...] mass conc 90 mg/dL Normal 70-100 [facility] [employer] [facility] Comment on above: Result Comment: DIAG NOSTIC THRESHOLDS FOR DIABETES AND IMPAIRED FASTING GLUCOSE (IFG) FASTING PLASMA GLUCOSE NORMAL <100 mg/dL IFG 100-125 mg/dL DIABETES >/= 126 mg/dL Potassium molar conc 4.3 mmol/L Normal 3.5-5.4 [facility] [employer] Sodium 138 mmol/L Normal 134-147 Pathology [...] LDL to HDL Ratio 2.8 Normal <3.5 [employer] [facility] LDL-CHOL, CALCULATED 159 mg/dL High <130 [facility] [employer] Comment on above: Result Comment: LDL CHOLESTEROL REFERENCE RANGE FOR 0-19 YEARS: DESIRABLE <110 mg/dL, BORDERLINE 110-129, HIGH RISK >130 LDL CHOLESTEROL REFERENCE RANGE FOR ADULTS: DESIRABLE <100 mg/dL, BORDERLINE 130-159, HIGH RISK >160REFERENCE RANGES REVISED 08/23/15 ACCORDING TO NCEP GUIDELINES Triglyceride 193 mg/dL High <150 [facility] VLDL-CHOL, CALCULATED 39 mg/dL High <30 [employer] Vital Signs Date Time Vital Sign Value Performing Clinician Facility 12-12-2024 16:29-0400 Body height 177.8 cm Tatiana Khoury MD Work Phone: [facility] 12-12-2024 16:29-0400 Body mass index (BMI) [Ratio] 25.54 kg/m2 Tatiana Khoury MD [facility] 12-12-2024 16:29-0400 Body temperature 98.01 [degF] Tatiana Khoury MD Work Phone: [facility] 12-12-2024 16:29-0400 Body weight 80.74 kg Tatiana Khoury MD [facility] [employer] [facility] 12-12-2024 16:29-0400 Diastolic blood pressure 84 mm[Hg] Tatiana Khoury MD Work Phone: [facility] 12-12-2024 16:29-0400 Heart rate 92 /min Tatiana Khoury MD [facility] 12-12-2024 16:29-0400 Respiratory rate 16 /min Tatiana Khoury MD Work Phone: [facility]/ 12-12-2024 16:29-0400 SaO2% (BldA) [Mass fraction] 97 % Tatiana Khoury MD Work Phone: [facility] 12-12-2024 16:29-0400 Systolic blood pressure 123 mm[Hg] Tatiana Khoury MD Work Phone: [facility] 09-02-2023 09:33-0400 Body height 177.8 cm PHYSICIAN NO [facility] 09-02-2023 09:33-0400 Body mass index (BMI) [Ratio] 25.4 kg/m2 PHYSICIAN NO [facility] 09-02-2023 09:33-0400 Body temperature 98.6 [degF] PHYSICIAN NO [facility] 09-02-2023 09:33-0400 Body weight 80.45 kg PHYSICIAN NO [facility] 09-02-2023 09:33-0400 Diastolic blood pressure 73 mm[Hg] PHYSICIAN NO [facility] 09-02-2023 09:33-0400 Heart rate 74 /min PHYSICIAN NO [facility] 09-02-2023 09:33-0400 Respiratory rate 18 /min PHYSICIAN NO [facility] 09-02-2023 09:33-0400 SaO2% (BldA) [Mass fraction] 97 % PHYSICIAN NO [facility] 09-02-2023 09:33-0400 Systolic blood pressure 114 mm[Hg] PHYSICIAN NO [facility] 12-06-2022 09:30-0400 Body height 177.8 cm Cecilia Van Other [employer] Other 12-06-2022 09:30-0400 Body mass index (BMI) [Ratio] 25.37 kg/m2 Cecilia Van Other [employer] Other 12-06-2022 09:30-0400 Body temperature 97.5 [degF] Cecilia Van Other [employer] Other 12-06-2022 09:30-0400 Body weight 80.2 kg Cecilia Van Other [employer] Other 12-06-2022 09:30-0400 Diastolic blood pressure 75 mm[Hg] Cecilia Van Other [employer] Other 12-06-2022 09:30-0400 Respiratory rate 18 /min Cecilia Van Other [employer] Other 12-06-2022 09:30-0400 SaO2% (BldA) [Mass fraction] 97 % Cecilia Van Other [employer] Other 12-06-2022 09:30-0400 Systolic blood pressure 113 mm[Hg] Cecilia Van Other [employer] Other 06-23-2022 02:09-0400 Diastolic blood pressure 92 mm[Hg] Curt Lewis DO Work Phone: [employer] 06-23-2022 02:09-0400 Respiratory rate 18 /min Curt Lewis DO Work Phone: [facility] [employer] 06-23-2022 02:09-0400 Systolic blood pressure 142 mm[Hg] Curt Lewis DO Work Phone: [facility] [employer] 06-23-2022 02:06-0400 Body height 177.8 cm Curt Lewis DO Work Phone: [employer] 06-23-2022 02:06-0400 Body mass index (BMI) [Ratio] 26.54 kg/m2 Curt Lewis DO Work Phone: [facility] [employer] 06-23-2022 02:06-0400 Body temperature 98.8

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
--- NOTE | 2024-12-29 10:00 | CA_ITS ---
Patient Name: HIMANSHU ROSALES MR#: [id number] : 1960 Exam Date: 12/29/2024 Ordering Doctor: MATT MENDENHALL ECHOCARDIOGRAM REPORT PROCEDURE: CA ECHO DOPPLER COMPLETE INDICATIONS: Chest pain, heart failure, [place], cardiac stent, smoker COMPARISON: None. DESCRIPTION: COMPLETE ECHOCARDIOGRAM Real-time transthoracic echocardiography with 2D, M-mode, spectral and color flow Doppler performed. QUALITY: Technical quality was good. LEFT VENTRICLE: Normal chamber size. Thickened septal wall. Normal systolic function. Estimated left ventricular ejection fraction is 60%. LV EF: Normal left ventricular ejection fraction, (>55%). DIASTOLIC: Normal diastolic function. ATRIAL SEPTUM: Visually appears intact. LEFT ATRIUM: Normal chamber size. RIGHT ATRIUM: Normal chamber size. RIGHT VENTRICLE: Normal chamber size. Normal right ventricular systolic function. TRICUSPID VALVE: Normal mobility and thickness. No stenosis with no regurgitation. Unable to assess right-sided pressures due to lack of measurable tricuspid regurgitation. MITRAL VALVE: Normal mobility and thickness. No evidence of mitral valve stenosis. There is no mitral annular calcification. No mitral regurgitation. AORTIC VALVE: Normal trileaflet appearance. No visible sclerosis. Normal leaflet mobility. No evidence of aortic valve stenosis. No aortic regurgitation. AORTIC ROOT: Normal diameter and appearance, measuring 3.4 cm. Ascending aorta is normal in size, measuring 2.9 cm. PULMONIC VALVE: Normal thickness and mobility. No stenosis. No regurgitation. PERICARDIUM: No evidence of pericardial effusion. IVC: Collapses with inspiration. IVC is normal in size. PLEURA: CONCLUSION: 1. Normal left ventricular size and systolic function. Estimated LVEF is 60%. 2. Normal right ventricular size and systolic function. 3. Normal diastolic function. 4. No significant valvular dysfunction. 5. Unable to assess right-sided pressures due to lack of measurable tricuspid regurgitation. Adult Echocardiography Procedure Report Left Ventricle LVEDD (3.7 - 5.6 cm): 4.63 cm LVESD (2.2 - 4.0 cm): 3.13 cm LVIVS thickness (0.6 - 1.2 cm): 1.21 cm LVPW thickness (0.5 - 1.0 cm): 0.78 cm e': 0.13 m/s E - e': 4.75 LVOT Max Gradient: 3.51 mm[Hg] LVOT Area (cm2): 0.94 m/s Peak Velocity (LVOT): 0.94 m/s Mean Velocity (LVOT): 0.66 m/s LVOT Diameter 2.26 cm Left Ventricular Ejection Fraction: 60 % Left Atrium LA Volume Index (2D A2C): 21.42 ml/m2 Left Atrium Systolic Dimension: 3.61 cm Mitral Valve MV E to A Ratio: 0.67 Mitral Valve A-Wave Peak Velocity: 0.91 m/s Mitral Valve E-Wave Peak Velocity: 0.61 m/s Right Ventricle Aorta AO Root Diam: 3.38 cm Ascending Ao Diam: 2.87 cm Aortic Valve AoV Area (Peak Angel Luis): 1.96 cm2, 1.96 cm2 AoV Area (VTI): 2.01 cm2, 2.01 cm2 Peak Velocity(Antegrade Flow): 1.91 m/s Peak Gradient(Antegrade Flow): 14.61 mm[Hg] Mean Velocity(Antegrade Flow): 1.18 m/s Mean Gradient(Antegrade Flow): 6.79 mm[Hg] Velocity Time Integral: 38.42 cm Tricuspid Valve Pulmonic Valve Peak Gradient: 6.21 mm[Hg], 4.40 mm[Hg] Right Atrium Right Atrium Systolic Pressure: 36.77 ml, 36.77 ml Dictated by: Chevy Gale M.D. on 12/29/2024 at 18:16 Approved by: Chevy Gale M.D. on 12/29/2024 at 18:20
== END 2024-12-29 09:46 | disposition home or self-care (01) ==
LOC: CARD 09:46
DX: R07.89 Other chest pain (principal); I50.32 Chronic diastolic (congestive) heart failure
CPT/HCPCS: 93306

== ENCOUNTER 2025-03-05 08:55 | Emergency (ER) | payer OTHER, SELFPAY ==
[2025-03-05 09:00] VITALS: BP 121/75; PULSE 97; TEMP 36.6; O2SAT 96; BMI 26.1
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
--- OUTSIDE RECORDS SUMMARY | 2025-03-05 09:50 | XMS_ITS | Clinical Summary ---
Author Organization [facility] Address [address] [place] [address] Care Team Providers Care Parts Advisor Name Role Phone Unavailable Primary Care Provider Unavailabl e Allergies Active AllergyReactionsCriticalityNoted SyttFukznrdrEktbxzlp59/09/2021 Medications MedicationSigDispense QuantityRefillsLast FilledStart DateEnd DateStatus nicotine (Nicoderm CQ) 21 mg/24 hr patch Indications:STEMI (ST elevation myocardial infarction) (CMS/HCC)Place 1 patch on the skin in the morning. Do not start before December 20, 2022. 90 patch 3Active Additional Information Patient not taking.Reported on 11/17/2024 isosorbide mononitrate ER (Imdur) 30 mg 24 hr tablet Indications:Chest pain, unspecified type,Coronary artery disease of afogn[place] artery of afogn[place] heart with stable angina pectorisTake 1 tablet (30 mg) by mouth in the morning. Do not crush or chew. 90 tablet /ctive Additional Information Patient not taking.Reported on 11/17/2024 clopidogrel (Plavix) 75 mg tablet Indications:STEMI (ST elevation myocardial infarction) (CMS/HCC)Take 1 tablet (75 mg) by mouth in the morning. 90 tablet /6Active atorvastatin (Lipitor) 80 mg tablet Indications:STEMI (ST elevation myocardial infarction) (CMS/HCC)Take 1 tablet (80 mg) by mouth at bedtime. 90 tablet /6Active ezetimibe (Zetia) 10 mg tablet Indications:Coronary artery disease involving afognak coronary artery of af[place] heart with other form of angina pectorisTake 1 tablet (10 mg) by mouth in the morning. 90 tablet 9/ctive metoprolol succinate XL (Toprol-XL) 25 mg 24 hr tablet Indications:Coronary artery disease involving afogn[place] coronary artery of afogn[place] heart with other form of angina pectoris,Other chest pain,Benign hypertensive heart disease with heart failure (CMS/HCC)Take 1 tablet (25 mg) by mouth in the morning. Do not crush or chew. 90 tablet ctive sacubitril-valsartan (Entresto) 24-26 mg tablet Indications:Heart failure with improved ejection fraction (HFimpEF) (CMS/HCC) Take 0.5 tablets by mouth two times daily. 90 tablet ctive Active Problems ProblemNoted DateDiagnosed DateMixed mgdjkuvqavpyyq55/07/2023 Assessment & Plan (04/28/2023 5:20 PM EST): Continue lipitor 80 mg Script for CMP and lipid profile given to pt Assessment & Plan (12/23/2022 1:28 PM EDT): Continue liptor Chronic combined systolic and diastolic congestive heart failure, NYHA class 2 12/19/2022 Assessment & Plan (04/28/2023 5:22 PM EST): NYHC II- recovered EF Continue GDMT- continue ASA, lipitor, toprol, entresto- D/W pt may stop farxiga and see if symptomsof constipation/anal leaking and foul smelling urine improves- if not recommended pt to F/U with PCP for further investigations Diuretic therapy Monitor daily weights, I&O, fluid restriction 1.5-2L/day, renal function and electrolytes- please maintain K+>4 and Mg > 2 Assessment & Plan (12/23/2022 1:26 PM EDT): NYHC II-IIIb- currently remains euvolemic without exacerbation Continue GDMT- ASA, lipitor, farxiga, toprol, entresto- Sending pt today for repeat BMP prior to further optimization of GDMT with aldactone. Diuretic therapy- farxiga- pt is euvolemic currently Monitor daily weights, I&O, fluid restriction 1.5-2L/day, renal function and electrolytes- please maintain K+>4 and Mg > 2 Benign hypertensive cardiomyopathy with heart aotakxf2812/19/2022 Assessment & Plan (04/28/2023 5:23 PM EST): HTN well controlled continue all meds Assessment & Plan (12/23/2022 1:26 PM EDT): HTn controlled- borderline labile- denied lightheadedness/dizziness or syncope; Does admit that he tires out with activity quicker than before. 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 ST elevation myocardial infarction (STEMI), unspecified vfbbip3412/17/2022 Assessment & Plan (12/23/2022 1:28 PM EDT): Coronary artery disease is stable Resolved Problems ProblemNoted DateDiagnosed DateResolved DateHypertriglyceridemia without xuanllkdzaqhdegzutjy93/07/202310/07/2023 Encounters DateTypeDepartmentCare QehwCqpcbkcokht52/20/2025Orders Only [facility] [place] [address] [place] [address] Provider, MD Yadi from Last 3 Months Family History Medical HistoryRelationNameCommentsPFOMotherRelationNameStatusCommentsFather AliveMotherAlive Social History Tobacco UseTypesPacks/DayYears UsedDateSmoking Tobacco: Every DayCigarettes Smokeless Tobacco: NeverAlcohol UseStandard Drinks/WeekCommentsYes0 (1 standard drink = 0.6 oz pure alcohol)occasionalHumiliation, Afraid, Rape, and Kick questionnaireAnswerDate RecordedWithin the last year, have you been afraid of your partner or ex-partner?No12/17/2022Emotionally AbusedNot on file12/17/2022 Physically AbusedNot on file12/17/2022Sexually AbusedNot on file12/17/2022 Overall Financial Resource Strain (CARDIA)AnswerDate RecordedHow hard is it for you to pay for the very basics like food, housing, medical care, and heating?Not very hard12/17/2022UT Safety & EnvironmentAnswerDate RecordedWithin the last year, have you been afraid of your partner or ex-partner?No12/17/2022Emotionally AbusedNot on file12/17/2022hysically AbusedNot on file12/17/2022Sexually Abused Not on file12/17/2022hysically or Sexually AbusedNot on file12/17/2022 TransportationAnswerDate RecordedIn the past 12 months, has lack of transportation kept you from medical appointments or from getting medications?No 12/17/2022Lack of Transportation (Non-Medical)Not on file12/17/2022Housing Stability Vital SignAnswerDate RecordedUnable to Pay for Housing in the Last YearNot on file12/17/2022Number of Places Lived in the Last YearNot on file 12/17/2022In the last 12 months, was there a time when you did not have a steady place to sleep or slept in sebecelter (including now)?No12/17/2022Hunger Vital SignAnswerDate RecordedWithin the past 12 months, you worried that your food would run out before you got the money to buymore.Never true12/17/2022Ran Out of Food in the Last YearNot on file12/17/2022Sex and Gender InformationValueDate RecordedSex Assigned at MdeflNtfs94/06/2023 12:46 PM EDTLegal EjpTdpf64/05/2023 5:40 PM EDTGender XpjlfakeHofn96/06/2023 12:46 PM EDTSexual Orientation Heterosexual or Hjmgcqyz06/06/2023 12:46 PM EDT Last Filed Vital Signs Vital SignReadingTime TakenCommentsBlood Bzzxcnaq942/7809 3:20 PM EDT Aobwl2342 3:20 PM UXMObgtdzbuwnx74 ??C (96.8 ??F)12/19/2022 12:10 PM EDT Respiratory Ilwb9133 12:10 PM EDTOxygen Tvvslucdfi34%11/17/2024 3:20 PM EDTInhaled Oxygen Concentration--Lfmvju51.5 kg (184 lb)11/17/2024 3:20 PM EDT Gmylem808.8 cm (5' 10 )11/17/2024 3:20 PM EDTBody Mass Index26.409 3:20 PM EDT Plan of Treatment Health MaintenanceDue DateLast DoneCommentsCT Gjmvhmhxzchz53/06/1962FIT-DNA 1961FIT1961FOBT1961 5596Rttoxwkracilw96/06/1962epression Screening 1973Zoster Vaccines (1 of 2)05/19/2011Pneumococcal Vaccine: Pediatrics (0 to 5 Years) and At-Risk Patients (6 to 64 Years) (2 of 2 - PCV)12/20/2017 12/20/2016COVID-19 Vaccine (1 - season)2024Influenza Vaccine (#1) 51, 01/09/20175512Uftenlkjznc56Colorectal Cancer Tthsgpchy96/30/2027dult Mwlbqsg09/01/2023, 12/20/2016HIB VaccinesAged OutNo longer eligible based on patient's age to complete this topicHPV Vaccines Aged OutNo longer eligible based on patient's age to complete this topicIPV VaccinesAged OutNo longer eligible based on patient's age to complete this topic Meningococcal B VaccineAged OutNo longer eligible based on patient's age to complete this topicMeningococcal VaccineAged OutNo longer eligible based on patient's age to complete this topicRotavirus VaccinesAged OutNo longer eligible based on patient's age to complete this topic Medical Devices ImplantedTypeAreaManufacturerDevice IdentifierShelf Expiration DateModel / Serial / Wil [place] 3.50 X 28 - [id number] - [id number] Implanted:Qty: 1 on 12/17/2022 by Talya Garg [facility] [place]ent[place] [id number]/ [id number] / [id number] / [id number] Procedures Procedure NamePriorityDate/TimeAssociated DiagnosisCommentsCOMPLETE TRANSTHORACIC ECHO (TTE) W/WO IMAGING AGENT, STRAIN, 3D, BUBBLE STUDYRoutine 12/29/2024 9:08 AM EDTfrom Last 3 Months Results * Complete Echo (TTE) w/wo Imaging Agent, Strain, 3D, Bubble Study (12/29/2024 9:08 AM EDT)Anatomical RegionLateralityModalityUltrasound Narrative Authorizing ProviderResult TypeResult StatusHistorical Provider MDCV ECHO PROCEDURESFinal Result from Last 3 Months Insurance Advance Directives * Full Code (Latest Code Status on File) Date ActivatedDate SztdxkhahifFqcddxtv83/5/2023 11:55 PM10 4:26 PM * Full Code Date ActivatedDate SdxlzxnsxmgRwijjiqp30/5/2023 11:55 PM10 11:55 PM
--- OUTSIDE RECORDS SUMMARY | 2025-03-05 09:50 | XMS_ITS | Clinical Summary ---
Author Organization [facility] Address [address] [place] [address] Care Team Providers Care Ramp Agent Name Role Phone Unallocated, Noms Provider Primary Care Provi tio Allergies Active AllergyReactionsCriticalityNoted MjswMumlzztbCxcderxx65/09/2021 Medications MedicationSigDispense QuantityRefillsLast FilledStart DateEnd DateStatus isosorbide mononitrate ER (Imdur) 30 MG 24 hr tablet Take 30 mg by mouth in the morning.06/10/2023ctive ezetimibe (Zetia) 10 MG tablet Take 10 mg by mouth in the morning.Active atorvastatin (Lipitor) 80 MG tablet Take 80 mg by mouth at oirfple3612/19/2022ctive metoprolol succinate XL (Toprol-XL) 25 MG 24 hr tablet Take 25 mg by mouth in the morning.12/20/2022ctive Entresto 24-26 MG tablet Take 1 tablet by mouth in the morning and 1 tablet before bedtime.Active methylPREDNISolone (Medrol Dospak) 4 MG tablets Indications:Right wrist pain,Swelling of right wristFollow schedule on package instructions 21 tablet 09/06/2023ctive Social History Tobacco UseTypesPacks/DayYears UsedDateSmoking Tobacco: Every DayCigarettes Smokeless Tobacco: Never Tobacco Cessation:Ready to Q uit: No; Counseling Given: No Alcohol UseStandard Drinks/WeekCommentsNever0 (1 standard drink = 0.6 oz pure alcohol)Sex and Gender InformationValueDate RecordedSex Assigned at BirthNot on fileLegal CznRmjl54/01/2023 4:54 PM EDTGender IdentityNot on fileSexual OrientationNot on file Last Filed Vital Signs Vital SignReadingTime TakenCommentsBlood Pressure--Pulse--Temperature-- Respiratory Rate--Oxygen Saturation--Inhaled Oxygen Concentration--Gcnety26.8 kg (176 lb)09/06/2023 11:24 AM AXTGktztw370.8 cm (5' 10 )09/06/2023 11:24 AM EDT Body Mass Index25.25009/06/2023 11:24 AM EDT Plan of Treatment Health MaintenanceDue DateLast DoneCommentsCT Wrvodrrplptx18/06/1962FIT-DNA 1961FIT1961FOBT1961 0941Utamwjschkqsp11/06/1962neumococcal Vaccine: Pediatrics (0 to 5 Years) and At-Risk Patients (6 to 64 Years) (1 of 2 - PCV)1980COVID-19 Vaccine (1 - 2024- season)2024Influenza Vaccine (#1)ColonoscopyColorectal Cancer Zeavyfkwg38/30/2027 Insurance Care Teams Team MemberRelationshipSpecialtyStart DateEnd Date Unallocated, [place], [address] [place], [place] [id number] PCP - GeneralFamily Medicine09/06/23
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
--- OUTSIDE RECORDS SUMMARY | 2025-03-05 09:50 | XMS_ITS | Clinical Summary ---
Author Organization [facility] Address [address], [address] [place] [address] Care Team Providers Care Ict Business Analyst Name Role Phone Riley Aden Primary Care Provider [phone] Allergies No known active allergies Medications MedicationSigDispense QuantityRefillsLast FilledStart DateEnd DateStatus atorvastatin (LIPITOR) 10 MG tablet Take 1 tablet by mouth daily 90 tablet 03/31/2017Active varenicline (CHANTIX STARTING MONTH ) 0.5 MG X 11 & 1 MG X 42 tablet Take by mouth. 1 each 03/31/2017Active Resolved Problems ProblemNoted DateDiagnosed DateResolved DateColon cancer pxebmvagn11/29/2017 06/24/2017 Encounters DateTypeDepartmentCare KguzEiwxfplmumw69/30/2025 4:18 PM EDT - 12/12/2024 8:36 PM EDTEmergenOur [facility] [address] [place] [address] Dimitris Khoury MD Acute chest pain (Primary Dx) Discharge Disposition: Home or Self Care12/12/2024Travelfrom Last 3 Months Immunizations ImmunizationAdministration DatesNext DueInfluenza, AFLURIA (age 3 y+), FLUZONE, (age 6 mo+), Quadv MDV, 0.5mL01/09/2017Pneumococcal, PPSV23, PNEUMOVAX 23, (age 2y+), SC/IM, 0.5mL12/20/2016TDaP, ADACEL (age 10y-64y), BOOSTRIX (age 10y+), IM, 0.5mL06/23/2022,12/20/2016 Family History Medical HistoryRelationNameCommentsElevated LipidsFatherNo Known ProblemsMother OtherSister 1MR, seizures, cerebral palsy, hydrocephalusThyroid DiseaseSister 2 RelationNameStatusCommentsFatherAliveMotherAliveSister 1AliveSister 2Alive Social History Tobacco UseTypesPacks/DayYears UsedDateSmoking Tobacco: Every DayCigarettes0.525 Smokeless Tobacco: Never Tobacco Cessation:Ready to Q uit: Not Asked; Counseling Given: Not Answered Alcohol UseStandard Drinks/UdcyMtvijgunYkp23 (1 standard drink = 0.6 oz pure alcohol)1-2 beers daily, DUI x4; 4 years ago last.Interpersonal Safety Domain Source: IP Abuse ScreeningAnswerDate RecordedPhysical mgxsnBijrbn90/30/2025 Verbal xpirxOblxfq52/30/2025Emotional micihCbnqam29/30/2025Financial abuseDenies 12/12/2024Sexual abuseNot on file12/12/2024Sex and Gender InformationValueDate RecordedSex Assigned at BirthNot on fileLegal YdoZhjp0009/20/2012 12:57 PM EDT Gender IdentityNot on fileSexual OrientationNot on file Last Filed Vital Signs Vital SignReadingTime TakenCommentsBlood Elqmhedo663/8409 4:29 PM EDT Mpsei967512/12/2024 4:29 PM KZOXtrpyoarbit85.7 ??C (98 ??F)12/12/2024 4:29 PM EDT Respiratory Drif010212/12/2024 4:29 PM EDTOxygen Emrkcpuaia46%12/12/2024 4:29 PM EDTInhaled Oxygen Concentration--Ixsfse98.7 kg (178 lb)12/12/2024 4:29 PM EDT Vuvlqb891.8 cm (5' 10 )12/12/2024 4:29 PM EDTBody Mass Index25.54012/12/2024 4:29 PM EDT Plan of Treatment Health MaintenanceDue DateLast DoneCommentsDepression Mehpfz5105/18/1973Diabetes atycdt6405/18/1996FIT/FOBT: Average risk2006Fecal-DNA (Cologuard): Average risk2006Sigmoidoscopy/CT lljygzxepnpt90/06/2007Shingles vaccine (1 of 2) 05/19/2011Pneumococcal 50+ years Vaccine (2 of 2 - PCV) Chhmxz16, 01/01/20177686Idbvxhpegtd39/30/016083, 01/11/2017Colorectal Cancer Wacwxp2101/11/2022Flu vaccine (#1) COVID-19 Vaccine (1 - season)2024DTaP/Tdap/Td vaccine (3 - Td or Tdap), 12/20/2016Respiratory Syncytial Virus (RSV) or age 60 yrs+ (1 - 1-dose 75+ series)2036Pneumococcal 0-49 years Vaccine Wewqcwfbgazw13/08/2017HIV cgdhqvAstlszrrg05/20/2017Hepatitis C screenCompleted 01/01/2017Prostate Specific Antigen (PSA) Screening or MonitoringDiscontinued 01/01/2017Hepatitis A vaccineAged OutNo longer eligible based on patient's age to complete this topicHepatitis B vaccineAged OutNo longer eligible based on patient's age to complete this topicHib vaccineAged OutNo longer eligible based on patient's age to complete this topicMeningococcal (ACWY) vaccineAged OutNo longer eligible based on patient's age to complete this topicMeningococcal B vaccineAged OutNo longer eligible based on patient's age to complete this topic Polio vaccineAged OutNo longer eligible based on patient's age to complete this topic Procedures Procedure NamePriorityDate/TimeAssociated DiagnosisCommentsTROPONINTimed 12/12/2024 6:27 PM EDT XR CHEST (2 VW)STAT12/12/2024 5:14 PM EDT BRAIN NATRIURETIC ZIRFEUSFKJY45/30/2025 4:39 PM EDT D-DIMER, ITZFILFUHBJFMLJB61/30/2025 4:39 PM EDT COMPREHENSIVE METABOLIC PANEL W/ REFLEX TO MG FOR LOW KSTAT12/12/2024 4:39 PM EDT GRHPHJZELsldg02/30/2025 4:39 PM EDT CBC WITH AUTO TIIATFHBDCQKEWNY89/30/2025 4:36 PM EDT EKG 12-ZIFMBQQW51/30/2025 4:11 PM EDT LIPID AYSISUennoit42/09/2018 Mixed hyperlipidemia HM NBNZUIMDZSMTfzhpva02/30/2017PSA PVVKHVNDITxbtavt60/20/2017 8:54 AM EDT Wellness examination Elevated fasting glucose Elevated lipids HIV IZOWGOLkfjgja07/20/2017 8:54 AM EDT Wellness examination Elevated fasting glucose Elevated lipids HEPATITIS C IXRMVEVLSubmugm17/20/2017 8:54 AM EDT Wellness examination Elevated fasting glucose Elevated lipids from Last 3 Months or Most Recently Relevant to Health Maintenance Results * Troponin (12/12/2024 6:27 PM EDT) Only the most recent of2 resultswithin the time period is included. ComponentValueRef RangeTest MethodAnalysis TimePerformed AtPathologist Signature Troponin, High Sensitivity<60 - 22 ng/L12/12/2024 6:55 PM EDTMBELLEVUE HOSPITAL LABComment: The high-sensitivity troponin T result should not be compared with other troponin methodologies. Specimen (Source)Anatomical Location / LateralityCollection Method / Volume Collection TimeReceived TimeBLOOD SPECIMEN / Grewqey1812/12/2024 6:27 PM EDT 12/12/2024 6:32 PM EDT Narrative Authorizing ProviderResult TypeResult StatusJustin Brie Khoury MDCHEMISTRY ORDERABLESFinal ResultPerforming OrganizationAddressCity/State/ZIP CodePhone Number [facility] [address] [place] [address], [facility] [phone] * XR CHEST (2 VW) (12/12/2024 5:14 PM EDT)Anatomical RegionLateralityModality ChestComputed RadiographySpecimen (Source)Anatomical Location / Laterality Collection Method / VolumeCollection TimeReceived EoroIxzin29/30/2025 5:23 PM EDT Impressions 12/12/2024 5:23 PM [...] osseous abnormality. IMPRESSION: 1. No acute process. Authorizing ProviderResult TypeResult StatusJustin Brie Khoury MDIMMerline DIAGNOSTIC IMAGING ORDERABLESFinal Result * (ABNORMAL) Comprehensive Metabolic Panel w/ Reflex to MG (12/12/2024 4:39 PM EDT)ComponentValueRef RangeTest MethodAnalysis TimePerformed AtPathologist AnaezsyvxBpheta664731 - 145 mmol/L12/12/2024 4:57 PM [facility] LABPotassium reflex Magnesium3.83.5 - 5.1 mmol/L12/12/2024 4:57 PM [facility] YGQHdinqfmw01950 - 110 mmol/L12/12/2024 4:57 PM [facility] FONYS53177 - 32 mmol/L12/12/2024 5:08 PM [facility] LABAnion Qlc662 - 1609/ 5:08 PM [facility] TYAFqdyjic997(H)70 - 99 mg/dL12/12/2024 5:08 PM [facility] HNYCVL089 - 20 mg/dL12/12/2024 5:08 PM [facility] LABCreatinine1.00.8 - 1.3 mg/dL 12/12/2024 5:08 PM [facility] LABEst, Glom Filt Rate84 12/12/2024 5:08 PM [facility] LABComment: >=60 Pediatric calculator link https://www.kidney.org/professionals/kdoqi/gfr_calculatorped Effective Dec 15, 2021 These results are not intended for use in patients <18 years of age. eGFR results are calculated without a race factor using the 2020 CKD-EPI equation. ??Careful clinical correlation is recommended, particularly when comparing to results calculated using previous equations. The CKD-EPI equation is less accurate in patients with extremes of muscle mass, extra-renal metabolism of creatinine, excessive creatinine ingestion, or following therapy that affects renal tubular secretion. Ykddjqa22.38.3 - 10.6 mg/dL12/12/2024 5:08 PM [facility] LABTotal Protein7.76.4 - 8.2 g/dL12/12/2024 5:08 PM [facility] LABAlbumin4.63.4 - 5.0 g/dL12/12/2024 5:08 PM [facility] LABAlbumin/Globulin Ratio1.51.1 - 2.209 5:08 PM [facility] LABTotal Bilirubin0.30.0 - 1.0 mg/dL12/12/2024 5:08 PM [facility] LABAlkaline Gxegrohumas20782 - 129 U/L12/12/2024 5:08 PM [facility] UFOHRK5597 - 40 U/L12/12/2024 5:08 PM [facility] AMUCUV7409 - 37 U/L12/12/2024 5:08 PM EDT [facility] LABSpecimen (Source)Anatomical Location / LateralityCollection Method / VolumeCollection TimeReceived TimeBLOOD SPECIMEN / Rokezje8212/12/2024 4:39 PM EDT12/12/2024 4:45 PM EDT Narrative Authorizing ProviderResult TypeResult StatusJustin Brie Khoury MDCHEMISTRY ORDERABLESFinal ResultPerforming OrganizationAddressCity/State/ZIP CodePhone Number [facility] [address] [place] [address], [facility] [phone] * D-Dimer, Quantitative (12/12/2024 4:39 PM EDT)ComponentValueRef RangeTest MethodAnalysis TimePerformed AtPathologist SignatureD-Dimer, Quant0.420.00 - 0.60 ug/mL FEU12/12/2024 5:05 PM EDTMBELLEVUE HOSPITAL LAB Comment: Effective 08/06/21 the D-Dimer [...] age cutoff value is <0.51 g/ml FEU) Specimen (Source)Anatomical Location / LateralityCollection Method / Volume Collection TimeReceived TimeBLOOD SPECIMEN / Dqkqpyy1312/12/2024 4:39 PM EDT 12/12/2024 4:45 PM EDT Narrative Authorizing ProviderResult TypeResult StatusJustin Brie Khoury MDHEMATOLOGY ORDERABLESFinal ResultPerforming OrganizationAddressCity/State/ZIP CodePhone Number [facility] [address] [phone] * Brain Natriuretic Peptide (12/12/2024 4:39 PM EDT)ComponentValueRef RangeTest MethodAnalysis TimePerformed AtPathologist SignatureNT Pro-AKG198 - 124 pg/mL 12/12/2024 5:06 PM [facility] LABSpecimen (Source) Anatomical Location / LateralityCollection Method / VolumeCollection Time Received TimeBLOOD SPECIMEN / Kygarkt3312/12/2024 4:39 PM EDT12/12/2024 4:45 PM EDT Narrative Authorizing ProviderResult TypeResult StatusDimitris Khoury MDCHEMISTRY ORDERABLESFinal ResultPerforming OrganizationAddressCity/State/ZIP CodePhone Number [facility] [address] [phone] * CBC with Auto Differential (12/12/2024 4:36 PM EDT)ComponentValueRef RangeTest MethodAnalysis TimePerformed AtPathologist SignatureWBC9.24.0 - 11.0 K/uL 12/12/2024 3:45 PM [facility] LABRBC4.634.20 - 5.90 M/uL12/12/2024 3:45 PM [facility] TLCEmvrgcpymm06.9 13.5 - 17.5 g/dL12/12/2024 3:45 PM [facility] Mjokwdytej50.240.5 - 52.5 %12/12/2024 3:45 PM [facility] PWAQNA23.580.0 - 100.0 fL12/12/2024 3:45 PM [facility] INAOGA54.326.0 - 34.0 pg12/12/2024 3:45 PM [facility] NEPKLHG22.831.0 - 36.0 g/dL12/12/2024 3:45 PM [facility] GMAPAB43.712.4 - 15.4 %12/12/2024 3:45 PM [facility] TIYYexeqpjcw748821 - 450 K/uL12/12/2024 3:45 PM [facility] LABMPV7.85.0 - 10.5 fL12/12/2024 3:45 PM [facility] LABNeutrophils %59.5%12/12/2024 3:45 PM [facility] LABLymphocytes %29.0%12/12/2024 3:45 PM [facility] LABMonocytes %8.5%12/12/2024 3:45 PM [facility] LABEosinophils %1.8%12/12/2024 3:45 PM [facility] LABBasophils %1.2%12/12/2024 3:45 PM [facility] LABNeutrophils Absolute5.51.7 - 7.7 K/uL12/12/2024 3:45 PM [facility] LABLymphocytes Absolute2.71.0 - 5.1 K/uL 12/12/2024 3:45 PM [facility] LABMonocytes Absolute0.8 0.0 - 1.3 K/uL12/12/2024 3:45 PM [facility] Eosinophils Absolute0.20.0 - 0.6 K/uL12/12/2024 3:45 PM [facility] LABBasophils Absolute0.10.0 - 0.2 K/uL12/12/2024 3:45 PM [facility] LABSpecimen (Source)Anatomical Location / LateralityCollection Method / VolumeCollection TimeReceived TimeBLOOD SPECIMEN / Updiisz0412/12/2024 4:36 PM EDT12/12/2024 4:45 PM EDT Narrative Authorizing ProviderResult TypeResult StatusJustalie Khoury MDHEMATOLOGY ORDERABLESFinal ResultPerforming OrganizationAddressCity/State/ZIP CodePhone Number [facility] [address] [phone] * EKG 12 Lead (12/12/2024 4:11 PM EDT)ComponentValueRef RangeTest MethodAnalysis TimePerformed AtPathologist SignatureVentricular Skpl37CKABPOC MUSEAtrial Rate 91BPMSWOH MUSEP-R Sogsqyit599cdPHSC MUSEQRS Vqmvzljb94jjVRTB MUSEQ-T Interval 350msSWOH MUSEQTc Calculation (Alex)430msSWOH MUSEP Yogu77hlmtswwYOYI MUSER Qsma91vqlgvhnLGGD MUSET Ppyo97migvsojWMWZ MUSEDiagnosisNormal sinus rhythm Normal ECG Confirmed by CANDI BABIN ([id number]) on 12/14/2024 8:52:46 AM SWTN MUSESpecimen (Source)Anatomical Location / LateralityCollection Method / VolumeCollection TimeReceived Time12/12/2024 4:11 PM EDT Narrative Authorizing ProviderResult TypeResult StatusJuroxanne Khoury MDECG ORDERABLES Final ResultPerforming OrganizationAddressCity/State/ZIP CodePhone Number [facility] MUSE * Lipid Panel (03/23/2017)ComponentValueRef RangeTest MethodAnalysis Time Performed AtPathologist SignatureCholesterol, Kmxge126id/ySUUO1474 - 70 mg/dL LDL Mwrljuvjlh2572 - 160 mg/wYOzjekokqgsgfa790ge/dLChol/HDL Ratio4.6IEHV41 mg/dLSpecimen (Source)Anatomical Location / LateralityCollection Method / VolumeCollection TimeReceived TimeBLOOD SPECIMEN / Kkhtewg0003/23/2017 Narrative Authorizing ProviderResult TypeResult StatusNofrederick Garner HOT SAW HELPER - BUTADIENE CONVERTER UTILITY OPERATOR CHEMISTRY ORDERABLESFinal Result * HM COLONOSCOPY (01/11/2017) Narrative Authorizing ProviderResult TypeResult StatusHistorical Provider MDHEALTH MAINTENANCEFinal Result * PSA Screening (01/01/2017 8:54 AM EDT)ComponentValueRef RangeTest Method Analysis TimePerformed AtPathologist SignaturePSA3.72<4.1 ug/L1 10:43 AM [facility] LABComment: The Rusty ECLIA assay is used. ??Results obtained with different assay methods cannot be used interchangeably. Performed at [address] [place] [address] ([phone] Specimen (Source)Anatomical Location / LateralityCollection Method / Volume Collection TimeReceived TimeBLOOD SPECIMEN / Qbehuws7301/01/2017 8:54 AM EDT 01/01/2017 8:55 AM EDT Narrative Authorizing ProviderResult TypeResult StatusAngel Garner HOT SAW HELPER - BUTADIENE CONVERTER UTILITY OPERATOR CHEMISTRY ORDERABLESFinal ResultPerforming OrganizationAddressCity/State/ZIP CodePhone Number [address] [address] [phone] * Hepatitis C Antibody (01/01/2017 8:54 AM EDT)ComponentValueRef RangeTest MethodAnalysis TimePerformed AtPathologist SignatureHepatitis C AbNONREACTIVE NR1 7:51 PM EDTMERCY LABORATORIESComment: ? The hepatitis C procedure used in our laboratory is a Chemiluminescent test specific for three recombinant HCV antigens. ??A negative anti-HCV result indicates that the antibodies to hepatitis C virus are not present at this time. Individuals with reactive anti-HCV should be considered infected and infectious until proven otherwise. ??Confirmation of all equivocal or reactive results is recommended by ordering HCV RNA by PCR. Performed at [address] [id number] ([phone] Specimen (Source)Anatomical Location / LateralityCollection Method / Volume Collection TimeReceived TimeBLOOD SPECIMEN / Dttawpi0401/01/2017 8:54 AM EDT 01/01/2017 8:55 AM EDT Narrative Authorizing ProviderResult TypeResult Cornelius Garner HOT SAW HELPER - BUTADIENE CONVERTER UTILITY OPERATOR IMMUNOLOGY ORDERABLESFinal ResultPerforming OrganizationAddressCity/State/ZIP CodePhone Number [address] [address], [facility] [phone] [address], [facility] [phone] * HIV Screen (01/01/2017 8:54 AM EDT)ComponentValueRef RangeTest MethodAnalysis TimePerformed AtPathologist SignatureHIV Ag/EhLBZGRSRDVPCRL92/20/2017 5:58 PM EDTMERCY LABORATORIESComment: ? No laboratory evidence of HIV infection. ??If acute HIV infection is suspected, consider testing for HIV-1 RNA. This is an FDA approved immunoassay that detects HIV-1 and HIV-2 antibodies and HIV-1 p24 antigen to screen for infection with HIV-1 or HIV-2. Performed at [address] [address] ([phone] Specimen (Source)Anatomical Location / LateralityCollection Method / Volume Collection TimeReceived TimeBLOOD SPECIMEN / Zxxqkcb5801/01/2017 8:54 AM EDT 01/01/2017 8:55 AM EDT Narrative Authorizing ProviderResult TypeResult StatusNoel Jesica Garner HOT SAW HELPER - BUTADIENE CONVERTER UTILITY OPERATOR IMMUNOLOGY ORDERABLESFinal ResultPerforming OrganizationAddressCity/State/ZIP CodePhone Number [facility] [address] [place] [address], [facility] [phone] [place] [id number] [phone] from Last 3 Months or Most Recently Relevant to Health Maintenance Insurance Care Teams Team MemberRelationshipSpecialtyStart DateEnd Date Riley Aden PA [address] [place] [address] [facility]12/12/24
== END 2025-03-05 10:18 | disposition home or self-care (01) ==
PROVIDERS: Emergency Provider Emergency Medicine
DX: S90.32XA Contusion of left foot, initial encounter (principal); V03.90XA Pedestrian on foot injured in collision with car, pick-up truck or van, unspecified whether traffic or nontraffic accident, initial encounter; Y92.481 Parking lot as the place of occurrence of the external cause; F17.200 Nicotine dependence, unspecified, uncomplicated
CPT/HCPCS: 73630; 99283